=== PATIENT | male | born 1945 | race Caucasian/White ===

== ENCOUNTER 2018-01-02 21:50 | Inpatient (IN) | payer MEDICARE, BC ==
[~2018-01-02] VITALS: Ht 182.9 cm; Wt 96.4 kg
[~2018-01-02 21:50] MED LIST: ASPI-516 CHEW; ATOR40TA16 PO; FERR325T18 PO; FLOR250C PO; FURO40TA PO; GABA100C4 PO; ISOS30TA3 PO; LANTUS2P SQ; LEVO100T5 PO; METH8TAB3 PO; MULTTAB67 PO; NOVOLOGP2 SQ; SACU1TAB PO; SPIR50TA PO; XARE15TA PO
[2018-01-02 22:20] VITALS: BP 121/82; PULSE 133; RESP 20; TEMP 98; O2SAT 98
[2018-01-02] MEDS ORDERED: NALOXONE HCL 0.4 MG/ML AMP IV PUSH PRN (23:00)
[2018-01-02] MEDS ORDERED: SODIUM CHLORIDE 0.9% FLUSH 10 ML FLUSH IV FLUSH PRN (23:00)
[2018-01-02] MEDS ORDERED: GLUCAGON 1 MG/ML VIAL OTHER PRN (23:15)
[2018-01-02] MEDS ORDERED: DEXTROSE 50% IN WATER 50 ML VIAL(D50) IV PUSH PRN (23:15)
[2018-01-02 23:59] VITALS: PULSE 131
[2018-01-03] VITALS (26 sets, daily range): BP systolic 103–128; BP diastolic 70–80; PULSE 76–116; RESP 16–20; TEMP 97.6–98.8; O2SAT 93–100
[2018-01-03] MEDS: METOPROLOL TARTRATE 5 MG/5 ML VIAL IV PUSH PRN ×2 (00:18→01:37)
[2018-01-03 01:04] LABS: TROPONIN I 1.88 NG/ML (0.02-0.05)
[2018-01-03] MEDS ORDERED: HEPARIN-D5W 25,000 U/250 ML 250 ML IV PRN (01:15)
[2018-01-03] MEDS: FERROUS SULFATE 325 MG (65 MG ELEMENTAL IRON) TAB PO SCH ×3 (01:15→17:35)
--- NOTE | 2018-01-03 01:26 | HHI.HP ---
[facility] Unknown Admission Diagnosis Unstable Angina . Diagnoses: (1) NSTEMI (non-ST elevated myocardial infarction) (2) Unstable angina Chief Complaint: Chest pain with SOB Travel History International Travel<30 Days: No Contact w/Intl Traveler <30 Da: No Traveled to Known Affected Are: No History of Present Illness Mr. Heard is a 72-year-old male with a history of congestive heart failure with EF of 35%, coronary artery disease status post bypass and multiple stent placement, atrial fibrillation on anticoagulation, and chronic cellulitis of bilateral lower extremities who presented to the [place] emergency room complaining of left-sided chest pain accompanied by shortness of breath. The patient has a pacemaker and a LifeVest in place and had been discharged from [facility] [place] 3 [place] prior where he had reportedly been admitted 5 times since late August for multiple issues including exacerbations of congestive heart failure and chest pain. He requested transfer to [facility] in [facility] for a second opinion about his chronic heart conditions with frequent exacerbations. He was also noted to be in A. fib with RVR in [place]. The patient is seen in the [facility]. He reports left-sided chest pain accompanied by shortness of breath and palpitations occurred earlier in the day and intermittently ever since. He denies any associated nausea, vomiting, or diaphoresis. He reports this pain is similar to the other times he has been told he has had myocardial infarction. He denies any recent illness, fevers, upper respiratory symptoms, or chills. He is not a great historian. Review of Systems Except as stated in HPI: all other systems reviewed are Neg Past Family Social History Past Medical History Cardiomyopathy with EF less than 35% Congestive heart failure Coronary artery disease Hyperlipidemia Atrial fibrillation with rapid ventricular response Hypertension COPD Asthma Arthritis Diabetes mellitus . Past Surgical History CABG Pacemaker placement Hernia repair Reported Medications Reported Meds & Active Scripts Active Reported Spironolactone 50 Mg Tab 50 Mg PO DAILY Entresto (Sacubitril-Valsartan) 24-26 Mg Tab 1 Tab PO DAILY Florastor (Saccharomyces Boulardii) 250 Mg Cap 250 Mg PO BID Xarelto (Rivaroxaban) 15 Mg Tab 15 Mg PO DAILY Multiple Vitamin 1 Tab 1 Tab PO DAILY Methylprednisolone 8 Mg Tab 8 Mg PO DAILY Levothyroxine (Levothyroxine Sodium) 100 Mcg Tab 100 Mcg PO DAILY Isosorbide Mononitrate ER (Isosorbide Mononitrate) 30 Mg Yemi 30 Mg PO DAILY Lantus Inj (Insulin Glargine) 1,000 Unit/10 Ml Vial 12 Units SQ HS Novolog Inj (Insulin Aspart) 1,000 Unit/10 Ml Vial 0 SQ DIRECTED Sliding Scale as directed. Gabapentin 100 Mg Cap 200 Mg PO TID Furosemide 40 Mg Tab 40 Mg PO DAILY Ferrous Sulfate 325 Mg (65 Mg Iron) Tablet 325 Mg PO BIDPC Atorvastatin (Atorvastatin Calcium) 40 Mg Tab 40 Mg PO HS Aspirin 81 Mg Chew 81 Mg CHEW DAILY . Allergies: Coded Allergies: codeine (Verified Allergy, Unknown, 01/02/18) hydromorphone (Verified Allergy, Unknown, Hallucinations, 01/02/18) morphine (Verified Allergy, Unknown, Hallucinations, 01/02/18) Family History Mother from [place] at age 75 . Social History Tobacco: Quit smoking in 2001 Alcohol: Quit drinking alcohol in 2001 Illicit Drugs: Denies . Physical Exam Vital Signs Vital Signs Date Time Temp Pulse Resp B/P (MAP) Pulse Ox O2 Delivery O2 Flow Rate FiO2 01/03/18 00:23 98.2 102 20 123/78 (93) 94 01/02/18 22:20 98.0 133 20 121/82 (95) 98 Physical Exam CONSTITUTIONAL: This is a well-nourished, well-developed patient, in no apparent distress. INTEGUMENTARY: Bilateral lower extremities are covered in dressings from just below the knee to the ankle. Skin is cool and dry. Multiple bruises noted in various degrees of healing. HEAD: Atraumatic. Normocephalic. EYES: No injection or drainage. ENT: Nose without bleeding, purulent drainage. NECK: Trachea midline. No JVD. CARDIOVASCULAR:Irregularly irregular without murmurs, gallops, or rubs. PP dopplerable. Trace pitting edema to bilateral feet. RESPIRATORY: Clear to auscultation. Breath sounds equal bilaterally. No wheezes , rales, or rhonchi. GASTROINTESTINAL: Abdomen soft, non-tender, nondistended. No guarding. MUSCULOSKELETAL: Extremities without clubbing, cyanosis. No calf tenderness. NEUROLOGICAL: Awake and alert. Motor and sensory grossly within normal limits. Normal speech. Some memory impairment noted. . Laboratory Laboratory Tests Test 01/03/18 00:08 Imaging Last Impressions Chest X-Ray 01/02/18 1706 Signed Impressions: Service Date/Time: Tuesday, January 02, 2018 17:54 - CONCLUSION: Left basilar atelectasis. Otherwise, no acute cardiopulmonary process. Findings of prior CABG. Abel Drummond MD . Caprini VTE Risk Assessment Caprini VTE Risk Assessment: Mod/High Risk (score >= 2) Caprini Risk Assessment Model Point Value = 1 Point Value = 2 Point Value = 3 Point Value = 5 Age 41-60 Minor surgery BMI > 25 kg/m2 Swollen legs Varicose veins or History of unexplained or recurrent spontaneous Oral contraceptives or hormone replacement Sepsis (< 1 month) Serious lung disease, including pneumonia (< 1 month) Abnormal pulmonary function Acute myocardial infarction Congestive heart failure (< 1 month) History of inflammatory bowel disease Medical patient at bed rest Age 61-74 Arthroscopic surgery Major open surgery (> 45 min) Laparoscopic surgery (> 45 min) Malignancy Confined to bed (> 72 hours) Immobilizing plaster cast Central venous access Age >= 75 History of VTE Family history of VTE Factor V Leiden Prothrombin [id number] Lupus anticoagulant Anticardiolipin antibodies Elevated serum homocysteine Heparin-induced thrombocytopenia Other congenital or acquired thrombophilia Stroke (< 1 month) Elective arthroplasty Hip, pelvis, or leg fracture Acute spinal cord injury (< 1 month) Prophylaxis Regimen Total Risk Factor Score Risk Level Prophylaxis Regimen 0-1 Low Early ambulation 2 Moderate Order ONE of the following: *Sequential Compression Device (SCD) *Heparin 5000 units SQ BID 3-4 Higher Order ONE of the following medications: *Heparin 5000 units SQ TID *Enoxaparin/Lovenox 40 mg SQ daily (WT < 150 kg, CrCl > 30 mL/min) *Enoxaparin/Lovenox 30 mg SQ daily (WT < 150 kg, CrCl > 10-29 mL/min) *Enoxaparin/Lovenox 30 mg SQ BID (WT < 150 kg, CrCl > 30 mL/min) AND/OR *Sequential Compression Device (SCD) 5 or more Highest Order ONE of the following medications: *Heparin 5000 units SQ TID (Preferred with Epidurals) *Enoxaparin/Lovenox 40 mg SQ daily (WT < 150 kg, CrCl > 30 mL/min) *Enoxaparin/Lovenox 30 mg SQ daily (WT < 150 kg, CrCl > 10-29 mL/min) *Enoxaparin/Lovenox 30 mg SQ BID (WT < 150 kg, CrCl > 30 mL/min) AND *Sequential Compression Device (SCD) Assessment and Plan Assessment and Plan Mr. Heard is a 72-year-old male with a history of congestive heart failure with EF of 35%, coronary artery disease status post bypass and multiple stent placement, atrial fibrillation on anticoagulation, and chronic cellulitis of bilateral lower extremities who presented to the [place] emergency room complaining of left-sided chest pain accompanied by shortness of breath. The patient has a pacemaker and a LifeVest in place and had been discharged from [facility] in the [facility] 3 days prior where he had reportedly been admitted 5 times since late August for multiple issues including exacerbations of congestive heart failure and chest pain. He requested transfer to [facility] in [facility] for a second opinion about his chronic heart conditions with frequent exacerbations. He was also noted to be in A. fib with RVR in [place]. Unstable angina NSTEMI -On NTG drip upon transfer from [place] - will continue -BNP 576 -Chest x-ray with left basilar atelectasis, otherwise no acute cardiopulmonary process. -Initial troponin I 0.06, second troponin I 1.88 -continue to trend cardiac enzymes and EKGs personally reviewed - with a fib and nonspecific anterolateral ST depressions noted. -Heparin drip -Obtain medical records from [facility] in [place] -nursing to obtain consent from patient -Continue home entresto, Imdur, Lasix, and Spironolactone - consult Cardiology for second opinion at patient's request -Have asked the nurse to call the patient's to request that she bring in his defibrillator vest Atrial fibrillation with rapid ventricular response -Metoprolol 1.25 mg IV every 5 minutes up to 3 doses for sustained heart rate greater than 120 bpm -Continuous cardiac telemetry to monitor rate and rhythm Type 2 Diabetes Mellitus -Continue home Lantus - Accu-Cheks before meals and at bedtime with low-dose NovoLog sliding scale coverage - PRN Hypoglycemia protocol - Monitor trends and blood glucose readings and adjust treatments as indicated Hypothyroidism -Continue home Synthroid DVT prophylaxis -Heparin drip initiated . Discussed Condition With Dr. Molina, patient, and patient's RN . Physician Certification 2 Midnight Certification Type: Admission for Inpatient Services Order for Inpatient Services The services are ordered in accordance with Medicare regulations or non- Medicare payer requirements, as applicable. In the case of services not specified as inpatient-only, they are appropriately provided as inpatient services in accordance with the 2-midnight benchmark. Estimated LOS (days): 4 days is the estimated time the patient will need to remain in the hospital, assuming treatment plan goals are met and no additional complications. Post-Hospital Plan: Not yet determined Betsey Duran Jan 03, 2018 01:26
[2018-01-03] MEDS ORDERED: NITROGLYCERIN-D5W 50 MG/250 ML 250 ML IV PRN ×2 (01:30→01:45)
[2018-01-03] MEDS ORDERED: MELATONIN 5 MG TAB PO ONE (02:15)
[2018-01-03 02:21] LABS: HEMATOCRIT 24.8 % (39.0-51.0); HEMOGLOBIN 8.1 GM/DL (13.0-17.0); MEAN CELL VOLUME 83.3 FL (80.0-100.0); MEAN CORPUSCULAR HEMOGLOBIN 27.4 PG (27.0-34.0); MEAN CORPUSCULAR HGB CONC 32.9 % (32.0-36.0); MEAN PLATELET VOLUME 8.3 FL (7.0-11.0); PLATELET COUNT 117 TH/MM3 (150-450); RED BLOOD COUNT 2.98 MIL/MM3 (4.50-5.90); RED CELL DISTRIBUTION WIDTH 21.1 % (11.6-17.2); WHITE BLOOD COUNT 7.5 TH/MM3 (4.0-11.0)
[2018-01-03 02:30] LABS: INTERNATIONAL NORMALIZED RATIO 1.4 RATIO; PROTHROMBIN TIME - PATIENT 14.6 SEC (9.8-11.6)
[2018-01-03] MEDS: HEPARIN-D5W 25,000 U/250 ML 250 ML IV PRN ×2 (02:58→12:00)
[2018-01-03] MEDS: oxyCODONE/ACETAMINOPHEN 5 MG/325 MG TAB PO PRN ×2 (03:22→10:09)
[2018-01-03 06:07] LABS: AUTOMATED NEUTROPHIL # 5.5 TH/MM3 (1.8-7.7); BASOPHIL % 0.5 % (0.0-2.0); EOSINOPHIL # 0.2 TH/MM3 (0-0.4); EOSINOPHIL % 2.6 % (0.0-4.0); HEMOGLOBIN 7.9 GM/DL (13.0-17.0); LYMPH % 27.7 % (9.0-44.0); LYMPHOCYTE # 2.6 TH/MM3 (1.0-4.8); MEAN CELL VOLUME 82.8 FL (80.0-100.0); MEAN CORPUSCULAR HEMOGLOBIN 27.3 PG (27.0-34.0); MEAN PLATELET VOLUME 8.1 FL (7.0-11.0); MONO % 9.4 % (0.0-8.0); MONOCYTE # 0.9 TH/MM3 (0-0.9); NEUT % 59.8 % (16.0-70.0); PLATELET COUNT 122 TH/MM3 (150-450); RED CELL DISTRIBUTION WIDTH 21.5 % (11.6-17.2); WHITE BLOOD COUNT 9.3 TH/MM3 (4.0-11.0)
[2018-01-03 06:33] LABS: BICARBONATE 29.3 MEQ/L (21.0-32.0); CALCIUM 8.6 MG/DL (8.5-10.1); CREATININE 1.12 MG/DL (0.60-1.30)
[2018-01-03] MEDS: LEVOTHYROXINE SODIUM 100 MCG TAB PO SCH (06:33)
[2018-01-03] MEDS ORDERED: ISOSORBIDE MONONITRATE 30 MG CR TAB (IMDUR) PO SCH (07:00)
[2018-01-03] MEDS ORDERED: HEPARIN SODIUM - IV 10,000 UNITS/10 ML VIAL IV PUSH PRN ×2 (07:15)
[2018-01-03 07:28] LABS: TROPONIN I 3.62 NG/ML (0.02-0.05)
[2018-01-03] MEDS: INSULIN ASPART SUPPLEMENTAL SCALE SQ SCH ×4 (08:00→22:48)
[2018-01-03] MEDS: ASPIRIN 81 MG CHEW TAB CHEW SCH (09:00)
[2018-01-03] MEDS: FUROSEMIDE 40 MG TAB PO SCH (09:00)
[2018-01-03] MEDS: methylPREDNISolone 4 MG TAB PO SCH (09:00)
[2018-01-03] MEDS: GABAPENTIN 100 MG CAP PO SCH ×4 (09:00→16:36)
[2018-01-03] MEDS: SODIUM CHLORIDE 0.9% FLUSH 10 ML FLUSH IV FLUSH SCH ×2 (09:00→22:46)
[2018-01-03] MEDS: SACUBITRIL/VALSARTAN 24 MG-26 MG TAB PO SCH (09:00)
[2018-01-03] MEDS: SPIRONOLACTONE 50 MG TAB PO SCH (09:00)
--- NOTE | 2018-01-03 15:23 | EKG ---
Date Performed: 01/03/2018 Time Performed: 05:06:22 PTAGE: 72 years EKG: Atrial fibrillation Questionable demand pacing Pacemaker rhythm - no further analysis Abnor mal ECG PREVIOUS TRACING : 01/03/2018 01.55 Clinical correlation is recommended DOCTOR: Severo Crenshaw Interpretating Date/Time 01/03/2018 15:18:27
--- NOTE | 2018-01-03 15:23 | EKG ---
Date Performed: 01/03/2018 Time Performed: 01:55:56 PTAGE: 72 years EKG: Atrial fibrillation Questionable Demand pacing Cannot rule out septal infarct - age undeter mined Possible left ventricular hypertrophy Inferior/lateral ST-T changes may be due to hypertrophy a nd/or ischemia Abnormal ECG PREVIOUS TRACING 01/02/17 Clinical correlation is recommended DOCTOR: Severo Crenshaw Interpretating Date/Time 01/03/2018 15:18:11
[2018-01-03] MEDS ORDERED: PILL SPLITTER OTHER PRN (16:30)
--- NOTE | 2018-01-03 16:51 | MB ---
cc: Oliver Acevedo MD DATE: 01/03/2018 REASON FOR CONSULTATION: Chest pain, abnormal cardiac enzymes. HISTORY OF PRESENT ILLNESS: The patient is a 72-year-old white male with a history of numerous medical problems including coronary artery disease, atrial fibrillation, congestive heart failure, ischemic cardiomyopathy, diabetes, COPD, status post several admissions to [facility] in the last 5 months for chest pains and congestive heart failure, who came to the [facility] emergency room last night because of chest pain. The patient developed a "spasm" of his left upper chest associated with shortness of breath. The discomfort was intense for about 15 minutes, but finally gradually resolved. At times, he experiences racing, pounding palpitations. He denies dizziness, syncope, near syncope, paroxysmal nocturnal dyspnea, fevers, and cough. In the last few weeks, he has had considerable improvement in his chronic pedal edema. The patient reports compliance with his medications. For the most part, he is sedentary. PAST MEDICAL HISTORY: 1. Carotid disease, status post right carotid endarterectomy 02/2012. His last carotid ultrasound 08/23/2017 showed 30-49% bilateral internal carotid artery disease. 2. Chronic obstructive pulmonary disease. 3. Coronary artery disease status post bypass surgery in 2001, status post stent of the [place] LAD through the left internal mammary artery 2003. On a heart catheterization 01/06/2015, his vein graft to the posterior descending artery was found to be occluded. His last heart catheterization was 09/14/2017 at [facility] showing 50% mid to distal left main, totally occluded proximal LAD, totally occluded proximal right coronary, totally occluded obtuse marginal, patent left internal mammary artery to the LAD with patent [place] LAD stents, patent vein graft to the obtuse marginal, totally occluded vein graft to the posterior descending artery with good left to right collaterals. 4. Diabetes. 5. Hyperlipidemia. 6. Hypertension. 7. Hypothyroidism. 8. Ischemic cardiomyopathy with recent admissions for congestive heart failure. His ejection fraction was 30% by cardiac catheterization 09/14/2017. 9. History of a pacemaker implant. 10. Paroxysmal atrial fibrillation, dating back to 2010. His atrial fibrillation has been largely chronic since 06/2017. 11. History of peripheral vascular disease, status post angioplasty of the right posterior tibial 12/21/2012 and angioplasty of the left anterior tibial 01/11/2013, status post stent of the right superficial femoral artery 12/21/2012 and stent of the left superficial femoral artery 01/11/2013. CARDIAC MEDICATIONS AT HOME: 1. Spironolactone 50 mg daily, 2. Entresto / one daily. 3. Xarelto 15 mg daily. 4. Imdur 30 mg daily. 5. Furosemide 40 mg daily. 6. Atorvastatin 40 mg at bedtime. 7. Aspirin 81 mg daily. 8. Metoprolol 12.5 mg b.i.d. ALLERGIES: 1. CODEINE. 2. MORPHINE. 3. HYDROMORPHONE. FAMILY HISTORY: Noncontributory. SOCIAL HISTORY: The patient quit smoking in 2001. He denies alcohol abuse. REVIEW OF SYSTEMS: As in history of present illness, otherwise negative or noncontributory. He also denies headache, abdominal pain, melena, dyspepsia, recent flu, bright red blood per rectum. PHYSICAL EXAMINATION: VITAL SIGNS: Blood pressure 110/73 with a pulse of 96, respirations 16. GENERAL: He is a well-developed, well-nourished white male, in no acute distress. NECK: Jugular venous pressure is normal. Carotid pulses are 2+ bilaterally without definite bruit. CHEST: Reveals diminished breath sounds diffusely. CARDIAC: He has an irregularly irregular rhythm with a grade II/ systolic ejection murmur heard at the base. The S2 heart sound is normal. No gallop is audible. ABDOMEN: He has a soft, nontender abdomen. Bowel sounds are present. There is no definite hepatosplenomegaly. EXTREMITIES: Examination reveals no clubbing or cyanosis. There is trace pretibial edema bilaterally. DIAGNOSTIC STUDIES: EKG from 01/03/2018 at 1:55 a.m. shows atrial fibrillation, poor R-wave progression, inferior and lateral T-wave inversion, consider ischemia, occasional ventricular demand pacing. Laboratory data includes WBC 9.3, hemoglobin 7.9, platelets 122. Troponin 3.62. Potassium 3.9, BUN 27, creatinine 1.12. Chest x-ray from 01/02/2018 shows no acute disease. IMPRESSION: Abnormal troponin levels, atypical chest pain in this 72-year-old white male with a history of multiple medical problems including atrial fibrillation, peripheral vascular disease, chronic obstructive pulmonary disease, coronary artery disease, diabetes, ischemic cardiomyopathy, pacemaker implant. His symptoms last night were overall atypical for myocardial ischemia. CK levels are normal (49). The elevation in troponin may have been due to tachycardia with his atrial fibrillation. Overall, there is no definite evidence for acute congestive heart failure. Of note, he has had 2 cardiac catheterizations in the last 11 months showing basically no change in the coronary/graft anatomy compared to 2015, except for increasing left to right collaterals as well as reduction ejection fraction (30% 4 months ago). RECOMMENDATIONS: 1. Recommend beta hermila therapy and continuing Entresto. 2. Check a 2-D echo to reassess his left ventricular function; if his ejection fraction is still less than 35%, consider AICD implantation. 3. We will consult Dr. Crystal for possible ablation procedure of his atrial fibrillation. 4. Continue Xarelto. MD BRITTA Branch/NANCY , 03:55 PM , 04:49 PM KATJA
[2018-01-03] MEDS ORDERED: ZOLPIDEM TARTRATE 5 MG TAB PO PRN (17:15)
[2018-01-03] MEDS: NITROGLYCERIN/DEXTROSE 5% 250 ML for chest pain IV PRN (18:45)
--- NOTE | 2018-01-03 19:00 | MB ---
cc: Rose Crystal MD, Hanscy MD Miller,Jose Espinoza DO DATE: 01/03/2018 REASON FOR CONSULTATION: Atrial fibrillation with biventricular response. HISTORY OF PRESENT ILLNESS: Mr. Heard is a 72-year-old gentleman with ischemic cardiomyopathy, congestive heart failure, had previous hospitalization at [facility] in the last 6 months who came to the emergency room due to chest pain. during hospitalization, he was found in atrial fibrillation with fast ventricular response. Heart rate was very difficult to control. He possibly has tachycardia mediated cardiomyopathy. I was consulted for evaluation and management. The chart was reviewed. The patient was evaluated. ALLERGIES: CODEINE. MORPHINE, HYDROMORPHONE . SOCIAL HISTORY: The patient referred negative for smoking and drinking. FAMILY HISTORY: Noncontributory to his current medical condition. MEDICATIONS: Metoprolol, atorvastatin, Lasix, Imdur. Xarelto that was discontinued, Entresto and Aldactone. REVIEW OF SYSTEMS: Currently referred chest pain on minimal activities and shortness of breath and palpitation, but no fever. PHYSICAL EXAMINATION: GENERAL: Alert, fully oriented. VITAL SIGNS: His blood pressure 118/70, pulse around 104, irregular, respiratory rate 20. LUNGS: Ventilated. CARDIOVASCULAR: S1, S2, irregular, tachycardic. ABDOMEN: Obese. No mass. EXTREMITIES: No edema. CARDIOLOGY STUDIES: Electrocardiogram on hospitalization showed atrial fibrillation with biventricular response and V pacing episode. LABORATORY DATA: Hemoglobin is 7.9, white blood cell 9.3. Potassium 3.9, creatinine 1.12. Troponin 3.62. INR 1.4. ASSESSMENT AND RECOMMENDATION: Mr. Heard has unstable angina. He is having chest pain on and off. He has a history of previous percutaneous transluminal coronary angioplasty plus stent and previous left heart catheterization. He has previous coronary artery bypass grafting also. The last heart catheterization was on 09/14 at [facility]. He has multiple risk factors. Also he has diabetes mellitus. The ejection fraction on last hospitalization was 30%. He has also normal renal function, creatinine 1.12. The gentleman most likely is experiencing an ischemic episode. He is going to need to have a left heart catheterization. His troponin is 2.62 and is already on nitro. . Also, his hemoglobin is 7.9. That may worsen his. angina. he is on Xarelto. That was held yesterday. The gentleman will need a left heart catheterization. After the catheterization and possible revascularization, if the patient's heart rate continues to be very difficult to control then I will consider ablation. The case was extensively discussed with he and his . I will monitor him during hospitalization. I advised the nurse to call the front end developer javascript html css for further evaluation and management at this point. His condition is of care. Rose Crystal MD HS/SA , 06:28 PM , 06:58 PM
[2018-01-03] MEDS ORDERED: METOPROLOL TARTRATE 5 MG/5 ML VIAL IV PUSH ONE (19:30)
[2018-01-03] MEDS ORDERED: MEPERIDINE HCL 25 MG/ML VIAL IV ONE (19:30)
--- NOTE | 2018-01-03 21:20 | HHI.PR ---
Subjective Remarks Patient is glad to be seeing Dr. Acevedo again, he did not have a great experience after moving to [place]. He has had no episodes of chest pain this morning. Objective Vitals Vital Signs Date Time Temp Pulse Resp B/P (MAP) Pulse Ox O2 Delivery O2 Flow Rate FiO2 01/03/18 20:42 97 01/03/18 18:45 99 130/93 01/03/18 18:00 104 01/03/18 17:00 92 01/03/18 16:00 96 01/03/18 15:16 97.6 99 16 118/70 (86) 99 01/03/18 15:00 92 01/03/18 14:00 76 01/03/18 13:00 92 01/03/18 12:00 90 01/03/18 11:00 95 01/03/18 11:00 98.8 96 16 110/73 (85) 98 01/03/18 10:00 82 01/03/18 09:19 100 21 01/03/18 09:00 92 01/03/18 08:00 76 01/03/18 07:50 97.6 94 18 114/72 (86) 97 01/03/18 07:00 95 01/03/18 04:22 18 01/03/18 04:10 116 01/03/18 04:00 98.0 104 20 103/80 (88) 96 01/03/18 00:23 98.2 102 20 123/78 (93) 94 01/02/18 23:59 131 01/02/18 22:20 98.0 133 20 121/82 (95) 98 I/O 01/02/18 01/02/18 01/02/18 01/03/18 01/03/18 01/03/18 06:59 14:59 22:59 06:59 14:59 22:59 Intake Total 240 ml Output Total 1100 ml 800 ml Balance -1100 ml -560 ml Intake Oral 240 ml Output Urine Total 1100 ml 800 ml Result Diagram: 01/03/18 0545 01/03/18 0545 Objective Remarks GENERAL: Well-nourished, obese patient. SKIN: Warm and dry. HEAD: Normocephalic. EYES: No scleral icterus. No injection or drainage. NECK: Supple, trachea midline. No JVD or lymphadenopathy. CARDIOVASCULAR: Regular rate and rhythm 1/6 OLI, gallops, or rubs. RESPIRATORY: Breath sounds equal bilaterally. No accessory muscle use. GASTROINTESTINAL: Abdomen soft, non-tender, nondistended. EXTREMITIES: No cyanosis, or edema. NEUROLOGICAL: Awake, alert, and oriented x 3. Non-focal. A/P Problem List: (1) NSTEMI (non-ST elevated myocardial infarction) ICD Code: I21.4 - Non-ST elevation (NSTEMI) myocardial infarction (2) Unstable angina ICD Code: I20.0 - Unstable angina Assessment and Plan Atrial fibrillation with rapid ventricular response Continue Metoprolol IV for rate control Last ECHO in [place] showed EF = 30% blood bank laboratory technician requested prior to ablation Follow on telemetry, continue Xarelto Appreciate Cardiology and Electocardiology Consults Unstable angina Elevation of Troponin to 1.88, EKG positive, BNP 576 Continue Nitrogen drip Continue home entresto, Imdur, Lasix, and Spironolactone Patient presented with his external defibrillator Type 2 Diabetes Mellitus Continue home Lantus Accuchecks with sliding scale coverage Diabetic diet Insomnia Ambien PRN Hypothyroidism Continue home Synthroid DVT prophylaxis Xarelto . Garrett Fry MD Jan 03, 2018 21:20
[2018-01-03] MEDS: ATORVASTATIN 40 MG TAB PO SCH (22:47)
[2018-01-03] MEDS: METOPROLOL TARTRATE 25 MG TAB PO SCH (22:47)
[2018-01-03] MEDS: INSULIN DETEMIR 100 UNITS/ML VIAL SQ SCH (22:48)
[2018-01-04] VITALS (34 sets, daily range): BP systolic 100–123; BP diastolic 57–74; PULSE 86–133; RESP 18–20; TEMP 97.6–98.3; O2SAT 94–100
[2018-01-04] MEDS: NITROGLYCERIN/DEXTROSE 5% 250 ML for chest pain IV PRN ×3 (00:01→21:37)
[2018-01-04] MEDS: ACETAMINOPHEN 325 MG TAB PO PRN (05:13)
[2018-01-04] MEDS: METOPROLOL TARTRATE 5 MG/5 ML VIAL IV PUSH PRN ×2 (05:17→15:45)
[2018-01-04] MEDS: LEVOTHYROXINE SODIUM 100 MCG TAB PO SCH (06:32)
[2018-01-04] MEDS: ISOSORBIDE MONONITRATE 60 MG CR TAB (IMDUR) PO SCH (06:32)
[2018-01-04] MEDS: INSULIN ASPART SUPPLEMENTAL SCALE SQ SCH ×4 (08:00→21:32)
--- NOTE | 2018-01-04 08:34 | PD.CARD.PN ---
Subjective Subjective Remarks Mildly dyspneic at rest. No CP today. Slept very poorly. Mildly lightheaded. No palpitations, syncope. Objective Medications Item Value Date Time Rivaroxaban 15 mg 01/04/18 0900 (Xarelto) DAILY/PO Isosorbide 60 mg 01/04/18 0700 Mononitrate DAILY@0700/PO 01/04/18 0632 (Imdur) Atorvastatin 40 mg 01/03/18 2100 Calcium HS/PO 01/03/182246 (Lipitor) Metoprolol 12.5 mg 01/03/18 2100 Tartrate Q12HR/PO 01/03/182246 (Lopressor) Aspirin 81 mg 01/03/18899 (Aspirin Chew) DAILY/CHEW Furosemide 40 mg 01/03/18 0900 (Lasix) DAILY/PO Sacubitril/ 1 tab 01/03/18 09 Valsartan DAILY/PO (Entresto 24-26 Mg) Spironolactone 50 mg 01/03/18 0900 (Aldactone) DAILY/PO Current Medications Medications (Trade) Dose Ordered Sig/Edna Route Start Time Stop Time Status Last Admin (NS Flush) 2 ml UNSCH PRN IV FLUSH 01/02/18 23:00 (NS Flush) 2 ml BID IV FLUSH 01/03/18 09:00 (Tylenol) 650 mg Q4H PRN PO 01/02/18 23:00 01/04/18 05:13 (Narcan Inj) 0.4 mg UNSCH PRN IV PUSH 01/02/18 23:00 (Lopressor Inj) 1.25 mg Q5M PRN IV PUSH 01/02/18 23:00 01/04/18 05:17 (Percocet 5-325 Mg) 1 tab Q4H PRN PO 01/02/18 23:00 01/03/18 10:09 (D50w (Vial) Inj) 50 ml UNSCH PRN IV PUSH 01/02/18 23:15 (Glucagon Inj) 1 mg UNSCH PRN OTHER 01/02/18 23:15 (NovoLOG SUPPLEMENTAL SCALE) 1 ACHS SLIDING SCALE SQ 01/03/18 08:00 01/03/18 22:48 (Aspirin Chew) 81 mg DAILY CHEW 01/03/18 09:00 (Lipitor) 40 mg HS PO 01/03/18 21:00 01/03/18 22:47 (Ferrous Sulfate) 325 mg BIDPC PO 01/03/18 01:15 01/03/18 17:35 (Lasix) 40 mg DAILY PO 01/03/18 09:00 (Neurontin) 200 mg TID PO 01/03/18 09:00 01/03/18 16:36 (Levemir Inj) 12 units HS SQ 01/03/18 21:00 01/03/18 22:48 (Synthroid) 100 mcg DAILY@0700 PO 01/03/18 07:00 01/04/18 06:32 (Entresto 24-26 Mg) 1 tab DAILY PO 01/03/18 09:00 (Aldactone) 50 mg DAILY PO 01/03/18 09:00 (Medrol) 8 mg DAILY PO 01/03/18 09:00 (Imdur) 60 mg DAILY@0700 PO 01/04/18 07:00 01/04/18 06:32 (Lopressor) 12.5 mg Q12HR PO 01/03/18 21:00 01/03/18 22:47 (Xarelto) 15 mg DAILY PO 01/04/18 09:00 (Pill Splitter) 1 ea UNSCH PRN OTHER 01/03/18 16:30 (Ambien) 5 mg HS PRN PO 01/03/18 17:15 01/03/18 22:52 Nitroglycerin/ Dextrose 250 ml @ 21 mls/hr TITRATE PRN IV 01/03/18 20:15 01/04/18 00:01 Vital Signs / I&O Vital Signs Date Time Temp Pulse Resp B/P (MAP) Pulse Ox O2 Delivery O2 Flow Rate FiO2 01/04/18 06:45 95 01/04/18 06:33 19 01/04/18 05:19 98 01/04/18 05:15 133 01/04/18 03:02 97.6 98 20 108/71 (83) 97 01/04/18 03:00 98 01/04/18 02:00 96 01/04/18 01:00 94 01/04/18 00:27 18 01/04/18 00:01 94 128/75 01/04/18 00:00 86 01/03/18 23:00 96 01/03/18 23:00 97.8 108 18 128/75 (92) 100 01/03/18 22:00 104 18 21:30 97.8 107 19 125/75 (92) 98 01/03/18 21:00 84 18 20:42 97 18 20:00 90 01/03/18 19:00 86 18 18:45 99 130/93 01/03/18 18:00 104 01/03/18 17:00 92 01/03/18 16:00 96 01/03/18 15:16 97.6 99 16 118/70 (86) 99 01/03/18 15:00 92 01/03/18 14:00 76 01/03/18 13:00 92 01/03/18 12:00 90 01/03/18 11:00 95 01/03/18 11:00 98.8 96 16 110/73 (85) 98 01/03/18 10:00 82 01/03/18 09:19 100 21 01/03/18 09:00 92 I/O 01/03/1818 18 18 01/04/18 01/04/18 07:00 15:00 23:00 07:00 15:00 23:00 Intake Total 240 ml 360 ml Output Total 1100 ml 800 ml 300 ml Balance -1100 ml -560 ml 60 ml Intake Oral 240 ml 360 ml Output Urine Total 1100 ml 800 ml 300 ml # Voids 2 Physical Exam GENERAL: Well developed, well nourished. No acute distress. HEENT: Jugular venous pressure is normal. CHEST: Diminished breath sounds diffusely. CARDIAC: Irregular rate and rhythm without S3 or murmur. ABDOMEN: Soft, nontender, no hepatosplenomegaly. Bowel sounds present. EXTREMITIES: No clubbing, cyanosis. Trace left > right pretibial edema. Laboratory Laboratory Tests Test 01/03/18 08:50 01/03/18 22:39 Activated Partial Thromboplast Time 31.3 SEC 35.1 SEC Assessment and Plan Problem List: (1) CAD (coronary artery disease) ICD Codes: I25.10 - Atherosclerotic heart disease of [place] coronary artery without angina pectoris Status: Chronic Plan: Stable overnight. Brief atypical CP yesterday afternoon, none since. Patient with 2 caths in past 11 months showing no change in coronary/graft anatomy, last cath 4 months ago. Known totally occluded RCA with occluded graft with patent grafts to OM and LAD. REC medical therapy of his CAD (2) Chronic atrial fibrillation ICD Codes: I48.2 - Chronic atrial fibrillation Status: Chronic Plan: Remains in atrial fib. HR's mostly controlled. In light of his repeat CHF episodes, history of LV dysfunction, considering ablation. Dr. Crystal to manage. (3) Ischemic cardiomyopathy ICD Codes: I25.5 - Ischemic cardiomyopathy Status: Chronic Plan: Stable. Compensated. No acute CHF. Continue beta hermila, Entresto. Await echo this morning. Consider ICD implant if EF still < 35%. (4) Hypertension ICD Codes: I10 - Essential (primary) hypertension Status: Chronic Plan: Stable. Normotensive. Code Status full code Discussed Condition With patient Problem Qualifiers (1) CAD (coronary artery disease): Qualified Codes: I25.10 - Atherosclerotic heart disease of [place] coronary artery without angina pectoris (2) Hypertension: Qualified Codes: I10 - Essential (primary) hypertension Oliver Acevedo MD Jan 04, 2018 08:34
[2018-01-04] MEDS ORDERED: RIVAROXABAN 15 MG TAB PO SCH (09:00)
[2018-01-04] MEDS: ASPIRIN 81 MG CHEW TAB CHEW SCH (09:35)
[2018-01-04] MEDS: FERROUS SULFATE 325 MG (65 MG ELEMENTAL IRON) TAB PO SCH ×2 (09:35→17:19)
[2018-01-04] MEDS: SACUBITRIL/VALSARTAN 24 MG-26 MG TAB PO SCH (09:35)
[2018-01-04] MEDS: SPIRONOLACTONE 50 MG TAB PO SCH (09:35)
[2018-01-04] MEDS: GABAPENTIN 100 MG CAP PO SCH ×3 (09:35→17:19)
[2018-01-04] MEDS: methylPREDNISolone 4 MG TAB PO SCH (09:35)
[2018-01-04] MEDS: FUROSEMIDE 40 MG TAB PO SCH (09:36)
[2018-01-04] MEDS: SODIUM CHLORIDE 0.9% FLUSH 10 ML FLUSH IV FLUSH SCH ×2 (09:36→21:32)
[2018-01-04] MEDS: METOPROLOL TARTRATE 25 MG TAB PO SCH ×2 (09:38→21:31)
--- NOTE | 2018-01-04 11:03 | PD.WCN.NOT ---
Wound Consult Description: Consult placed for Wound Management of bilateral lower extremities with chronic wounds per ANA PAULA Duran Communicated with: Patient Patient family at bedside LC Hou Recommendation: Leave steri strip in place over skin tear to left du. Remove optilock dressings on left leg every other day and PRN for saturation or dislodgement. Cleanse medial left lower extremity with NS and pat dry. Apply optilock and secure with rolled gauze and tape. Do not place tape on skin. Right great toe: Cleanse wound every other day with NS and gauze. Apply single layer Xeroform over wound bed and secure with bandaid. Additional Information: *Late entry* Patient seen earlier this morning from [id number] on [facility] with Saiv PLATT, [facility], and the [employer], for evaluation of bilateral lower extremities. Left anterior unroofed bulla was cleansed with flap placed over open wound to close. Steri strip placed. Optilock placed over weeping skin tear due to surrounding pitting edema. Patient has hx of CHF. Optilock was secured with rolled gauze and tape. Left medial open wound measuring ~1cm x 0.5cm x 0.1cm was minimally actively draining clear fluid. Wound was cleansed with NS and gauze. Optilock was placed over wound and secured with rolled gauze and tape. Right great toe is noted with a dry wound measuring ~0.5cm x 1cm x dried yellow exudate with surrounding erythema. Wound was aggressively cleansed with NS and gauze. Dried exudate was not friable. Single layer xeroform was placed over dry wound bed and secured with gauze and tape. With next dressing change, a bandaid may be used. Felicity Valentine [facility] Jan 04, 2018 11:03
[2018-01-04] MEDS: oxyCODONE/ACETAMINOPHEN 5 MG/325 MG TAB PO PRN (16:41)
--- NOTE | 2018-01-04 18:06 | HHI.PR ---
Subjective Remarks Patient is feeling a bit confused today. Onset of symptoms began when he took Ambien at bedtime. This was a new medication for him. Objective Vitals Vital Signs Date Time Temp Pulse Resp B/P (MAP) Pulse Ox O2 Delivery O2 Flow Rate FiO2 01/04/18 17:51 18 01/04/18 16:00 94 01/04/18 15:49 107 117/68 (84) 01/04/18 15:46 133 121/68 (85) 01/04/18 15:16 132 01/04/18 15:00 116 01/04/18 14:02 95 01/04/18 13:00 88 01/04/18 12:00 94 01/04/18 11:44 97.7 118 18 100/60 (73) 94 01/04/18 11:00 96 01/04/18 10:15 98 Nasal Cannula 2.00 01/04/18 10:00 106 01/04/18 09:00 116 01/04/18 08:21 98.2 118 20 104/74 (84) 97 01/04/18 08:00 96 01/04/18 07:00 125 01/04/18 06:45 95 01/04/18 06:33 19 01/04/18 05:19 98 01/04/18 05:15 133 01/04/18 03:02 97.6 98 20 108/71 (83) 97 01/04/18 03:00 98 01/04/18 02:00 96 01/04/18 01:00 94 01/04/18 00:27 18 01/04/18 00:01 94 128/75 01/04/18 00:00 86 01/03/18 23:00 96 01/03/18 23:00 97.8 108 18 128/75 (92) 100 01/03/18 22:00 104 01/03/18 21:30 97.8 107 19 125/75 (92) 98 01/03/18 21:00 84 01/03/18 20:42 97 01/03/18 20:00 90 01/03/18 19:00 86 01/03/18 18:45 99 130/93 I/O 4/17/18 4/17/18 4/17/18 4/18/18 4/18/18 4/18/18 07:00 15:00 23:00 07:00 15:00 23:00 Intake Total 240 ml 360 ml Output Total 1100 ml 800 ml 300 ml Balance -1100 ml -560 ml 60 ml Intake Oral 240 ml 360 ml Output Urine Total 1100 ml 800 ml 300 ml # Voids 2 Result Diagram: 01/03/18 0545 01/03/18 0545 Objective Remarks GENERAL: Well-nourished, obese patient. Mildly confused affect SKIN: Warm and dry. HEAD: Normocephalic. EYES: No scleral icterus. No injection or drainage. NECK: Supple, trachea midline. No JVD or lymphadenopathy. CARDIOVASCULAR: Regular rate and rhythm 1/6 OLI, gallops, or rubs. RESPIRATORY: Breath sounds equal bilaterally. No accessory muscle use. GASTROINTESTINAL: Abdomen soft, non-tender, nondistended. EXTREMITIES: No cyanosis, or edema. NEUROLOGICAL: Awake, alert, and oriented x 3. Non-focal. A/P Problem List: (1) NSTEMI (non-ST elevated myocardial infarction) ICD Code: I21.4 - Non-ST elevation (NSTEMI) myocardial infarction (2) Unstable angina ICD Code: I20.0 - Unstable angina Assessment and Plan Atrial fibrillation with rapid ventricular response Continue Metoprolol IV for rate control Last ECHO in [place] showed EF = 30% Follow on telemetry, continue Xarelto Appreciate Cardiology and Electocardiology Consults Unstable angina Elevation of Troponin to 1.88, EKG positive, BNP 576 Patient has known RCA occlusion, 2 previous heart cath in the near past Continue home entresto, Imdur, Lasix, and Spironolactone Patient presented with his external defibrillator Medical management recommended at this time Appreciate cardiology consult Ambien reaction Patient became confused after taking Ambien. It did not help with his sleep. Ambien stopped. Type 2 Diabetes Mellitus Continue home Lantus Accuchecks with sliding scale coverage Diabetic diet Insomnia Ambien PRN Hypothyroidism Continue home Synthroid DVT prophylaxis Xarelto . Garrett Fry MD Jan 04, 2018 18:06
--- NOTE | 2018-01-04 18:25 | ECHRPT ---
Indication: CARDIOMYOPATHY CONCLUSIONS Normal left ventricular size. Wall thickness is normal. The left ventricular systolic function is severely reduced with an estimated ejection fraction of 20 %. Mitral annular calcification is present. Mild mitral valve regurgitation. Aortic valve sclerosis is present. There is mild tricuspid valve regurgitation. The estimated pulmonary arterial pressure is 53 mmHg. BP: / HR: Rhythm: MEASUREMENTS (Male / Female) Normal Values Technical Quality: 2D ECHO LV Diastolic Diameter PLAX 4.8 cm 4.2 - 5.9 / 3.9 - 5.3 cm LV Systolic Diameter PLAX 4.6 cm IVS Diastolic Thickness 1.2 cm 0.6 - 1.0 / 0.6 - 0.9 cm LVPW Diastolic Thickness 0.9 cm 0.6 - 1.0 / 0.6 - 0.9 cm LV Relative Wall Thickness 0.4 M-MODE AV Cusp Separation MM 2.0 cm DOPPLER Mitral E Point Velocity 133.0 cm/s TR Peak Velocity 347.0 cm/s TR Peak Gradient 48.2 mmHg Right Atrial Pressure 5.0 mmHg Pulmonary Artery Systolic Pressu 53.2 mmHg Right Ventricular Systolic Press 53.2 mmHg FINDINGS LEFT VENTRICLE Normal left ventricular size. Wall thickness is normal. The left ventricular systolic function is severely reduced with an estimated ejection fraction of 20 %. RIGHT VENTRICLE Normal right ventricular size and systolic function. LEFT ATRIUM The left atrial size is normal. RIGHT ATRIUM The right atrial size is normal. ATRIAL SEPTUM Normal atrial septal thickness without atrial level shunting by limited color doppler interrogation. AORTA The aortic root and proximal ascending aorta are normal in size on limited imaging. MITRAL VALVE Mitral annular calcification is present. Mild mitral valve regurgitation. AORTIC VALVE Aortic valve sclerosis is present. TRICUSPID VALVE There is mild tricuspid valve regurgitation. The estimated pulmonary arterial pressure is 53 mmHg. PULMONARY VALVE Trivial pulmonary valve regurgitation. VESSELS The inferior vena cava is normal in size. PERICARDIUM A small left sided pleural effusion is noted. Briana Marti MD, FACC (Electronically Signed) Final Date:04 January 2018 18:24
[2018-01-04] MEDS ORDERED: RESP: ALBUTEROL 2.5 MG/IPRATROPIUM 0.5 MG NEB (PRN) NEB (21:00)
[2018-01-04] MEDS: ATORVASTATIN 40 MG TAB PO SCH (21:30)
[2018-01-04] MEDS: INSULIN DETEMIR 100 UNITS/ML VIAL SQ SCH (21:31)
--- NOTE | 2018-01-04 22:46 | EKG ---
Date Performed: 01/03/2018 Time Performed: 18:40:38 PTAGE: 72 years EKG: Atrial flutter with rapid ventricular response with 2:1 A-V block. Left ventricular hypertr ophy Extensive ST-T changes are probably due to ventricular hypertrophy Abnormal ECG Compared to PREVIOUS TRACING , rate faster DOCTOR: Briana Marti Interpretating Date/Time 01/04/2018 22:45:58
[2018-01-05] VITALS (31 sets, daily range): BP systolic 105–116; BP diastolic 62–79; PULSE 80–106; RESP 18–20; TEMP 97.8–98.1; O2SAT 95–100
[2018-01-05] MEDS: ISOSORBIDE MONONITRATE 60 MG CR TAB (IMDUR) PO SCH (06:31)
[2018-01-05] MEDS: LEVOTHYROXINE SODIUM 100 MCG TAB PO SCH (06:31)
[2018-01-05] MEDS ORDERED: POVIDONE IODINE 5% (ANTISEPSIS KIT) 4 APPLICATIONS TOPICAL SCH (08:00)
[2018-01-05] MEDS: INSULIN ASPART SUPPLEMENTAL SCALE SQ SCH ×4 (08:00→21:18)
[2018-01-05] MEDS ORDERED: CHLORHEXIDINE GLUCONATE 2 % 1 PACK (2 CLOTHS) TOPICAL SCH (08:00)
[2018-01-05] MEDS ORDERED: MUPIROCIN 2% OINT 1 APPLIC/GM SYR EACH NARE SCH (08:00)
--- NOTE | 2018-01-05 08:00 | PD.CARD.PN ---
Subjective Subjective Remarks No chest pain, dyspnea, PND, dizziness, palpitations, syncope. Objective Medications Item Value Date Time Isosorbide 60 mg 01/04/18 0700 Mononitrate DAILY@0700/PO 01/05/18 0631 (Imdur) Atorvastatin 40 mg 01/03/18 2100 Calcium HS/PO 01/04/182129 (Lipitor) Metoprolol 12.5 mg 01/03/18 2100 Tartrate Q12HR/PO 01/04/182130 (Lopressor) Aspirin 81 mg 01/03/18 0900 (Aspirin Chew) DAILY/CHEW 01/04/18934 Furosemide 40 mg 01/03/1800 (Lasix) DAILY/PO 01/04/18 0936 Sacubitril/ 1 tab 01/03/18899 Valsartan DAILY/PO 01/04/18934 (Entresto 24-26 Mg) Spironolactone 50 mg 01/03/18 0900 (Aldactone) DAILY/PO 01/04/18 09 Current Medications Medications (Trade) Dose Ordered Sig/Edna Route Start Time Stop Time Status Last Admin (NS Flush) 2 ml UNSCH PRN IV FLUSH 01/02/18 23:00 (NS Flush) 2 ml BID IV FLUSH 01/03/18 09:00 01/04/18 21:32 (Tylenol) 650 mg Q4H PRN PO 01/02/18 23:00 01/04/18 05:13 (Narcan Inj) 0.4 mg UNSCH PRN IV PUSH 01/02/18 23:00 (Lopressor Inj) 1.25 mg Q5M PRN IV PUSH 01/02/18 23:00 01/04/18 15:45 (Percocet 5-325 Mg) 1 tab Q4H PRN PO 01/02/18 23:00 01/04/18 16:41 (D50w (Vial) Inj) 50 ml UNSCH PRN IV PUSH 01/02/18 23:15 (Glucagon Inj) 1 mg UNSCH PRN OTHER 01/02/18 23:15 (NovoLOG SUPPLEMENTAL SCALE) 1 ACHS SLIDING SCALE SQ 01/03/18 08:00 01/04/18 21:32 (Aspirin Chew) 81 mg DAILY CHEW 01/03/18 09:00 01/04/18 09:35 (Lipitor) 40 mg HS PO 01/03/18 21:00 01/04/18 21:30 (Ferrous Sulfate) 325 mg BIDPC PO 01/03/18 01:15 01/04/18 17:19 (Lasix) 40 mg DAILY PO 01/03/18 09:00 01/04/18 09:36 (Neurontin) 200 mg TID PO 01/03/18 09:00 01/04/18 17:19 (Levemir Inj) 12 units HS SQ 01/03/18 21:00 01/04/18 21:31 (Synthroid) 100 mcg DAILY@0700 PO 01/03/18 07:00 01/05/18 06:31 (Entresto 24-26 Mg) 1 tab DAILY PO 01/03/18 09:00 01/04/18 09:35 (Aldactone) 50 mg DAILY PO 01/03/18 09:00 01/04/18 09:35 (Medrol) 8 mg DAILY PO 01/03/18 09:00 01/04/18 09:35 (Imdur) 60 mg DAILY@0700 PO 01/04/18 07:00 01/05/18 06:31 (Lopressor) 12.5 mg Q12HR PO 01/03/18 21:00 01/04/18 21:31 (Xarelto) 15 mg DAILY PO 01/04/18 09:00 Future Hold 01/04/18 09:38 (Pill Splitter) 1 ea UNSCH PRN OTHER 01/03/18 16:30 Nitroglycerin/ Dextrose 250 ml @ 21 mls/hr TITRATE PRN IV 01/03/18 20:15 01/04/18 21:37 (Duoneb Neb) 1 ampule Q4HR NEB PRN NEB 01/04/18 21:00 Vital Signs / I&O Vital Signs Date Time Temp Pulse Resp B/P (MAP) Pulse Ox O2 Delivery O2 Flow Rate FiO2 01/05/18 06:33 89 125/75 01/05/18 06:07 95 01/05/18 05:17 87 123/63 01/05/18 05:13 87 01/05/18 04:23 87 01/05/18 04:05 89 118/55 01/05/18 03:12 98.1 88 20 115/62 (79) 99 4/19/18 03:09 88 115/62 419/18 03:00 87 4/19/18 02:28 88 419/18 01:00 89 419/18 00:13 86 4/18/18 23:28 94 113/68 4/18/18 23:24 98.0 89 20 123/72 (89) 100 418/18 23:15 89 123/72 418/18 23:00 87 418/18 22:11 18 4/18/18 22:00 86 418/18 21:37 95 114/69 4/18/18 21:35 95 114/69 4/18/18 21:00 86 4/18/18 20:00 94 418/18 19:47 97 Nasal Cannula 2.00 18/18 19:38 100 121/67 4/18/18 19:27 98.3 99 19 104/57 (73) 97 18/18 19:20 98 104/57 18/18 19:00 90 18/18 18:52 96 18/18 18:16 104 18/18 17:51 18 18/18 17:00 102 18/18 16:00 94 18/18 15:49 107 117/68 (84) 18/18 15:46 133 121/68 (85) 18/18 15:16 132 4/18/18 15:00 116 18/18 14:02 95 18/18 13:00 88 18/18 12:00 94 18/18 11:44 97.7 118 18 100/60 (73) 94 18/18 11:00 96 18/18 10:30 113 100/60 418/18 10:15 98 Nasal Cannula 2.00 418/18 10:00 106 418/18 09:00 116 418/18 08:21 98.2 118 20 104/74 (84) 97 18/18 08:00 96 I/O 4/18/18 4/18/18 4/18/18 4/19/18 4/19/18 4/19/18 07:00 15:00 23:00 07:00 15:00 23:00 Intake Total 360 ml 1210 ml 240 ml Output Total 300 ml 450 ml Balance 60 ml 1210 ml -210 ml Intake Oral 360 ml 960 ml 240 ml IV Total 250 ml Output Urine Total 300 ml 450 ml # Voids 2 3 1 # Bowel Movements 1 Physical Exam GENERAL: Well developed, well nourished. No acute distress. HEENT: Jugular venous pressure is normal. CHEST: Diminished breath sounds diffusely. CARDIAC: Irregular rate and rhythm without S3 or murmur. ABDOMEN: Soft, nontender, no hepatosplenomegaly. Bowel sounds present. EXTREMITIES: No clubbing, cyanosis. Trace pretibial edema. Assessment and Plan Problem List: (1) Ischemic cardiomyopathy ICD Codes: I25.5 - Ischemic cardiomyopathy Status: Chronic Plan: Stable. Compensated. No acute CHF. EF now lower compared to 4 months ago, now 20% Continue beta hermila, Entresto. Discussed ICD implant, nature of procedure, risks/benefits. He agrees to proceed. REC ICD implant tomorrow 729 (2) CAD (coronary artery disease) ICD Codes: I25.10 - Atherosclerotic heart disease of [place] coronary artery without angina pectoris Status: Chronic Plan: Stable overnight. No further atypical CP. Patient with 2 caths in past 11 months showing no change in coronary/graft anatomy, last cath 4 months ago. Known totally occluded RCA with occluded graft with patent grafts to OM and LAD. REC medical therapy of his CAD; continue beta hermila, oral nitrate, aspirin (3) Chronic atrial fibrillation ICD Codes: I48.2 - Chronic atrial fibrillation Status: Chronic Plan: Appears to be in more of an atrial flutter. HR's mostly controlled. In light of his repeat CHF episodes, history of LV dysfunction, considering ablation. Dr. Crystal to manage. (4) Hypertension ICD Codes: I10 - Essential (primary) hypertension Status: Chronic Plan: Stable. Normotensive. Code Status full code Discussed Condition With patient and Problem Qualifiers (1) CAD (coronary artery disease): Qualified Codes: I25.10 - Atherosclerotic heart disease of [place] coronary artery without angina pectoris (2) Hypertension: Qualified Codes: I10 - Essential (primary) hypertension Oliver Acevedo MD Jan 05, 2018 08:00
[2018-01-05] MEDS: methylPREDNISolone 4 MG TAB PO SCH (10:00)
[2018-01-05] MEDS: ASPIRIN 81 MG CHEW TAB CHEW SCH (10:00)
[2018-01-05] MEDS: SPIRONOLACTONE 50 MG TAB PO SCH (10:01)
[2018-01-05] MEDS: ACETAMINOPHEN 325 MG TAB PO PRN (10:02)
[2018-01-05] MEDS: FUROSEMIDE 40 MG TAB PO SCH (10:02)
[2018-01-05] MEDS: FERROUS SULFATE 325 MG (65 MG ELEMENTAL IRON) TAB PO SCH ×2 (10:03→17:04)
[2018-01-05] MEDS: SACUBITRIL/VALSARTAN 24 MG-26 MG TAB PO SCH (10:03)
[2018-01-05] MEDS: GABAPENTIN 100 MG CAP PO SCH ×3 (10:03→17:04)
[2018-01-05] MEDS: METOPROLOL TARTRATE 25 MG TAB PO SCH ×2 (10:04→21:15)
[2018-01-05] MEDS: SODIUM CHLORIDE 0.9% FLUSH 10 ML FLUSH IV FLUSH SCH ×2 (10:05→21:00)
--- NOTE | 2018-01-05 18:35 | HHI.PR ---
Subjective Remarks Patient is no longer confused from effects of Ambien. He understands he will be receiving an ICD placement tomorrow. Objective Vitals Vital Signs Date Time Temp Pulse Resp B/P (MAP) Pulse Ox O2 Delivery O2 Flow Rate FiO2 01/05/18 15:30 97.8 92 20 114/79 (91) 96 01/05/18 11:50 98.0 88 19 113/65 (81) 100 01/05/18 11:35 18 01/05/18 10:12 96 21 01/05/18 08:10 98.1 106 20 105/68 (80) 100 01/05/18 06:33 89 125/75 01/05/18 06:07 95 01/05/18 05:17 87 123/63 01/05/18 05:13 87 01/05/18 04:23 87 01/05/18 04:05 89 118/55 01/05/18 03:12 98.1 88 20 115/62 (79) 99 01/05/18 03:09 88 115/62 01/05/18 03:00 87 01/05/18 02:28 88 01/05/18 01:00 89 01/05/18 00:13 86 01/04/18 23:28 94 113/68 01/04/18 23:24 98.0 89 20 123/72 (89) 100 01/04/18 23:15 89 123/72 01/04/18 23:00 87 01/04/18 22:11 18 01/04/18 22:00 86 01/04/18 21:37 95 114/69 01/04/18 21:35 95 114/69 01/04/18 21:00 86 01/04/18 20:00 94 01/04/18 19:47 97 Nasal Cannula 2.00 01/04/18 19:38 100 121/67 01/04/18 19:27 98.3 99 19 104/57 (73) 97 01/04/18 19:20 98 104/57 01/04/18 19:00 90 01/04/18 18:52 96 I/O 01/04/18 01/04/18 01/04/18 01/05/18 01/05/18 01/05/18 06:59 14:59 22:59 06:59 14:59 22:59 Intake Total 360 ml 1210 ml 240 ml 700 ml Output Total 300 ml 450 ml 675 ml Balance 60 ml 1210 ml -210 ml 25 ml Intake Oral 360 ml 960 ml 240 ml 700 ml IV Total 250 ml Output Urine Total 300 ml 450 ml 675 ml # Voids 2 3 1 # Bowel Movements 1 Result Diagram: 01/03/18 0545 01/03/18 0545 Objective Remarks GENERAL: Well-nourished, obese patient. SKIN: Warm and dry. HEAD: Normocephalic. EYES: No scleral icterus. No injection or drainage. NECK: Supple, trachea midline. No JVD or lymphadenopathy. CARDIOVASCULAR: Irregular rhythm, rate controlled, 1/6 OLI, gallops, or rubs. RESPIRATORY: Breath sounds equal bilaterally. No accessory muscle use. GASTROINTESTINAL: Abdomen soft, non-tender, nondistended. EXTREMITIES: No cyanosis, or edema. NEUROLOGICAL: Awake, alert, and oriented x 3. Non-focal. A/P Problem List: (1) NSTEMI (non-ST elevated myocardial infarction) ICD Code: I21.4 - Non-ST elevation (NSTEMI) myocardial infarction (2) Unstable angina ICD Code: I20.0 - Unstable angina Assessment and Plan Atrial fibrillation with rapid ventricular response Continue Metoprolol IV for rate control Last ECHO in [place] showed EF = 30% Follow on telemetry, continue Xarelto ICD placement tomorrow with Dr. Ceron's Appreciate Cardiology and Electocardiology Consults Unstable angina Elevation of Troponin to 1.88, EKG positive, BNP 576 Patient has known RCA occlusion, 2 previous heart cath in the near past Continue home entresto, Imdur, Lasix, and Spironolactone Continue medical management Ambien reaction Resolved following cessation of Ambien Type 2 Diabetes Mellitus Continue home Lantus Accuchecks with sliding scale coverage Diabetic diet Hypothyroidism Continue home Synthroid DVT prophylaxis Xarelto . Garrett Fry MD Jan 05, 2018 18:35
[2018-01-05] MEDS: INSULIN DETEMIR 100 UNITS/ML VIAL SQ SCH (21:00)
[2018-01-05] MEDS: ATORVASTATIN 40 MG TAB PO SCH (21:15)
[2018-01-06] VITALS (28 sets, daily range): BP systolic 91–128; BP diastolic 54–87; PULSE 58–135; RESP 16–22; TEMP 97.6–97.9; O2SAT 94–100
[2018-01-06] MEDS: SODIUM CHLOR 0.9% 1000 ML INJ 1,000 ML IV SCH (01:50)
[2018-01-06] MEDS: ACETAMINOPHEN 325 MG TAB PO PRN (01:51)
[2018-01-06 06:27] LABS: HEMATOCRIT 23.6 % (39.0-51.0); HEMOGLOBIN 7.7 GM/DL (13.0-17.0); MEAN CELL VOLUME 83.1 FL (80.0-100.0); MEAN CORPUSCULAR HEMOGLOBIN 27.3 PG (27.0-34.0); MEAN CORPUSCULAR HGB CONC 32.8 % (32.0-36.0); MEAN PLATELET VOLUME 8.8 FL (7.0-11.0); PLATELET COUNT 153 TH/MM3 (150-450); RED BLOOD COUNT 2.84 MIL/MM3 (4.50-5.90); RED CELL DISTRIBUTION WIDTH 20.9 % (11.6-17.2); WHITE BLOOD COUNT 6.7 TH/MM3 (4.0-11.0)
[2018-01-06] MEDS ORDERED: VANCOMYCIN INJ 1,000 MG in SODIUM CHLOR 0.9% 250 ML INJ 250 ML IV SCH ×2 (06:30→21:30)
[2018-01-06] MEDS ORDERED: ceFAZolin INJ 1,000 MG in SODIUM CHLORIDE 0.9% INJ 250 ML IV SCH (06:30)
[2018-01-06] MEDS: LEVOTHYROXINE SODIUM 100 MCG TAB PO SCH (06:50)
[2018-01-06] MEDS: ISOSORBIDE MONONITRATE 60 MG CR TAB (IMDUR) PO SCH (06:51)
[2018-01-06] MEDS ORDERED: VANCOMYCIN HCL 1000 MG VIAL ONE (07:44)
[2018-01-06] MEDS ORDERED: ceFAZolin INJ 1,000 MG VIAL ONE (07:44)
[2018-01-06] MEDS ORDERED: LIDOCAINE HCL 1% PF 30 ML VIAL ONE (07:48)
[2018-01-06] MEDS ORDERED: LIDOCAINE HCL 2% 50 ML VIAL ONE (07:50)
[2018-01-06] MEDS ORDERED: KETAMINE HCL 500 MG/10 ML VIAL ONE (07:52)
--- NOTE | 2018-01-06 07:53 | PD.CARD.PN ---
Subjective Subjective Remarks No chest pain, dyspnea, PND, dizziness, palpitations, syncope. Objective Medications Item Value Date Time Isosorbide 60 mg 01/04/18 0700 Mononitrate DAILY@0700/PO 01/06/18 0651 (Imdur) Atorvastatin 40 mg 01/03/18 2100 Calcium HS/PO 01/05/182114 (Lipitor) Metoprolol 12.5 mg 01/03/18 2100 Tartrate Q12HR/PO 01/05/182114 (Lopressor) Aspirin 81 mg 01/03/18 0900 (Aspirin Chew) DAILY/CHEW 01/05/18 1000 Furosemide 40 mg 01/03/18 0900 (Lasix) DAILY/PO 01/05/18 1002 Sacubitril/ 1 tab 01/03/18 0900 Valsartan DAILY/PO 01/05/18 1003 (Entresto 24-26 Mg) Spironolactone 50 mg 01/03/18 0900 (Aldactone) DAILY/PO 01/05/18 1001 Current Medications Medications (Trade) Dose Ordered Sig/Edna Route Start Time Stop Time Status Last Admin (NS Flush) 2 ml UNSCH PRN IV FLUSH 01/02/18 23:00 01/06/18 01:50 (NS Flush) 2 ml BID IV FLUSH 01/03/18 09:00 01/05/18 21:00 (Tylenol) 650 mg Q4H PRN PO 01/02/18 23:00 01/06/18 01:51 (Narcan Inj) 0.4 mg UNSCH PRN IV PUSH 01/02/18 23:00 (Lopressor Inj) 1.25 mg Q5M PRN IV PUSH 01/02/18 23:00 01/04/18 15:45 (Percocet 5-325 Mg) 1 tab Q4H PRN PO 01/02/18 23:00 01/04/18 16:41 (D50w (Vial) Inj) 50 ml UNSCH PRN IV PUSH 01/02/18 23:15 (Glucagon Inj) 1 mg UNSCH PRN OTHER 01/02/18 23:15 (NovoLOG SUPPLEMENTAL SCALE) 1 ACHS SLIDING SCALE SQ 01/03/18 08:00 01/05/18 21:18 (Aspirin Chew) 81 mg DAILY CHEW 01/03/18 09:00 01/05/18 10:00 (Lipitor) 40 mg HS PO 01/03/18 21:00 01/05/18 21:15 (Ferrous Sulfate) 325 mg BIDPC PO 01/03/18 01:15 01/05/18 17:04 (Lasix) 40 mg DAILY PO 01/03/18 09:00 01/05/18 10:02 (Neurontin) 200 mg TID PO 01/03/18 09:00 01/05/18 17:04 (Levemir Inj) 12 units HS SQ 01/03/18 21:00 01/04/18 21:31 (Synthroid) 100 mcg DAILY@0700 PO 01/03/18 07:00 01/06/18 06:50 (Entresto 24-26 Mg) 1 tab DAILY PO 01/03/18 09:00 01/05/18 10:03 (Aldactone) 50 mg DAILY PO 01/03/18 09:00 01/05/18 10:01 (Medrol) 8 mg DAILY PO 01/03/18 09:00 01/05/18 10:00 (Imdur) 60 mg DAILY@0700 PO 01/04/18 07:00 01/06/18 06:51 (Lopressor) 12.5 mg Q12HR PO 01/03/18 21:00 01/05/18 21:15 (Xarelto) 15 mg DAILY PO 01/04/18 09:00 Future Hold 01/04/18 09:38 (Pill Splitter) 1 ea UNSCH PRN OTHER 01/03/18 16:30 (Duoneb Neb) 1 ampule Q4HR NEB PRN NEB 01/04/18 21:00 Sodium Chloride 1,000 ml @ 75 mls/hr [id number] IV 01/06/18 02:00 01/06/18 01:50 Vancomycin HCl 1000 mg/Sodium Chloride 250 ml @ 0 mls/hr ROOF PANEL HANGER IV 01/06/18 06:30 (Betadine 5% Antisepsis Kit) 1 applic ROOF PANEL HANGER TOPICAL 01/05/18 08:00 01/06/18 07:59 (Bactroban Nasal 2% Oint) 1 applic ROOF PANEL HANGER EACH NARE 01/05/18 08:00 01/06/18 07:59 (Chlorhexidine 2% Cloth) 1 pack ROOF PANEL HANGER TOPICAL 01/05/18 08:00 01/06/18 07:59 Vital Signs / I&O Vital Signs Date Time Temp Pulse Resp B/P (MAP) Pulse Ox O2 Delivery O2 Flow Rate FiO2 01/06/18 05:13 89 01/06/18 04:00 86 01/06/18 03:05 97.9 87 18 113/70 (84) 98 01/06/18 03:04 18 01/06/18 03:00 87 01/06/18 02:00 86 01/06/18 01:00 86 01/06/18 00:00 86 01/05/18 23:48 97.9 87 18 106/71 (83) 100 01/05/18 23:00 96 01/05/18 22:00 92 01/05/18 21:06 97.8 89 20 116/75 (89) 95 01/05/18 21:00 92 01/05/18 20:00 96 21 01/05/18 20:00 102 01/05/18 19:00 95 01/05/18 18:00 90 01/05/18 17:00 92 01/05/18 16:00 88 01/05/18 15:30 97.8 92 20 114/79 (91) 96 01/05/18 15:00 94 01/05/18 14:00 88 01/05/18 13:00 86 01/05/18 12:00 86 01/05/18 11:50 98.0 88 19 113/65 (81) 100 01/05/18 11:00 80 01/05/18 10:12 96 21 01/05/18 10:00 98 01/05/18 09:00 96 01/05/18 08:10 98.1 106 20 105/68 (80) 100 01/05/18 08:00 88 I/O 01/05/18 01/05/18 01/05/18 01/06/18 01/06/18 01/06/18 07:00 15:00 23:00 07:00 15:00 23:00 Intake Total 240 ml 20 ml 700 ml 240 ml Output Total 450 ml 675 ml 500 ml Balance -210 ml 20 ml 25 ml -260 ml Intake Oral 240 ml 700 ml 240 ml IV Total 20 ml Output Urine Total 450 ml 675 ml 500 ml # Voids 1 2 # Bowel Movements 1 1 Physical Exam GENERAL: Well developed, well nourished. No acute distress. HEENT: Jugular venous pressure is normal. CHEST: Clear lungs vasquez anteriorly. CARDIAC: Irregular rate and rhythm without S3 or murmur. ABDOMEN: Soft, nontender, no hepatosplenomegaly. Bowel sounds present. EXTREMITIES: No clubbing, cyanosis. Trace pretibial edema. Laboratory Laboratory Tests Test 01/06/18 05:20 White Blood Count 6.7 TH/MM3 Red Blood Count 2.84 MIL/MM3 Hemoglobin 7.7 GM/DL Hematocrit 23.6 % Mean Corpuscular Volume 83.1 FL Mean Corpuscular Hemoglobin 27.3 PG Mean Corpuscular Hemoglobin Concent 32.8 % Red Cell Distribution Width 20.9 % Platelet Count 153 TH/MM3 Mean Platelet Volume 8.8 FL Assessment and Plan Problem List: (1) Ischemic cardiomyopathy ICD Codes: I25.5 - Ischemic cardiomyopathy Status: Chronic Plan: Stable. Compensated. No acute CHF. EF now lower compared to 4 months ago, now 20% Continue beta hermila, Entresto. REC single chamber ICD implant this morning OK to discharge home tomorrow if remains stable, same home medications except increased isosorbide dosing (2) CAD (coronary artery disease) ICD Codes: I25.10 - Atherosclerotic heart disease of circle coronary artery without angina pectoris Status: Chronic Plan: Stable overnight. No further atypical CP. Patient with 2 caths in past 11 months showing no change in coronary/graft anatomy, last cath 4 months ago. Known totally occluded RCA with occluded graft with patent grafts to OM and LAD. REC medical therapy of his CAD; continue beta hermila, oral nitrate, aspirin (3) Chronic atrial fibrillation ICD Codes: I48.2 - Chronic atrial fibrillation Status: Chronic Plan: Appears to be in more of an atrial flutter. HR's mostly controlled. In light of his repeat CHF episodes, history of LV dysfunction, considering ablation. Dr. Crystal to manage as outpatient. Resume Xarelto 15 mg qd tomorrow night. (4) Hypertension ICD Codes: I10 - Essential (primary) hypertension Status: Chronic Plan: Stable. Normotensive. Code Status full code Discussed Condition With patient's Problem Qualifiers (1) CAD (coronary artery disease): Qualified Codes: I25.10 - Atherosclerotic heart disease of circle coronary artery without angina pectoris (2) Hypertension: Qualified Codes: I10 - Essential (primary) hypertension Oliver Acevedo MD Jan 06, 2018 07:53
[2018-01-06] MEDS: METOPROLOL TARTRATE 25 MG TAB PO SCH ×2 (09:00→22:11)
[2018-01-06] MEDS: FERROUS SULFATE 325 MG (65 MG ELEMENTAL IRON) TAB PO SCH ×2 (09:00→17:35)
[2018-01-06] MEDS: SODIUM CHLORIDE 0.9% FLUSH 10 ML FLUSH IV FLUSH SCH ×2 (09:00→22:02)
[2018-01-06] MEDS: GABAPENTIN 100 MG CAP PO SCH ×3 (09:00→18:03)
--- NOTE | 2018-01-06 09:28 | CATHPROC ---
Patient Name: STERLING YAN Study #: [id number] Initial MD: Oliver Acevedo Date of : 1945 Study Date: 01/06/2018 Cardiac Catheterization Report 01/06/2018 9:27:28 AM Financial #: [id number] 1 of 8 Patient Name: STERLING YAN Study #: [id number] Initial MD: Oliver Acevedo Date of : 1945 Study Date: 01/06/2018 Entire Case Report Patient Information Patient Name STERLING YAN Date of 1945 Age 72 years Financial # [id number] Gender M AlternateID Lab Number 2 Room Number 256 Height (in) 72.0 Height (cm) 182.8 BSA 2.19 Weight (lbs) 212.1 Weight (kg) 96.4 Patient Address/Phone Number Home Address [facility] Home Phone Number [facility] [phone] Study Information Study Number Admission Scheduled Start Study Start [id number] Jan 02 2018 10:00PM 01/06/2018 Jan 06 2018 7:07AM Reading Service Cardiac Pacer/ICD Admit Source Facility Department Other [facility] - Director Social Service Physician and Clinical Staff Initial Oliver Kirkland Gas Engine Operator Megan Olivera RN Other Anesthesia, PROFESSOR OF SPECIAL EDUCATION Recorder Nicole Perera RN Scrub Shama Al,KEITH Procedures Performed Procedure Location (Site) Vessel Name Lead Insertion Venogram Antecubital (left) Antecubital Vein 01/06/2018 9:27:28 AM Financial #: [id number] 2 of 8 Patient Name: STERLING YAN Study #: [id number] Initial MD: Oliver Acevedo Date of : 1945 Study Date: 01/06/2018 Equipment Time Operations Consultant Description Size Mfg Part Number Used/Scraped DEFIBRILLATOR, INTICA 7 VR-T 08:42 BIOTRONIK VVE-VDDR [id number] Used DX 08:35 BIOTRONIK LEAD, PLEXA PRO-MRI DF 65/15 [id number] Used [id number] 09:01 DAVOL INC SABI, HEMOSTAT 1 GRAM Used *[id number] TP-1103 07:41 MEDLINE INDUSTRIES SUTURE, STRIP PLUS 1/2" * Used *[id number] 07:41 MEDLINE PACER ADHESIVE, MASTISOL 2/3CC 2/3CC 0523-48 Used 07:41 MEDLINE PACER MINA, LIMB * 2530 *[id number] Used [id number] 07:41 MEDLINE PACER PACK, PACER CUSTOM * Used *[id number] 07:41 MEDLINE PACER PEN, SKIN DUAL W/ RULER * Used *[id number] 08:18 20lines PACER SAFE SHEATH, FR8, 13CM FR 8 [id number] Used 08:02 Needle Sponge Count 1 1 Used 08:03 Needle Sponge Count 2 22 Used 08:18 Needle Sponge Count 2 2 Used 08:03 Needle Sponge Count 30 1 Used 09:05 NYCOMED OMNIPAQUE, 350 MG, 50ML 50ML [id number] Used [id number] *[id number] SUTURE, 3-0 VICRYL [SH] ([id number]) SUTURE, 3-0 VICRYL [SH] ([id number]) SUTURE, 4-0 MONOCRYL [PS2] (Y496G) [id number] 07:41 [place] [facility],WARM AIR CCL * Used *[id number] [facility] PAD, ELECTROSURGICAL 07:41 * [id number] *[id number] Used SURGICAL GROUNDING ORANGE [id number] 08:25 VITATRON MEDTRONIC PLASMABLADE, PEAD 3.0S * Used *[id number] 8412-2303 07:41 [employer]. / * Used *54983 Equipment Model, Serial, Lot Number and Expiration Data Description Model Number Serial Number Lot Number Expiration Date SABI, HEMOSTAT 1 GRAM [id number] 05-16-2022 DEFIBRILLATOR, INTICA 7 VR-T DX [id number] 08-18-2018 LEAD, PLEXA PRO-MRI DF 65/15 [id number] 10-20-2019 01/06/2018 9:27:28 AM Financial #: [id number] 3 of 8 Patient Name: STERLING YAN Study #: [id number] Initial MD: Oliver Acevedo Date of : 1945 Study Date: 01/06/2018 Insurance Information Insurance Payor Medicare Third Alliance Party Third Alliance Party Number MEDICARE A B MCRAB History: Allergies Allergy Reaction morphine Hallucinations codeine hydromorphone Hallucinations History: Risk Factors Hypertension Dyslipidemia Yes Yes Prior PCI Prior CABG Yes Yes Chronic Lung Diabetes Disease Yes Yes Labs Hgb (g/dl) Hct (%) RBC (MIL/MM3) WBC (l/cumm) Platelets (thousands) 11.60-17.00 35.00-51.00 4.00-5.90 4.00-11.00 150.00-450.00 7.7 23.6 2.8 6.7 153 Glucose (mg/dl) BUN (mg/dl) Creatinine (mg/dl) BUN:Creatinine (1:x) 74.00-106.00 7.00-18.00 0.50-1.30 10.00-20.00 166 27 1.1 24.5 Na (meq/l) K (meq/l) 136.00-145.00 3.50-5.10 142 3.9 INR (PTT:PT) 0.90-1.10 1.4 Troponin I (ng/ml) Troponin T (ng/ml) 0.02-0.05 0.40-2.10 1.8 3.6 Medication 01/06/2018 9:27:28 AM Financial #: [id number] 4 of 8 Patient Name: STERLING YAN Study #: [id number] Initial MD: Oliver Acevedo Date of : 1945 Study Date: 01/06/2018 Medication Total Dose (Bolus/Oral) Medication Total Dosage/Unit 2% XYLOCAINE 50 mL Medications (Bolus/Oral) Medication Time Given Dosage/Unit Administered By Reason 2% XYLOCAINE 01/06/2018 8:16:16 AM 50 mL Oliver Acevedo 50 mL 2% XYLOCAINE given in lab by Oliver Acevedo in Left shoulder via Subcutaneous. Ordered by Oliver Acevedo. Medication (Drip) Medication Time Given Dosage/Unit Concentration/Unit Diluent (ml) Solution ANCEF 01/06/2018 8:00:00 AM 2 g 2 g ANCEF given in lab by Anesthesia, PROFESSOR OF SPECIAL EDUCATION via Peripheral IV. Ordered by Oliver Acevedo. Reason: As per physicians verbal order. VANCOMYCIN DRIP 01/06/2018 8:05:00 AM 1 g 1 g VANCOMYCIN DRIP given in lab by Anesthesia, PROFESSOR OF SPECIAL EDUCATION via Peripheral IV. Ordered by Oliver Acevedo. Reas on: As per physicians verbal order. Initial Case Assessment Cardiovascular HR NIBP Chest Pain 87 133/77 0 Edema Present Skin color Skin None Pale Warm Dry Circulatory - Right Pulses Dorsalis Pedis 1 Scale (0,1,2,3,4,d) Circulatory - Left Pulses Dorsalis Pedis 1 Scale (0,1,2,3,4,d) Circulatory - Lower Extremities Color Lower Right Color Lower Left Normal Normal Neurological State Oriented to time-place- Alert Moves all extremities person Respiration - General Respiration Rate SpO2 (%) (B/min) 18 98 01/06/2018 9:27:28 AM Financial #: [id number] 5 of 8 Patient Name: STERLING YAN Study #: [id number] Initial MD: Oliver Acevedo Date of : 1945 Study Date: 01/06/2018 Chronological Log Time Study Chronological Log 7:24:30 Patient arrived via Bed. 7:24:31 Patient Name, D.O.B, / Armband Verified By R.N. 7:24:32 Consent signed by the physician and the patient and verified by the Director Social Service staff. 7:24:33 Pre-op and post- op instructions given; patient acknowledges understanding of instructions. 7:24:34 Verbal Stimulation=2 Physical Stimulation=2 Airway=2 Respiration=2 TOTAL=8. (0=absent, 1=li mited, 2=present) 7:24:35 2% CHLORHEXIDINE GLUCONATE WASH AND NASAL SWIPE DONE PRIOR TO PROCEDURE. 7:24:36 History and physical on the chart. 7:25:00 Anesthesia at bedside. Assumes care of patient. 7:25:08 Patient has been NPO for Less than 6Hrs. Skin Breakdown- dressed leg wound LLE calf and rt great toe for cellulitis per pt. 4mm skin tea r mid sternum towards 7:26:30 the right present. 7:27:39 Mabel Prominences Protected 7:27:40 Disposable Defibrillator Pads Placed On Patient. 7:27:43 Bovie ground pad applied to: right thigh 7:29:11 A # 20 IV was noted in the Antecubital (left). Grade = 0 0.9%NaCl @ KVO 7:29:16 A # 20 IV was noted in the Forearm (right). Grade = 0 0.9% NaCl @ KVO Assessment: Initial Case, HR=87 BPM, SJOY=084/77 mmhg, Chest Pain=0, Edema=None, Color=Pale, Sk in = Warm, Dry Right Pulses: Hugo Ped=1 Left Pulses: Hugo Ped=1 7:30:21 Lower Right Extremities: Color=Normal Lower Left Extremities: Color=Normal Neurological: State=Alert, Ox3, LANDA Respiration: Resp=18 B/min, SpO2=98 % 7:32:52 Patient Warmer Placed on the Table. 7:34:06 Table restraints applied according to hospital policy 7:36:10 Chest and neck clipped for procedure bilateral upper area. 7:45:28 MD arrived. First Sponge And Instrument Count Done by Shama Al RCIS. 7:49:23 Hypo's: 2, Sponges: 30, Bovie/scratch: 2 Sutures: 7, Blades: 2, Instruments: 26, Syveck Patches: ~SYVECK PATCH~ Verified by BL 7:51:00 Airway secured by anesthesia utilizing LMA device 7:57:00 Bilateral Upper Chest Prepped Times Two. 2 g ANCEF given in lab by Anesthesia, PROFESSOR OF SPECIAL EDUCATION via Peripheral IV. Ordered by Oliver Acevedo. Reason: As per physicians 8:00:00 verbal order. 1 g VANCOMYCIN DRIP given in lab by Anesthesia, PROFESSOR OF SPECIAL EDUCATION via Peripheral IV. Ordered by Oliver Acevedo . Reason: As per 8:05:00 physicians verbal order. 8:08:16 A sterile drape was applied following a 3 minute drying time 01/06/2018 9:27:28 AM Financial #: [id number] 6 of 8 Patient Name: STERLING YAN Study #: [id number] Initial MD: Oliver Acevedo Date of : 1945 Study Date: 01/06/2018 Time Out. Correct patient, procedure, procedure equipment, site and side verified with physicia n present. Time 8:10:00 concurred by MD, individual staff and PROFESSOR OF SPECIAL EDUCATION. Time Out #2 - Consents verified, patient in correct position, all results are labled and displa yed, safety precautions 8:11:00 taken, antibiotics administered. Time out concurred by MD, individual staff and PROFESSOR OF SPECIAL EDUCATION in procedu re 8:11:31 Case Start 8:16:16 50 mL 2% XYLOCAINE given in lab by Oliver Acevedo in Left shoulder via Subcutaneous. Ordered by Oliver Acevedo. 8:20:17 Surgical Incision Made. 8:27:08 A device was explanted. 8:28:02 A pocket was created at the L Upper Chest. 8:29:11 The Antecubital (left) was manually injected with 20 cc's of contrast. OMNIPAQUE, 350 MG, 5 0ML 50ML used. 8:31:43 Vascular access was obtained in the Subclav. Vein (Lft. 8:31:46 A SAFE SHEATH, FR8, 13CM FR 8 was advanced into the L Upper Chest using the Modified Se blackmaninger technique. 8:35:10 A LEAD, PLEXA PRO-MRI DF 65/15 was inserted and positioned in the RV. 8:36:51 Lead placement verified under fluoroscopy 8:37:58 The RV lead impedance and threshold being tested. 8:38:32 The RV lead was sutured to the fascia. 8:44:05 The previous device RV lead was capped. 8:44:24 The previous device RA lead was capped. 8:45:57 A DEFIBRILLATOR, INTICA 7 VR-T DX VVE-VDDR was connected and placed in the pocket. 8:49:18 The pocket is being closed. 8:49:54 PACU called. Spoke to Tracy 8:49:55 Bedside Report will be given. Second Sponge And Instrument Count Done by Shama Al RCIS. 8:50:32 Hypo's: 2, Sponges: 30, Bovie/scratch: 2 Sutures: 7, Blades: 2, Instruments: 26, Syveck Patches: ~SYVECK PATCH~ Verified by BL 8:54:27 Implantable Device card and booklet placed in patient's chart. 9:01:14 Sabi powder placed in surgical wound bed for hemostasis. 9:05:15 Implant Procedure was performed. 9:05:27 A ICD Implant . (Single) PPM removal Final Sponge And Instrument Count Done by Camueiras, Shama, MUSIC MANAGER. 9:13:11 Hypo's: 2, Sponges: 30, Bovie/scratch: 2 Sutures: 7, Blades: 2, Instruments: 26, Syveck Patches: ~SYVECK PATCH~ Verified by BL 9:23:40 Steri-strips and a sterile dressing applied to site. 9:23:41 Case End 9:24:03 LMA out and pt placed to supplemental oxygen by NC per anesthesia. 9:25:02 No case complications noted. 9:25:05 Cine recording checked. 9:25:09 Holding Area notified of successful intervention. 9:32:00 Patient moved to stretcher Defibrillator and ground pads removed. Skin intact. Pt transported to PACU in stable condition with tech and PROFESSOR OF SPECIAL EDUCATION 9:32:19 accompanying pt. 01/06/2018 9:27:28 AM Financial #: [id number] Patient Name: STERLING YAN Study #: [id number] Initial MD: Oliver Acevedo Date of : 1945 Study Date: 01/06/2018 End Study - Contrast Media Used In Study Contrast Total Opened (mL) Total Used (mL) Total Wasted (mL) Omnipaque 50 20 30 End Study - Maximum Contrast Load Max Contrast Load (mL) 438.2 End Study - Radiation Exposure Fluoro Time (minutes) 3.4 End Study - Patient Disposition Complications Transferred To Interventional Outcome No Telemetry Bed successful 01/06/2018 9:27:28 AM Financial #: [id number] 8
[2018-01-06] MEDS ORDERED: traMADol HCL 50 MG TAB PO PRN (09:30)
--- NOTE | 2018-01-06 09:32 | MP ---
cc: Oliver Acevedo MD DATE OF OPERATION: 01/06/2018 DATE OF : 1945 PROCEDURE PERFORMED: Single chamber AICD implantation via the left subclavian vein, pocket revision, explantation of preexisting pacemaker generator. INDICATIONS: Severe ischemic cardiomyopathy, primary prevention of sudden cardiac . OPERATIVE NOTE: The patient was brought to the operating suite in a fasting state after having signed informed consent. The left upper chest was prepped and draped as per policy and anesthetized with 1% lidocaine. A transverse incision was made inferior to the left clavicle and using blunt dissection, the preexisting pacemaker generator was freed from the subcutaneous pocket. Additional dissection was done to mobilize the pacemaker leads. After administration of contrast through a left arm peripheral IV, central venous access was obtained via the left subclavian vein using modified Seldinger technique. An 8-Citizen [place] sheath was placed and through this sheath, a ventricular active fixation AICD lead was introduced and its tip positioned in the right ventricular apex where good current of injury, stimulation threshold (0.4 volts) and sensitivity (15.7 millivolts) were demonstrated. This lead was secured into place using 2-0 silk ties down to the pectoralis fascia. The lead was then connected to the AICD generator which is a Biotronik Intica device. The lead and the generator were placed back into the subcutaneous pocket after the pacemaker leads were disconnected and capped. The pocket was closed using 3-0 Vicryl interrupted stitches in 2 layers to close the subcutaneous tissue, which was quite friable. The subcuticular tissue was closed using 4-0 Monocryl running stitch. Overlapping Steri-Strips and a dressing were applied. There were no apparent, immediate complications. A portable chest x-ray is pending at the time of this dictation. CONCLUSIONS: 1. Status post explantation of a preexisting pacemaker generator and capping of atrial and ventricular pacemaker leads. 2. Status post placement of a single-chamber (with atrial sensing capability) AICD via the left subclavian vein using a Biotronik Intica AICD generator. MD DAMON BranchR/SB , 09:15 AM , 09:31 AM KATJA
[2018-01-06] MEDS ORDERED: DO NOT ADM ANY ANTICOAGULANT DRUGS PRN (10:00)
[2018-01-06] MEDS ORDERED: IOHEXOL 350 MG/ML 50 ML BTL (for EPS) OTHER ONE (10:35)
--- NOTE | 2018-01-06 10:37 | RADRPT ---
EXAM DATE/TIME: 01/06/2018 10:09 [facility] COMPARISON: CHEST SINGLE AP, January 02, 2018, 17:54. INDICATIONS : Pneumothorax, pacemaker MEDICAL HISTORY : Cardiovascular disease. Congestive heart failure. diabetes SURGICAL HISTORY : CABG. Coronary artery stent. ENCOUNTER: Initial ACUITY: 1 day PAIN SCORE: Non-responsive. LOCATION: Bilateral chest FINDINGS: Pacemaker device is noted with control pack over the left chest. There is hazy pleural-parenchymal op acity on the right which is likely mostly layering effusion. Mild consolidative change in the left remberto ng base. Cardiac contours are grossly stable. Sternotomy wires are present. CONCLUSION: No evidence of pneumothorax following pacer revision. Moderate bilateral pleural-parenchymal opacities, right worse than left Curly Francis MD on January 06, 2018 at 10:34 Board Certified Radiologist. This report was verified electronically.
[2018-01-06] MEDS: INSULIN ASPART SUPPLEMENTAL SCALE SQ SCH ×4 (10:45→22:13)
[2018-01-06] MEDS ORDERED: PHENYLEPH/NS 1000 MCG/10 ML SYR IV ONE (12:00)
[2018-01-06] MEDS ORDERED: ONDANSETRON HCL 4 MG/2 ML VIAL IV ONE (12:00)
[2018-01-06] MEDS ORDERED: DEXAMETHASONE SOD PHOS 4 MG/ML VIAL IV ONE (12:00)
[2018-01-06] MEDS ORDERED: SODIUM CHLOR 0.9% 250 ML INJ 250 ML IV ONE (12:00)
[2018-01-06] MEDS ORDERED: PROPOFOL 200 MG/20 ML AMP IV ONE (12:00)
[2018-01-06] MEDS ORDERED: LIDOCAINE HCL 1% PF 5 ML SYRINGE OTHER ONE (12:00)
[2018-01-06] MEDS ORDERED: NALOXONE HCL 0.4 MG/ML AMP IV PUSH ONE (12:15)
[2018-01-06] MEDS ORDERED: DIGOXIN 0.5 MG/2 ML VIAL IV PUSH ONE (12:15)
[2018-01-06] MEDS ORDERED: LIDOCAINE HCL 2% 100 MG/5 ML SYRINGE ONE (13:32)
[2018-01-06] MEDS ORDERED: EPINEPHrine HCL (1:10,000) 1 MG/10 ML SYRINGE ONE (13:32)
[2018-01-06] MEDS ORDERED: ATROPINE SULFATE 1 MG/10 ML SYRINGE ONE (13:32)
--- NOTE | 2018-01-06 14:19 | RADRPT ---
EXAM DATE/TIME: 01/06/2018 13:47 [facility] COMPARISON: No previous studies available for comparison. INDICATIONS : Altered mental status. Post pacer removal, ICD insertion. RADIATION DOSE: 39.64 CTDIvol (mGy) MEDICAL HISTORY : Cardiovascular disease. Congestive heart failure. Hypertension.Cardiomyopathy, AFIB, diabetes SURGICAL HISTORY : CABG Pacemaker.Hernia repair. ENCOUNTER: Initial ACUITY: 1 day PAIN SCALE: 0/10 LOCATION: cranial TECHNIQUE: Multiple contiguous axial images were obtained of the head. Using automated exposure control and adj ustment of the mA and/or kV according to patient size, radiation dose was kept as low as reasonably a chievable to obtain optimal diagnostic quality images. DICOM format image data is available electro nically for review and comparison. FINDINGS: CEREBRUM: The ventricles are normal for age. No evidence of midline shift, mass lesion, hemorrhage or acute in farction. No extra-axial fluid collections are seen. POSTERIOR FOSSA: The cerebellum and brainstem are intact. The 4th ventricle is midline. The cerebellopontine angle i s unremarkable. EXTRACRANIAL: The visualized portion of the orbits is intact. SKULL: The calvaria is intact. No evidence of skull fracture. CONCLUSION: Moderate motion artifact otherwise negative. Xander Madden MD FACR on January 06, 2018 at 14:15 Board Certified Radiologist. This report was verified electronically.
[2018-01-06 14:43] LABS: HEMATOCRIT 24.7 % (39.0-51.0); MEAN CELL VOLUME 84.1 FL (80.0-100.0); MEAN CORPUSCULAR HEMOGLOBIN 27.1 PG (27.0-34.0); MEAN CORPUSCULAR HGB CONC 32.2 % (32.0-36.0); MEAN PLATELET VOLUME 8.5 FL (7.0-11.0); PLATELET COUNT 204 TH/MM3 (150-450); RED BLOOD COUNT 2.93 MIL/MM3 (4.50-5.90); RED CELL DISTRIBUTION WIDTH 21.3 % (11.6-17.2); WHITE BLOOD COUNT 11.4 TH/MM3 (4.0-11.0)
[2018-01-06] MEDS ORDERED: METOPROLOL TARTRATE 5 MG/5 ML VIAL IV PUSH ONE (15:00)
[2018-01-06] MEDS ORDERED: oxyCODONE/ACETAMINOPHEN 10 MG/325 MG TAB PO ONE (15:00)
[2018-01-06] MEDS ORDERED: KETOROLAC TROMETHAMINE 30 MG/ML (IVP) VIAL IV PUSH ONE (15:00)
[2018-01-06 15:16] LABS: BICARBONATE 21.1 MEQ/L (21.0-32.0); CALCIUM 8.4 MG/DL (8.5-10.1); CREATININE 1.18 MG/DL (0.60-1.30)
[2018-01-06 15:20] LABS: TROPONIN I 0.44 NG/ML (0.02-0.05)
[2018-01-06] MEDS ORDERED: AMIODARONE INJ 150 MG in DEXTROSE 5% IN WATER 100ML INJ 100 ML IV ONE ×2 (15:26)
[2018-01-06] MEDS: AMIODARONE INJ 450 MG in SODIUM CHLOR 0.9% (EXCEL) INJ 241 ML IV PRN (17:44)
[2018-01-06] MEDS: DILTIAZEM HCL 60 MG TAB PO SCH ×2 (18:00→18:02)
[2018-01-06] MEDS: FUROSEMIDE 40 MG/4 ML VIAL IV PUSH SCH (18:02)
--- NOTE | 2018-01-06 19:27 | HHI.PR ---
Subjective Remarks Patient underwent ICD placement today, upon return he presented with altered mental status, confused affect. Stroke alert was called, but patient was combative and refused blood work at that time and was deemed unable to undergo CAT scan. His informed us that he has an allergy to fentanyl, this was not on his list, but he was given fentanyl during the procedure. He also presented at that time with atrial flutter and RVR, with some evidence of strain on follow-up EKG. We were unable to give blood pressure medicines due to risk of stroke. He finally calmed down and was able to undergo a CT scan of the brain which showed no evidence of stroke. He was given a single dose of digoxin which did not help his rate, he was then given a dose of Lopressor which also did not help his rate. Cardiology wrote for an amiodarone drip and p.o. Cardizem. His affect resolved and he became more mentally clear later in the evening. Objective Vitals Vital Signs Date Time Temp Pulse Resp B/P (MAP) Pulse Ox O2 Delivery O2 Flow Rate FiO2 01/06/18 17:44 125 105/72 01/06/18 17:34 120 105/72 01/06/18 12:03 100 Nasal Cannula 3.00 01/06/18 12:02 100 3.00 01/06/18 10:35 120 18 100 Nasal Cannula 2 01/06/18 10:30 98.0 120 18 128/74 (92) 100 01/06/18 10:15 117 15 122/72 (89) 100 01/06/18 10:00 115 14 115/84 (94) 100 01/06/18 09:45 117 16 109/74 (86) 100 01/06/18 09:40 97.5 104 16 121/69 (86) 100 Nasal Cannula 2 01/06/18 05:13 89 01/06/18 04:00 86 01/06/18 03:05 97.9 87 18 113/70 (84) 98 01/06/18 03:04 18 01/06/18 03:00 87 01/06/18 02:00 86 01/06/18 01:00 86 01/06/18 00:00 86 01/05/18 23:48 97.9 87 18 106/71 (83) 100 01/05/18 23:00 96 01/05/18 22:00 92 01/05/18 21:06 97.8 89 20 116/75 (89) 95 01/05/18 21:00 92 01/05/18 20:00 96 21 01/05/18 20:00 102 I/O 01/05/18 01/05/18 01/05/18 01/06/18 01/06/18 01/06/18 07:00 15:00 23:00 07:00 15:00 23:00 Intake Total 240 ml 20 ml 700 ml 240 ml 90 ml Output Total 450 ml 675 ml 500 ml Balance -210 ml 20 ml 25 ml -260 ml 90 ml Intake Oral 240 ml 700 ml 240 ml IV Total 20 ml 90 ml Output Urine Total 450 ml 675 ml 500 ml # Voids 1 2 # Bowel Movements 1 1 Result Diagram: 01/06/18 1428 01/06/18 1428 Objective Remarks GENERAL: Well-nourished, obese patient. Confused and combative following fentanyl dose during procedure SKIN: ICD under surgical bandage HEAD: Normocephalic. EYES: No scleral icterus. No injection or drainage. NECK: Supple, trachea midline. No JVD or lymphadenopathy. CARDIOVASCULAR: Irregular rhythm, tachycardia, 1/6 OLI, gallops, or rubs. RESPIRATORY: Breath sounds equal bilaterally. No accessory muscle use. GASTROINTESTINAL: Abdomen soft, non-tender, nondistended. EXTREMITIES: No cyanosis, or edema. NEUROLOGICAL: Awake, alert, and oriented x 3. Non-focal. A/P Problem List: (1) NSTEMI (non-ST elevated myocardial infarction) ICD Code: I21.4 - Non-ST elevation (NSTEMI) myocardial infarction (2) Unstable angina ICD Code: I20.0 - Unstable angina Assessment and Plan Atrial fibrillation with rapid ventricular response Recurrence following ICD placement Last ECHO in [place] showed EF = 30% Follow on telemetry, continue Xarelto Failure to respond to Lopressor or digoxin Currently with amiodarone drip and p.o. Cardizem per cardiology, patient is asymptomatic Appreciate Cardiology and Electocardiology Consults Reaction to fentanyl This was not listed on his allergies and he received fentanyl during ICD placement Symptoms of confusion and altered mental status cleared for the most part after [address] brain ruled out stroke, lab work is pending Fentanyl will be added to his allergy list Unstable angina Elevation of Troponin to 1.88, EKG positive, BNP 576 Patient has known RCA occlusion, 2 previous heart cath in the near past Continue home entresto, Imdur, Lasix, and Spironolactone Strain pattern on most recent EKG Goal is to control heart rate currently Ambien reaction Resolved following cessation of Ambien Ambien will be added to allergy list Type 2 Diabetes Mellitus Continue home Lantus Accuchecks with sliding scale coverage Diabetic diet Hypothyroidism Continue home Synthroid DVT prophylaxis Xarelto A total of 90 minutes was spent in direct patient care today . Garrett Fry MD Jan 06, 2018 19:27
[2018-01-06] MEDS: ATORVASTATIN 40 MG TAB PO SCH (22:12)
[2018-01-06] MEDS: INSULIN DETEMIR 100 UNITS/ML VIAL SQ SCH (22:13)
[2018-01-06] MEDS: oxyCODONE/ACETAMINOPHEN 5 MG/325 MG TAB PO PRN (22:49)
[2018-01-07] VITALS (19 sets, daily range): BP systolic 60–106; BP diastolic 54–60; PULSE 58–62; RESP 18; TEMP 98–98.4; O2SAT 97–99
[2018-01-07] MEDS: SODIUM CHLOR 0.9% 1000 ML INJ 1,000 ML IV SCH (00:53)
[2018-01-07] MEDS: AMIODARONE INJ 450 MG in SODIUM CHLOR 0.9% (EXCEL) INJ 241 ML IV PRN (02:31)
[2018-01-07 04:18] LABS: HEMATOCRIT 27.4 % (39.0-51.0); HEMOGLOBIN 8.8 GM/DL (13.0-17.0); MEAN CELL VOLUME 85.2 FL (80.0-100.0); MEAN CORPUSCULAR HEMOGLOBIN 27.5 PG (27.0-34.0); MEAN CORPUSCULAR HGB CONC 32.3 % (32.0-36.0); MEAN PLATELET VOLUME 8.8 FL (7.0-11.0); PLATELET COUNT 227 TH/MM3 (150-450); RED BLOOD COUNT 3.21 MIL/MM3 (4.50-5.90); RED CELL DISTRIBUTION WIDTH 21.6 % (11.6-17.2); WHITE BLOOD COUNT 12.3 TH/MM3 (4.0-11.0)
[2018-01-07 04:38] LABS: BICARBONATE 21.2 MEQ/L (21.0-32.0); CALCIUM 8.1 MG/DL (8.5-10.1); CREATININE 1.67 MG/DL (0.60-1.30)
[2018-01-07 04:48] LABS: TROPONIN I 4.04 NG/ML (0.02-0.05)
[2018-01-07] MEDS: ISOSORBIDE MONONITRATE 60 MG CR TAB (IMDUR) PO SCH (06:38)
[2018-01-07] MEDS: DILTIAZEM HCL 60 MG TAB PO SCH ×3 (06:38→14:08)
[2018-01-07] MEDS: LEVOTHYROXINE SODIUM 100 MCG TAB PO SCH (06:38)
--- NOTE | 2018-01-07 08:55 | EKG ---
Date Performed: 01/06/2018 Time Performed: 11:27:56 PTAGE: 72 years EKG: ATRIAL FLUTTER/TACHYCARDIA WITH RAPID VENTRICULAR RESPONSE MODERATE INTRAVENTRICULAR CONDUC TION DELAY ST DEVIATION AND MODERATE T-WAVE ABNORMALITY, CONSIDER LATERAL ISCHEMIA ST DEVIATION AND M ODERATE T-WAVE ABNORMALITY, CONSIDER INFERIOR ISCHEMIA ABNORMAL ECG INTERPRETATION BASED ON A DEFAULT AGE OF 39 YEARS NO PREVIOUS TRACING DOCTOR: Rose Crystal Interpretating Date/Time 01/07/2018 08:53:53
[2018-01-07] MEDS: FERROUS SULFATE 325 MG (65 MG ELEMENTAL IRON) TAB PO SCH (09:15)
[2018-01-07] MEDS: FUROSEMIDE 40 MG/4 ML VIAL IV PUSH SCH (09:15)
[2018-01-07] MEDS: METOPROLOL TARTRATE 25 MG TAB PO SCH (09:15)
[2018-01-07] MEDS: GABAPENTIN 100 MG CAP PO SCH ×2 (09:15→14:08)
[2018-01-07] MEDS: SODIUM CHLORIDE 0.9% FLUSH 10 ML FLUSH IV FLUSH SCH (09:16)
[2018-01-07] MEDS: INSULIN ASPART SUPPLEMENTAL SCALE SQ SCH ×2 (09:16→14:08)
[2018-01-07] MEDS: oxyCODONE/ACETAMINOPHEN 5 MG/325 MG TAB PO PRN (09:16)
[2018-01-07] MEDS: SACUBITRIL/VALSARTAN 24 MG-26 MG TAB PO SCH (09:17)
[2018-01-07] MEDS: FUROSEMIDE 40 MG TAB PO SCH (09:17)
[2018-01-07] MEDS: methylPREDNISolone 4 MG TAB PO SCH (09:17)
[2018-01-07] MEDS: ASPIRIN 81 MG CHEW TAB CHEW SCH (09:17)
[2018-01-07] MEDS: SPIRONOLACTONE 50 MG TAB PO SCH (09:17)
[2018-01-07] MEDS ORDERED: OXYC15TA PO (11:22)
[2018-01-07] MEDS ORDERED: ZINC OXIDE 40% OINT 60 GM TUBE TOPICAL SCH (12:00)
[2018-01-07] MEDS ORDERED: SIMETHICONE 125 MG CHEWABLE TAB PO SCH (14:00)
--- NOTE | 2018-01-07 14:44 | HHI.PR ---
Subjective Remarks feeling better today Objective Vital Signs Date Time Temp Pulse Resp B/P (MAP) Pulse Ox O2 Delivery O2 Flow Rate FiO2 01/07/18 14:15 58 01/07/18 13:00 58 01/07/18 12:03 58 01/07/18 11:38 98.0 58 18 97/59 (72) 97 01/07/18 11:38 58 01/07/18 10:25 58 01/07/18 10:14 97 21 01/07/18 10:08 18 01/07/18 09:00 62 01/07/18 08:45 98.2 61 18 100/58 (72) 97 01/07/18 08:45 60 01/07/18 06:31 62 18 105/54 (71) 01/07/18 06:00 58 01/07/18 05:00 58 01/07/18 04:00 58 01/07/18 03:55 58 18 60/ 99 01/07/18 03:00 59 01/07/18 02:31 58 01/07/18 02:00 58 01/07/18 01:00 58 01/07/18 00:00 58 01/06/18 23:00 63 01/06/18 23:00 58 20 91/75 (80) 98 01/06/18 22:56 100 Nasal Cannula 3.00 01/06/18 22:00 60 01/06/18 21:00 60 01/06/18 20:50 97.6 68 16 96/54 (68) 94 01/06/18 20:00 62 01/06/18 19:00 88 01/06/18 18:00 93 01/06/18 17:44 125 105/72 01/06/18 17:34 120 105/72 01/06/18 17:30 125 20 105/72 (83) 100 01/06/18 17:00 135 01/06/18 16:00 126 01/06/18 15:20 124 16 120/73 (89) 100 01/06/18 15:00 124 I/O 01/06/18 01/06/18 01/06/18 01/07/18 01/07/18 01/07/18 07:00 15:00 23:00 07:00 15:00 23:00 Intake Total 240 ml 460 ml 1250 ml 375 ml Output Total 500 ml 0 ml 400 ml Balance -260 ml 460 ml 850 ml 375 ml Intake Oral 240 ml 120 ml IV Total 340 ml 1250 ml 375 ml Output Urine Total 500 ml 0 ml 400 ml # Voids 2 # Bowel Movements 1 2 Result Diagram: 01/07/186 01/07/18315 Imaging Alert, fully oriented Lungs: ventilated Heart: S1, S2 regular, bradycardia, no gallop Abdomen: obese, no mass Ext: no edema Left infraclavicular area with a clean surgical wound Last Impressions Head CT 01/06/18 1233 Signed Impressions: Service Date/Time: Saturday, January 06, 2018 13:47 - CONCLUSION: Moderate motion artifact otherwise negative. Xander Madden MD FACR Chest X-Ray 01/06/18918 Signed Impressions: Service Date/Time: Saturday, January 06, 2018 10:09 - CONCLUSION: No evidence of pneumothorax following pacer revision. Moderate bilateral pleural-parenchymal opacities, right worse than left Curly Francis MD Current Medications Medications (Trade) Dose Ordered Sig/Edna Route Start Time Stop Time Status Last Admin (NS Flush) 2 ml UNSCH PRN IV FLUSH 01/02/18 23:00 01/06/18 01:50 (NS Flush) 2 ml BID IV FLUSH 01/03/18 09:00 01/07/18 09:16 (Tylenol) 650 mg Q4H PRN PO 01/02/18 23:00 01/06/18 01:51 (Lopressor Inj) 1.25 mg Q5M PRN IV PUSH 01/02/18 23:00 01/04/18 15:45 (D50w (Vial) Inj) 50 ml UNSCH PRN IV PUSH 01/02/18 23:15 (Glucagon Inj) 1 mg UNSCH PRN OTHER 01/02/18 23:15 (NovoLOG SUPPLEMENTAL SCALE) 1 ACHS SLIDING SCALE SQ 01/03/18 08:00 01/07/18 14:08 (Aspirin Chew) 81 mg DAILY CHEW 01/03/18 09:00 Future Hold 01/05/18 10:00 (Lipitor) 40 mg HS PO 01/03/18 21:00 01/06/18 22:12 (Lasix) 40 mg DAILY PO 01/03/18 09:00 Future Hold 01/05/18 10:02 (Neurontin) 200 mg TID PO 01/03/18 09:00 01/07/18 14:08 (Levemir Inj) 12 units HS SQ 01/03/18 21:00 01/06/18 22:13 (Synthroid) 100 mcg DAILY@0700 PO 01/03/18 07:00 01/07/18 06:38 (Entresto 24-26 Mg) 1 tab DAILY PO 01/03/18 09:00 Future Hold 01/05/18 10:03 (Aldactone) 50 mg DAILY PO 01/03/18 09:00 Future Hold 01/05/18 10:01 (Medrol) 8 mg DAILY PO 01/03/18 09:00 Future Hold 01/05/18 10:00 (Imdur) 60 mg DAILY@0700 PO 01/04/18 07:00 01/07/18 06:38 (Lopressor) 12.5 mg Q12HR PO 01/03/18 21:00 01/07/18 09:15 (Xarelto) 15 mg DAILY PO 01/04/18 09:00 Future Hold 01/04/18 09:38 (Pill Splitter) 1 ea UNSCH PRN OTHER 01/03/18 16:30 (Duoneb Neb) 1 ampule Q4HR NEB PRN NEB 01/04/18 21:00 Vancomycin HCl 1000 mg/Sodium Chloride 250 ml @ 0 mls/hr ADVERTISING J[employer] TITLES IV 01/06/18 06:30 Amiodarone HCl 450 mg/Sodium Chloride 250 ml @ 33.33 mls/ hr Q7H31M PRN IV 01/06/18 15:36 01/07/18 02:31 (Lasix Inj) 40 mg BID@18 IV PUSH 01/06/18 18:00 01/07/18 09:15 (Cardizem) 60 mg Q6HR PO 01/06/18 16:20 01/07/18 14:08 (Desitin 40% Oint) 1 applic BID TOPICAL 01/07/18 12:00 01/07/18 12:00 (Roxicodone) 15 mg Q8H PRN PO 01/07/18 12:45 (Phazyme Chew) 125 mg Q8HR PO 01/07/18 14:00 01/07/18 14:10 Assessment and Plan Problem List: (1) Chronic atrial fibrillation ICD Codes: I48.2 - Chronic atrial fibrillation Status: Chronic Plan: In sinus rhythm IV amio DC Amio PO added Follow up Dr Acevedo (2) Ischemic cardiomyopathy ICD Codes: I25.5 - Ischemic cardiomyopathy Status: Chronic Plan: On optimal medical management (3) Congestive heart failure ICD Codes: I50.9 - Heart failure, unspecified Status: Acute Plan: Doing better less SOB On optimal medical management Rose Crystal MD Jan 07, 2018 14:44
--- NOTE | 2018-01-07 15:30 | HHI.FF ---
Face to Face Verification Diagnosis: (1) Ischemic cardiomyopathy (2) CAD (coronary artery disease) (3) Chronic atrial fibrillation (4) Congestive heart failure Physical Therapy Order: Evaluate and Treat Home Health Nursing Order: Medical education Signs/symptoms of disease process CHF education Wound care and dressing changes Nursing assessment with vital signs I have seen patient Ra Heard on 01/07/18. My clinical findings support the need for the requested home health care services because: Ltd mobility - disease progression Deconditioned w/ increased weakness Med compliance is questionable I certify that my clinical findings support that this patient is homebound because: Post-op weakness Unsteady gait/balance Unsafe to leave home unassisted Unable to use public transportation Garrett Fry MD Jan 07, 2018 15:30
[2018-01-07] MEDS ORDERED: DILT240C44 PO (15:52)
[2018-01-07] MEDS ORDERED: AMIO200T PO (15:52)
--- NOTE | 2018-01-07 16:24 | HHI.DS ---
Discharge Summary Admission Date Jan 02, 2018 at 22:00 Discharge Date: Jan 07, 2018 Admitting Diagnosis Unstable Angina . (1) NSTEMI (non-ST elevated myocardial infarction) ICD Code: I21.4 - Non-ST elevation (NSTEMI) myocardial infarction (2) Unstable angina ICD Code: I20.0 - Unstable angina Procedures ICD Placement, 01/06/18 Brief History - From Admission Mr. Heard is a 72-year-old male with a history of congestive heart failure with EF of 35%, coronary artery disease status post bypass and multiple stent placement, atrial fibrillation on anticoagulation, and chronic cellulitis of bilateral lower extremities who presented to the [place] emergency room complaining of left-sided chest pain accompanied by shortness of breath. The patient has a pacemaker and a LifeVest in place and had been discharged from [facility] [place] in the [facility] 3 days prior where he had reportedly been admitted 5 times since late August for multiple issues including exacerbations of congestive heart failure and chest pain. He requested transfer to [facility] in [facility] for a second opinion about his chronic heart conditions with frequent exacerbations. He was also noted to be in A. fib with RVR in [place]. The patient is seen in the [facility]. He reports left-sided chest pain accompanied by shortness of breath and palpitations occurred earlier in the day and intermittently ever since. He denies any associated nausea, vomiting, or diaphoresis. He reports this pain is similar to the other times he has been told he has had myocardial infarction. He denies any recent illness, fevers, upper respiratory symptoms, or chills. He is not a great historian. CBC/BMP: 01/07/18 0316 01/07/18 0316 Significant Findings Laboratory Tests Test 01/06/18 05:20 01/06/18 14:28 01/07/18 03:16 Red Blood Count 2.84 MIL/MM3 (4.50-5.90) 2.93 MIL/MM3 (4.50-5.90) 3.21 MIL/MM3 (4.50-5.90) Hemoglobin 7.7 GM/DL (13.0-17.0) 8.0 GM/DL (13.0-17.0) 8.8 GM/DL (13.0-17.0) Hematocrit 23.6 % (39.0-51.0) 24.7 % (39.0-51.0) 27.4 % (39.0-51.0) Red Cell Distribution Width 20.9 % (11.6-17.2) 21.3 % (11.6-17.2) 21.6 % (11.6-17.2) White Blood Count 11.4 TH/MM3 (4.0-11.0) 12.3 TH/MM3 (4.0-11.0) Blood Urea Nitrogen 22 MG/DL (7-18) 30 MG/DL (7-18) Random Glucose 224 MG/DL (74-106) 155 MG/DL (74-106) Calcium Level 8.4 MG/DL (8.5-10.1) 8.1 MG/DL (8.5-10.1) Estimat Glomerular Filtration Rate 61 ML/MIN (>89) 41 ML/MIN (>89) Total Creatine Kinase 26 U/L (39-308) Troponin I 0.44 NG/ML (0.02-0.05) 4.04 NG/ML (0.02-0.05) Creatinine 1.67 MG/DL (0.60-1.30) PE at Discharge GENERAL: Well-nourished, obese patient. Confused and combative following fentanyl dose during procedure SKIN: ICD under surgical bandage HEAD: Normocephalic. EYES: No scleral icterus. No injection or drainage. NECK: Supple, trachea midline. No JVD or lymphadenopathy. CARDIOVASCULAR: Irregular rhythm, tachycardia, 1/6 OLI, gallops, or rubs. RESPIRATORY: Breath sounds equal bilaterally. No accessory muscle use. GASTROINTESTINAL: Abdomen soft, non-tender, nondistended. EXTREMITIES: No cyanosis, or edema. NEUROLOGICAL: Awake, alert, and oriented x 3. Non-focal. Hospital Course 72-year-old male with history of CHF, atrial fibrillation and multiple stent placement presented to the ER with atrial fibrillation with RVR and an STEMI. Having had 2 heart catheterizations in the last year he was recommended for evaluation by Electrocardiologist. He presented to the ER with an external defibrillator that had not been fired. Electrocardiologist recommended ICD placement. Patient underwent ICD placement yesterday and had an episode of recurrent atrial fibrillation with RVR following that procedure. That particular episode was likely triggered by an allergy to fentanyl, he became confused and stroke-like. Patient was worked up for stroke with normal brain scan found. He required an amiodarone drip to control his rapid heart rate, he was placed on Cardizem p.o. and has been able to maintain a regular rhythm since yesterday. Today he has been cleared by cardiology and is eager to go home. Home health care was arranged and will be visiting him tomorrow. He passed an oxygen walk test. Pt Condition on Discharge: Good Discharge Disposition: Disch w/ Home Health Serv Discharge Time: <= 30 minutes Discharge Instructions DIET: Follow Instructions for: Heart Healthy Diet, Diabetic Diet Activities you can perform: See Additionl Instruction Other Activity Instructions: No driving till cleared by cardiology, no lifting with left arm. Garrett Fry MD Jan 07, 2018 16:24
--- NOTE | 2018-01-07 18:08 | EKG ---
Date Performed: 01/06/2018 Time Performed: 11:51:50 PTAGE: 72 years EKG: ATRIAL TACHYCARDIA/FLUTTER WITH 2:1 CONDUCTION Left ventricular hypertrophy with repolariza tion changes Nonspecific intraventricular conduction delay Possible ischemia Since the previous kortney ng, no significant change noted Abnormal ECG PREVIOUS TRACING : 01/06/18 @ 1127 DOCTOR: Earl Sheriff Interpretating Date/Time 01/07/2018 18:08:23
[2018-01-07] MEDS ORDERED: DILTIAZEM-CD 240 MG CAP ER PO SCH (20:00)
[2018-01-08] MEDS ORDERED: DILTIAZEM-CD 240 MG CAP ER PO SCH (09:00)
[2018-01-08] MEDS ORDERED: AMIODARONE 200 MG TAB PO SCH (09:00)
== END 2018-01-07 16:45 | disposition home health service (06) | DRG 226 ==
LOC: NEDDLT 21:50 → HCIS 22:00
PROVIDERS: ADMIT Family Medicine; ATTEND Family Medicine
PROC: 02HK3KZ Insertion of Defibrillator Lead into Right Ventricle, Percutaneous Approach (ICD-10-PCS; 2018-01-06)
PROC: 0JPT0PZ Removal of Cardiac Rhythm Related Device from Trunk Subcutaneous Tissue and Fascia, Open Approach (ICD-10-PCS; 2018-01-06)
PROC: 0JH608Z Insertion of Defibrillator Generator into Chest Subcutaneous Tissue and Fascia, Open Approach (ICD-10-PCS; principal; 2018-01-06 07:30)
DX: I25.5 Ischemic cardiomyopathy (principal); I21.4 Non-ST elevation (NSTEMI) myocardial infarction; E11.51 Type 2 diabetes mellitus with diabetic peripheral angiopathy without gangrene; I48.92 Unspecified atrial flutter; J98.11 Atelectasis; L03.116 Cellulitis of left lower limb; I11.0 Hypertensive heart disease with heart failure; I50.9 Heart failure, unspecified; I25.110 Atherosclerotic heart disease of native coronary artery with unstable angina pectoris; E03.9 Hypothyroidism, unspecified; E78.5 Hyperlipidemia, unspecified; G47.00 Insomnia, unspecified; M19.90 Unspecified osteoarthritis, unspecified site; R00.0 Tachycardia, unspecified; I48.2 Chronic atrial fibrillation; L03.031 Cellulitis of right toe; J44.9 Chronic obstructive pulmonary disease, unspecified; I25.2 Old myocardial infarction; Z95.0 Presence of cardiac pacemaker; Z95.1 Presence of aortocoronary bypass graft; Z95.5 Presence of coronary angioplasty implant and graft; Z87.891 Personal history of nicotine dependence; Z79.01 Long term (current) use of anticoagulants; Z79.82 Long term (current) use of aspirin; Z79.4 Long term (current) use of insulin; Z95.820 Peripheral vascular angioplasty status with implants and grafts
CPT/HCPCS: 33216; 33249; 70450; 71045; 80048; 80053; 82550; 82948; 83735; 83880; 84484; 85025; 85027; 85610; 85730; 93005; 93306; 94618; 96365; 96375; 96376; C1722; C1777; J0171; J0282; J0461; J0690; J1100; J1160; J1644; J1815; J1885; J1940; J2310; J2370; J2405; J3010; J3370; J7030; J7050; J7509; Q9967

== ENCOUNTER 2018-01-18 19:10 | Inpatient (IN) | payer MEDICARE, BC ==
[~2018-01-18] VITALS: Ht 180.3 cm; Wt 93.4 kg
[~2018-01-18 19:10] MED LIST changes: +AMIO200T PO; +DILT240C44 PO; -FERR325T18 PO; -METH8TAB3 PO; +OXYC15TA PO; -SACU1TAB PO
[2018-01-18 19:20] VITALS: BP 108/53; PULSE 66; RESP 18; TEMP 98; O2SAT 99
[2018-01-18] MEDS ORDERED: cefTRIAXone 250 MG VIAL IM ONE (19:45)
[2018-01-18] MEDS ORDERED: LIDOCAINE HCL 1% 50 ML VIAL IM ONE (19:45)
[2018-01-18] MEDS ORDERED: AZITHROMYCIN PWD FOR SUSP 1 GM PACKET PO ONE (19:45)
--- NOTE | 2018-01-18 19:53 | PD ---
HPI Chief Complaint: Edema Time Seen by Provider: 19:46 Travel History International Travel<30 days: No Contact w/Intl Traveler<30days: No Traveled to known affect area: No History of Present Illness HPI Patient presents to the emergency department complaining of retaining 9 pounds of water or so over 3-4 days. New onset, family states he was recently diagnosed with heart failure. He denies chest pain but reports dyspnea when lying flat, and he has to sleep in a recliner. He denies fever, chills, nausea , vomiting, abdominal pain. He reports only urinating 2-3 times a day, but when he does urinate he states that the volume is increased. Reports compliance with medication and diet (both low sodium and fluid restricted). Patient also advises that his blood pressure has been running low. PFSH Past Medical History Arthritis: Yes Asthma: Yes (rheumatoid arthritis) Atrial Fibrillation: Yes Cardiomyopathy: Yes Cardiovascular Problems: Yes (EF less than 35%) High Cholesterol: Yes Chest Pain: Yes Congestive Heart Failure: Yes COPD: Yes Coronary Artery Disease: Yes Diabetes: Yes Patient Takes Glucophage: No Diminished Hearing: No Genitourinary: No Hypertension: Yes Neurologic: No Immunizations Current: Yes Past Surgical History Abdominal Surgery: Yes (HERNIA REPAIRED) Cardiac Surgery: Yes (PACEMAKER DEFIB) Coronary Artery Bypass Graft: Yes Coronary Stent: Yes Pacemaker: Yes Thoracic Surgery: No Social History Alcohol Use: No Tobacco Use: No Substance Use: No Allergies-Medications (Allergen,Severity, Reaction): Coded Allergies: codeine (Verified Allergy, Unknown, 01/18/18) hydromorphone (Verified Allergy, Unknown, Hallucinations, 01/18/18) morphine (Verified Allergy, Unknown, Hallucinations, 01/18/18) fentanyl (Verified Adverse Reaction, Intermediate, Confusion, combative, hallucination, 01/18/18) zolpidem (Verified Adverse Reaction, Intermediate, Confusion lasting 24 hours, 01/18/18) Reported Meds & Prescriptions Reported Meds & Active Scripts Active Diltiazem CD 24 HR 240 Mg Caper 240 Mg PO DAILY 30 Days Amiodarone (Amiodarone HCl) 200 Mg Tab 200 Mg PO DAILY 30 Days Reported Oxycodone (Oxycodone HCl) 15 Mg Tab 15 Mg PO Q8H PRN Spironolactone 50 Mg Tab 50 Mg PO DAILY Florastor (Saccharomyces Boulardii) 250 Mg Cap 250 Mg PO BID Xarelto (Rivaroxaban) 15 Mg Tab 15 Mg PO DAILY Multiple Vitamin 1 Tab 1 Tab PO DAILY Levothyroxine (Levothyroxine Sodium) 100 Mcg Tab 100 Mcg PO DAILY Isosorbide Mononitrate ER (Isosorbide Mononitrate) 30 Mg Yemi 30 Mg PO DAILY Lantus Inj (Insulin Glargine) 1,000 Unit/10 Ml Vial 12 Units SQ HS Novolog Inj (Insulin Aspart) 1,000 Unit/10 Ml Vial 0 SQ DIRECTED Sliding Scale as directed. Gabapentin 100 Mg Cap 200 Mg PO TID Furosemide 40 Mg Tab 40 Mg PO DAILY Atorvastatin (Atorvastatin Calcium) 40 Mg Tab 40 Mg PO HS Aspirin 81 Mg Chew 81 Mg CHEW DAILY Review of Systems Except as stated in HPI: all other systems reviewed are Neg Physical Exam Narrative GENERAL: No acute distress. SKIN: Focused skin assessment warm/dry. HEAD: Atraumatic. Normocephalic. EYES: Pupils equal and round. No injection or drainage. Extraocular muscles intact. ENT: No nasal bleeding or discharge. NECK: Trachea midline. No JVD. CARDIOVASCULAR: Regular rate and rhythm. + systolic murmur appreciated. RESPIRATORY: No accessory muscle use. Clear to auscultation. Breath sounds- crackles at the bases bilaterally GASTROINTESTINAL: Abdomen soft, non-tender, obese. MUSCULOSKELETAL: No cyanosis. Bilateral lower extremity edema with seeping fluid. NEUROLOGICAL: Awake and alert. Normal speech. PSYCHIATRIC: Appropriate mood and affect; insight and judgment normal. Data Data Last Documented VS Vital Signs Date Time Temp Pulse Resp B/P (MAP) Pulse Ox O2 Delivery O2 Flow Rate FiO2 01/18/18 19:20 98.0 66 18 108/53 (71) 99 Orders Orders Electrocardiogram (01/18/18 19:46) Complete Blood Count With Diff (01/18/18 19:46) Comprehensive Metabolic Panel (01/18/18 19:46) Creatine Kinase (Cpk) (01/18/18 19:46) Ckmb (Isoenzyme) Profile (01/18/18 19:46) Troponin I (01/18/18 19:46) B-Type Natriuretic Peptide (01/18/18 19:46) Urinalysis - C+S If Indicated (01/18/18 19:46) Magnesium (Mg) (01/18/18 19:46) Chest, Single Ap (01/18/18 19:46) Ckmb (Isoenzyme) Profile (01/18/18 20:59) Prothrombin Time / Inr (Pt) (01/18/18 21:08) Act Partial Throm Time (Ptt) (01/18/18 21:08) Furosemide Inj (Lasix Inj) (01/18/18 22:00) Admit Order (Ed Use Only) (01/18/18 21:53) Labs Laboratory Tests Test 01/18/18 20:08 01/18/18 21:00 White Blood Count 5.0 TH/MM3 Red Blood Count 2.69 MIL/MM3 Hemoglobin 7.7 GM/DL Hematocrit 23.3 % Mean Corpuscular Volume 86.7 FL Mean Corpuscular Hemoglobin 28.7 PG Mean Corpuscular Hemoglobin Concent 33.1 % Red Cell Distribution Width 25.0 % Platelet Count 163 TH/MM3 Mean Platelet Volume 8.5 FL Neutrophils (%) (Auto) 57.9 % Lymphocytes (%) (Auto) 25.6 % Monocytes (%) (Auto) 12.2 % Eosinophils (%) (Auto) 3.4 % Basophils (%) (Auto) 0.9 % Neutrophils # (Auto) 2.9 TH/MM3 Lymphocytes # (Auto) 1.3 TH/MM3 Monocytes # (Auto) 0.6 TH/MM3 Eosinophils # (Auto) 0.2 TH/MM3 Basophils # (Auto) 0.0 TH/MM3 CBC Comment AUTO DIFF Differential Comment AUTO DIFF CONFIRMED Platelet Estimate NORMAL Platelet Morphology Comment NORMAL Ovalocytes 1+ Blood Urea Nitrogen 36 MG/DL Creatinine 2.15 MG/DL Random Glucose 191 MG/DL Total Protein 6.4 GM/DL Albumin 3.0 GM/DL Calcium Level 8.1 MG/DL Magnesium Level 2.3 MG/DL Alkaline Phosphatase 127 U/L Aspartate Amino Transf (AST/SGOT) 29 U/L Alanine Aminotransferase (ALT/SGPT) 92 U/L Total Bilirubin 0.6 MG/DL Sodium Level 133 MEQ/L Potassium Level 5.3 MEQ/L Chloride Level 100 MEQ/L Carbon Dioxide Level 24.9 MEQ/L Anion Gap 8 MEQ/L Estimat Glomerular Filtration Rate 30 ML/MIN Total Creatine Kinase 27 U/L Troponin I 0.03 NG/ML B-Type Natriuretic Peptide 683 PG/ML Prothrombin Time 16.4 SEC Prothromb Time International Ratio 1.6 RATIO Activated Partial Thromboplast Time 32.4 SEC MDM Medical Decision Making Medical Screen Exam Complete: Yes Emergency Medical Condition: Yes Interpretation(s) EKG: Rate 71, atrial fib, left axis deviation, T-wave inversion in leads II, III , aVF, V5, and V6. These T-wave inversions are present on prior EKG dated January 03, 2018. BNP, potassium, creatinine, ALT, alk phos, BUN elevated. Decreased hgb/hct (at baseline). Last Impressions Chest X-Ray 01/18/181945 Signed Impressions: Service Date/Time: Thursday, January 18, 2018 19:53 - CONCLUSION: Cardiomegaly with right basilar density slightly improved. Likely small pleural effusion and right basilar atelectasis. Klaus Puente MD Differential Diagnosis Pulmonary edema, ACS, CHF exacerbation, hepatorenal syndrome, renal failure Narrative Course Patient presents to the emergency department complaining of edema. He is afebrile, hypotensive with remaining vital signs within normal limits. Will check chest x-ray, EKG, and labs. Patient has been admitted to hospitalist for CHF exacerbation. Discussed renal failure, hyperkalemia, borderline blood pressure, and edema issues with admit MD. Advised to give 40 mg IV Lasix and hold hyperkalmeia treatment as no ecg changes are present. Will repeat. He has not urinated in the ER. Diagnosis Primary Impression: CHF exacerbation Qualified Codes: I50.9 - Heart failure, unspecified Additional Impressions: Acute kidney failure Qualified Codes: N17.9 - Acute kidney failure, unspecified Hyperkalemia Admitting Information Admitting Physician Requests: Observation Condition: Stable Piedad Weems MD January 18, 2018 19:53
--- NOTE | 2018-01-18 20:12 | RADRPT ---
EXAM DATE/TIME: 01/18/2018 19:53 [place] COMPARISON: CHEST SINGLE AP, January 06, 2018, 10:09. INDICATIONS : Short of breath. MEDICAL HISTORY : Cardiovascular disease. Congestive heart failure. diabetes. SURGICAL HISTORY : CABG. Coronary artery stent. ENCOUNTER: Initial ACUITY: 1 day PAIN SCORE: 0/10 LOCATION: Bilateral chest FINDINGS: A single view of the chest demonstrates cardiomegaly with previous CABG. Bibasilar density. Left-side d pacemaker. Osseous structures are intact. CONCLUSION: Cardiomegaly with right basilar density slightly improved. Likely small pleural effusion and right ba silar atelectasis. Klaus Puente MD on January 18, 2018 at 20:09 Board Certified Radiologist. This report was verified electronically.
[2018-01-18 20:33] LABS: AUTOMATED NEUTROPHIL # 2.9 TH/MM3 (1.8-7.7); BASOPHIL % 0.9 % (0.0-2.0); EOSINOPHIL # 0.2 TH/MM3 (0-0.4); EOSINOPHIL % 3.4 % (0.0-4.0); HEMATOCRIT 23.3 % (39.0-51.0); HEMOGLOBIN 7.7 GM/DL (13.0-17.0); LYMPH % 25.6 % (9.0-44.0); LYMPHOCYTE # 1.3 TH/MM3 (1.0-4.8); MEAN CELL VOLUME 86.7 FL (80.0-100.0); MEAN CORPUSCULAR HEMOGLOBIN 28.7 PG (27.0-34.0); MEAN CORPUSCULAR HGB CONC 33.1 % (32.0-36.0); MEAN PLATELET VOLUME 8.5 FL (7.0-11.0); MONO % 12.2 % (0.0-8.0); MONOCYTE # 0.6 TH/MM3 (0-0.9); NEUT % 57.9 % (16.0-70.0); PLATELET COUNT 163 TH/MM3 (150-450); RED BLOOD COUNT 2.69 MIL/MM3 (4.50-5.90)
[2018-01-18 20:48] LABS: AST (GOT) 29 U/L (15-37); BICARBONATE 24.9 MEQ/L (21.0-32.0); BLOOD UREA NITROGEN 36 MG/DL (7-18); CALCIUM 8.1 MG/DL (8.5-10.1); CHLORIDE 100 MEQ/L (98-107); CREATININE 2.15 MG/DL (0.60-1.30); GLOMERULAR FILTRATION RATE 30 ML/MIN (>89); GLUCOSE,RANDOM 191 MG/DL (74-106); MAGNESIUM 2.3 MG/DL (1.5-2.5); SODIUM (NA) 133 MEQ/L (136-145)
[2018-01-18 20:54] LABS: ALKALINE PHOSPHATASE 127 U/L (45-117); ALT (GPT) 92 U/L (12-78); TOTAL BILIRUBIN ADULT 0.6 MG/DL (0.2-1.0); TOTAL PROTEIN 6.4 GM/DL (6.4-8.2); TROPONIN I 0.03 NG/ML (0.02-0.05)
[2018-01-18 21:18] LABS: OVALOCYTES 1+ (NORMAL)
[2018-01-18 21:52] LABS: INTERNATIONAL NORMALIZED RATIO 1.6 RATIO; PROTHROMBIN TIME - PATIENT 16.4 SEC (9.8-11.6)
[2018-01-18] MEDS ORDERED: FUROSEMIDE 40 MG/4 ML VIAL IV PUSH ONE (22:00)
[2018-01-18 22:09] VITALS: BP 117/54; PULSE 71; RESP 18; O2SAT 96
[2018-01-18] MEDS ORDERED: GLUCAGON 1 MG/ML VIAL OTHER PRN (23:30)
[2018-01-18] MEDS ORDERED: HEPARIN SODIUM - SQ 10,000 UNITS/ML VIAL SQ SCH (23:30)
[2018-01-18] MEDS ORDERED: SODIUM CHLORIDE 0.9% FLUSH 10 ML FLUSH IV FLUSH PRN (23:30)
[2018-01-18] MEDS ORDERED: DEXTROSE 50% IN WATER 50 ML VIAL(D50) IV PUSH PRN (23:30)
[2018-01-18 23:36] LABS: BACTERIA, URINE RARE /hpf; BILIRUBIN, URINE NEG (NEG); BLOOD, URINE NEG (NEG); GLUCOSE,URINE NEG (NEG); HYALINE CAST, URINE 6 /lpf (RARE); KETONE, URINE NEG (NEG); MUCUS URINE FEW /lpf (OCC); NITRITE,URINE NEG (NEG); SQUAMOUS EPITHELIAL CELL URINE <1 /hpf (0-5); URINE COLOR YELLOW (YELLW/STRAW); URINE LEUKOCYTE ESTERASE NEG (NEG)
--- NOTE | 2018-01-18 23:38 | HHI.HP ---
HPI Service [facility] Primary Care Physician Oliver Acevedo MD Admission Diagnosis CHF exacerbation, renal failure, hyperkalemia Diagnoses: Travel History International Travel<30 Days: No Contact w/Intl Traveler <30 Da: No Traveled to Known Affected Are: No History of Present Illness 72-year-old male with a past medical history significant for A. fib anticoagulated on Xarelto, CHF with an EF of 20% on 01/04/18, coronary artery disease, diabetes mellitus, hypertension, hyperlipidemia and chronic back pain presents to the emergency department for the evaluation of swelling. The patient has a home nurse who reported he was 9 pounds over his dry weight today. He endorses bilateral lower extremity edema that extends to his lower back. He had an AICD/pacemaker placed on 01/[address] Acevedo. The patient denies any shortness of breath. No chest pain. No nausea/vomiting/diarrhea/ abdominal pain. No weakness. Positive PND. Patient reports he has been sleeping upright in a recliner. No lateralizing signs/symptoms. Review of Systems Except as stated in HPI: all other systems reviewed are Neg Past Family Social History Past Medical History Congestive heart failure with EF of 20% Diabetes mellitus Coronary artery disease Hypertension Hyperlipidemia A. fib anticoagulated on Xarelto Chronic back pain Past Surgical History AICD/pacemaker placement on 01/05 CABG 3 Reported Medications Reported Meds & Active Scripts Active Diltiazem CD 24 HR 240 Mg Caper 240 Mg PO DAILY 30 Days Amiodarone (Amiodarone HCl) 200 Mg Tab 200 Mg PO DAILY 30 Days Reported Oxycodone (Oxycodone HCl) 15 Mg Tab 15 Mg PO Q8H PRN Spironolactone 50 Mg Tab 50 Mg PO DAILY Florastor (Saccharomyces Boulardii) 250 Mg Cap 250 Mg PO BID Xarelto (Rivaroxaban) 15 Mg Tab 15 Mg PO DAILY Multiple Vitamin 1 Tab 1 Tab PO DAILY Levothyroxine (Levothyroxine Sodium) 100 Mcg Tab 100 Mcg PO DAILY Isosorbide Mononitrate ER (Isosorbide Mononitrate) 30 Mg Yemi 30 Mg PO DAILY Lantus Inj (Insulin Glargine) 1,000 Unit/10 Ml Vial 12 Units SQ HS Novolog Inj (Insulin Aspart) 1,000 Unit/10 Ml Vial 0 SQ DIRECTED Sliding Scale as directed. Gabapentin 100 Mg Cap 200 Mg PO TID Furosemide 40 Mg Tab 40 Mg PO DAILY Atorvastatin (Atorvastatin Calcium) 40 Mg Tab 40 Mg PO HS Aspirin 81 Mg Chew 81 Mg CHEW DAILY Allergies: Coded Allergies: codeine (Verified Allergy, Unknown, 01/18/18) hydromorphone (Verified Allergy, Unknown, Hallucinations, 01/18/18) morphine (Verified Allergy, Unknown, Hallucinations, 01/18/18) fentanyl (Verified Adverse Reaction, Intermediate, Confusion, combative, hallucination, 01/18/18) zolpidem (Verified Adverse Reaction, Intermediate, Confusion lasting 24 hours, 01/18/18) Family History Mother with CAD Social History Negative for alcohol, tobacco and illicit drugs. Physical Exam Vital Signs Vital Signs Date Time Temp Pulse Resp B/P (MAP) Pulse Ox O2 Delivery O2 Flow Rate FiO2 01/18/18 22:09 71 18 117/54 (75) 96 Room Air 01/18/18 19:20 98.0 66 18 108/53 (71) 99 Physical Exam GENERAL: male sitting up in bed SKIN: No rashes, ecchymoses or lesions. Cool and dry. HEAD: Atraumatic. Normocephalic. No temporal or scalp tenderness. EYES: Pupils equal round and reactive. Extraocular motions intact. No scleral icterus. No injection or drainage. ENT: Nose without bleeding, purulent drainage or septal hematoma. Throat without erythema, tonsillar hypertrophy or exudate. Uvula midline. Airway patent. NECK: Trachea midline. No JVD or lymphadenopathy. Supple, nontender, no meningeal signs. CARDIOVASCULAR: Regular rate and rhythm without murmurs, gallops, or rubs. RESPIRATORY: Clear to auscultation. Breath sounds equal bilaterally. No wheezes , rales, or rhonchi. GASTROINTESTINAL: Abdomen soft, non-tender, nondistended. No hepato-splenomegaly , or palpable masses. No guarding. MUSCULOSKELETAL: 2+ pitting edema to the thighs with anasarca NEUROLOGICAL: Awake and alert. Cranial nerves II through XII intact. Motor and sensory grossly within normal limits. Normal speech. Laboratory Laboratory Tests Test 01/18/18 20:08 01/18/18 21:00 01/18/18 23:20 White Blood Count 5.0 Red Blood Count 2.69 Hemoglobin 7.7 Hematocrit 23.3 Mean Corpuscular Volume 86.7 Mean Corpuscular Hemoglobin 28.7 Mean Corpuscular Hemoglobin Concent 33.1 Red Cell Distribution Width 25.0 Platelet Count 163 Mean Platelet Volume 8.5 Neutrophils (%) (Auto) 57.9 Lymphocytes (%) (Auto) 25.6 Monocytes (%) (Auto) 12.2 Eosinophils (%) (Auto) 3.4 Basophils (%) (Auto) 0.9 Neutrophils # (Auto) 2.9 Lymphocytes # (Auto) 1.3 Monocytes # (Auto) 0.6 Eosinophils # (Auto) 0.2 Basophils # (Auto) 0.0 CBC Comment AUTO DIFF Differential Comment AUTO DIFF CONFIRMED Platelet Estimate NORMAL Platelet Morphology Comment NORMAL Ovalocytes 1+ Blood Urea Nitrogen 36 Creatinine 2.15 Random Glucose 191 Total Protein 6.4 Albumin 3.0 Calcium Level 8.1 Magnesium Level 2.3 Alkaline Phosphatase 127 Aspartate Amino Transf (AST/SGOT) 29 Alanine Aminotransferase (ALT/SGPT) 92 Total Bilirubin 0.6 Sodium Level 133 Potassium Level 5.3 Chloride Level 100 Carbon Dioxide Level 24.9 Anion Gap 8 Estimat Glomerular Filtration Rate 30 Total Creatine Kinase 27 Troponin I 0.03 B-Type Natriuretic Peptide 683 Prothrombin Time 16.4 Prothromb Time International Ratio 1.6 Activated Partial Thromboplast Time 32.4 Result Diagram: 01/18/18200701/18/182007 Caprini VTE Risk Assessment Caprini VTE Risk Assessment: Mod/High Risk (score >= 2) Caprini Risk Assessment Model Point Value = 1 Point Value = 2 Point Value = 3 Point Value = 5 Age 41-60 Minor surgery BMI > 25 kg/m2 Swollen legs Varicose veins or History of unexplained or recurrent spontaneous Oral contraceptives or hormone replacement Sepsis (< 1 month) Serious lung disease, including pneumonia (< 1 month) Abnormal pulmonary function Acute myocardial infarction Congestive heart failure (< 1 month) History of inflammatory bowel disease Medical patient at bed rest Age 61-74 Arthroscopic surgery Major open surgery (> 45 min) Laparoscopic surgery (> 45 min) Malignancy Confined to bed (> 72 hours) Immobilizing plaster cast Central venous access Age >= 75 History of VTE Family history of VTE Factor V Leiden Prothrombin [id number] Lupus anticoagulant Anticardiolipin antibodies Elevated serum homocysteine Heparin-induced thrombocytopenia Other congenital or acquired thrombophilia Stroke (< 1 month) Elective arthroplasty Hip, pelvis, or leg fracture Acute spinal cord injury (< 1 month) Prophylaxis Regimen Total Risk Factor Score Risk Level Prophylaxis Regimen 0-1 Low Early ambulation 2 Moderate Order ONE of the following: *Sequential Compression Device (SCD) *Heparin 5000 units SQ BID 3-4 Higher Order ONE of the following medications: *Heparin 5000 units SQ TID *Enoxaparin/Lovenox 40 mg SQ daily (WT < 150 kg, CrCl > 30 mL/min) *Enoxaparin/Lovenox 30 mg SQ daily (WT < 150 kg, CrCl > 10-29 mL/min) *Enoxaparin/Lovenox 30 mg SQ BID (WT < 150 kg, CrCl > 30 mL/min) AND/OR *Sequential Compression Device (SCD) 5 or more Highest Order ONE of the following medications: *Heparin 5000 units SQ TID (Preferred with Epidurals) *Enoxaparin/Lovenox 40 mg SQ daily (WT < 150 kg, CrCl > 30 mL/min) *Enoxaparin/Lovenox 30 mg SQ daily (WT < 150 kg, CrCl > 10-29 mL/min) *Enoxaparin/Lovenox 30 mg SQ BID (WT < 150 kg, CrCl > 30 mL/min) AND *Sequential Compression Device (SCD) Assessment and Plan Assessment and Plan Assessment/plan: 1. CHF exacerbation BNP elevated at 683 Significant edema/anasarca IV Lasix Cardiology consulted, appreciate assistance 2. Hyperkalemia Patient's potassium 5.3 without EKG changes Lasix as above Holding spironolactone Follow BMP 3. AK I Creatinine 2.15, baseline 1 Nephrology consulted as patient with a KI in the setting of diuresis 4. Diabetes mellitus Continue home Lantus Sliding-scale insulin blood glucose 5. Atrial fibrillation Continue anticoagulation with Xarelto Continue home medications 6. Hypertension/hyperlipidemia/chronic back pain Continue home medications FEN Heart healthy diabetic diet Electrolytes: As above Pinky Long MD January 18, 2018 23:38
[2018-01-19] VITALS (8 sets, daily range): BP systolic 100–140; BP diastolic 53–96; PULSE 55–121; RESP 17–22; TEMP 97.7–98.2; O2SAT 10–100
[2018-01-19] MEDS: LEVOTHYROXINE SODIUM 100 MCG TAB PO SCH (05:39)
[2018-01-19 07:11] LABS: AUTOMATED NEUTROPHIL # 3.3 TH/MM3 (1.8-7.7); BASOPHIL % 0.7 % (0.0-2.0); EOSINOPHIL # 0.2 TH/MM3 (0-0.4); EOSINOPHIL % 3.3 % (0.0-4.0); HEMATOCRIT 23.2 % (39.0-51.0); HEMOGLOBIN 7.7 GM/DL (13.0-17.0); LYMPH % 21.7 % (9.0-44.0); LYMPHOCYTE # 1.1 TH/MM3 (1.0-4.8); MEAN CORPUSCULAR HEMOGLOBIN 28.9 PG (27.0-34.0); MEAN CORPUSCULAR HGB CONC 33.2 % (32.0-36.0); MEAN PLATELET VOLUME 8.3 FL (7.0-11.0); MONO % 10.9 % (0.0-8.0); MONOCYTE # 0.6 TH/MM3 (0-0.9); NEUT % 63.4 % (16.0-70.0); PLATELET COUNT 153 TH/MM3 (150-450); RED BLOOD COUNT 2.67 MIL/MM3 (4.50-5.90); RED CELL DISTRIBUTION WIDTH 25.2 % (11.6-17.2); WHITE BLOOD COUNT 5.3 TH/MM3 (4.0-11.0)
[2018-01-19 07:43] LABS: BICARBONATE 27.5 MEQ/L (21.0-32.0); CALCIUM 8.6 MG/DL (8.5-10.1); CREATININE 2.06 MG/DL (0.60-1.30)
--- NOTE | 2018-01-19 08:22 | MB ---
cc: Oliver Acevedo MD DATE: 01/19/2018 REASON FOR CONSULTATION: Congestive heart failure. HISTORY OF PRESENT ILLNESS: The patient is a 72-year-old white male with a history of multiple medical problems including coronary artery disease, atrial fibrillation, congestive heart failure, severe ischemic cardiomyopathy, diabetes, COPD, status post numerous admissions to the hospital with congestive heart failure and chest pains in the last few months, who presented to the emergency room with continued dyspnea, pedal edema, and increased abdominal girth refractory to outpatient diuretic therapy. Since coming into the hospital, he states his dyspnea has improved. He was able to sleep quite well last night in a flat position. At home, he was sleeping in a recliner and spending most of the day in this recliner. He has had problems with pedal edema for several weeks. He reports compliance with his medications. He denies chest pain, dizziness, syncope, near syncope, palpitations, fevers, or cough. PAST MEDICAL HISTORY: See extensively outlined past medical history on my cardiology consult note dated 01/03/2018. Since that time, he has undergone placement of a single chamber Biotronik AICD as his ejection fraction was found to be 20% by echo 01/04/2018. CARDIAC MEDICATIONS AT HOME: 1. Diltiazem 240 mg daily (it was supposed to be changed to carvedilol 12.5 mg bid recently). 2. Amiodarone 200 mg daily. 3. Spironolactone 50 mg daily. 4. Xarelto 15 mg daily. 5. Isosorbide mononitrate 30 mg daily. 6. Furosemide 40 mg daily. 7. Atorvastatin 40 mg at bedtime. 8. Aspirin 81 mg daily. 9. Metolazone 5 mg daily. ALLERGIES: 1. CODEINE. 2. FENTANYL. 3. HYDROMORPHONE. 4. AMBIEN. FAMILY HISTORY: Noncontributory. SOCIAL HISTORY: The patient is a former smoker. There is no history of alcohol abuse. REVIEW OF SYSTEMS: As in the history of present illness, otherwise negative or noncontributory. He also currently denies headache, abdominal pain, melena, dyspepsia, and bright red blood per rectum. PHYSICAL EXAMINATION: VITAL SIGNS: Blood pressure 100/54 with a pulse of 56, respirations 18. GENERAL: He is a well-developed, well-nourished white male, in no acute distress. NECK: Jugular venous pressure is normal. Carotid pulses are 2+ bilaterally and without bruits. CHEST: Reveals diminished breath sounds diffusely. HEART: He has an irregular rhythm and rate without S3, S4 or murmur. ABDOMEN: He has a soft, obese, nontender abdomen. Bowel sounds are present. There is no definite hepatosplenomegaly. EXTREMITIES: Reveals no clubbing or cyanosis. There is 2+ pretibial edema bilaterally. There is also pitting edema in his thighs and sacrum. LABORATORY DATA: Includes WBC 5.3, hemoglobin 7.7, platelets 153. Potassium 4.9, BUN 35, creatinine 2.06. Brain natriuretic peptide level 683, troponin 0.03, CK 27. DIAGNOSTIC STUDIES: Chest x-ray shows a slight improvement in right basilar density, possible small right pleural effusion. EKG shows atrial fibrillation, borderline poor R-wave progression, inferior and lateral T-wave abnormality, consider ischemia. IMPRESSION Anasarca, congestive heart failure, refractory to outpatient medical management in a 72-year-old white male with a history of multiple medical problems including coronary artery disease, diabetes, chronic obstructive pulmonary disease, atrial fibrillation which has been largely chronic since 06/2017, severe ischemic cardiomyopathy with ejection fraction of 20%, status post recent automated implantable cardioverter-defibrillator implant. With his renal insufficiency and his severely reduced ejection fraction, it has been difficult to manage the patient with outpatient diuretic therapy. By chest x-ray, he appears to have minimal pulmonary edema. Most of the edema is in his lower extremities. As I recall, his right ventricular function on recent echo was normal. There is no evidence for acute coronary syndrome. His rhythm continues to be atrial fibrillation with currently controlled heart rates. RECOMMENDATIONS: 1. As I recommended in the office, given his severely reduced ejection fraction, recommend changing Cardizem to Carvedilol 12.5 mg b.i.d. 2. Diuresis with intravenous furosemide and metolazone. 3. Will stop amiodarone. 4. Increase his isosorbide mononitrate to 60 mg a day as it was done last admission. 5. Continue Xarelto at reduced dosing, 15 mg a day. 6. No CANDY inhibitor or Entresto given his renal insufficiency and relatively low blood pressures. MD BRITTA Branch/NANCY , 07:53 AM , 08:21 AM [id number]
[2018-01-19] MEDS: RIVAROXABAN 15 MG TAB PO SCH (08:31)
[2018-01-19] MEDS: GABAPENTIN 100 MG CAP PO SCH ×2 (08:31→20:42)
[2018-01-19] MEDS: FUROSEMIDE 40 MG/4 ML VIAL IVP SCH ×2 (08:32→18:10)
[2018-01-19] MEDS: ASPIRIN 81 MG CHEW TAB CHEW SCH (08:32)
[2018-01-19] MEDS: SODIUM CHLORIDE 0.9% FLUSH 10 ML FLUSH IV FLUSH SCH ×2 (08:32→21:00)
[2018-01-19] MEDS: INSULIN ASPART SUPPLEMENTAL SCALE SQ SCH ×3 (08:33→20:40)
[2018-01-19] MEDS: CARVEDILOL 12.5 MG TAB PO SCH ×2 (08:35→20:41)
[2018-01-19] MEDS ORDERED: AMIODARONE 200 MG TAB PO SCH (09:00)
[2018-01-19] MEDS ORDERED: DILTIAZEM-CD 240 MG CAP ER PO SCH (09:00)
[2018-01-19] MEDS ORDERED: ISOSORBIDE MONONITRATE 30 MG CR TAB (IMDUR) PO SCH (09:00)
[2018-01-19] MEDS ORDERED: METOLAZONE 5 MG TAB PO SCH (09:00)
--- NOTE | 2018-01-19 09:03 | HHI.PR ---
Subjective Remarks Follow-up for ischemic cardiomyopathy, acute exacerbation of CHF, acute kidney injury. Patient is currently sitting in his chair. On room air. Denies any chest pain, shortness of breath, fever or chills. He feels somewhat better. Objective Vitals Vital Signs Date Time Temp Pulse Resp B/P (MAP) Pulse Ox O2 Delivery O2 Flow Rate FiO2 01/19/18 07:48 58 01/19/18 07:38 97.7 56 18 100/54 (69) 99 01/19/18 04:03 98.2 60 18 129/58 (81) 10 01/19/18 04:00 55 01/19/18 01:00 97.8 78 17 118/53 (74) 95 01/19/18 00:00 01/18/18 22:09 71 18 117/54 (75) 96 Room Air 01/18/18 19:20 98.0 66 18 108/53 (71) 99 I/O 01/18/18 01/18/18 01/18/18 01/19/18 01/19/18 01/19/18 07:00 15:00 23:00 07:00 15:00 23:00 Output Total 475 ml Balance -475 ml Output Urine Total 475 ml # Voids 1 Result Diagram: 01/19/18 0556 01/19/18 0556 Imaging Last Impressions Chest X-Ray 01/18/181945 Signed Impressions: Service Date/Time: Thursday, January 18, 2018 19:53 - CONCLUSION: Cardiomegaly with right basilar density slightly improved. Likely small pleural effusion and right basilar atelectasis. Klaus Puente MD Objective Remarks GENERAL: Alert, NAD. SKIN: Warm and dry. HEAD: Normocephalic. EYES: No scleral icterus. No injection or drainage. NECK: Supple, trachea midline. No JVD or lymphadenopathy. CARDIOVASCULAR: Regular rate and rhythm without murmurs, gallops, or rubs. RESPIRATORY: Breath sounds equal bilaterally. No accessory muscle use. GASTROINTESTINAL: Abdomen soft, non-tender, nondistended. MUSCULOSKELETAL: No cyanosis. Chronic venous stasis, 2+ lower extremity edema. BACK: Nontender without obvious deformity. No CVA tenderness. Procedures None A/P Problem List: (1) CHF exacerbation ICD Code: I50.9 - Heart failure, unspecified Status: Acute (2) Ischemic cardiomyopathy ICD Code: I25.5 - Ischemic cardiomyopathy Status: Chronic (3) Chronic atrial fibrillation ICD Code: I48.2 - Chronic atrial fibrillation Status: Chronic (4) Acute kidney failure ICD Code: N17.9 - Acute kidney failure, unspecified Status: Acute (5) Hyperkalemia ICD Code: E87.5 - Hyperkalemia Status: Acute Assessment and Plan On 01/18/2018, Mr. Heard, a 72-year-old male with a past medical history significant for A. fib anticoagulated on Xarelto, CHF with an EF of 20% on , coronary artery disease, diabetes mellitus, hypertension, hyperlipidemia and chronic back pain presents to the emergency department for the evaluation of swelling. He reports significant fluid weight gain in the last few days. Acute CHF exacerbation Coronary artery disease Ischemic cardiomyopathy -Continue aspirin, atorvastatin 40 mg nightly, carvedilol 12.5 mg every 12 hours -Continue Lasix 40 mg IV twice daily. Also continue metolazone 5 mg daily. -We will consider torsemide 20 mg twice daily upon discharge. -Holding spironolactone due to hyperkalemia. Patient is status post AICD placement. -Could consider Entresto in near future. Acute kidney injury - Creatinine increased from baseline around 1 to 2.15. -Could be cardiorenal syndrome -Nephrology following. Atrial fibrillation - continue beta hermila and Xarelto. Diabetes mellitus - continue Levemir. Will increase dose from 12 units to 15 units QHS. And sliding scale insulin. Hypothyroidism -continue levothyroxine 100 mcg daily. Full code. Xarelto. Problem Qualifiers (1) CHF exacerbation: Qualified Codes: I50.9 - Heart failure, unspecified (2) Acute kidney failure: Qualified Codes: N17.9 - Acute kidney failure, unspecified Chau Vazquez DO January 19, 2018 9:03 am
[2018-01-19 09:19] LABS: OVALOCYTES 1+ (NORMAL)
--- NOTE | 2018-01-19 12:17 | PD.CONS ---
HPI Service Nephrology Consult Requested By Reason for Consult Acute on chronic kidney disease. Primary Care Physician Oliver Acevedo MD History of Present Illness This is a patient with CHF, EF of 20 %, s/p pacemaker admitted with lower extremity edema, shortness of breath. Seen by cardiology. His renal function has worsened. May have near normal renal function as baseline. He has been placed on IV diuretics. He has several areas of skin erosions, oozing blood. Review of Systems Constitutional: COMPLAINS OF: Fatigue Respiratory: COMPLAINS OF: Shortness of breath Cardiovascular: COMPLAINS OF: Dyspnea on Exertion, Lower Extremity Edema Past Family Social History Allergies: Coded Allergies: codeine (Verified Allergy, Unknown, 01/18/18) hydromorphone (Verified Allergy, Unknown, Hallucinations, 01/18/18) morphine (Verified Allergy, Unknown, Hallucinations, 01/18/18) fentanyl (Verified Adverse Reaction, Intermediate, Confusion, combative, hallucination, 01/18/18) zolpidem (Verified Adverse Reaction, Intermediate, Confusion lasting 24 hours, 01/18/18) Past Medical History Congestive heart failure with EF of 20% Diabetes mellitus Coronary artery disease Hypertension Hyperlipidemia A. fib anticoagulated on Xarelto Chronic back pain Past Surgical History AICD/pacemaker placement on 01/05 CABG 3 Reported Medications Current Medications Medications (Trade) Dose Ordered Sig/Edna Route Start Time Stop Time Status Last Admin (NS Flush) 2 ml UNSCH PRN IV FLUSH 01/18/18 23:30 (NS Flush) 2 ml BID IV FLUSH 01/19/18 09:00 01/19/18 08:32 (Lasix Inj) 40 mg BID@ IVP 01/19/18 09:00 01/19/18 08:32 (Aspirin Chew) 81 mg DAILY CHEW 01/19/18 09:00 01/19/18 08:32 (Lipitor) 40 mg HS PO 01/19/18 21:00 (Neurontin) 200 mg Q12HR PO 01/19/18 09:00 01/19/18 08:31 (Levemir Inj) 12 units HS SQ 01/19/18 21:00 (Imdur) 30 mg DAILY PO 01/19/18 09:00 01/19/18 08:31 (Synthroid) 100 mcg DAILY@0600 PO 01/19/18 06:00 01/19/18 05:39 (Xarelto) 15 mg DAILY PO 01/19/18 09:00 01/19/18 08:31 (Roxicodone) 15 mg Q8H PRN PO 01/18/18 23:45 01/19/18 02:14 (D50w (Vial) Inj) 50 ml UNSCH PRN IV PUSH 01/18/18 23:30 (Glucagon Inj) 1 mg UNSCH PRN OTHER 01/18/18 23:30 (NovoLOG SUPPLEMENTAL SCALE) 1 ACHS SLIDING SCALE SQ 01/19/18 08:00 (Zaroxolyn) 5 mg DAILY PO 01/19/18 09:00 01/19/18 08:57 (Coreg) 12.5 mg Q12HR PO 01/19/18 09:00 01/19/18 08:35 Active Ordered Medications Current Medications Medications (Trade) Dose Ordered Sig/Edna Route Start Time Stop Time Status Last Admin (NS Flush) 2 ml UNSCH PRN IV FLUSH 01/18/18 23:30 (NS Flush) 2 ml BID IV FLUSH 01/19/18 09:00 01/19/18 08:32 (Lasix Inj) 40 mg BID@,18 IVP 01/19/18 09:00 01/19/18 08:32 (Aspirin Chew) 81 mg DAILY CHEW 01/19/18 09:00 01/19/18 08:32 (Lipitor) 40 mg HS PO 01/19/18 21:00 (Neurontin) 200 mg Q12HR PO 01/19/18 09:00 01/19/18 08:31 (Levemir Inj) 12 units HS SQ 01/19/18 21:00 (Imdur) 30 mg DAILY PO 01/19/18 09:00 01/19/18 08:31 (Synthroid) 100 mcg DAILY@0600 PO 01/19/18 06:00 01/19/18 05:39 (Xarelto) 15 mg DAILY PO 01/19/18 09:00 01/19/18 08:31 (Roxicodone) 15 mg Q8H PRN PO 01/18/18 23:45 01/19/18 02:14 (D50w (Vial) Inj) 50 ml UNSCH PRN IV PUSH 01/18/18 23:30 (Glucagon Inj) 1 mg UNSCH PRN OTHER 01/18/18 23:30 (NovoLOG SUPPLEMENTAL SCALE) 1 ACHS SLIDING SCALE SQ 01/19/18 08:00 (Zaroxolyn) 5 mg DAILY PO 01/19/18 09:00 01/19/18 08:57 (Coreg) 12.5 mg Q12HR PO 01/19/18 09:00 01/19/18 08:35 Family History reviewed, non contributory Social History no active tobacco or ETOH. Physical Exam Vital Signs Vital Signs Date Time Temp Pulse Resp B/P (MAP) Pulse Ox O2 Delivery O2 Flow Rate FiO2 01/19/18 07:48 58 01/19/18 07:38 97.7 56 18 100/54 (69) 99 01/19/18 04:03 98.2 60 18 129/58 (81) 10 01/19/18 04:00 55 01/19/18 01:00 97.8 78 17 118/53 (74) 95 01/19/18 00:00 01/18/18 22:09 71 18 117/54 (75) 96 Room Air 01/18/18 19:20 98.0 66 18 108/53 (71) 99 Physical Exam GENERAL: patient is ill appearing, lethargic. SKIN: Warm and dry. HEAD: Normocephalic. EYES: No scleral icterus. No injection or drainage. NECK: Supple, trachea midline. No JVD or lymphadenopathy. CARDIOVASCULAR: irregular. RESPIRATORY: Breath sounds equal bilaterally. No accessory muscle use. GASTROINTESTINAL: Abdomen soft, non-tender, nondistended. MUSCULOSKELETAL: 3+ edema. Skin: multiple areas of skin breakdown, they are oozing. Laboratory Laboratory Tests Test 01/18/18 20:08 01/18/18 21:00 01/18/18 23:20 01/19/18 05:56 White Blood Count 5.0 5.3 Red Blood Count 2.69 2.67 Hemoglobin 7.7 7.7 Hematocrit 23.3 23.2 Mean Corpuscular Volume 86.7 87.0 Mean Corpuscular Hemoglobin 28.7 28.9 Mean Corpuscular Hemoglobin Concent 33.1 33.2 Red Cell Distribution Width 25.0 25.2 Platelet Count 163 153 Mean Platelet Volume 8.5 8.3 Neutrophils (%) (Auto) 57.9 63.4 Lymphocytes (%) (Auto) 25.6 21.7 Monocytes (%) (Auto) 12.2 10.9 Eosinophils (%) (Auto) 3.4 3.3 Basophils (%) (Auto) 0.9 0.7 Neutrophils # (Auto) 2.9 3.3 Lymphocytes # (Auto) 1.3 1.1 Monocytes # (Auto) 0.6 0.6 Eosinophils # (Auto) 0.2 0.2 Basophils # (Auto) 0.0 0.0 CBC Comment AUTO DIFF AUTO DIFF Differential Comment AUTO DIFF CONFIRMED AUTO DIFF CONFIRMED Platelet Estimate NORMAL Platelet Morphology Comment NORMAL Ovalocytes 1+ 1+ Blood Urea Nitrogen 36 35 Creatinine 2.15 2.06 Random Glucose 191 159 Total Protein 6.4 Albumin 3.0 Calcium Level 8.1 8.6 Magnesium Level 2.3 Alkaline Phosphatase 127 Aspartate Amino Transf (AST/SGOT) 29 Alanine Aminotransferase (ALT/SGPT) 92 Total Bilirubin 0.6 Sodium Level 133 136 Potassium Level 5.3 4.9 Chloride Level 100 101 Carbon Dioxide Level 24.9 27.5 Anion Gap 8 8 Estimat Glomerular Filtration Rate 30 32 Total Creatine Kinase 27 Troponin I 0.03 B-Type Natriuretic Peptide 683 Prothrombin Time 16.4 Prothromb Time International Ratio 1.6 Activated Partial Thromboplast Time 32.4 Urine Color YELLOW Urine Turbidity CLEAR Urine pH 6.0 Urine Specific Tiff 1.007 Urine Protein NEG Urine Glucose (UA) NEG Urine Ketones NEG Urine Occult Blood NEG Urine Nitrite NEG Urine Bilirubin NEG Urine Urobilinogen LESS THAN 2.0 Urine Leukocyte Esterase NEG Urine RBC 3 Urine WBC 1 Urine Squamous Epithelial Cells <1 Urine Bacteria RARE Urine Hyaline Casts 6 Urine Mucus FEW Microscopic Urinalysis Comment CULT NOT INDICATED Result Diagram: 01/19/18 0556 01/19/18 0556 Assessment and Plan Problem List: (1) Acute kidney failure ICD Codes: N17.9 - Acute kidney failure, unspecified Status: Acute Plan: could be secondary to decompensated heart failure and increased renal vein pressure. Continue diuresis. Avoid nephrotoxic agents. Currently on Lasix 40 mg IV Q 12 hours and Metolazone. UA is unremarkable. Obtain renal US. Prognosis is poor. (2) Ischemic cardiomyopathy ICD Codes: I25.5 - Ischemic cardiomyopathy Status: Chronic Plan: patient presenting with acute decompensation of chronic systolic heart failure Continue Lasix and Metolazone. Cardiology on the case. (3) Hyperkalemia ICD Codes: E87.5 - Hyperkalemia Status: Acute Plan: Improved. Spironolactone held. Assessment and Plan Thanks for the consult. I will follow. Problem Qualifiers (1) Acute kidney failure: Qualified Codes: N17.9 - Acute kidney failure, unspecified Bony Valdivia MD January 19, 2018 12:17
[2018-01-19] MEDS: ACETAMINOPHEN 325 MG TAB PO PRN (14:55)
--- NOTE | 2018-01-19 15:03 | EKG ---
Date Performed: 01/18/2018 Time Performed: 19:54:56 PTAGE: 72 years EKG: ATRIAL FIBRILLATION ST DEVIATION AND MODERATE T-WAVE ABNORMALITY, CONSIDER INFERIOR ISCHEMI A ABNORMAL ECG PREVIOUS TRACING : 01/06/2018 11.51 Since the prior tracing, the supraventricular tachycardia h as resolved. With a controlled heart rate, the inferolateral ST segment changes have improved but the y do persist, and clinical correlation remains important. DOCTOR: Suyapa Guo Interpretating Date/Time 01/19/2018 15:03:35
[2018-01-19] MEDS: INSULIN DETEMIR 100 UNITS/ML VIAL SQ SCH (20:41)
[2018-01-19] MEDS: ATORVASTATIN 40 MG TAB PO SCH (20:41)
[2018-01-19] MEDS ORDERED: INSULIN DETEMIR 100 UNITS/ML VIAL SQ SCH (21:00)
--- NOTE | 2018-01-19 21:14 | RADRPT ---
EXAM DATE/TIME: 01/19/2018 20:06 [place] COMPARISON: No previous studies available for comparison. INDICATIONS : Increased BUN/Creatinine. MEDICAL HISTORY : Myocardial infarction. Congestive heart failure. Hypercholesterolemia. Cardiomyopathy. Coronary jennie ry disease. Atrial fibrillation. Hypertension. Chronic obstructive pulmonary disease. Diabetes. Skin cancer. SURGICAL HISTORY : Pacemaker. Defibrillator. CABG. Hernia repair. Coronary artery stent. ENCOUNTER: Initial ACUITY: 1 day PAIN SCORE: 0/10 LOCATION: Bilateral flank MEASUREMENTS: RIGHT KIDNEY: 11.9 x 5.3 x 5.3 cm LEFT KIDNEY: 11.1 x 4.6 x 6.2 cm FINDINGS: RIGHT KIDNEY: Renal cortex is normal in thickness and echotexture. No hydronephrosis, stone, or mass. LEFT KIDNEY: Renal cortex is normal in thickness and echotexture. No hydronephrosis, stone, or mass. BLADDER: Within normal limits given the degree of distension. CONCLUSION: 1. Unremarkable renal ultrasound. Right pleural effusion. Minimal ascites. Gonzalez Fierro MD on January 19, 2018 at 21:11 Board Certified Radiologist. This report was verified electronically.
[2018-01-20] VITALS (8 sets, daily range): BP systolic 96–127; BP diastolic 50–60; PULSE 60–83; RESP 19–22; TEMP 97.6–98.1; O2SAT 94–100
[2018-01-20] MEDS: LEVOTHYROXINE SODIUM 100 MCG TAB PO SCH (05:12)
[2018-01-20 07:09] LABS: CALCIUM 8.6 MG/DL (8.5-10.1); CREATININE 1.81 MG/DL (0.60-1.30)
[2018-01-20] MEDS: INSULIN ASPART SUPPLEMENTAL SCALE SQ SCH ×4 (08:00→22:17)
--- NOTE | 2018-01-20 08:12 | PD.CARD.PN ---
Subjective Subjective Remarks No dyspnea, CP, dizziness, palpitations. Slept very little. Objective Medications Item Value Date Time Atorvastatin 40 mg 01/19/182099 Calcium HS/PO 01/19/182040 (Lipitor) Furosemide 40 mg 01/19/1800 (Lasix Inj) BID@/IVP 01/19/18 181 Aspirin 81 mg 01/19/18 0900 (Aspirin Chew) DAILY/CHEW 01/19/18 0832 Isosorbide 30 mg 01/19/18 0900 Mononitrate DAILY/PO 01/19/18 0831 (Imdur) Rivaroxaban 15 mg 01/19/18 0900 (Xarelto) DAILY/PO 01/19/18 0831 Carvedilol 12.5 mg 01/19/18899 (Coreg) Q12HR/PO 01/19/182040 Metolazone 5 mg 01/19/18899 (Zaroxolyn) DAILY/PO 01/19/18 0857 Current Medications Medications (Trade) Dose Ordered Sig/Edna Route Start Time Stop Time Status Last Admin (NS Flush) 2 ml UNSCH PRN IV FLUSH 01/18/18 23:30 (NS Flush) 2 ml BID IV FLUSH 01/19/18 09:00 01/19/18 21:00 (Lasix Inj) 40 mg BID@ IVP 01/19/18 09:00 01/19/18 18:10 (Aspirin Chew) 81 mg DAILY CHEW 01/19/18 09:00 01/19/18 08:32 (Lipitor) 40 mg HS PO 01/19/18 21:00 01/19/18 20:41 (Neurontin) 200 mg Q12HR PO 01/19/18 09:00 01/19/18 20:42 (Imdur) 30 mg DAILY PO 01/19/18 09:00 01/19/18 08:31 (Synthroid) 100 mcg DAILY@0600 PO 01/19/18 06:00 01/20/18 05:12 (Xarelto) 15 mg DAILY PO 01/19/18 09:00 01/19/18 08:31 (Roxicodone) 15 mg Q8H PRN PO 01/18/18 23:45 01/20/18 01:47 (D50w (Vial) Inj) 50 ml UNSCH PRN IV PUSH 01/18/18 23:30 (Glucagon Inj) 1 mg UNSCH PRN OTHER 01/18/18 23:30 (NovoLOG SUPPLEMENTAL SCALE) 1 ACHS SLIDING SCALE SQ 01/19/18 08:00 01/19/18 20:40 (Zaroxolyn) 5 mg DAILY PO 01/19/18 09:00 01/19/18 08:57 (Coreg) 12.5 mg Q12HR PO 01/19/18 09:00 01/19/18 20:41 (Levemir Inj) 15 units HS SQ 01/19/18 21:00 01/19/18 20:41 (Tylenol) 650 mg Q6H PRN PO 01/19/18 14:30 01/19/18 14:55 Vital Signs / I&O Vital Signs Date Time Temp Pulse Resp B/P (MAP) Pulse Ox O2 Delivery O2 Flow Rate FiO2 01/20/18 07:41 97.9 60 19 96/58 (71) 94 01/20/18 04:00 97.9 78 22 127/59 (81) 99 01/20/18 00:00 97.6 73 20 101/55 (70) 94 01/20/18 00:00 69 01/19/18 20:00 68 01/19/18 20:00 97.7 80 22 119/66 (83) 99 01/19/18 15:48 98.1 121 20 140/96 (111) 97 01/19/18 14:11 98.1 66 20 105/55 (72) 100 I/O 01/19/18 01/19/18 01/19/18 01/20/18 01/20/18 01/20/18 07:00 15:00 23:00 07:00 15:00 23:00 Intake Total 480 ml Output Total 475 ml 350 ml Balance -475 ml 130 ml Intake Oral 480 ml Output Urine Total 475 ml 350 ml # Voids 1 # Bowel Movements 0 Physical Exam GENERAL: Well developed, well nourished. No acute distress. HEENT: Jugular venous pressure is normal. CHEST: Diminished breath sounds diffusely. CARDIAC: Irregular rate and rhythm without S3, S4, or murmur. ABDOMEN: Soft, nontender, no hepatosplenomegaly. Bowel sounds present. EXTREMITIES: No clubbing, cyanosis. 2-3 + pretibial edema. Pitting sacral edema. Laboratory Laboratory Tests Test 01/20/18 06:01 Blood Urea Nitrogen 37 MG/DL Creatinine 1.81 MG/DL Random Glucose 114 MG/DL Calcium Level 8.6 MG/DL Sodium Level 138 MEQ/L Potassium Level 4.6 MEQ/L Chloride Level 100 MEQ/L Carbon Dioxide Level 28.0 MEQ/L Anion Gap 10 MEQ/L Estimat Glomerular Filtration Rate 37 ML/MIN Assessment and Plan Problem List: (1) Ischemic cardiomyopathy ICD Codes: I25.5 - Ischemic cardiomyopathy Status: Chronic Plan: EF 20%. CHF exacerbation, seemingly predominantly right-sided. Stable overnight. Minimal diuresis achieved. Renal indices improved this morning. REC continue IV furosemide, oral metolazone; consider Bumex drip, dobutamine, renal dose dopamine continue beta hermila; no CANDY-I with CRI (2) Chronic atrial fibrillation ICD Codes: I48.2 - Chronic atrial fibrillation Status: Chronic Plan: Stable. Mostly in atrial fib/flutter. No HR control issues. Continue Xarelto, beta hermila (3) CAD (coronary artery disease) ICD Codes: I25.10 - Atherosclerotic heart disease of [place] coronary artery without angina pectoris Status: Chronic Plan: CAD status stable. No definite recent angina. Continue conservative medical therapy. (4) History of implantable cardioverter-defibrillator (ICD) placement ICD Codes: Z95.810 - Presence of automatic (implantable) cardiac defibrillator Status: Chronic Code Status full code Discussed Condition With patient Problem Qualifiers (1) CAD (coronary artery disease): Qualified Codes: I25.10 - Atherosclerotic heart disease of [place] coronary artery without angina pectoris Oliver Acevedo MD January 20, 2018 08:12
[2018-01-20] MEDS: SODIUM CHLORIDE 0.9% FLUSH 10 ML FLUSH IV FLUSH SCH ×2 (09:00→22:14)
[2018-01-20] MEDS: METOLAZONE 5 MG TAB PO SCH (09:00)
[2018-01-20] MEDS: ISOSORBIDE MONONITRATE 60 MG CR TAB (IMDUR) PO SCH (09:00)
[2018-01-20] MEDS: RIVAROXABAN 15 MG TAB PO SCH (09:00)
[2018-01-20] MEDS: GABAPENTIN 100 MG CAP PO SCH ×2 (09:20→22:16)
[2018-01-20] MEDS: ASPIRIN 81 MG CHEW TAB CHEW SCH (09:21)
[2018-01-20] MEDS: CARVEDILOL 12.5 MG TAB PO SCH ×2 (09:21→22:16)
[2018-01-20] MEDS: FUROSEMIDE 40 MG/4 ML VIAL IVP SCH (09:22)
--- NOTE | 2018-01-20 13:09 | HHI.NPPN ---
Subjective Renal Failure: Acute Interval History Sitting up eating lunch. Family at bedside. Edema better, legs continue to weep. (Kiki Aguilar) Review of Systems Cardiovascular Cardiac: Edema (Kiki Aguilar) Skin Skin: Skin Rash, Lesions, Ulcers Skin Remarks lower ext (Kiki Aguilar) Objective Data Data Vital Signs Date Time Temp Pulse Resp B/P (MAP) Pulse Ox O2 Delivery O2 Flow Rate FiO2 01/20/18 12:00 97.8 73 19 119/60 (79) 97 01/20/18 07:41 97.9 60 19 96/58 (71) 94 01/20/18 04:00 97.9 78 22 127/59 (81) 99 01/20/18 00:00 97.6 73 20 101/55 (70) 94 01/20/18 00:00 69 01/19/18 20:00 68 01/19/18 20:00 97.7 80 22 119/66 (83) 99 01/19/18 15:48 98.1 121 20 140/96 (111) 97 01/19/18 14:11 98.1 66 20 105/55 (72) 100 (Kiki Aguilar) -: 01/19/18 0556 01/20/18 0601 Imaging Last 72 hours Impressions Renal Ultrasound 01/19/18 0000 Signed Impressions: Service Date/Time: January 20:06 - CONCLUSION: 1. Unremarkable renal ultrasound. Right pleural effusion. Minimal ascites. Gonzalez Fierro MD Chest X-Ray 01/18/18 194 Signed Impressions: Service Date/Time: Thursday, January 18, 2018 19:53 - CONCLUSION: Cardiomegaly with right basilar density slightly improved. Likely small pleural effusion and right basilar atelectasis. Klaus Puente MD (Kiki Aguilar) Physical Exam General Appearance: Well Developed, No Acute Distress, Comfortable (Kiki Aguilar) Eyes Eye Exam: Pupils Equal (Kiki Aguilar) Throat Throat Exam: Oral Mucosa [place] & Moist (Kiki Aguilar) Pulmonary Resp Exam: Clear Bilaterally, Breath Sounds Equal (Kiki Aguilar) Cardiology CV Exam: Good Perfusion, Irregular (Kiki Aguilar) Gastrointestinal/Abdomen GI Exam: Soft, Non-Tender, Bowel Sounds Present (Kiki Aguilar) Musculoskeletal MS Exam: Joints Intact, Normal Tone (Kiki Aguilar) Integumentary Skin Exam: Warm, Dry Skin Remarks scaly lesions on lower legs, erythema knees down, weeping. non pitting (Kiki Aguilar) Extremeties Extremities Exam: No Edema, Pedal Pulses Palpable (Kiki Aguilar) Neurologic Neuro Exam: Alert, Awake, Oriented, Speech Clear, Moving All Extremities (Kiki Aguilar) Psychiatric Psych Exam: Appropriate Responses (Kiki Aguilar) Assessment/Plan Discussed Condition With: Patient, Relative Assessment Summary: DAVID/Acute Renal Failure, Fluid/Volume Overload, CHF Problem List: (1) Acute kidney failure ICD Codes: N17.9 - Acute kidney failure, unspecified Status: Acute Plan: Baseline creatinine 1.1 DAVID secondary to decompensated heart failure and increased renal vein pressure. Renal US is normal, UA unremarkable (no infection, blood, protein). Renal function is better Continue diuresis, change Lasix to PO. Also on metolazone. Avoid nephrotoxic agents. Prognosis is poor given chronic heart failure. . (2) Ischemic cardiomyopathy ICD Codes: I25.5 - Ischemic cardiomyopathy Status: Chronic Plan: acute decompensation of chronic systolic heart failure Continue Lasix and Metolazone. Cardiology following EF is 20% Low Na diet discussed. (3) Hyperkalemia ICD Codes: E87.5 - Hyperkalemia Status: Acute Plan: Improved. Spironolactone is still held. (Kiki Aguilar) Plan Patient was seen and examined. Agree with above assessment and plan. (Bony Valdivia MD) Problem Qualifiers (1) Acute kidney failure: Qualified Codes: N17.9 - Acute kidney failure, unspecified Kiki Aguilar January 20, 2018 13:09 Bony Valdivia MD January 20, 2018 16:18
[2018-01-20] MEDS ORDERED: BISACODYL EC 5 MG TABEC PO ONE (16:30)
[2018-01-20] MEDS: POLYETHYLENE GLYCOL 17 GM PKG PO SCH (16:39)
[2018-01-20] MEDS: FUROSEMIDE 40 MG/4 ML VIAL IV PUSH SCH (17:42)
[2018-01-20] MEDS ORDERED: FUROSEMIDE 40 MG TAB PO SCH (18:00)
[2018-01-20] MEDS: ATORVASTATIN 40 MG TAB PO SCH (22:15)
[2018-01-20] MEDS: INSULIN DETEMIR 100 UNITS/ML VIAL SQ SCH (22:17)
--- NOTE | 2018-01-20 23:26 | HHI.PR ---
Subjective Remarks Follow-up for ischemic cardiomyopathy, acute exacerbation of CHF, acute kidney injury. Patient says he is feeling better. Denies any chest pain or shortness of breath. Denies any nausea or vomiting. Bilateral legs still weeping. Objective Vital Signs Date Time Temp Pulse Resp B/P (MAP) Pulse Ox O2 Delivery O2 Flow Rate FiO2 01/20/18 20:10 97.8 76 20 120/59 (79) 98 01/20/18 17:00 66 01/20/18 16:00 98.1 76 20 109/50 (69) 100 01/20/18 13:30 97.9 83 20 107/50 (69) 100 01/20/18 12:00 97.8 73 19 119/60 (79) 97 01/20/18 07:41 97.9 60 19 96/58 (71) 94 01/20/18 04:00 97.9 78 22 127/59 (81) 99 01/20/18 00:00 97.6 73 20 101/55 (70) 94 01/20/18 00:00 69 I/O 01/20/18 01/20/18 01/20/18 01/21/18 01/21/18 01/21/18 07:00 15:00 23:00 07:00 15:00 23:00 Intake Total 480 ml 240 ml Output Total 350 ml Balance 130 ml 240 ml Intake Oral 480 ml 240 ml Output Urine Total 350 ml # Voids 3 # Bowel Movements 0 Result Diagram: 01/19/18 0556 01/20/18 0601 Objective Remarks GENERAL: patient sitting up in chair at bedside. Appears comfortable. SKIN: Warm and dry. HEAD: Normocephalic. EYES: No scleral icterus. No injection or drainage. NECK: Supple, trachea midline. No JVD. CARDIOVASCULAR: Regular rate and rhythm without murmurs, gallops, or rubs. RESPIRATORY: Breath sounds equal bilaterally. No accessory muscle use. GASTROINTESTINAL: Abdomen soft, non-tender, nondistended. MUSCULOSKELETAL: No cyanosis. 3+ bilateral lower extremity edema with serous drainage. No sign of infection. BACK: Nontender without obvious deformity. No CVA tenderness. A/P Assessment and Plan On 01/18/2018, Mr. Heard, a 72-year-old male with a past medical history significant for A. fib anticoagulated on Xarelto, CHF with an EF of 20% on , coronary artery disease, diabetes mellitus, hypertension, hyperlipidemia and chronic back pain presents to the emergency department for the evaluation of swelling. He reports significant fluid weight gain in the last few days. //Acute CHF exacerbation //Coronary artery disease //Ischemic cardiomyopathy -Continue aspirin, atorvastatin 40 mg nightly, carvedilol 12.5 mg every 12 hours -Continue Lasix 40 mg IV twice daily. Also continue metolazone 5 mg daily. -We will consider torsemide 20 mg twice daily upon discharge. -Holding spironolactone due to hyperkalemia. Patient is status post AICD placement. -Could consider Entresto in near future. = Improving. Continue diuresis. Appreciate cardiology assistance. Acute kidney injury - Creatinine increased from baseline around 1 to 2.15. -Could be cardiorenal syndrome -Nephrology following. = Improving. Creatinine 1.8 from 2.0 yesterday. Appreciate nephrology assistance. Atrial fibrillation - continue beta hermila and Xarelto. Diabetes mellitus - continue Levemir. 15 units QHS. And sliding scale insulin. = Sugars acceptable. Continue to monitor. Hypothyroidism -continue levothyroxine 100 mcg daily. Full code. Xarelto. Discharge Planning pending cardiology clearance. Taz Sky MD January 20, 2018 23:26
[2018-01-21] VITALS (10 sets, daily range): BP systolic 97–124; BP diastolic 47–59; PULSE 57–84; RESP 18–24; TEMP 97.6–98.7; O2SAT 95–100
[2018-01-21] MEDS: LEVOTHYROXINE SODIUM 100 MCG TAB PO SCH (06:48)
[2018-01-21] MEDS: INSULIN ASPART SUPPLEMENTAL SCALE SQ SCH ×4 (08:00→21:00)
[2018-01-21] MEDS: FUROSEMIDE 40 MG/4 ML VIAL IV PUSH SCH ×2 (09:43→18:00)
[2018-01-21] MEDS: RIVAROXABAN 15 MG TAB PO SCH (09:43)
[2018-01-21] MEDS: POLYETHYLENE GLYCOL 17 GM PKG PO SCH (09:44)
[2018-01-21] MEDS: METOLAZONE 5 MG TAB PO SCH (09:44)
[2018-01-21] MEDS: BISACODYL EC 5 MG TABEC PO SCH (09:44)
[2018-01-21] MEDS: ISOSORBIDE MONONITRATE 60 MG CR TAB (IMDUR) PO SCH (09:44)
[2018-01-21] MEDS: GABAPENTIN 100 MG CAP PO SCH ×2 (09:44→21:49)
[2018-01-21] MEDS: CARVEDILOL 12.5 MG TAB PO SCH ×2 (09:44→21:49)
[2018-01-21] MEDS: ASPIRIN 81 MG CHEW TAB CHEW SCH (09:45)
[2018-01-21] MEDS: SODIUM CHLORIDE 0.9% FLUSH 10 ML FLUSH IV FLUSH SCH ×2 (09:45→21:00)
--- NOTE | 2018-01-21 10:57 | PD.CARD.PN ---
Subjective Subjective Remarks No dyspnea, CP, dizziness, palpitations. Slept much better. Objective Medications Item Value Date Time Furosemide 40 mg 01/20/18 1800 (Lasix Inj) BID@/IV PUSH 01/21/18 0943 Isosorbide 60 mg 01/20/18 0900 Mononitrate DAILY/PO 01/21/18 0944 (Imdur) Metolazone 10 mg 01/20/18 0900 (Zaroxolyn) DAILY/PO 01/21/18 0944 Atorvastatin 40 mg 01/19/18 2100 Calcium HS/PO 01/20/18 2215 (Lipitor) Aspirin 81 mg 01/19/18 09 (Aspirin Chew) DAILY/CHEW 01/21/18 0945 Rivaroxaban 15 mg 01/19/18899 (Xarelto) DAILY/PO 01/21/18 0943 Carvedilol 12.5 mg 01/19/18 0900 (Coreg) Q12HR/PO 01/21/18 09 Current Medications Medications (Trade) Dose Ordered Sig/Edna Route Start Time Stop Time Status Last Admin (NS Flush) 2 ml UNSCH PRN IV FLUSH 01/18/18 23:30 (NS Flush) 2 ml BID IV FLUSH 01/19/18 09:00 01/21/18 09:45 (Aspirin Chew) 81 mg DAILY CHEW 01/19/18 09:00 01/21/18 09:45 (Lipitor) 40 mg HS PO 01/19/18 21:00 01/20/18 22:15 (Neurontin) 200 mg Q12HR PO 01/19/18 09:00 01/21/18 09:44 (Synthroid) 100 mcg DAILY@0600 PO 01/19/18 06:00 01/21/18 06:48 (Xarelto) 15 mg DAILY PO 01/19/18 09:00 01/21/18 09:43 (Roxicodone) 15 mg Q8H PRN PO 01/18/18 23:45 01/21/18 04:50 (D50w (Vial) Inj) 50 ml UNSCH PRN IV PUSH 01/18/18 23:30 (Glucagon Inj) 1 mg UNSCH PRN OTHER 01/18/18 23:30 (NovoLOG SUPPLEMENTAL SCALE) 1 ACHS SLIDING SCALE SQ 01/19/18 08:00 01/20/18 22:17 (Coreg) 12.5 mg Q12HR PO 01/19/18 09:00 01/21/18 09:44 (Levemir Inj) 15 units HS SQ 01/19/18 21:00 01/20/18 22:17 (Tylenol) 650 mg Q6H PRN PO 01/19/18 14:30 01/19/18 14:55 (Imdur) 60 mg DAILY PO 01/20/18 09:00 01/21/18 09:44 (Zaroxolyn) 10 mg DAILY PO 01/20/18 09:00 01/21/18 09:44 (Miralax) 17 gm DAILY PO 01/20/18 16:30 01/21/18 09:44 (Dulcolax Ec) 5 mg DAILY PO 01/21/18 09:00 01/21/18 09:44 (Lasix Inj) 40 mg BID@18 IV PUSH 01/20/18 18:00 01/21/18 09:43 Vital Signs / I&O Vital Signs Date Time Temp Pulse Resp B/P (MAP) Pulse Ox O2 Delivery O2 Flow Rate FiO2 01/21/18 09:00 76 100/52 (68) 01/21/18 08:00 97.6 57 20 99/52 (68) 97 01/21/18 04:04 97.8 57 24 106/54 (71) 100 01/21/18 00:04 98.0 78 20 124/58 (80) 97 01/20/18 20:10 97.8 76 20 120/59 (79) 98 01/20/18 17:00 66 01/20/18 16:00 98.1 76 20 109/50 (69) 100 01/20/18 13:30 97.9 83 20 107/50 (69) 100 01/20/18 12:00 97.8 73 19 119/60 (79) 97 I/O 01/20/18 01/20/18 01/20/18 01/21/18 01/21/18 01/21/18 07:00 15:00 23:00 07:00 15:00 23:00 Intake Total 480 ml 240 ml 80 ml Output Total 350 ml Balance 130 ml 240 ml 80 ml Intake Oral 480 ml 240 ml 80 ml Output Urine Total 350 ml # Voids 3 2 # Bowel Movements 0 Physical Exam GENERAL: Well developed, well nourished. No acute distress. HEENT: Jugular venous pressure is normal. CHEST: Diminished breath sounds bases. Minimal bibasilar crackles. CARDIAC: Irregular rate and rhythm without S3, S4, or murmur. ABDOMEN: Soft, nontender, no hepatosplenomegaly. Bowel sounds present. EXTREMITIES: No clubbing, cyanosis. 2 + pretibial edema. Assessment and Plan Problem List: (1) Ischemic cardiomyopathy ICD Codes: I25.5 - Ischemic cardiomyopathy Status: Chronic Plan: EF 20%. CHF exacerbation, seemingly predominantly right-sided. Doing much better. Weight down about 18 lbs since admission. Anasarca improved. REC no new recommendations at this time, will f/u PRN tomorrow when patient discharged will give his home health nurse a PRN order to place IV for IV diuretics at home when patient begins to retain fluid (2) Chronic atrial fibrillation ICD Codes: I48.2 - Chronic atrial fibrillation Status: Chronic Plan: Stable. Mostly in atrial fib/flutter. No HR control issues. Continue Xarelto, beta hermila (3) CAD (coronary artery disease) ICD Codes: I25.10 - Atherosclerotic heart disease of [place] coronary artery without angina pectoris Status: Chronic Plan: CAD status stable. No definite recent angina. Continue conservative medical therapy. (4) History of implantable cardioverter-defibrillator (ICD) placement ICD Codes: Z95.810 - Presence of automatic (implantable) cardiac defibrillator Status: Chronic Code Status full code Discussed Condition With patient and Problem Qualifiers (1) CAD (coronary artery disease): Qualified Codes: I25.10 - Atherosclerotic heart disease of [place] coronary artery without angina pectoris Oliver Acevedo MD January 21, 2018 10:57
[2018-01-21 12:48] LABS: BICARBONATE 29.3 MEQ/L (21.0-32.0); CALCIUM 9.2 MG/DL (8.5-10.1); CREATININE 1.53 MG/DL (0.60-1.30)
--- NOTE | 2018-01-21 17:17 | HHI.NPPN ---
Subjective Renal Failure: Acute Review of Systems Cardiovascular Cardiac: Edema Skin Skin: Skin Rash, Lesions, Ulcers Skin Remarks lower ext Objective Data Data Vital Signs Date Time Temp Pulse Resp B/P (MAP) Pulse Ox O2 Delivery O2 Flow Rate FiO2 01/21/18 12:00 97.8 79 20 101/59 (73) 95 01/21/18 09:30 84 01/21/18 09:00 76 100/52 (68) 01/21/18 08:00 97.6 57 20 99/52 (68) 97 01/21/18 04:04 97.8 57 24 106/54 (71) 100 01/21/18 00:04 98.0 78 20 124/58 (80) 97 01/20/18 20:10 97.8 76 20 120/59 (79) 98 -: 01/19/18 0556 01/21/18 1111 Physical Exam General Appearance: Well Developed, No Acute Distress, Comfortable Eyes Eye Exam: Pupils Equal Throat Throat Exam: Oral Mucosa [place] & Moist Pulmonary Resp Exam: Clear Bilaterally, Breath Sounds Equal Cardiology CV Exam: Good Perfusion, Irregular Gastrointestinal/Abdomen GI Exam: Soft, Non-Tender, Bowel Sounds Present Musculoskeletal MS Exam: Joints Intact, Normal Tone Integumentary Skin Exam: Warm, Dry Extremeties Extremities Exam: No Edema, Pedal Pulses Palpable Neurologic Neuro Exam: Alert, Awake, Oriented, Speech Clear, Moving All Extremities Psychiatric Psych Exam: Appropriate Responses Assessment/Plan Discussed Condition With: Patient, Relative Assessment Summary: DAVID/Acute Renal Failure, Fluid/Volume Overload, CHF Problem List: (1) Acute kidney failure ICD Codes: N17.9 - Acute kidney failure, unspecified Status: Acute Plan: Baseline creatinine 1.1 DAVID secondary to decompensated heart failure and increased renal vein pressure. Renal US is normal, UA unremarkable (no infection, blood, protein). Renal function is better Continue diuresis, Lasix . Also on metolazone. Diuresing well creatinine declined to 1.5 Avoid nephrotoxic agents. Prognosis is poor given chronic heart failure. . (2) Ischemic cardiomyopathy ICD Codes: I25.5 - Ischemic cardiomyopathy Status: Chronic Plan: acute decompensation of chronic systolic heart failure Continue Lasix and Metolazone. Cardiology following EF is 20% Low Na diet discussed. (3) Hyperkalemia ICD Codes: E87.5 - Hyperkalemia Status: Acute Plan: Improved. Spironolactone is still held. Problem Qualifiers (1) Acute kidney failure: Qualified Codes: N17.9 - Acute kidney failure, unspecified Monisha Mckeon MD January 21, 2018 17:17
[2018-01-21 20:14] LABS: HEMATOCRIT 19.4 % (39.0-51.0); HEMOGLOBIN 6.2 GM/DL (13.0-17.0)
[2018-01-21] MEDS ORDERED: ACETAMINOPHEN 325 MG TAB PO PRN (20:15)
[2018-01-21] MEDS ORDERED: FUROSEMIDE 20 MG/2 ML VIAL IV PUSH ONE (20:15)
[2018-01-21] MEDS ORDERED: SODIUM CHLOR 0.9% 250 ML INJ 250 ML IV ONE (20:15)
--- NOTE | 2018-01-21 20:24 | HHI.PR ---
Subjective Remarks Patient denied chest pain short of breath while he is on oxygen, he has leg edema with venous stasis Objective Vitals Vital Signs Date Time Temp Pulse Resp B/P (MAP) Pulse Ox O2 Delivery O2 Flow Rate FiO2 01/21/18 16:00 98.7 80 20 117/54 (75) 95 01/21/18 12:00 97.8 79 20 101/59 (73) 95 01/21/18 09:30 84 01/21/18 09:00 76 100/52 (68) 01/21/18 08:00 97.6 57 20 99/52 (68) 97 01/21/18 04:04 97.8 57 24 106/54 (71) 100 01/21/18 00:04 98.0 78 20 124/58 (80) 97 I/O 01/20/18 01/20/18 01/20/18 01/21/18 01/21/18 01/21/18 07:00 15:00 23:00 07:00 15:00 23:00 Intake Total 480 ml 240 ml 80 ml 480 ml Output Total 350 ml Balance 130 ml 240 ml 80 ml 480 ml Intake Oral 480 ml 240 ml 80 ml 480 ml Output Urine Total 350 ml # Voids 3 2 2 # Bowel Movements 0 Result Diagram: 01/21/18 1930 01/21/18 1111 Objective Remarks GENERAL: This is a well-nourished, well-developed patient, in no apparent distress. SKIN: No rashes, warm and dry HEAD: Atraumatic. Normocephalic. EYES: Pupils equal round and reactive. Extraocular motions intact. No scleral icterus. ENT: Nose without bleeding, or drainage, Airway patent. NECK: Trachea midline. Supple CARDIOVASCULAR: Regular rate and rhythm without murmurs, gallops, or rubs. RESPIRATORY: Bibasilar crackles GASTROINTESTINAL: Abdomen soft, non-tender, nondistended. Positive bowel sounds MUSCULOSKELETAL: Extremities with status dermatitis, +3 edema NEUROLOGICAL: Awake and alert. Moves all extremity. Normal speech.no focal neurological deficit Procedures None A/P Problem List: (1) CHF exacerbation ICD Code: I50.9 - Heart failure, unspecified Status: Acute (2) Ischemic cardiomyopathy ICD Code: I25.5 - Ischemic cardiomyopathy Status: Chronic (3) Chronic atrial fibrillation ICD Code: I48.2 - Chronic atrial fibrillation Status: Chronic (4) Acute kidney failure ICD Code: N17.9 - Acute kidney failure, unspecified Status: Acute (5) Hyperkalemia ICD Code: E87.5 - Hyperkalemia Status: Acute Assessment and Plan Mr. Heard, a 72-year-old male with a past medical history significant for A. fib anticoagulated on Xarelto, CHF with an EF of 20% on 01/04/18, coronary artery disease, diabetes mellitus, hypertension, hyperlipidemia and chronic back pain presents to the emergency department for the evaluation of swelling. He reports significant fluid weight gain in the last few days. 01/21: Continue current care with IV diuretic, rate control, follow nephrology, monitor BMP, BNP, electrolytes, vitals //Acute CHF exacerbation //Coronary artery disease //Ischemic cardiomyopathy -Continue aspirin, atorvastatin 40 mg nightly, carvedilol 12.5 mg every 12 hours -Continue Lasix 40 mg IV twice daily. Also continue metolazone 5 mg daily. -We will consider torsemide 20 mg twice daily upon discharge. -Holding spironolactone due to hyperkalemia. Patient is status post AICD placement. -Could consider Entresto in near future. = Improving. Continue diuresis. Appreciate cardiology assistance. Acute kidney injury - Creatinine increased from baseline around 1 to 2.15. -Could be cardiorenal syndrome -Nephrology following. = Improving. Creatinine 1.8 from 2.0 yesterday. Appreciate nephrology assistance. Atrial fibrillation - continue beta hermila and Xarelto. Diabetes mellitus - continue Levemir. 15 units QHS. And sliding scale insulin. = Sugars acceptable. Continue to monitor. Hypothyroidism -continue levothyroxine 100 mcg daily. Full code. Xarelto. Problem Qualifiers (1) CHF exacerbation: Qualified Codes: I50.9 - Heart failure, unspecified (2) Acute kidney failure: Qualified Codes: N17.9 - Acute kidney failure, unspecified Keerthi Lopez MD January 21, 2018 20:24
[2018-01-21] MEDS: INSULIN DETEMIR 100 UNITS/ML VIAL SQ SCH (21:00)
[2018-01-21] MEDS: ATORVASTATIN 40 MG TAB PO SCH (21:49)
[2018-01-22] VITALS (10 sets, daily range): BP systolic 105–112; BP diastolic 53–56; PULSE 59–82; RESP 16–20; TEMP 97.7–98.6; O2SAT 95–99
[2018-01-22] MEDS: LEVOTHYROXINE SODIUM 100 MCG TAB PO SCH (06:12)
[2018-01-22] MEDS: ISOSORBIDE MONONITRATE 60 MG CR TAB (IMDUR) PO SCH (08:51)
[2018-01-22] MEDS: BISACODYL EC 5 MG TABEC PO SCH (08:51)
[2018-01-22] MEDS: POLYETHYLENE GLYCOL 17 GM PKG PO SCH (08:51)
[2018-01-22] MEDS: CARVEDILOL 12.5 MG TAB PO SCH ×2 (08:51→21:02)
[2018-01-22] MEDS: METOLAZONE 5 MG TAB PO SCH (08:52)
[2018-01-22] MEDS: FUROSEMIDE 40 MG/4 ML VIAL IV PUSH SCH ×2 (08:52→17:05)
[2018-01-22] MEDS: GABAPENTIN 100 MG CAP PO SCH ×2 (08:52→21:02)
[2018-01-22] MEDS: ASPIRIN 81 MG CHEW TAB CHEW SCH (08:52)
[2018-01-22] MEDS: RIVAROXABAN 15 MG TAB PO SCH (08:52)
[2018-01-22] MEDS: SODIUM CHLORIDE 0.9% FLUSH 10 ML FLUSH IV FLUSH SCH ×2 (08:53→21:03)
[2018-01-22] MEDS: INSULIN ASPART SUPPLEMENTAL SCALE SQ SCH ×4 (08:58→21:04)
[2018-01-22 11:33] LABS: HEMATOCRIT 27.5 % (39.0-51.0); HEMOGLOBIN 9.2 GM/DL (13.0-17.0)
[2018-01-22 14:49] LABS: BICARBONATE 30.3 MEQ/L (21.0-32.0); CALCIUM 8.7 MG/DL (8.5-10.1); CREATININE 1.68 MG/DL (0.60-1.30)
--- NOTE | 2018-01-22 15:05 | MB ---
cc: Santiago Miner MD DATE: 01/22/2018 CHIEF COMPLAINT: Nosebleed. HISTORY OF PRESENT ILLNESS: The patient is a pleasant 72-year-old male with heart failure, kidney failure with recent anasarca, was noted to have nosebleeds starting yesterday while on his Xarelto blood thinner. I was called to evaluate. The patient notes that it was a slow trickle from the left side of his nose. He has only had minimal spotting from the left side of his nose today. PHYSICAL EXAMINATION: On examination the patient is a pleasant adult. Nasal pharyngoscopy scope shows right side is clear and left side has mild septal erythema with irritation. Oral cavity exam shows scant amount of dried blood, the posterior oropharynx. LABORATORY DATA: The patient, of note, has labs from yesterday showed an H and H of 6.2 and 19.4. ASSESSMENT: Epistaxis minimal with underlying anemia. PLAN: I recommend the patient have mupirocin antibiotic ointment placed gently in his left nasal cavity with a Q-tip 3 times a day for 2 weeks, then twice a day for 2 weeks after that. This will help to reduce inflammation in his left nasal cavity and minimize risk of infection as well. This will help to minimize any nosebleeds in the future. The patient understands the above. I discussed with the patient that if he has any future nosebleeds to gently apply pressure to bilateral nasal septum below the area of the nasal bones of the dorsum. I explained this to the patient and his . I also discussed considering gentle gargling in his mouth to constrict vessels in the roof of the mouth, supplying blood supply to the nose if needed as well. The patient expressed understanding of all the above. Thank you for this consultation. Santiago Miner MD PCC/TL , 02:29 PM , 03:04 PM
--- NOTE | 2018-01-22 17:07 | HHI.NPPN ---
Subjective Renal Failure: Acute Review of Systems Cardiovascular Cardiac: Edema Skin Skin: Skin Rash, Lesions, Ulcers Skin Remarks lower ext Objective Data Data 01/22/18 01/23/18 19:00 07:00 Intake Total 400 ml Balance 400 ml Packed Cells 400 ml Vital Signs Date Time Temp Pulse Resp B/P (MAP) Pulse Ox O2 Delivery O2 Flow Rate FiO2 01/22/18 12:00 97.7 59 18 106/53 (70) 99 01/22/18 11:56 18 01/22/18 08:00 97.8 59 18 109/55 (73) 99 01/22/18 04:30 98.6 63 20 109/53 95 01/22/18 04:26 66 01/22/18 04:13 97.7 61 18 107/56 98 01/22/18 03:38 97.8 59 20 105/54 99 01/22/18 00:00 76 01/21/18 23:47 98.3 74 20 97/47 99 01/21/18 23:28 98.2 78 18 101/56 99 01/21/18 20:00 98.3 79 20 121/57 (78) 100 01/21/18 20:00 75 -: 01/22/18 1030 01/22/18 1329 Microbiology 01/22/18 Stool Occult Blood (SHIV) - Final, Complete HEMOCCULT NEGATIVE Physical Exam General Appearance: Well Developed, No Acute Distress, Comfortable Eyes Eye Exam: Pupils Equal Throat Throat Exam: Oral Mucosa [place] & Moist Pulmonary Resp Exam: Clear Bilaterally, Breath Sounds Equal Cardiology CV Exam: Good Perfusion, Irregular Gastrointestinal/Abdomen GI Exam: Soft, Non-Tender, Bowel Sounds Present Musculoskeletal MS Exam: Joints Intact, Normal Tone Integumentary Skin Exam: Warm, Dry Extremeties Extremities Exam: No Edema, Pedal Pulses Palpable Neurologic Neuro Exam: Alert, Awake, Oriented, Speech Clear, Moving All Extremities Psychiatric Psych Exam: Appropriate Responses Assessment/Plan Discussed Condition With: Patient, Relative Assessment Summary: DAVID/Acute Renal Failure, Fluid/Volume Overload, CHF Problem List: (1) Acute kidney failure ICD Codes: N17.9 - Acute kidney failure, unspecified Status: Acute Plan: Baseline creatinine 1.1 DAVID secondary to decompensated heart failure and increased renal vein pressure. Renal US is normal, UA unremarkable (no infection, blood, protein). Renal function is better Continue diuresis, Lasix . Also on metolazone. Diuresing well creatinine declined to 1.5 Avoid nephrotoxic agents. At nosebleed hemoglobin was low 2 unit packed red blood cell given Received blood transfusion hemoglobin 9.[address] Valdivia to follow Prognosis is poor given chronic heart failure. . (2) Ischemic cardiomyopathy ICD Codes: I25.5 - Ischemic cardiomyopathy Status: Chronic Plan: acute decompensation of chronic systolic heart failure Continue Lasix and Metolazone. Cardiology following EF is 20% Low Na diet discussed. (3) Hyperkalemia ICD Codes: E87.5 - Hyperkalemia Status: Acute Plan: Improved. Spironolactone is still held. Problem Qualifiers (1) Acute kidney failure: Qualified Codes: N17.9 - Acute kidney failure, unspecified Monisha Mckeon MD January 22, 2018 17:07
[2018-01-22] MEDS: ACETAMINOPHEN 325 MG TAB PO PRN (17:42)
--- NOTE | 2018-01-22 18:09 | HHI.PR ---
Subjective Remarks "I do not know why I am bleeding " Patient having epistaxis today hemoglobin is 6.7 started on PRBC transfusion He is awake alert no chest pain or short of breath He told me he had workup for anemia before by and without any Objective Vitals Vital Signs Date Time Temp Pulse Resp B/P (MAP) Pulse Ox O2 Delivery O2 Flow Rate FiO2 01/22/18 12:00 97.7 59 18 106/53 (70) 99 01/22/18 11:56 18 01/22/18 08:00 97.8 59 18 109/55 (73) 99 01/22/18 04:30 98.6 63 20 109/53 95 01/22/18 04:26 66 01/22/18 04:13 97.7 61 18 107/56 98 01/22/18 03:38 97.8 59 20 105/54 99 01/22/18 00:00 76 01/21/18 23:47 98.3 74 20 97/47 99 01/21/18 23:28 98.2 78 18 101/56 99 01/21/18 20:00 98.3 79 20 121/57 (78) 100 01/21/18 20:00 75 I/O 01/21/18 01/21/18 01/21/18 01/22/18 01/22/18 01/22/18 07:00 15:00 23:00 07:00 15:00 23:00 Intake Total 80 ml 480 ml 675 ml 400 ml Balance 80 ml 480 ml 675 ml 400 ml Intake Oral 80 ml 480 ml 240 ml Packed Cells 400 ml 400 ml Blood Product IV Normal Saline Flush 35 ml # Voids 2 2 2 Result Diagram: 01/22/18 1030 01/22/18 1329 Objective Remarks GENERAL: This is a well-nourished, well-developed patient, in no apparent distress. SKIN: No rashes, warm and dry HEAD: Atraumatic. Normocephalic. EYES: Pupils equal round and reactive. Extraocular motions intact. No scleral icterus. ENT: Nose without bleeding, or drainage, Airway patent. NECK: Trachea midline. Supple CARDIOVASCULAR: Regular rate and rhythm without murmurs, gallops, or rubs. RESPIRATORY: Bibasilar crackles GASTROINTESTINAL: Abdomen soft, non-tender, nondistended. Positive bowel sounds MUSCULOSKELETAL: Extremities with status dermatitis, +3 edema NEUROLOGICAL: Awake and alert. Moves all extremity. Normal speech.no focal neurological deficit Procedures None A/P Problem List: (1) CHF exacerbation ICD Code: I50.9 - Heart failure, unspecified Status: Acute (2) Ischemic cardiomyopathy ICD Code: I25.5 - Ischemic cardiomyopathy Status: Chronic (3) Chronic atrial fibrillation ICD Code: I48.2 - Chronic atrial fibrillation Status: Chronic (4) Acute kidney failure ICD Code: N17.9 - Acute kidney failure, unspecified Status: Acute (5) Hyperkalemia ICD Code: E87.5 - Hyperkalemia Status: Acute Assessment and Plan Mr. Heard, a 72-year-old male with a past medical history significant for A. fib anticoagulated on Xarelto, CHF with an EF of 20% on 01/04/18, coronary artery disease, diabetes mellitus, hypertension, hyperlipidemia and chronic back pain presents to the emergency department for the evaluation of swelling. He reports significant fluid weight gain in the last few days. 01/21: Continue current care with IV diuretic, rate control, follow nephrology, monitor BMP, BNP, electrolytes, vitals 01/22: Acute epistaxis, applied nasal packing, patient is on Xarelto and aspirin, he has heart stenting, consult ENT, monitor H&H, PRBC transfusion, check FOBT, anemia workup A/P: //Acute CHF exacerbation //Coronary artery disease //Ischemic cardiomyopathy -Continue aspirin, atorvastatin 40 mg nightly, carvedilol 12.5 mg every 12 hours -Continue Lasix 40 mg IV twice daily. Also continue metolazone 5 mg daily. -We will consider torsemide 20 mg twice daily upon discharge. -Holding spironolactone due to hyperkalemia. Patient is status post AICD placement. -Could consider Entresto in near future. = Improving. Continue diuresis. Appreciate cardiology assistance. Acute kidney injury - Creatinine increased from baseline around 1 to 2.15. -Could be cardiorenal syndrome -Nephrology following. = Improving. Creatinine 1.8 from 2.0 yesterday. Appreciate nephrology assistance. Atrial fibrillation - continue beta hermila and Xarelto. Diabetes mellitus - continue Levemir. 15 units QHS. And sliding scale insulin. = Sugars acceptable. Continue to monitor. Hypothyroidism -continue levothyroxine 100 mcg daily. Full code. Xarelto. Problem Qualifiers (1) CHF exacerbation: Qualified Codes: I50.9 - Heart failure, unspecified (2) Acute kidney failure: Qualified Codes: N17.9 - Acute kidney failure, unspecified Keerthi Lopez MD January 22, 2018 18:09
[2018-01-22] MEDS: ATORVASTATIN 40 MG TAB PO SCH (21:02)
[2018-01-22] MEDS: INSULIN DETEMIR 100 UNITS/ML VIAL SQ SCH (21:03)
[2018-01-23] VITALS (9 sets, daily range): BP systolic 107–128; BP diastolic 52–69; PULSE 55–117; RESP 17–20; TEMP 97.9–98.2; O2SAT 94–100
[2018-01-23] MEDS: LEVOTHYROXINE SODIUM 100 MCG TAB PO SCH (05:18)
[2018-01-23] MEDS: GABAPENTIN 100 MG CAP PO SCH ×2 (08:23→21:21)
[2018-01-23] MEDS: ISOSORBIDE MONONITRATE 60 MG CR TAB (IMDUR) PO SCH (08:23)
[2018-01-23] MEDS: POLYETHYLENE GLYCOL 17 GM PKG PO SCH (08:23)
--- NOTE | 2018-01-23 08:23 | PD.CARD.PN ---
Subjective Subjective Remarks No dyspnea, CP, dizziness, palpitations. Slept well. Ambulating halls with mild dyspnea. Objective Medications Item Value Date Time Gabapentin 200 mg 01/19/18 0900 (Neurontin) Q12HR/PO 01/21/18 0944 Furosemide 40 mg 01/20/18 1800 (Lasix Inj) BID@/IV PUSH 01/22/18 1705 Isosorbide 60 mg 01/20/18 0900 Mononitrate DAILY/PO 01/22/18 0851 (Imdur) Metolazone 10 mg 01/20/18 0900 (Zaroxolyn) DAILY/PO 01/22/18 0852 Atorvastatin 40 mg 01/19/18 2100 Calcium HS/PO 01/22/182101 (Lipitor) Aspirin 81 mg 01/19/18 0900 (Aspirin Chew) DAILY/CHEW 01/22/18 0852 Rivaroxaban 15 mg 01/19/1800 (Xarelto) DAILY/PO 01/22/18 0852 Carvedilol 12.5 mg 01/19/18 0900 (Coreg) Q12HR/PO 01/22/182101 Current Medications Medications (Trade) Dose Ordered Sig/Edna Route Start Time Stop Time Status Last Admin (NS Flush) 2 ml UNSCH PRN IV FLUSH 01/18/18 23:30 (NS Flush) 2 ml BID IV FLUSH 01/19/18 09:00 01/22/18 21:03 (Aspirin Chew) 81 mg DAILY CHEW 01/19/18 09:00 01/22/18 08:52 (Lipitor) 40 mg HS PO 01/19/18 21:00 01/22/18 21:02 (Neurontin) 200 mg Q12HR PO 01/19/18 09:00 01/22/18 21:02 (Synthroid) 100 mcg DAILY@0600 PO 01/19/18 06:00 01/23/18 05:18 (Xarelto) 15 mg DAILY PO 01/19/18 09:00 01/22/18 08:52 (Roxicodone) 15 mg Q8H PRN PO 01/18/18 23:45 01/23/18 06:32 (D50w (Vial) Inj) 50 ml UNSCH PRN IV PUSH 01/18/18 23:30 (Glucagon Inj) 1 mg UNSCH PRN OTHER 01/18/18 23:30 (NovoLOG SUPPLEMENTAL SCALE) 1 ACHS SLIDING SCALE SQ 01/19/18 08:00 01/22/18 21:04 (Coreg) 12.5 mg Q12HR PO 01/19/18 09:00 01/22/18 21:02 (Levemir Inj) 15 units HS SQ 01/19/18 21:00 01/22/18 21:03 (Tylenol) 650 mg Q6H PRN PO 01/19/18 14:30 01/22/18 17:42 (Imdur) 60 mg DAILY PO 01/20/18 09:00 01/22/18 08:51 (Zaroxolyn) 10 mg DAILY PO 01/20/18 09:00 01/22/18 08:52 (Miralax) 17 gm DAILY PO 01/20/18 16:30 01/22/18 08:51 (Dulcolax Ec) 5 mg DAILY PO 01/21/18 09:00 01/22/18 08:51 (Lasix Inj) 40 mg BID@18 IV PUSH 01/20/18 18:00 01/22/18 17:05 (Tylenol) 650 mg Q4H PRN PO 01/21/18 20:15 Vital Signs / I&O Vital Signs Date Time Temp Pulse Resp B/P (MAP) Pulse Ox O2 Delivery O2 Flow Rate FiO2 01/23/18 04:00 98.1 81 17 125/69 (87) 100 01/23/18 00:29 58 01/23/18 00:00 98.1 55 17 107/52 (70) 98 01/22/18 20:15 76 01/22/18 20:00 98.2 78 16 112/54 (73) 98 01/22/18 18:42 18 01/22/18 16:00 98.1 82 18 109/56 (73) 95 01/22/18 12:00 97.7 59 18 106/53 (70) 99 01/22/18 11:56 18 I/O 01/22/18 01/22/18 01/22/18 01/23/18 01/23/18 01/23/18 07:00 15:00 23:00 07:00 15:00 23:00 Intake Total 675 ml 400 ml 560 ml 240 ml Balance 675 ml 400 ml 560 ml 240 ml Intake Oral 240 ml 560 ml 240 ml Packed Cells 400 ml 400 ml Blood Product IV Normal Saline Flush 35 ml # Voids 2 2 2 # Bowel Movements 2 Physical Exam GENERAL: Well developed, well nourished. No acute distress. HEENT: Jugular venous pressure is normal. CHEST: Diminished breath sounds bases. Minimal bibasilar crackles. CARDIAC: Irregular rate and rhythm without S3, S4, or murmur. ABDOMEN: Soft, nontender, no hepatosplenomegaly. Bowel sounds present. EXTREMITIES: Bilateral LE's in wraps. Laboratory Laboratory Tests Test 01/22/18 10:30 01/22/18 13:29 Hemoglobin 9.2 GM/DL Hematocrit 27.5 % Blood Urea Nitrogen 38 MG/DL Creatinine 1.68 MG/DL Random Glucose 117 MG/DL Calcium Level 8.7 MG/DL Sodium Level 136 MEQ/L Potassium Level 3.6 MEQ/L Chloride Level 95 MEQ/L Carbon Dioxide Level 30.3 MEQ/L Anion Gap 11 MEQ/L Estimat Glomerular Filtration Rate 40 ML/MIN Assessment and Plan Problem List: (1) Ischemic cardiomyopathy ICD Codes: I25.5 - Ischemic cardiomyopathy Status: Chronic Plan: EF 20%. CHF exacerbation, seemingly predominantly right-sided. Continues to improve with diuresis. Weight down about 20 lbs since admission. Anasarca improved. REC one more day of IV furosemide/metolazone diuresis when patient discharged will give his home health nurse a PRN order to place IV for IV diuretics at home when patient begins to retain fluid continue carvedilol, no CANDY-I, ARB or Entresto with his renal insufficiency (2) Chronic atrial fibrillation ICD Codes: I48.2 - Chronic atrial fibrillation Status: Chronic Plan: Stable. Mostly in atrial fib/flutter. No HR control issues. Continue Xarelto, beta hermila (3) CAD (coronary artery disease) ICD Codes: I25.10 - Atherosclerotic heart disease of [place] coronary artery without angina pectoris Status: Chronic Plan: CAD status stable. No definite recent angina. Continue conservative medical therapy. (4) History of implantable cardioverter-defibrillator (ICD) placement ICD Codes: Z95.810 - Presence of automatic (implantable) cardiac defibrillator Status: Chronic Problem Qualifiers (1) CAD (coronary artery disease): Qualified Codes: I25.10 - Atherosclerotic heart disease of [place] coronary artery without angina pectoris Oliver Acevedo MD January 23, 2018 08:23
[2018-01-23] MEDS: BISACODYL EC 5 MG TABEC PO SCH (08:24)
[2018-01-23] MEDS: RIVAROXABAN 15 MG TAB PO SCH (08:24)
[2018-01-23] MEDS: CARVEDILOL 12.5 MG TAB PO SCH ×2 (08:24→21:21)
[2018-01-23] MEDS: METOLAZONE 5 MG TAB PO SCH (08:24)
[2018-01-23] MEDS: ASPIRIN 81 MG CHEW TAB CHEW SCH (08:24)
[2018-01-23] MEDS: SODIUM CHLORIDE 0.9% FLUSH 10 ML FLUSH IV FLUSH SCH ×2 (08:25→21:21)
[2018-01-23] MEDS: FUROSEMIDE 40 MG/4 ML VIAL IV PUSH SCH ×2 (08:25→18:00)
[2018-01-23] MEDS: INSULIN ASPART SUPPLEMENTAL SCALE SQ SCH ×4 (09:05→21:22)
--- NOTE | 2018-01-23 11:12 | HHI.FF ---
Face to Face Verification Diagnosis: (1) Chronic atrial fibrillation (2) Ischemic cardiomyopathy (3) CHF exacerbation Home Health Nursing Order: Medical education CHF education Nursing assessment with vital signs IV medication administration I have seen patient Ra Heard on 01/23/18. My clinical findings support the need for the requested home health care services because: Med compliance is questionable I certify that my clinical findings support that this patient is homebound because: Poor cardiac reserve Keerthi Lopez MD January 23, 2018 11:12
--- NOTE | 2018-01-23 11:53 | HHI.NPPN ---
Subjective Renal Failure: Acute Interval History patient was seen and examined. Renal function is stable overall. Remains on diuretics. His weight has improved with diuresis. Lower extremity edema also has improved. Review of Systems Cardiovascular Cardiac: Edema Skin Skin: Skin Rash, Lesions, Ulcers Skin Remarks lower ext Objective Data Data Vital Signs Date Time Temp Pulse Resp B/P (MAP) Pulse Ox O2 Delivery O2 Flow Rate FiO2 01/23/18 08:00 98.2 81 20 122/62 (82) 96 01/23/18 04:00 98.1 81 17 125/69 (87) 100 01/23/18 00:29 58 01/23/18 00:00 98.1 55 17 107/52 (70) 98 01/22/18 20:15 76 01/22/18 20:00 98.2 78 16 112/54 (73) 98 01/22/18 18:42 18 01/22/18 16:00 98.1 82 18 109/56 (73) 95 01/22/18 12:00 97.7 59 18 106/53 (70) 99 01/22/18 11:56 18 -: 01/22/18 1030 01/22/18 1329 Microbiology 01/22/18 Stool Occult Blood (SHIV) - Final, Complete HEMOCCULT NEGATIVE Physical Exam General Appearance: Well Developed, No Acute Distress, Comfortable Eyes Eye Exam: Pupils Equal Throat Throat Exam: Oral Mucosa [place] & Moist Pulmonary Resp Exam: Clear Bilaterally, Breath Sounds Equal Cardiology CV Exam: Good Perfusion, Irregular Gastrointestinal/Abdomen GI Exam: Soft, Non-Tender, Bowel Sounds Present Musculoskeletal MS Exam: Joints Intact, Normal Tone Integumentary Skin Exam: Warm, Dry Extremeties Extremities Exam: No Edema, Pedal Pulses Palpable Neurologic Neuro Exam: Alert, Awake, Oriented, Speech Clear, Moving All Extremities Psychiatric Psych Exam: Appropriate Responses Assessment/Plan Discussed Condition With: Patient, Relative Assessment Summary: DAVID/Acute Renal Failure, Fluid/Volume Overload, CHF Problem List: (1) Acute kidney failure ICD Codes: N17.9 - Acute kidney failure, unspecified Status: Acute Plan: Baseline creatinine 1.1 DAVID secondary to decompensated heart failure and increased renal vein pressure. Renal US is normal, UA unremarkable (no infection, blood, protein). Renal function is better Continue diuresis, Lasix . Also on metolazone. Diuresing well creatinine declined to 1.5 Avoid nephrotoxic agents. At nosebleed hemoglobin was low 2 unit packed red blood cell given Received blood transfusion hemoglobin 9.2 (2) Ischemic cardiomyopathy ICD Codes: I25.5 - Ischemic cardiomyopathy Status: Chronic Plan: acute decompensation of chronic systolic heart failure Continue Lasix and Metolazone. Cardiology following EF is 20% Low Na diet discussed. (3) Hyperkalemia ICD Codes: E87.5 - Hyperkalemia Status: Acute Plan: Improved. Spironolactone is still held. Problem Qualifiers (1) Acute kidney failure: Qualified Codes: N17.9 - Acute kidney failure, unspecified Bony Valdivia MD January 23, 2018 11:53
[2018-01-23 13:49] LABS: IRON (FE) 36 MCG/DL (65-175)
[2018-01-23 14:15] LABS: FERRITIN 124 NG/ML (26-388)
--- NOTE | 2018-01-23 14:24 | HHI.PR ---
Subjective Remarks Patient eating lunch well no problem no cough no nasal bleed the nasal pack is out, he was seen by consumer loan manager recommended 1 more day of IV diuretic, hemoglobin today is better at 9 negative FOBT he will need to follow-up for anemia with PCP as an outpatient Objective Vitals Vital Signs Date Time Temp Pulse Resp B/P (MAP) Pulse Ox O2 Delivery O2 Flow Rate FiO2 01/23/18 12:00 97.9 83 20 117/56 (76) 96 01/23/18 08:00 98.2 81 20 122/62 (82) 96 01/23/18 04:00 98.1 81 17 125/69 (87) 100 01/23/18 00:29 58 01/23/18 00:00 98.1 55 17 107/52 (70) 98 01/22/18 20:15 76 01/22/18 20:00 98.2 78 16 112/54 (73) 98 01/22/18 18:42 18 01/22/18 16:00 98.1 82 18 109/56 (73) 95 I/O 01/22/18 01/22/18 01/22/18 01/23/18 01/23/18 01/23/18 07:00 15:00 23:00 07:00 15:00 23:00 Intake Total 675 ml 400 ml 560 ml 240 ml 360 ml Balance 675 ml 400 ml 560 ml 240 ml 360 ml Intake Oral 240 ml 560 ml 240 ml 360 ml Packed Cells 400 ml 400 ml Blood Product IV Normal Saline Flush 35 ml # Voids 2 2 2 6 # Bowel Movements 2 Result Diagram: 01/22/18 1030 01/22/18 1329 Objective Remarks GENERAL: This is a well-nourished, well-developed patient, in no apparent distress. SKIN: No rashes, warm and dry HEAD: Atraumatic. Normocephalic. EYES: Pupils equal round and reactive. Extraocular motions intact. No scleral icterus. ENT: Nose without bleeding, or drainage, Airway patent. NECK: Trachea midline. Supple CARDIOVASCULAR: Regular rate and rhythm without murmurs, gallops, or rubs. RESPIRATORY: Bibasilar crackles GASTROINTESTINAL: Abdomen soft, non-tender, nondistended. Positive bowel sounds MUSCULOSKELETAL: Extremities with status dermatitis, +3 edema NEUROLOGICAL: Awake and alert. Moves all extremity. Normal speech.no focal neurological deficit Procedures None A/P Problem List: (1) CHF exacerbation ICD Code: I50.9 - Heart failure, unspecified Status: Acute (2) Ischemic cardiomyopathy ICD Code: I25.5 - Ischemic cardiomyopathy Status: Chronic (3) Chronic atrial fibrillation ICD Code: I48.2 - Chronic atrial fibrillation Status: Chronic (4) Acute kidney failure ICD Code: N17.9 - Acute kidney failure, unspecified Status: Acute (5) Hyperkalemia ICD Code: E87.5 - Hyperkalemia Status: Acute Assessment and Plan Mr. Heard, a 72-year-old male with a past medical history significant for A. fib anticoagulated on Xarelto, CHF with an EF of 20% on 01/04/18, coronary artery disease, diabetes mellitus, hypertension, hyperlipidemia and chronic back pain presents to the emergency department for the evaluation of swelling. He reports significant fluid weight gain in the last few days. 01/21: Continue current care with IV diuretic, rate control, follow nephrology, monitor BMP, BNP, electrolytes, vitals 12/23: Acute epistaxis, applied nasal packing, patient is on Xarelto and aspirin, he has heart stenting, consult ENT, monitor H&H, PRBC transfusion, check FOBT, anemia workup 01/23:Patient eating lunch well no problem no cough no nasal bleed the nasal pack is out, he was seen by consumer loan manager recommended 1 more day of IV diuretic, hemoglobin today is better at 9 negative FOBT he will need to follow-up for anemia with PCP as an outpatient A/P: //Acute CHF exacerbation //Coronary artery disease //Ischemic cardiomyopathy -Continue aspirin, atorvastatin 40 mg nightly, carvedilol 12.5 mg every 12 hours -Continue Lasix 40 mg IV twice daily. Also continue metolazone 5 mg daily. -We will consider torsemide 20 mg twice daily upon discharge. -Holding spironolactone due to hyperkalemia. Patient is status post AICD placement. -Could consider Entresto in near future. = Improving. Continue diuresis. Appreciate cardiology assistance. Acute kidney injury - Creatinine increased from baseline around 1 to 2.15. -Could be cardiorenal syndrome -Nephrology following. = Improving. Creatinine 1.8 from 2.0 yesterday. Appreciate nephrology assistance. Atrial fibrillation - continue beta hermila and Xarelto. Diabetes mellitus - continue Levemir. 15 units QHS. And sliding scale insulin. = Sugars acceptable. Continue to monitor. Hypothyroidism -continue levothyroxine 100 mcg daily. Full code. Xarelto. Problem Qualifiers (1) CHF exacerbation: Qualified Codes: I50.9 - Heart failure, unspecified (2) Acute kidney failure: Qualified Codes: N17.9 - Acute kidney failure, unspecified Keerthi Lopez MD January 23, 2018 14:24
[2018-01-23 14:27] LABS: FOLATE GREATER THAN 20.0 NG/ML (3.1-17.5)
[2018-01-23] MEDS: ATORVASTATIN 40 MG TAB PO SCH (21:21)
[2018-01-23] MEDS: INSULIN DETEMIR 100 UNITS/ML VIAL SQ SCH (21:22)
[2018-01-24] VITALS: BP 116/56; PULSE 58; RESP 17; TEMP 98.5; O2SAT 98
[2018-01-24 00:19] VITALS: PULSE 58
[2018-01-24 04:00] VITALS: BP 117/63; PULSE 57; PULSE 58; RESP 17; TEMP 97.7; O2SAT 97
[2018-01-24] MEDS: LEVOTHYROXINE SODIUM 100 MCG TAB PO SCH (04:33)
[2018-01-24] MEDS: ACETAMINOPHEN 325 MG TAB PO PRN (04:34)
[2018-01-24 06:36] LABS: ALBUMIN 3.1 GM/DL (3.4-5.0); BICARBONATE 29.3 MEQ/L (21.0-32.0); CALCIUM 8.5 MG/DL (8.5-10.1); CREATININE 1.63 MG/DL (0.60-1.30)
[2018-01-24] MEDS: INSULIN ASPART SUPPLEMENTAL SCALE SQ SCH ×2 (07:50→13:36)
[2018-01-24 08:00] VITALS: BP 112/56; PULSE 58; RESP 20; TEMP 97.6; O2SAT 99
[2018-01-24] MEDS: ISOSORBIDE MONONITRATE 60 MG CR TAB (IMDUR) PO SCH (09:00)
[2018-01-24] MEDS: FUROSEMIDE 40 MG/4 ML VIAL IV PUSH SCH (09:00)
[2018-01-24] MEDS: CARVEDILOL 12.5 MG TAB PO SCH (09:00)
[2018-01-24] MEDS: SODIUM CHLORIDE 0.9% FLUSH 10 ML FLUSH IV FLUSH SCH (09:00)
[2018-01-24] MEDS: GABAPENTIN 100 MG CAP PO SCH (09:01)
[2018-01-24] MEDS: BISACODYL EC 5 MG TABEC PO SCH (09:01)
[2018-01-24] MEDS: METOLAZONE 5 MG TAB PO SCH (09:01)
[2018-01-24] MEDS: RIVAROXABAN 15 MG TAB PO SCH (09:01)
[2018-01-24] MEDS: ASPIRIN 81 MG CHEW TAB CHEW SCH (09:01)
[2018-01-24] MEDS: POLYETHYLENE GLYCOL 17 GM PKG PO SCH (09:01)
[2018-01-24] MEDS ORDERED: FURO1TAB60 PO (10:49)
[2018-01-24] MEDS ORDERED: METO5TAB3 PO (10:49)
[2018-01-24] MEDS ORDERED: CARV12.5 PO (10:49)
--- NOTE | 2018-01-24 10:55 | HHI.NPPN ---
Subjective Renal Failure: Acute Interval History at bedside. Renal function is better. Legs are weeping. (Kiki Aguilar) Review of Systems Cardiovascular Cardiac: Edema (Kiki Aguilar) Skin Skin: Skin Rash, Lesions, Ulcers Skin Remarks lower ext (Kiki Aguilar) Objective Data Data 01/24/18 01/25/18 19:00 07:00 # Voids 0 # Bowel Movements 1 Vital Signs Date Time Temp Pulse Resp B/P (MAP) Pulse Ox O2 Delivery O2 Flow Rate FiO2 01/24/18 08:00 97.6 58 20 112/56 (74) 99 01/24/18 04:00 57 01/24/18 04:00 97.7 58 17 117/63 (81) 97 01/24/18 00:19 58 01/24/18 00:19 58 01/24/18 00:00 98.5 58 17 116/56 (76) 98 01/23/18 20:00 71 01/23/18 20:00 98.1 79 19 120/61 (80) 94 01/23/18 16:00 98.1 117 20 128/60 (82) 97 01/23/18 15:00 79 01/23/18 12:00 97.9 83 20 117/56 (76) 96 01/23/18 12:00 76 (Kiki Aguilar) -: 01/22/18 1030 01/24/18 0440 Physical Exam General Appearance: Well Developed, No Acute Distress, Comfortable (Kiki Aguilar) Eyes Eye Exam: Pupils Equal (Kiki Aguilar) Throat Throat Exam: Oral Mucosa [place] & Moist (Kiki Aguilar) Pulmonary Resp Exam: Clear Bilaterally, Breath Sounds Equal (Kiki Aguilar) Cardiology CV Exam: Good Perfusion, Irregular (Kiki Aguilar) Gastrointestinal/Abdomen GI Exam: Soft, Non-Tender, Bowel Sounds Present (Kiki Aguilar) Musculoskeletal MS Exam: Joints Intact, Normal Tone (Kiki Aguilar) Integumentary Skin Exam: Warm, Dry Skin Remarks scaly lesions on lower legs, erythema knees down, weeping. non pitting (Kiki Aguilar) Extremeties Extremities Exam: No Edema, Pedal Pulses Palpable (Kiki Aguilar) Neurologic Neuro Exam: Alert, Awake, Oriented, Speech Clear, Moving All Extremities (Kiki Aguilar) Psychiatric Psych Exam: Appropriate Responses (Kiki Aguilar) Assessment/Plan Discussed Condition With: Patient, Spouse Assessment Summary: DAVID/Acute Renal Failure, Fluid/Volume Overload, CHF Problem List: (1) Acute kidney failure ICD Codes: N17.9 - Acute kidney failure, unspecified Status: Acute Plan: Baseline creatinine 1.1 DAVID secondary to decompensated heart failure and increased renal vein pressure. Renal function improved Continue diuresis on Lasix BID. Convert to PO per cardiology. Also on metolazone. Avoid nephrotoxic agents. They have a road repairer to follow up with in [place] after discharge. (2) Ischemic cardiomyopathy ICD Codes: I25.5 - Ischemic cardiomyopathy Status: Chronic Plan: acute decompensation of chronic systolic heart failure Continue Lasix and Metolazone. Cardiology following EF is 20% Low Na diet discussed. (3) Hyperkalemia ICD Codes: E87.5 - Hyperkalemia Status: Acute Plan: Improved. Spironolactone is still held. Plan We will sign off at this time. (Kiki Aguilar) Problem List: (1) Acute kidney failure ICD Codes: N17.9 - Acute kidney failure, unspecified Status: Acute Plan: Baseline creatinine 1.1 DAVID secondary to decompensated heart failure and increased renal vein pressure. Renal function improved Continue diuresis on Lasix BID. Convert to PO per cardiology. Also on metolazone. Avoid nephrotoxic agents. They have a road repairer to follow up with in [place] after discharge. (2) Ischemic cardiomyopathy ICD Codes: I25.5 - Ischemic cardiomyopathy Status: Chronic Plan: acute decompensation of chronic systolic heart failure Continue Lasix and Metolazone. Cardiology following EF is 20% Low Na diet discussed. (3) Hyperkalemia ICD Codes: E87.5 - Hyperkalemia Status: Acute Plan: Improved. Spironolactone is still held. Plan patient was seen and examined. Agree with above assessment and plan. (Bony Valdivia MD) Problem Qualifiers (1) Acute kidney failure: Qualified Codes: N17.9 - Acute kidney failure, unspecified Kiki Aguilar January 24, 2018 10:55 Bony Valdivia MD January 24, 2018 21:27
[2018-01-24 12:00] VITALS: BP 113/55; PULSE 74; RESP 20; TEMP 97.8; O2SAT 96
--- NOTE | 2018-01-24 15:46 | PD.WCN.NOT ---
Wound Consult Description: Consult placed per Protocol for BLE LYMPHEDEMA per DARY/Dr Lopez Communicated with: Waleska RN Recommendation: Follow up in Lymphedema Clinic as outpatient. Additional Information: Patient not seen for BLE LYMPHEDEMA. Protocol consult is inappropriate and should be put in by Physician if needed. 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 Per RN there are no open wounds on bilateral lower extremities. Felicity Valentine [facility] January 24, 2018 15:46
--- NOTE | 2018-01-24 15:56 | HHI.DS ---
Discharge Summary Admission Date January 19, 2018 at 14:22 Discharge Date: January 24, 2018 Admitting Diagnosis CHF exacerbation, renal failure, hyperkalemia (1) CHF exacerbation ICD Code: I50.9 - Heart failure, unspecified Status: Acute (2) Ischemic cardiomyopathy ICD Code: I25.5 - Ischemic cardiomyopathy Status: Chronic (3) Chronic atrial fibrillation ICD Code: I48.2 - Chronic atrial fibrillation Status: Chronic (4) Acute kidney failure ICD Code: N17.9 - Acute kidney failure, unspecified Status: Acute (5) Hyperkalemia ICD Code: E87.5 - Hyperkalemia Status: Acute Procedures None Brief History - From Admission 72-year-old male with a past medical history significant for A. fib anticoagulated on Xarelto, CHF with an EF of 20% on 01/04/18, coronary artery disease, diabetes mellitus, hypertension, hyperlipidemia and chronic back pain presents to the emergency department for the evaluation of swelling. The patient has a home nurse who reported he was 9 pounds over his dry weight today. He endorses bilateral lower extremity edema that extends to his lower back. He had an AICD/pacemaker placed on 01/[address] Acevedo. The patient denies any shortness of breath. No chest pain. No nausea/vomiting/diarrhea/ abdominal pain. No weakness. Positive PND. Patient reports he has been sleeping upright in a recliner. No lateralizing signs/symptoms. CBC/BMP: 01/22/18 1030 01/24/18 0440 Significant Findings Laboratory Tests Test 01/21/18 19:30 01/22/18 10:30 01/22/18 13:29 01/23/18 12:44 Hemoglobin 6.2 GM/DL (13.0-17.0) 9.2 GM/DL (13.0-17.0) Hematocrit 19.4 % (39.0-51.0) 27.5 % (39.0-51.0) Blood Urea Nitrogen 38 MG/DL (7-18) Creatinine 1.68 MG/DL (0.60-1.30) Random Glucose 117 MG/DL (74-106) Chloride Level 95 MEQ/L (98-107) Estimat Glomerular Filtration Rate 40 ML/MIN (>89) Iron Level 36 MCG/DL (65-175) Folate GREATER THAN 20.0 NG/ML Test 01/24/18 04:40 Blood Urea Nitrogen 45 MG/DL (7-18) Creatinine 1.63 MG/DL (0.60-1.30) Random Glucose 128 MG/DL (74-106) Albumin 3.1 GM/DL (3.4-5.0) Sodium Level 134 MEQ/L (136-145) Chloride Level 94 MEQ/L (98-107) Estimat Glomerular Filtration Rate 42 ML/MIN (>89) PE at Discharge GENERAL: This is a well-nourished, well-developed patient, in no apparent distress. SKIN: No rashes, warm and dry HEAD: Atraumatic. Normocephalic. EYES: Pupils equal round and reactive. Extraocular motions intact. No scleral icterus. ENT: Nose without bleeding, or drainage, Airway patent. NECK: Trachea midline. Supple CARDIOVASCULAR: Regular rate and rhythm without murmurs, gallops, or rubs. RESPIRATORY: Bibasilar crackles GASTROINTESTINAL: Abdomen soft, non-tender, nondistended. Positive bowel sounds MUSCULOSKELETAL: Extremities with status dermatitis, +3 edema NEUROLOGICAL: Awake and alert. Moves all extremity. Normal speech.no focal neurological deficit Hospital Course 72 years old male admitted with acute CHF with advanced stage patient had an ICD history of atrial fibrillation his on Xarelto and beta-hermila started on IV diuresing with Lasix, added metolazone and nephrology consult obtained. As well as cardiology consultation,. Patient presented also with DAVID improved after diuresing, diabetic management has been done, during hospitalization patient developed epistaxis, his blood hemoglobin level went down to 6 patient had PRBC transfusion, ENT consultation obtained he had nasal packing. Eventually patient stabilized hemoglobin become 9, PT OT assessed. Cardiology recommended home health care for IV Lasix administration as needed to avoid further hospitalization, discussed with case specialist [id number] place [id number] encounter performed with the patient on discharge day, as well as physical exam, summary of hospitalization course and postdischarge plan has been D/W the patient. D/W nurse D/W case specialist. Discharge medications reviewed and printed and signed, post discharge follow up visit with PCP and other specialist as well as Brief hospital course and discharge summary has been placed. Pt Condition on Discharge: Fair Discharge Disposition: Disch w/ Home Health Serv Discharge Time: > 30 minutes Discharge Instructions DIET: Follow Instructions for: Heart Healthy Diet, Diabetic Diet Activities you can perform: Weight Bearing as Davis Follow up Referrals: Cardiology - 1 Week with Oliver Acevedo MD SNF/TE[facility]/HH [facility] New Medications: Furosemide (Lasix) 40 Mg Tab 40 MG PO BID for BID, #60 TAB 0 Refills Carvedilol (Coreg) 12.5 Mg Tab 12.5 MG PO Q12HR for VARD, #60 TAB Metolazone (Metolazone) 5 Mg Tab 10 MG PO DAILY for CHF, #30 TAB Continued Medications: Aspirin (Aspirin) 81 Mg Chew 81 MG CHEW DAILY, TAB 0 Refills Atorvastatin (Atorvastatin) 40 Mg Tab 40 MG PO HS for Cholesterol Management, #30 TAB 0 Refills Gabapentin (Gabapentin) 100 Mg Cap 200 MG PO TID, #90 CAP 0 Refills Insulin Aspart Inj (Novolog Inj) 1,000 Unit/10 Ml Vial 0 SQ DIRECTED for Blood Sugar Management, #10 ML 0 Refills Sliding Scale as directed. Insulin Glargine Inj (Lantus Inj) 1,000 Unit/10 Ml Vial 12 UNITS SQ HS for Blood Sugar Management, VIAL 0 Refills Isosorbide Mononitrate ER (Isosorbide Mononitrate ER) 30 Mg Yemi 30 MG PO DAILY for Prevent Chest Pain, #30 TAB 0 Refills Levothyroxine (Levothyroxine) 100 Mcg Tab 100 MCG PO DAILY for Thyroid, #30 TAB 0 Refills Multiple Vitamin (Multiple Vitamin) 1 Tab 1 TAB PO DAILY for Nutritional Supplement, TAB 0 Refills Oxycodone (Oxycodone) 15 Mg Tab 15 MG PO Q8H PRN for PAIN, TAB 0 Refills Rivaroxaban (Xarelto) 15 Mg Tab 15 MG PO DAILY for Blood Clot Prevention, TAB 0 Refills Keerthi Lopez MD January 24, 2018 15:56
== END 2018-01-24 15:50 | disposition home health service (06) | DRG 291 ==
LOC: NEPC 19:10 → NEDA 21:55 → NEPFCDU 01-19 00:01 → OBSVTOIN 01-19 14:22 → N06A 01-19 16:05 → N04A 01-20 13:30
PROVIDERS: ADMIT Hospitalist; ATTEND Hospitalist
PROC: 30233N1 Transfusion of Nonautologous Red Blood Cells into Peripheral Vein, Percutaneous Approach (ICD-10-PCS; principal; 2018-01-21)
PROC: 0CJY8ZZ Inspection of Mouth and Throat, Via Natural or Artificial Opening Endoscopic (ICD-10-PCS; 2018-01-22)
DX: I13.0 Hypertensive heart and chronic kidney disease with heart failure and stage 1 through stage 4 chronic kidney disease, or unspecified chronic kidney disease (principal); I50.23 Acute on chronic systolic (congestive) heart failure; N17.9 Acute kidney failure, unspecified; I48.92 Unspecified atrial flutter; E11.22 Type 2 diabetes mellitus with diabetic chronic kidney disease; E87.5 Hyperkalemia; J44.9 Chronic obstructive pulmonary disease, unspecified; I48.2 Chronic atrial fibrillation; N18.9 Chronic kidney disease, unspecified; I25.10 Atherosclerotic heart disease of native coronary artery without angina pectoris; G89.29 Other chronic pain; E78.5 Hyperlipidemia, unspecified; M54.9 Dorsalgia, unspecified; I25.5 Ischemic cardiomyopathy; R04.0 Epistaxis; E03.9 Hypothyroidism, unspecified; M06.9 Rheumatoid arthritis, unspecified; M19.90 Unspecified osteoarthritis, unspecified site; Z79.01 Long term (current) use of anticoagulants; Z95.1 Presence of aortocoronary bypass graft; Z79.82 Long term (current) use of aspirin; Z79.4 Long term (current) use of insulin; Z95.810 Presence of automatic (implantable) cardiac defibrillator; Z87.891 Personal history of nicotine dependence
CPT/HCPCS: 36430; 71045; 76775; 80048; 80053; 80069; 81001; 82272; 82550; 82607; 82728; 82746; 82948; 83010; 83540; 83615; 83735; 83880; 84466; 84484; 85014; 85018; 85025; 85610; 85730; 86850; 86900; 86901; 86920; 93005; 94150; J1815; J1940; J7050; P9016

== ENCOUNTER 2018-07-10 13:53 | Inpatient (IN) ==
[2018-07-10] MEDS ORDERED: Bisacodyl 10 MG Supp RECTAL PRN (17:39)
[2018-07-10] MEDS ORDERED: INSULIN ISOPHANE SQ PRN (17:53)
[2018-07-10] MEDS ORDERED: OXYCODONE 15 MG PO PRN (17:53)
[2018-07-10] MEDS ORDERED: Nitroglycerin SL (Override) 0.4 MG Tab SL PRN (17:53)
[2018-07-10] MEDS ORDERED: [UNRECOGNIZED DRUG - OTHER] SQ PRN (17:53)
[2018-07-10] MEDS ORDERED: Dextrose 50% in Water 50 ML Vial IV.PUSH PRN (17:56)
[2018-07-10] MEDS ORDERED: Vancomycin Consult Pharmacy OTHER PRN (17:57)
--- NOTE | 2018-07-10 18:29 | P.HPCC ---
History of Present Illness Service: Critical care medicine Primary Care Physician: UNKNOWN Chief Complaint: Left leg and foot pain History of Present Illness: This 71-year-old gentleman presents to [facility] with worsening left foot and toe pain. He has been seen Dr. Eddy for management of his fifth toe gangrene and cellulitis. He has received multiple rounds of antibiotics without improvement. 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 He has chronic dependent edema, he has had his abdomen tapped several times for ascites, he clearly has dyspnea at rest. His home medications include Eliquis 2.5 mg twice daily, carvedilol 12.5 mg twice daily, Lasix 40 mg daily, gabapentin 100 mg 3 times daily, levothyroxine 100 mcg daily, oxycodone 15 mg 3 times daily. His insulin regimen was NPH Humulin 10 units subcu twice daily but that has recently changed. Frontal lactone 50 mg p.o. daily. Inpatient Certification: I certify that the inpatient services were ordered in accordance with Medicare regulations governing the order. This includes certification that hospital inpatient services are reasonable and necessary and in the case of services not specified as inpatient-only under 42 CFR 419.22(n), that they are appropriately provided as inpatient services in accordance to with the 2-midnight benchmark under 43 CFR 412.3(e) Estimated Total Length of Stay (Days): 5 Plans for Post Hospital Care: Home Review of Systems Moderate shortness of breath at rest. Painful left leg and foot. Chronic dependent edema involving the lower abdomen and legs. Ascites. [facility] - Medical History Medical History: Medical History (Last Updated 07/06/18 @ 14:46 by Marla Irizarry RN) A-fib CHF (congestive heart failure) Cataract Cellulitis Diabetes Full dentures Gangrene History of recent acute infection Hypertension Hypothyroid Neuropathy - Surgical History Surgical History: Surgical History (Last Updated 07/06/18 @ 14:56 by Marla Irizarry RN) AICD (automatic cardioverter/defibrillator) present H/O heart artery stent Hx of CABG Medications and Allergies Active Medications: Active Medications Acetaminophen (Tylenol) 650 mg PO Q6H PRN PRN Reason: PAIN 1-10 AND/OR FEVER >101F Al Hydroxide/Mg Hydroxide (Milk Of Magnesia Liq) 30 ml PO Q12H PRN PRN Reason: Mild Constipation Albuterol (Duoneb Neb (Prn)) 1 ampul NEB Q6HR NEB [facility]OMA Apixaban (Eliquis) 2.5 mg PO BID [facility] Atorvastatin Calcium (Lipitor) 40 mg PO DAILY [facility] Bisacodyl (Dulcolax Supp) 10 mg RECTAL DAILY PRN PRN Reason: SEVERE CONSITIPATION Carvedilol (Coreg) 12.5 mg PO BID [facility] Chlorhexidine Gluconate (Chlorhexidine 2% Cloth) 3 pack TOPICAL DAILY@0400 [facility] Stop: 07/16/18 03:59 Chlorhexidine Gluconate (Chlorhexidine 2% Cloth) 3 pack TOPICAL DAILY@0400 PRN PRN Reason: Extra cloth needed Stop: 07/16/18 03:59 Dextrose (D50w Vial) 50 ml IV.PUSH UNSCH PRN PRN Reason: PER HYPOGLYCEMIA PROTOCOL Docusate Sodium (Colace) 300 mg PO DAILY [facility]OMA Furosemide (Lasix) 80 mg PO DAILY [facility]OMA Gabapentin (Neurontin) 200 mg PO TID [facility] Glucagon (Glucagon Inj) 1 mg OTHER PRN PRN PRN Reason: for Hypoglycemia Protocol Piperacillin/Tazobactam/Dextrose (Zosyn 3.375 Gm Premix) 50 mls @ 100 mls/hr IV.SIG Q8H [facility] Insulin Aspart (Novolog Insulin Correctional Sugar Inj) 0 unit SQ ACHS [facility]OMA; Protocol Isosorbide Mononitrate (Imdur) 30 mg PO DAILY [facility] Lactulose (Lactulose Liq) 30 ml PO DAILY PRN PRN Reason: SEVERE CONSITIPATION Metolazone (Zaroxolyn) 5 mg PO DAILY [facility] Nitroglycerin (Nitrostat Sl (Override)) 0.4 mg SL Q5-15M PRN PRN Reason: Chest Pain Non-Formulary Medication (Insulin Nph Isoph U-100 Human [Humulin N Nph Insulin Kwikpen]) 50 unit SQ BID PRN PRN Reason: Hyperglycemia Non-Formulary Medication (Levothyroxine [Levothyroxine]) 100 mcg PO DAILY [facility] Non-Formulary Medication (Oxycodone [Oxycodone]) 15 mg PO Q8H PRN PRN Reason: Pain Non-Formulary Medication (Saccharomyces Boulardii [Saccharomyces Boulardii]) 250 mg PO DAILY [facility] Ondansetron HCl (Zofran Inj) 4 mg IV.PUSH Q6H PRN PRN Reason: NAUSEA OR VOMITING Oxycodone HCl (Roxicodone) 15 mg PO Q8H PRN PRN Reason: PAIN 6-10;IF UNABLE TO TAKE PO Pharmacy Profile Note (Vancomycin Consult Pharmacy) 1 each OTHER UNSCH PRN PRN Reason: Pharmacy to dose Senna/Docusate Sodium (Valentine-Colace) 1 tab PO BID [facility] Sennosides (Senokot) 17.2 mg PO Q12H PRN PRN Reason: Moderate Constipation Sodium Chloride (Ns Flush) 2 ml IV.FLUSH BID [facility] Sodium Chloride (Ns Flush) 2 ml IV.FLUSH PRN PRN PRN Reason: FLUSH AFTER USING IV ACCESS Tramadol HCl (Ultram) 50 mg PO Q6H PRN PRN Reason: PAIN 6-10;IF UNABLE TO TAKE PO Allergies Allergy/AdvReac Type Severity Reaction Status Date / Time codeine Allergy Itching Verified 07/06/18 14:40 niacin Allergy Flushing Verified 07/06/18 14:40 fentanyl AdvReac Irritation Verified 07/06/18 14:40 hydromorphone [From Dilaudid] AdvReac Confusion Verified 07/06/18 14:40 morphine AdvReac Confusion Verified 07/06/18 14:40 zolpidem [From Ambien] AdvReac Confusion Verified 07/06/18 14:40 Home Medications Medication Instructions Recorded Confirmed Type Saccharomyces boulardii 250 mg PO DAILY 07/06/18 07/06/18 History apixaban [Eliquis] 2.5 mg PO BID 07/06/18 07/06/18 History atorvastatin 40 mg PO DAILY 07/06/18 07/06/18 History carvedilol 12.5 mg PO BID 07/06/18 07/06/18 History docusate sodium [Dulcolax Stool 300 mg PO DAILY 07/06/18 07/06/18 History Softener (dss)] furosemide [Lasix] 80 mg PO DAILY 07/06/18 07/06/18 History gabapentin 200 mg PO TID 07/06/18 07/06/18 History insulin NPH isoph U-100 human 50 unit SUBCUT BID PRN 07/06/18 07/06/18 History [Humulin N NPH Insulin KwikPen] isosorbide mononitrate 30 mg PO DAILY 07/06/18 07/06/18 History levothyroxine 100 mcg PO DAILY 07/06/18 07/06/18 History metolazone 5 mg PO DAILY 07/06/18 07/06/18 History nitroglycerin 0.4 mg SUBLINGUAL Q5-15M PRN 07/06/18 07/06/18 History oxycodone 15 mg PO Q8H PRN 07/06/18 07/06/18 History spironolactone 50 mg PO DAILY 07/06/18 07/06/18 History Exam Narrative: General: Elderly, chronically ill-appearing man. Head: Normal, atraumatic Neck: Supple airway widely patent no obstructive noises mild transmitted wheezes Lungs: Light wheezes, good bilateral air movement Heart: Regular rhythm, normal rate, no murmur rub, no JVD Abdomen: Large, edematous, no guarding or peritoneal irritation, bowel sounds are present Extremities: Pitting edema involving both lower extremities from the ankles distally. There are chronic changes of dermatitis and brawny induration involving the left lower leg. The skin of the right and left feet is warm to touch and ruborous. The fifth toe on the left foot is clearly gangrenous and nonviable. A clear demarcation exists at the base of the toe. Neuro: Sleepy but oriented x3, speech is clear, moves 4 limbs to command. Septic Shock Reassessment Septic shock perfusion: reassessment completed Caprini VTE Risk Assessment Caprini VTE Risk Assessment: Moderate/High Risk (score >= 2) Caprini Risk Assessment Model: Point Value = 1 Point Value = 2 Point Value = 3 Point Value = 5 Age 41-60 Minor surgery BMI > 25 kg/m2 Swollen legs Varicose veins or History of unexplained or recurrent spontaneous Oral contraceptives or hormone replacement Sepsis (< 1 month) Serious lung disease, including pneumonia (< 1 month) Abnormal pulmonary function Acute myocardial infarction Congestive heart failure (< 1 month) History of inflammatory bowel disease Medical patient at bed rest Age 61-74 Arthroscopic surgery Major open surgery (> 45 min) Laparoscopic surgery (> 45 min) Malignancy Confined to bed (> 72 hours) Immobilizing plaster cast Central venous access Age >= 75 History of VTE Family history of VTE Factor V Leiden Prothrombin [id number] Lupus anticoagulant Anticardiolipin antibodies Elevated serum homocysteine Heparin-induced thrombocytopenia Other congenital or acquired thrombophilia Stroke (< 1 month) Elective arthroplasty Hip, pelvis, or leg fracture Acute spinal cord injury (< 1 month) Prophylaxis Regimen: Total Risk Factor Score Risk Level Prophylaxis Regimen 0-1 Low Early ambulation 2 Moderate Order ONE of the following: *Sequential Compression Device (SCD) *Heparin 5000 units SQ BID 3-4 Higher Order ONE of the following medications: *Heparin 5000 units SQ TID *Enoxaparin/Lovenox 40 mg SQ daily (WT < 150 kg, CrCl > 30 mL/min) *Enoxaparin/Lovenox 30 mg SQ daily (WT < 150 kg, CrCl > 10-29 mL/min) *Enoxaparin/Lovenox 30 mg SQ BID (WT < 150 kg, CrCl > 30 mL/min) AND/OR *Sequential Compression Device (SCD) 5 or more Highest Order ONE of the following medications: *Heparin 5000 units SQ TID (Preferred with Epidurals) *Enoxaparin/Lovenox 40 mg SQ daily (WT < 150 kg, CrCl > 30 mL/min) *Enoxaparin/Lovenox 30 mg SQ daily (WT < 150 kg, CrCl > 10-29 mL/min) *Enoxaparin/Lovenox 30 mg SQ BID (WT < 150 kg, CrCl > 30 mL/min) AND *Sequential Compression Device (SCD) Assessment and Plan - Assessment and Plan Plan: Assessment: 1. Cellulitis left lower extremity 2. Gangrene left fifth toe 3. Severe peripheral arterial occlusive disease 4. Coronary artery disease, status post CABG. 5. Chronic systolic heart failure, ejection fraction 30% 6. Paroxysmal atrial fibrillation 7. Status post AICD insertion 8. Recurrent ascites, likely due to congestive heart failure 9. Diabetes mellitus, type II, insulin-dependent 10. Chronic kidney disease, stage III 11. Sepsis from left leg infection Plan: 1. Discontinue Eliquis, start Lovenox full anticoagulation 2. Sliding scale insulin correction coverage. Long-acting insulin until we better sort out is requirements 3. Lactic acid, BNP, INR, liver function tests, renal function test 4. Vancomycin adjusted per pharmacy and Zosyn 3.375 every 8 hours 5. Protonix p.o. for GI ulcer prophylaxis 6. No SCDs due to lower extremity compromise 7. Scheduled bronchodilators 8. Oxycodone for oral pain relief 9. Vascular surgery consult to Dr. Ventura Mcgovern Overall impression: This is a chronically ill gentleman with multiple premorbid disease processes. His most immediate risk is the infection involving the left foot for him which he appears to be in smoldering sepsis. His cardiac function is marginal and he appears to be in chronic heart failure with market dependent edema. The ascites is likely from heart failure but we need to prove that his liver functions adequately. He is admitted to the ICU in critical condition. Critical care 65 minutes aside from procedures.
[2018-07-10 19:10] LABS: Baso % (Auto) 0.3 % (0.0-2.0); Eos # (Auto) 0.3 th/mm3 (0.0-0.4); Eos % (Auto) 2.5 % (0.0-4.0); Hematocrit 25.5 % (39.0-51.0); Hemoglobin 8.7 gm/dL (13.0-17.0); Lymph # (Auto) 0.6 th/mm3 (1.0-4.8); Lymph % (Auto) 5.9 % (9.0-44.0); Mean Corpuscular Hemoglobin 31.6 pg (27.0-34.0); Mean Corpuscular Volume 92.9 fL (80.0-100.0); Mean Platelet Volume 7.2 fL (7.0-11.0); Mono # (Auto) 0.9 th/mm3 (0.0-0.9); Mono % (Auto) 9.1 % (0.0-8.0); Neut # (Auto) 8.3 th/mm3 (1.8-7.7); Neut % (Auto) 82.2 % (16.0-70.0); Platelet Count 218 th/mm3 (150-450); Red Blood Count 2.74 mil/mm3 (4.50-5.90); White Blood Count 10.1 th/mm3 (4.0-11.0)
[2018-07-10 19:15] LABS: INR 1.4 Ratio; Prothrombin Time 14.2 sec (9.8-11.6)
[2018-07-10 19:27] LABS: Albumin 2.3 g/dL (3.4-5.0)
[2018-07-10 19:27] LABS: Calcium 7.8 mg/dL (8.5-10.1); Carbon Dioxide 22.9 meq/L (21.0-32.0); Potassium 4.9 meq/L (3.5-5.1)
[2018-07-10 19:31] LABS: Total Protein 6.8 g/dL (6.4-8.2)
[2018-07-10] MEDS: Enoxaparin Inj 80 MG/0.8 ML Syringe SQ SCH (21:16)
[2018-07-10] MEDS: Carvedilol 12.5 MG Tablet PO SCH (21:16)
[2018-07-10] MEDS: Acetaminophen 325 MG Tablet PO PRN (21:16)
[2018-07-10] MEDS: Senna/Docusate Sodium 8.6/50 MG Tablet PO SCH (21:16)
[2018-07-10] MEDS: Piperacil/Tazo 3.375 GM Premix 50 ML IV.SIG SCH (21:16)
[2018-07-10] MEDS: Gabapentin 100 MG Capsule PO SCH (21:17)
[2018-07-10] MEDS: Insulin NovoLOG Aspart Correctional Sugar Inj SQ SCH (21:17)
[2018-07-10] MEDS: SODIUM CHLOR 0.9% IV.SIG SCH (21:17)
[2018-07-10] MEDS: VANCOMYCIN IV.SIG SCH (21:17)
[2018-07-10 23:09] LABS: Bilirubin,Urine Negative (Negative); Clarity,Urine Hazy (Clear); Color,Urine Yellow (Yellw/Straw); Glucose,Urine (UA) Negative (Negative); Hyaline Casts,Urine 1 /lpf (0-3); Leukocyte Esterase,Urine Trace (Negative); Mucus,Urine Few /lpf (Occasional); Nitrite,Urine Negative (Negative); Specific Gravity,Urine 1.013 (1.002-1.035)
[2018-07-11] MEDS ORDERED: Chlorhexidine Gluconate 2% 1 Pack (2 Cloths) TOPICAL PRN (04:00)
[2018-07-11] MEDS: Levothyroxine 100 MCG Tablet PO SCH (05:24)
[2018-07-11] MEDS: Piperacil/Tazo 3.375 GM Premix 50 ML IV.SIG SCH ×3 (05:24→19:51)
[2018-07-11] MEDS: Chlorhexidine Gluconate 2% 1 Pack (2 Cloths) TOPICAL SCH (05:24)
--- NOTE | 2018-07-11 06:59 | P.PNCC ---
Subjective Subjective Remarks/Hospital Course: This 71-year-old gentleman presents to [facility] with worsening left foot and toe pain. He has been seen Dr. Muñoz for management of his fifth toe gangrene and cellulitis. He has received multiple rounds of antibiotics without improvement. 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 He has chronic dependent edema, he has had his abdomen tapped several times for ascites, he clearly has dyspnea at rest. His home medications include Eliquis 2.5 mg twice daily, carvedilol 12.5 mg twice daily, Lasix 40 mg daily, gabapentin 100 mg 3 times daily, levothyroxine 100 mcg daily, oxycodone 15 mg 3 times daily. His insulin regimen was NPH Humulin 10 units subcu twice daily but that has recently changed. Spironolactone 50 mg p.o. daily. 07/11: Lower extremities without change. Continued erythema left foot and leg above gangrenous left fifth toe. Chronic systolic heart failure with dependent edema exacerbates the situation. B and P remains highly elevated at 1800, consistent with a retention of fluid observed. Moderate hypotension acceptable and favorable for his heart but undoubtedly detrimental to peripheral circulation. He has been converted to Lovenox therapy from Eliquis. I am reluctant to diuresis him prior to a procedure were intravenous contrast will be necessary. I think this is as good is he gets, realizing he is clearly at increased risk for any procedure. The object here is limb salvage. He will not heal an amputation of the toe without better distal perfusion. Objective Vital Signs / I&O: Vital Signs 07/10/18 20:00 07/10/18 20:40 07/10/18 21:00 Temperature 101.6 F H Pulse Rate 84 84 80 Respiratory Rate 19 16 14 Blood Pressure 132/63 130/60 Pulse Oximetry 95 94 L 07/10/18 22:00 07/11/18 00:00 07/11/18 03:33 Temperature 99.3 F Pulse Rate 84 79 72 Respiratory Rate 16 15 16 Blood Pressure 137/62 113/55 L Pulse Oximetry 95 94 L 07/11/18 04:00 Temperature 98.6 F Pulse Rate 79 Respiratory Rate 14 Blood Pressure 138/63 Pulse Oximetry 97 Intake & Output 07/10/18 07/10/18 07/11/18 06:59 18:59 06:59 Intake Total 616.5 / 616.5 Output Total 600 / 600 Balance 16.5 / 16.5 Weight 107.8 kg Intake: IV 616.5 / 616.5 Zosyn 3.375 GM Premix 50 ML @ 100 / 100 100 mls/hr IV.SIG Q8H [facility] Rx#: [id number] Vancomycin Inj 1,650 MG In NS 516.5 / 516.5 Inj 500 ML @ 250 mls/hr IV.SIG Q18H [facility] Rx#:[id number] Output: Urine Amount (Catheter) 600 / 600 Indwelling Urethral Catheter 600 / 600 Other: Date of Last Bowel Movement 07/09/18 07/09/18 Weight On Admission 108.9 kg Result Diagrams: 07/10/18 18:50 07/10/18 18:50 Objective Remarks: Exam Narrative: General: Elderly, chronically ill-appearing man. Head: Normal, atraumatic Neck: Supple airway widely patent no obstructive noises mild transmitted wheezes Lungs: Light wheezes, good bilateral air movement Heart: Regular rhythm, normal rate, no murmur rub, no JVD Abdomen: Large, edematous, no guarding or peritoneal irritation, bowel sounds are present Extremities: Pitting edema involving both lower extremities from the ankles distally. There are chronic changes of dermatitis and brawny induration involving the left lower leg. The skin of the right and left feet is warm to touch and ruborous. The fifth toe on the left foot is clearly gangrenous and nonviable. A clear demarcation exists at the base of the toe. Neuro: Sleepy but oriented x3, speech is clear, moves 4 limbs to command. Assessment and Plan - Assessment and Plan Plan: Assessment: 1. Cellulitis left lower extremity 2. Gangrene left fifth toe 3. Severe peripheral arterial occlusive disease 4. Coronary artery disease, status post CABG. 5. Chronic systolic heart failure, ejection fraction 30% 6. Paroxysmal atrial fibrillation 7. Status post AICD insertion 8. Recurrent ascites, likely due to congestive heart failure 9. Diabetes mellitus, type II, insulin-dependent 10. Chronic kidney disease, stage III 11. Sepsis from left leg infection Plan: 1. Discontinue Eliquis, start Lovenox full anticoagulation 2. Sliding scale insulin correction coverage. Long-acting insulin until we better sort out is requirements 3. Lactic acid, BNP, INR, liver function tests, renal function test 4. Vancomycin adjusted per pharmacy and Zosyn 3.375 every 8 hours 5. Protonix p.o. for GI ulcer prophylaxis 6. No SCDs due to lower extremity compromise 7. Scheduled bronchodilators 8. Oxycodone for oral pain relief 9. Vascular surgery consult to Dr. Ventura Mcgovern Overall impression: This is a chronically ill gentleman with multiple premorbid disease processes. His most immediate risk is the infection involving the left foot from which he appears to be in smoldering sepsis. His cardiac function is marginal and he appears to be in chronic heart failure with market dependent edema. The ascites is likely from heart failure but we need to prove that his liver functions adequately. He is admitted to the ICU in critical condition. Critical care 45 minutes aside from procedures.
[2018-07-11] MEDS: Furosemide 80 MG Tablet PO SCH (08:25)
[2018-07-11] MEDS: Docusate Sodium 100 MG Capsule PO SCH (08:25)
[2018-07-11] MEDS: Senna/Docusate Sodium 8.6/50 MG Tablet PO SCH ×2 (08:25→20:01)
[2018-07-11] MEDS: Carvedilol 12.5 MG Tablet PO SCH ×2 (08:26→20:01)
[2018-07-11] MEDS: metOLazone 5 MG Tablet PO SCH (08:26)
[2018-07-11] MEDS: Gabapentin 100 MG Capsule PO SCH ×3 (08:26→16:59)
[2018-07-11] MEDS: Isosorbide Mononitrate 30 MG ER 24HR Tablet (Imdur) PO SCH (08:27)
[2018-07-11] MEDS: Insulin NovoLOG Aspart Correctional Sugar Inj SQ SCH ×4 (08:27→21:21)
[2018-07-11] MEDS ORDERED: Spironolactone 50 MG Tablet PO SCH (09:00)
[2018-07-11] MEDS ORDERED: SACCHAROMYCES BOULARDII 250 MG PO SCH (09:00)
[2018-07-11] MEDS: Enoxaparin Inj 80 MG/0.8 ML Syringe SQ SCH ×2 (09:28→20:01)
--- NOTE | 2018-07-11 10:35 | P.CONVS ---
History of Present Illness Service: Cardiovascular Consult date: 07/11/18 Reason for Consult: L PRETZEL TWISTER Disease Primary Care Provider: UNKNOWN Chief Complaint: Left leg and foot pain History of Present Illness: Mr.Boothis santiago pleasant 72 y.o., , malewith history of combined arterial and venous insufficiency, A FIB, CHF, CABG x 4, CKD, Thyroid Disease and DM. Pt presented for an evaluation at [facility] for increased Left lower extremity pain with worsening necrosis and tissue loss (L 5th digit toe). Pt transferred last night to [facility] for surgical revascularization. Left 5th digit (toe) black/dry for a duration of 12M Pt reported limited ability to ambulate due to complaints Pt reported he has a Hx of B LE stents that were placed "years ago". Pt wears compression stocking daily Review of Systems Constitutional: Denies chills, Denies fever(s) Cardiovascular: Reports irregular heart rhythm (Hx of ), Reports leg pain with activity (L LE ), Reports leg swelling (B LE), Denies chest pain PMFSH - History History Provided By: Patient, Family Member - Medical History Medical History: Medical History (Last Reviewed 07/11/18 @ 10:22 by Glenna Corona) A-fib CHF (congestive heart failure) Cataract Cellulitis Diabetes Full dentures Gangrene History of recent acute infection Hypertension Hypothyroid Neuropathy - Surgical History Surgical History: Surgical History (Last Reviewed 07/11/18 @ 10:22 by Glenna Corona) AICD (automatic cardioverter/defibrillator) present H/O heart artery stent Hx of CABG - Social History I have reviewed the patient's Social History: Yes - Tobacco History Second Hand Smoke Exposure: No Tobacco Use In Past 30 Days: No Smoking Status: Former smoker Tobacco Type: Cigarettes - Alcohol History How Often Do You Have a Drink Containing Alcohol: 2 to 4 times a month - Substance Use History Substance History: Past History - Substance Use Type Alcohol Status: Sustained Remission Route Used: By Mouth - Immunization History Tetanus Immunization: Unsure Hx Influenza Vaccine This Season: Yes Medications and Allergies Allergies Allergy/AdvReac Type Severity Reaction Status Date / Time codeine Allergy Itching Verified 07/06/18 14:40 niacin Allergy Flushing Verified 07/06/18 14:40 fentanyl AdvReac Irritation Verified 07/06/18 14:40 hydromorphone [From Dilaudid] AdvReac Confusion Verified 07/06/18 14:40 morphine AdvReac Confusion Verified 07/06/18 14:40 zolpidem [From Ambien] AdvReac Confusion Verified 07/06/18 14:40 Home Medications Medication Instructions Recorded Confirmed Type Saccharomyces boulardii 250 mg PO DAILY 07/06/18 07/06/18 History apixaban [Eliquis] 2.5 mg PO BID 07/06/18 07/06/18 History atorvastatin 40 mg PO DAILY 07/06/18 07/06/18 History carvedilol 12.5 mg PO BID 07/06/18 07/06/18 History docusate sodium [Dulcolax Stool 300 mg PO DAILY 07/06/18 07/06/18 History Softener (dss)] furosemide [Lasix] 80 mg PO DAILY 07/06/18 07/06/18 History gabapentin 200 mg PO TID 07/06/18 07/06/18 History insulin NPH isoph U-100 human 50 unit SUBCUT BID PRN 07/06/18 07/10/18 History [Humulin N NPH Insulin KwikPen] isosorbide mononitrate 30 mg PO DAILY 07/06/18 07/06/18 History levothyroxine 100 mcg PO DAILY 07/06/18 07/06/18 History metolazone 5 mg PO DAILY 07/06/18 07/06/18 History nitroglycerin 0.4 mg SUBLINGUAL Q5-15M PRN 07/06/18 07/06/18 History oxycodone 15 mg PO Q8H PRN 07/06/18 07/06/18 History spironolactone 50 mg PO DAILY 07/06/18 07/06/18 History Active Medications: Active Medications Acetaminophen (Tylenol) 650 mg PO Q6H PRN PRN Reason: PAIN 1-5 AND/OR FEVER >101F Last Admin: 07/10/18 21:16 Dose: 650 mg Al Hydroxide/Mg Hydroxide (Milk Of Magnesia Liq) 30 ml PO Q12H PRN PRN Reason: Mild Constipation Albuterol (Duoneb Neb (Toma)) 1 ampul NEB Q6HR NEB TOMA Last Admin: 07/11/18 08:58 Dose: 1 ampul Atorvastatin Calcium (Lipitor) 40 mg PO DAILY [facility] Last Admin: 07/11/18 08:26 Dose: 40 mg Bisacodyl (Dulcolax Supp) 10 mg RECTAL DAILY PRN PRN Reason: SEVERE CONSITIPATION Carvedilol (Coreg) 12.5 mg PO BID [facility] Last Admin: 07/11/18 08:26 Dose: 12.5 mg Chlorhexidine Gluconate (Chlorhexidine 2% Cloth) 3 pack TOPICAL DAILY@0400 TOMA Stop: 07/16/18 03:59 Last Admin: 07/11/18 05:24 Dose: Not Given Chlorhexidine Gluconate (Chlorhexidine 2% Cloth) 3 pack TOPICAL DAILY@0400 PRN PRN Reason: Extra cloth needed Stop: 07/16/18 03:59 Dextrose (D50w Vial) 50 ml IV.PUSH UNSCH PRN PRN Reason: PER HYPOGLYCEMIA PROTOCOL Docusate Sodium (Colace) 300 mg PO DAILY [facility] Last Admin: 07/11/18 08:25 Dose: 300 mg Enoxaparin Sodium (Lovenox Inj) 80 mg SQ Q12HR [facility] Last Admin: 07/11/18 09:28 Dose: 80 mg Furosemide (Lasix) 80 mg PO DAILY [facility] Last Admin: 07/11/18 08:25 Dose: 80 mg Gabapentin (Neurontin) 200 mg PO TID [facility] Last Admin: 07/11/18 08:26 Dose: 200 mg Glucagon (Glucagon Inj) 1 mg OTHER PRN PRN PRN Reason: for Hypoglycemia Protocol Piperacillin/Tazobactam/Dextrose (Zosyn 3.375 Gm Premix) 50 mls @ 100 mls/hr IV.SIG Q8H [facility] Last Infusion: 07/11/18 06:34 Dose: Infused Vancomycin HCl 1,650 mg/ (Sodium Chloride) 516.5 mls @ 250 mls/hr IV.SIG Q18H [facility] Last Infusion: 07/11/18 00:06 Dose: Infused Insulin Aspart (Novolog Insulin Correctional Sugar Inj) 0 unit SQ [facility]; Protocol Last Admin: 07/11/18 08:27 Dose: Not Given Isosorbide Mononitrate (Imdur) 30 mg PO DAILY [facility] Last Admin: 07/11/18 08:27 Dose: Not Given Lactulose (Lactulose Liq) 30 ml PO DAILY PRN PRN Reason: SEVERE CONSITIPATION Levothyroxine Sodium (Synthroid) 100 mcg PO DAILY@0600 [facility] Last Admin: 07/11/18 05:24 Dose: 100 mcg Metolazone (Zaroxolyn) 5 mg PO DAILY [facility] Last Admin: 07/11/18 08:26 Dose: 5 mg Miscellaneous Information ([facility] Ordered Lab Info) 0 each OTHER ONCE ONE Stop: 07/13/18 02:46 Nitroglycerin (Nitrostat Sl (Override)) 0.4 mg SL Q5M PRN PRN Reason: Chest Pain Ondansetron HCl (Zofran Inj) 4 mg IV.PUSH Q6H PRN PRN Reason: NAUSEA OR VOMITING Last Admin: 07/10/18 21:16 Dose: 4 mg Oxycodone HCl (Roxicodone) 15 mg PO Q8H PRN PRN Reason: PAIN 6-10;IF UNABLE TO TAKE PO Pt:Saccharomyces (Boulardii 250 Mg) 0 each PO DAILY [facility] Pharmacy Profile Note (Vancomycin Consult Pharmacy) 1 each OTHER UNSCH PRN PRN Reason: Pharmacy to dose Senna/Docusate Sodium (Valentine-Colace) 1 tab PO BID [facility] Last Admin: 07/11/18 08:25 Dose: 1 tab Sennosides (Senokot) 17.2 mg PO Q12H PRN PRN Reason: Moderate Constipation Sodium Chloride (Ns Flush) 2 ml IV.FLUSH BID [facility] Last Admin: 07/11/18 08:26 Dose: 2 ml Sodium Chloride (Ns Flush) 2 ml IV.FLUSH PRN PRN PRN Reason: FLUSH AFTER USING IV ACCESS Tramadol HCl (Ultram) 50 mg PO Q6H PRN PRN Reason: PAIN 6-10;IF UNABLE TO TAKE PO Physical Exam Vital Signs / I&O: Vital Signs 07/10/18 20:00 07/10/18 20:40 07/10/18 21:00 Temperature 101.6 F H Pulse Rate 84 84 80 Respiratory Rate 19 16 14 Blood Pressure 132/63 130/60 Pulse Oximetry 95 94 L 07/10/18 22:00 07/11/18 00:00 07/11/18 03:33 Temperature 99.3 F Pulse Rate 84 79 72 Respiratory Rate 16 15 16 Blood Pressure 137/62 113/55 L Pulse Oximetry 95 94 L 07/11/18 04:00 07/11/18 08:59 Temperature 98.6 F Pulse Rate 79 80 Respiratory Rate 14 19 Blood Pressure 138/63 Pulse Oximetry 97 Intake & Output 07/10/18 07/11/18 07/11/18 18:59 06:59 18:59 Intake Total 616.5 / 616.5 Output Total 600 / 600 Balance 16.5 / 16.5 Weight 107.8 kg Intake: IV 616.5 / 616.5 Zosyn 3.375 GM Premix 50 ML @ 100 / 100 100 mls/hr IV.SIG Q8H [facility] Rx#: [id number] Vancomycin Inj 1,650 MG In NS 516.5 / 516.5 Inj 500 ML @ 250 mls/hr IV.SIG Q18H [facility] Rx#:[id number] Output: Urine Amount (Catheter) 600 / 600 Indwelling Urethral Catheter 600 / 600 Other: Date of Last Bowel Movement 07/09/18 07/09/18 Weight On Admission 108.9 kg Neuro: A&Ox3 Speech clear Heart: Irregular, Hx of Lungs: Even and CTA Abdomen: S/NT Vascular: Non palpable L DP/PT Necrotic/dry L 5th digit toe LE warm w/ motor intact Laboratory Results - last 24 hr 07/10/18 07/10/18 07/10/18 18:30 18:50 18:50 WBC 10.1 RBC 2.74 L Hgb 8.7 L Hct 25.5 L MCV 92.9 MCH 31.6 MCHC 34.0 RDW 19.0 H Plt Count 218 D MPV 7.2 Neut % (Auto) 82.2 H Lymph % (Auto) 5.9 L Barnes % (Auto) 9.1 H Eos % (Auto) 2.5 Baso % (Auto) 0.3 Neut # (Auto) 8.3 H Lymph # (Auto) 0.6 L Barnes # (Auto) 0.9 Eos # (Auto) 0.3 Baso # (Auto) 0.0 WBC Differential . Differential Comment Auto diff final PT INR Sodium 134 L Potassium 4.9 Chloride 104 Carbon Dioxide 22.9 Anion Gap 7 BUN 34 H Creatinine 1.34 H Estimated GFR 52 L POC Glucose Random Glucose 163 H Lactic Acid Calcium 7.8 L Total Bilirubin 1.3 H Direct Bilirubin 0.8 H Indirect Bilirubin 0.5 AST 10 L ALT 9 L Alkaline Phosphatase 118 H Total Creatine Kinase 16 L B-Natriuretic Peptide Total Protein 6.8 Albumin 2.3 L Urine Color Urine Clarity Urine pH Ur Specific [place] Urine Protein Urine Glucose (UA) Urine Ketones Urine Occult Blood Urine Nitrate Urine Bilirubin Urine Urobilinogen Ur Leukocyte Esterase Urine RBC Urine WBC Hyaline Casts Urine Mucus Micro UA Comment Ur Microscopic Review Urine Culture Comments Nasal Screen MRSA (PCR) 07/10/18 07/10/18 07/10/18 18:50 18:50 18:50 WBC RBC Hgb Hct MCV MCH MCHC RDW Plt Count MPV Neut % (Auto) Lymph % (Auto) Barnes % (Auto) Eos % (Auto) Baso % (Auto) Neut # (Auto) Lymph # (Auto) Barnes # (Auto) Eos # (Auto) Baso # (Auto) WBC Differential Differential Comment PT 14.2 H INR 1.4 Sodium Potassium Chloride Carbon Dioxide Anion Gap BUN Creatinine Estimated GFR POC Glucose Random Glucose Lactic Acid 1.2 Calcium Total Bilirubin Direct Bilirubin Indirect Bilirubin AST ALT Alkaline Phosphatase Total Creatine Kinase B-Natriuretic Peptide 1894 H Total Protein Albumin Urine Color Urine Clarity Urine pH Ur Specific [place] Urine Protein Urine Glucose (UA) Urine Ketones Urine Occult Blood Urine Nitrate Urine Bilirubin Urine Urobilinogen Ur Leukocyte Esterase Urine RBC Urine WBC Hyaline Casts Urine Mucus Micro UA Comment Ur Microscopic Review Urine Culture Comments Nasal Screen MRSA (PCR) 07/10/18 07/10/18 07/10/18 20:49 21:40 21:40 WBC RBC Hgb Hct MCV MCH MCHC RDW Plt Count MPV Neut % (Auto) Lymph % (Auto) Barnes % (Auto) Eos % (Auto) Baso % (Auto) Neut # (Auto) Lymph # (Auto) Barnes # (Auto) Eos # (Auto) Baso # (Auto) WBC Differential Differential Comment PT INR Sodium Potassium Chloride Carbon Dioxide Anion Gap BUN Creatinine Estimated GFR POC Glucose 180 H Random Glucose Lactic Acid Calcium Total Bilirubin Direct Bilirubin Indirect Bilirubin AST ALT Alkaline Phosphatase Total Creatine Kinase B-Natriuretic Peptide Total Protein Albumin Urine Color Yellow Urine Clarity Hazy H Urine pH 5.0 Ur Specific [place] 1.013 Urine Protein Negative Urine Glucose (UA) Negative Urine Ketones Negative Urine Occult Blood Moderate H Urine Nitrate Negative Urine Bilirubin Negative Urine Urobilinogen 2.0 H Ur Leukocyte Esterase Trace H Urine RBC 6 H Urine WBC 8 H Hyaline Casts 1 Urine Mucus Few H Micro UA Comment Culture not ind Ur Microscopic Review Not Reportable Urine Culture Comments Culture not ind Nasal Screen MRSA (PCR) Not detected 07/11/18 07/11/18 05:50 08:13 WBC RBC Hgb Hct MCV MCH MCHC RDW Plt Count MPV Neut % (Auto) Lymph % (Auto) Barnes % (Auto) Eos % (Auto) Baso % (Auto) Neut # (Auto) Lymph # (Auto) Barnes # (Auto) Eos # (Auto) Baso # (Auto) WBC Differential Differential Comment PT INR Sodium Potassium Chloride Carbon Dioxide Anion Gap BUN Creatinine Estimated GFR POC Glucose 150 H 149 H Random Glucose Lactic Acid Calcium Total Bilirubin Direct Bilirubin Indirect Bilirubin AST ALT Alkaline Phosphatase Total Creatine Kinase B-Natriuretic Peptide Total Protein Albumin Urine Color Urine Clarity Urine pH Ur Specific [place] Urine Protein Urine Glucose (UA) Urine Ketones Urine Occult Blood Urine Nitrate Urine Bilirubin Urine Urobilinogen Ur Leukocyte Esterase Urine RBC Urine WBC Hyaline Casts Urine Mucus Micro UA Comment Ur Microscopic Review Urine Culture Comments Nasal Screen MRSA (PCR) Assessment and Plan - Assessment (1) Peripheral vascular occlusive disease Code(s): I73.9 - Peripheral vascular disease, unspecified Status: Acute - Plan 72/M presented w/ worsening tissue loss and L LE pain for a duration of 3 days Pt s/p B LE angiogram (05/30/03) that showed 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 Mcgovern Continue pain control Consult Podiatry- gangrenous L 5th digit toe Glenna Corona NP [facility] [phone] - Attending Attestation Agree with above. Repeated valdovinos and appropriate portions of H&P. L 5th toe gangrene and severe PAD. Multiple comorbidities Plan for L LE groin reconstruction and angio. Pt/ agree he is high risk. OR .
[2018-07-11] MEDS: SODIUM CHLOR 0.9% IV.SIG SCH (16:06)
[2018-07-11] MEDS: VANCOMYCIN IV.SIG SCH (16:06)
--- NOTE | 2018-07-11 22:31 | P.CON ---
History of Present Illness Service: Foot and Ankle Surgery/Podiatry Consult date: 07/11/18 Reason for Consult: Left fifth digit ischemia Primary Care Provider: UNKNOWN Chief Complaint: Left leg and foot pain History of Present Illness: Podiatry consulted for this 72-year-old male with history of combined arterial and venous insufficiency, A. fib, CHF, CABG x4, CKD, thyroid disease and diabetes for left fifth digit ischemia/necrosis. Patient denies any N,V,F,Ch. He states he is undergoing vascualr intervention with Dr. Mcgovern. [facility] - History History Provided By: Patient, Family Member - Medical History Medical History: Medical History (Last Reviewed 07/11/18 @ 10:22 by Glenna Corona) A-fib CHF (congestive heart failure) Cataract Cellulitis Diabetes Full dentures Gangrene History of recent acute infection Hypertension Hypothyroid Neuropathy - Surgical History Surgical History: Surgical History (Last Reviewed 07/11/18 @ 10:22 by Glenna Corona) AICD (automatic cardioverter/defibrillator) present H/O heart artery stent Hx of CABG - Tobacco History Second Hand Smoke Exposure: No Tobacco Use In Past 30 Days: No Smoking Status: Former smoker Tobacco Type: Cigarettes - Alcohol History How Often Do You Have a Drink Containing Alcohol: 2 to 4 times a month - Substance Use History Substance History: Past History - Substance Use Type Alcohol Status: Sustained Remission Route Used: By Mouth - Immunization History Tetanus Immunization: Unsure Hx Influenza Vaccine This Season: Yes Medications and Allergies Active Medications: Active Medications Acetaminophen (Tylenol) 650 mg PO Q6H PRN PRN Reason: PAIN 1-5 AND/OR FEVER >101F Last Admin: 07/10/18 21:16 Dose: 650 mg Al Hydroxide/Mg Hydroxide (Milk Of Magnlev Liq) 30 ml PO Q12H PRN PRN Reason: Mild Constipation Albuterol (Duoneb Neb (Edna)) 1 ampul NEB Q6HR NEB [facility] Last Admin: 07/11/18 20:09 Dose: 1 ampul Atorvastatin Calcium (Lipitor) 40 mg PO DAILY [facility] Last Admin: 07/11/18 08:26 Dose: 40 mg Bisacodyl (Dulcolax Supp) 10 mg RECTAL DAILY PRN PRN Reason: SEVERE CONSITIPATION Carvedilol (Coreg) 12.5 mg PO BID [facility] Last Admin: 07/11/18 20:01 Dose: 12.5 mg Chlorhexidine Gluconate (Chlorhexidine 2% Cloth) 3 pack TOPICAL DAILY@0400 [facility] Stop: 07/16/18 03:59 Last Admin: 07/11/18 05:24 Dose: Not Given Chlorhexidine Gluconate (Chlorhexidine 2% Cloth) 3 pack TOPICAL DAILY@0400 PRN PRN Reason: Extra cloth needed Stop: 07/16/18 03:59 Dextrose (D50w Vial) 50 ml IV.PUSH UNSCH PRN PRN Reason: PER HYPOGLYCEMIA PROTOCOL Docusate Sodium (Colace) 300 mg PO DAILY [facility] Last Admin: 07/11/18 08:25 Dose: 300 mg Enoxaparin Sodium (Lovenox Inj) 80 mg SQ Q12HR [facility] Last Admin: 07/11/18 20:01 Dose: 80 mg Furosemide (Lasix) 80 mg PO DAILY [facility] Last Admin: 07/11/18 08:25 Dose: 80 mg Gabapentin (Neurontin) 200 mg PO TID [facility] Last Admin: 07/11/18 16:59 Dose: 200 mg Glucagon (Glucagon Inj) 1 mg OTHER PRN PRN PRN Reason: for Hypoglycemia Protocol Piperacillin/Tazobactam/Dextrose (Zosyn 3.375 Gm Premix) 50 mls @ 100 mls/hr IV.SIG Q8H [facility] Last Infusion: 07/11/18 21:24 Dose: Infused Vancomycin HCl 1,650 mg/ (Sodium Chloride) 516.5 mls @ 250 mls/hr IV.SIG Q18H [facility] Last Infusion: 07/11/18 18:35 Dose: Infused Insulin Aspart (Novolog Insulin Correctional Sugar Inj) 0 unit SQ [facility]; Protocol Last Admin: 07/11/18 21:21 Dose: 2 unit Isosorbide Mononitrate (Imdur) 30 mg PO DAILY [facility] Last Admin: 07/11/18 08:27 Dose: Not Given Lactulose (Lactulose Liq) 30 ml PO DAILY PRN PRN Reason: SEVERE CONSITIPATION Levothyroxine Sodium (Synthroid) 100 mcg PO DAILY@0600 [facility] Last Admin: 07/11/18 05:24 Dose: 100 mcg Metolazone (Zaroxolyn) 5 mg PO DAILY [facility] Last Admin: 07/11/18 08:26 Dose: 5 mg Miscellaneous Information ([facility] Ordered Lab Info) 0 each OTHER ONCE ONE Stop: 07/13/18 02:46 Nitroglycerin (Nitrostat Sl (Override)) 0.4 mg SL Q5M PRN PRN Reason: Chest Pain Ondansetron HCl (Zofran Inj) 4 mg IV.PUSH Q6H PRN PRN Reason: NAUSEA OR VOMITING Last Admin: 07/10/18 21:16 Dose: 4 mg Oxycodone HCl (Roxicodone) 15 mg PO Q8H PRN PRN Reason: PAIN 6-10;IF UNABLE TO TAKE PO Last Admin: 07/11/18 16:51 Dose: 15 mg Pt:Saccharomyces (Boulardii 250 Mg) 0 each PO DAILY [facility] Pharmacy Profile Note (Vancomycin Consult Pharmacy) 1 each OTHER UNSCH PRN PRN Reason: Pharmacy to dose Senna/Docusate Sodium (Valentine-Colace) 1 tab PO BID [facility] Last Admin: 07/11/18 20:01 Dose: 1 tab Sennosides (Senokot) 17.2 mg PO Q12H PRN PRN Reason: Moderate Constipation Sodium Chloride (Ns Flush) 2 ml IV.FLUSH BID [facility] Last Admin: 07/11/18 20:01 Dose: 2 ml Sodium Chloride (Ns Flush) 2 ml IV.FLUSH PRN PRN PRN Reason: FLUSH AFTER USING IV ACCESS Tramadol HCl (Ultram) 50 mg PO Q6H PRN PRN Reason: PAIN 6-10;IF UNABLE TO TAKE PO Allergies Allergy/AdvReac Type Severity Reaction Status Date / Time codeine Allergy Itching Verified 07/06/18 14:40 niacin Allergy Flushing Verified 07/06/18 14:40 fentanyl AdvReac Irritation Verified 07/06/18 14:40 hydromorphone [From Dilaudid] AdvReac Confusion Verified 07/06/18 14:40 morphine AdvReac Confusion Verified 07/06/18 14:40 zolpidem [From Ambien] AdvReac Confusion Verified 07/06/18 14:40 Home Medications Medication Instructions Recorded Confirmed Type Saccharomyces boulardii 250 mg PO DAILY 07/06/18 07/06/18 History apixaban [Eliquis] 2.5 mg PO BID 07/06/18 07/06/18 History atorvastatin 40 mg PO DAILY 07/06/18 07/06/18 History carvedilol 12.5 mg PO BID 07/06/18 07/06/18 History docusate sodium [Dulcolax Stool 300 mg PO DAILY 07/06/18 07/06/18 History Softener (dss)] furosemide [Lasix] 80 mg PO DAILY 07/06/18 07/06/18 History gabapentin 200 mg PO TID 07/06/18 07/06/18 History insulin NPH isoph U-100 human 50 unit SUBCUT BID PRN 07/06/18 07/10/18 History [Humulin N NPH Insulin KwikPen] isosorbide mononitrate 30 mg PO DAILY 07/06/18 07/06/18 History levothyroxine 100 mcg PO DAILY 07/06/18 07/06/18 History metolazone 5 mg PO DAILY 07/06/18 07/06/18 History nitroglycerin 0.4 mg SUBLINGUAL Q5-15M PRN 07/06/18 07/06/18 History oxycodone 15 mg PO Q8H PRN 07/06/18 07/06/18 History spironolactone 50 mg PO DAILY 07/06/18 07/06/18 History Physical Exam Vital signs: Vital Signs 07/11/18 00:00 07/11/18 03:33 07/11/18 04:00 Temperature 99.3 F 98.6 F Pulse Rate 79 72 79 Respiratory Rate 15 16 14 Blood Pressure 113/55 L 138/63 Pulse Oximetry 94 L 97 07/11/18 08:00 07/11/18 08:59 07/11/18 12:02 Temperature 98.5 F 98.8 F Pulse Rate 79 80 86 Respiratory Rate 24 19 28 H Blood Pressure 123/60 121/58 L Pulse Oximetry 99 99 07/11/18 15:58 07/11/18 20:00 07/11/18 20:10 Temperature 98.6 F Pulse Rate 81 71 82 Respiratory Rate 19 23 16 Blood Pressure 129/60 Pulse Oximetry 100 Intake & Output 07/11/18 07/11/18 07/12/18 06:59 18:59 06:59 Intake Total 616.5 / 616.5 566.5 / 566.5 50 / 50 Output Total 600 / 600 1200 / 1200 Balance 16.5 / 16.5 -633.5 / -633.5 50 / 50 Weight 107.8 kg Intake: IV 616.5 / 616.5 566.5 / 566.5 50 / 50 Zosyn 3.375 GM Premix 50 ML @ 100 / 100 50 / 50 50 / 50 100 mls/hr IV.SIG Q8H [facility] Rx#: [id number] Vancomycin Inj 1,650 MG In NS 516.5 / 516.5 516.5 / 516.5 Inj 500 ML @ 250 mls/hr IV.SIG Q18H [facility] Rx#:[id number] Output: Urine Amount (Catheter) 600 / 600 1200 / 1200 Indwelling Urethral Catheter 600 / 600 1200 / 1200 Other: Date of Last Bowel Movement 07/09/18 07/09/18 07/09/18 Weight On Admission 108.9 kg Narrative: GENERAL: In no apparent distress. SKIN: Ischemic 5th digit left foot HEAD: Atraumatic. EYES: Pupils equal round and reactive. ENT: Airway patent. NECK: Trachea midline. RESPIRATORY: Nonlabored breathing. MUSCULOSKELETAL:. Negative Homans sign bilaterally. NEUROLOGICAL: Awake and alert. Normal speech. Lower extremity physical exam: Vascular: Dorsalis pedis non palpable, posterior tibial nonpalpable. Capillary refill time within normal limits to digits x4 left foot. Edema present to bilateral lower extremity. Neuro: Gross sensation intact to bilateral lower extremity. Pinpoint sensation decreased. No hyperalgesia noted to bilateral lower extremity Dermatology: Ischemia noted to left fifth digit with necrosis to lateral aspect of fourth digit. Necrosis to fifth digit of left foot extending to the MPJ. Musculoskeletal: Tender to palpation to left fifth digit. - Urinary Catheter Management Indwelling Urethral Catheter Cath placed during this visit: no Assessment and Plan - Plan 72 year old male with left fifth digit ischemia/necrosis Plan for fifth digit amputation once cleared from vascular standpoint Will signout care to oncoming backend python developer physician Will re evaluate post revasc
[2018-07-12] MEDS: Chlorhexidine Gluconate 2% 1 Pack (2 Cloths) TOPICAL SCH (05:14)
[2018-07-12] MEDS: Piperacil/Tazo 3.375 GM Premix 50 ML IV.SIG SCH ×3 (05:23→19:59)
[2018-07-12] MEDS: Levothyroxine 100 MCG Tablet PO SCH (05:24)
[2018-07-12 06:56] LABS: Baso % (Auto) 0.5 % (0.0-2.0); Eos # (Auto) 0.3 th/mm3 (0.0-0.4); Eos % (Auto) 3.6 % (0.0-4.0); Hematocrit 24.9 % (39.0-51.0); Hemoglobin 8.2 gm/dL (13.0-17.0); Lymph # (Auto) 0.9 th/mm3 (1.0-4.8); Lymph % (Auto) 12.2 % (9.0-44.0); Mean Corpuscular Hemoglobin 31.1 pg (27.0-34.0); Mean Corpuscular Volume 94.5 fL (80.0-100.0); Mean Platelet Volume 7.6 fL (7.0-11.0); Mono # (Auto) 0.8 th/mm3 (0.0-0.9); Mono % (Auto) 10.3 % (0.0-8.0); Neut # (Auto) 5.4 th/mm3 (1.8-7.7); Neut % (Auto) 73.4 % (16.0-70.0); Platelet Count 175 th/mm3 (150-450); Red Blood Count 2.63 mil/mm3 (4.50-5.90); Red Cell Distribution Width 18.9 % (11.6-17.2); White Blood Count 7.3 th/mm3 (4.0-11.0)
[2018-07-12 07:03] LABS: INR 1.4 Ratio; Prothrombin Time 13.7 sec (9.8-11.6)
--- NOTE | 2018-07-12 08:07 | P.PNCC ---
Subjective Subjective Remarks/Hospital Course: This 71-year-old gentleman presents to [facility] with worsening left foot and toe pain. He has been seen Dr. Muñoz for management of his fifth toe gangrene and cellulitis. He has received multiple rounds of antibiotics without improvement. 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 He has chronic dependent edema, he has had his abdomen tapped several times for ascites, he clearly has dyspnea at rest. His home medications include Eliquis 2.5 mg twice daily, carvedilol 12.5 mg twice daily, Lasix 40 mg daily, gabapentin 100 mg 3 times daily, levothyroxine 100 mcg daily, oxycodone 15 mg 3 times daily. His insulin regimen was NPH Humulin 10 units subcu twice daily but that has recently changed. Spironolactone 50 mg p.o. daily. 07/11: Lower extremities without change. Continued erythema left foot and leg above gangrenous left fifth toe. Chronic systolic heart failure with dependent edema exacerbates the situation. B and P remains highly elevated at 1800, consistent with a retention of fluid observed. Moderate hypotension acceptable and favorable for his heart but undoubtedly detrimental to peripheral circulation. He has been converted to Lovenox therapy from Eliquis. I am reluctant to diuresis him prior to a procedure were intravenous contrast will be necessary. I think this is as good is he gets, realizing he is clearly at increased risk for any procedure. The object here is limb salvage. He will not heal an amputation of the toe without better distal perfusion. 07/12: Patient continues to have acceptable urine output. Urine clean on arrival. BNP was elevated on arrival but this is his baseline. He is breathing comfortably today. Will repeat BNP, electrolytes, and CBC today prior to surgery tomorrow. Left leg remains inflamed, originating from a gangrenous left fifth toe. Objective Vital Signs / I&O: Vital Signs 07/11/18 08:59 07/11/18 12:02 07/11/18 15:58 Temperature 98.8 F Pulse Rate 80 86 81 Respiratory Rate 19 28 H 19 Blood Pressure 121/58 L Pulse Oximetry 99 07/11/18 20:00 07/11/18 20:10 07/12/18 00:00 Temperature 98.6 F 98.4 F Pulse Rate 71 82 73 Respiratory Rate 23 16 19 Blood Pressure 129/60 127/60 Pulse Oximetry 100 96 07/12/18 04:00 07/12/18 05:14 Temperature 98.6 F Pulse Rate 64 Respiratory Rate 2 L 16 Blood Pressure 118/57 L Pulse Oximetry 95 Intake & Output 07/11/18 07/12/18 07/12/18 18:59 06:59 18:59 Intake Total 566.5 / 566.5 290 / 290 50 / 50 Output Total 1200 / 1200 550 / 550 Balance -633.5 / -633.5 -260 / -260 50 / 50 Weight 107.1 kg Intake: IV 566.5 / 566.5 50 / 50 50 / 50 Zosyn 3.375 GM Premix 50 ML @ 50 / 50 50 / 50 50 / 50 100 mls/hr IV.SIG Q8H [facility] Rx#: [id number] Vancomycin Inj 1,650 MG In NS 516.5 / 516.5 Inj 500 ML @ 250 mls/hr IV.SIG Q18H [facility] Rx#:[id number] Oral 240 / 240 Output: Urine Amount (Catheter) 1200 / 1200 550 / 550 Indwelling Urethral Catheter 1200 / 1200 550 / 550 Other: Date of Last Bowel Movement 07/09/18 07/09/18 Result Diagrams: 07/12/18 06:15 07/10/18 18:50 Objective Remarks: Exam Narrative: General: Elderly, chronically ill-appearing man. Head: Normal, atraumatic Neck: Supple airway widely patent no obstructive noises mild transmitted wheezes Lungs: Light wheezes, good bilateral air movement Heart: Regular rhythm, normal rate, no murmur rub, no JVD Abdomen: Large, edematous, no guarding or peritoneal irritation, bowel sounds are present Extremities: Pitting edema involving both lower extremities from the ankles distally. There are chronic changes of dermatitis and brawny induration involving the left lower leg. The skin of the right and left feet is warm to touch and ruborous. The fifth toe on the left foot is clearly gangrenous and nonviable. A clear demarcation exists at the base of the toe. Neuro: Sleepy but oriented x3, speech is clear, moves 4 limbs to command. Assessment and Plan - Assessment and Plan Plan: Assessment: 1. Cellulitis left lower extremity 2. Gangrene left fifth toe 3. Severe peripheral arterial occlusive disease 4. Coronary artery disease, status post CABG. 5. Chronic systolic heart failure, ejection fraction 30% 6. Paroxysmal atrial fibrillation 7. Status post AICD insertion 8. Recurrent ascites, likely due to congestive heart failure 9. Diabetes mellitus, type II, insulin-dependent 10. Chronic kidney disease, stage III 11. Sepsis from left leg infection Plan: 1. Discontinue Eliquis, start Lovenox full anticoagulation 2. Sliding scale insulin correction coverage. Long-acting insulin until we better sort out is requirements 3. Lactic acid, BNP, INR, liver function tests, renal function test 4. Vancomycin adjusted per pharmacy and Zosyn 3.375 every 8 hours 5. Protonix p.o. for GI ulcer prophylaxis 6. No SCDs due to lower extremity compromise 7. Scheduled bronchodilators 8. Oxycodone for oral pain relief 9. Vascular surgery consult to Dr. Ventura Mcgovern -reviewed 10. Discontinue Lovenox after her last dose today. 11. The plan is for left groin arterial reconstruction, augmented with endovascular therapy to outflow vessels. Overall impression: This is a chronically ill gentleman with multiple premorbid disease processes. His most immediate risk is the infection involving the left foot from which he appears to be in smoldering sepsis. His cardiac function is marginal and he appears to be in chronic heart failure with market dependent edema. The ascites is likely from heart failure but we need to prove that his liver functions adequately. He is admitted to the ICU in critical condition. His respiratory and hemodynamic status is acceptable for surgery albeit with increased risk due to his diminished left ventricular ejection fraction of 30% and comorbidities of diabetes.
[2018-07-12] MEDS: Gabapentin 100 MG Capsule PO SCH ×3 (08:16→18:04)
[2018-07-12] MEDS: Docusate Sodium 100 MG Capsule PO SCH (08:17)
[2018-07-12] MEDS: Carvedilol 12.5 MG Tablet PO SCH ×2 (08:17→20:00)
[2018-07-12] MEDS: Enoxaparin Inj 80 MG/0.8 ML Syringe SQ SCH (08:18)
[2018-07-12] MEDS: Isosorbide Mononitrate 30 MG ER 24HR Tablet (Imdur) PO SCH (08:18)
[2018-07-12] MEDS: Senna/Docusate Sodium 8.6/50 MG Tablet PO SCH ×2 (08:19→20:00)
[2018-07-12] MEDS: VANCOMYCIN IV.SIG SCH (10:18)
[2018-07-12] MEDS: Furosemide 80 MG Tablet PO SCH (10:18)
[2018-07-12] MEDS: Insulin NovoLOG Aspart Correctional Sugar Inj SQ SCH ×4 (10:18→20:30)
[2018-07-12] MEDS: SODIUM CHLOR 0.9% IV.SIG SCH (10:18)
[2018-07-12] MEDS: metOLazone 5 MG Tablet PO SCH (10:18)
[2018-07-12 12:57] LABS: Baso % (Auto) 0.4 % (0.0-2.0); Eos # (Auto) 0.2 th/mm3 (0.0-0.4); Eos % (Auto) 3.3 % (0.0-4.0); Lymph # (Auto) 0.6 th/mm3 (1.0-4.8); Lymph % (Auto) 10.5 % (9.0-44.0); Mean Corpuscular HGB Conc 32.3 % (32.0-36.0); Mean Corpuscular Hemoglobin 31.7 pg (27.0-34.0); Mean Corpuscular Volume 98.3 fL (80.0-100.0); Mean Platelet Volume 7.6 fL (7.0-11.0); Mono # (Auto) 0.6 th/mm3 (0.0-0.9); Mono % (Auto) 10.3 % (0.0-8.0); Neut # (Auto) 4.1 th/mm3 (1.8-7.7); Neut % (Auto) 75.5 % (16.0-70.0); Platelet Count 127 th/mm3 (150-450); Red Blood Count 2.13 mil/mm3 (4.50-5.90); Red Cell Distribution Width 19.2 % (11.6-17.2); White Blood Count 5.5 th/mm3 (4.0-11.0)
[2018-07-12 13:00] LABS: Hematocrit 20.9 % (39.0-51.0); Hemoglobin 6.8 gm/dL (13.0-17.0)
[2018-07-12 13:13] LABS: Calcium 6.5 mg/dL (8.5-10.1); Carbon Dioxide 18.3 meq/L (21.0-32.0); Potassium 3.8 meq/L (3.5-5.1)
[2018-07-12 13:29] LABS: Total Protein 5.3 g/dL (6.4-8.2)
--- NOTE | 2018-07-12 16:53 | P.PNVS ---
- Pre-operative Note Planned Procedure: L groin reconstruction, angio/revascularization Interval History: Pt has Hct trending down, asymptomatic breathing improved Labs: WBC 5.5 th/mm3 (4.0-11.0) 07/12/18 11:57 RBC 2.13 mil/mm3 (4.50-5.90) L 07/12/18 11:57 Hgb 6.8 gm/dL (13.0-17.0) L* 07/12/18 11:57 Hct 20.9 % (39.0-51.0) L* 07/12/18 11:57 MCV 98.3 fL (80.0-100.0) D 07/12/18 11:57 MCH 31.7 pg (27.0-34.0) 07/12/18 11:57 MCHC 32.3 % (32.0-36.0) 07/12/18 11:57 RDW 19.2 % (11.6-17.2) H 07/12/18 11:57 Plt Count 127 th/mm3 (150-450) L 07/12/18 11:57 MPV 7.6 fL (7.0-11.0) 07/12/18 11:57 INR 1.4 Ratio 07/12/18 06:15 Sodium 138 meq/L (136-145) 07/12/18 11:57 Potassium 3.8 meq/L (3.5-5.1) D 07/12/18 11:57 Chloride 111 meq/L (98-107) H 07/12/18 11:57 Carbon Dioxide 18.3 meq/L (21.0-32.0) L 07/12/18 11:57 Anion Gap 9 meq/L (5-15) 07/12/18 11:57 BUN 29 mg/dL (7-18) H 07/12/18 11:57 Random Glucose 87 mg/dL (74-106) 07/12/18 11:57 Calcium 6.5 mg/dL (8.5-10.1) L* D 07/12/18 11:57 Blood: T&C 2U (ordered this morning) Orders: NPO Vanc 1g IV OCTOR Post-operative Destination: ICU (same as pre-op) Operative site marked: Yes Consent: Informed consent has been obtained from Ra Heard. I have explained the procedure in detail and discussed the risks, benefits, and potential complications. All questions have been answered.
[2018-07-13] MEDS ORDERED: Pharmacy Ordered Lab Info OTHER ONE (02:45)
[2018-07-13] MEDS: VANCOMYCIN IV.SIG SCH (02:58)
[2018-07-13] MEDS: SODIUM CHLOR 0.9% IV.SIG SCH (02:58)
[2018-07-13 03:14] LABS: Baso % (Auto) 0.5 % (0.0-2.0); Eos # (Auto) 0.3 th/mm3 (0.0-0.4); Eos % (Auto) 4.2 % (0.0-4.0); Hematocrit 24.2 % (39.0-51.0); Lymph # (Auto) 0.7 th/mm3 (1.0-4.8); Lymph % (Auto) 9.4 % (9.0-44.0); Mean Corpuscular Hemoglobin 31.2 pg (27.0-34.0); Mean Corpuscular Volume 94.6 fL (80.0-100.0); Mean Platelet Volume 7.7 fL (7.0-11.0); Mono # (Auto) 0.8 th/mm3 (0.0-0.9); Mono % (Auto) 10.5 % (0.0-8.0); Neut # (Auto) 5.4 th/mm3 (1.8-7.7); Neut % (Auto) 75.4 % (16.0-70.0); Platelet Count 175 th/mm3 (150-450); Red Blood Count 2.56 mil/mm3 (4.50-5.90); Red Cell Distribution Width 18.7 % (11.6-17.2); White Blood Count 7.2 th/mm3 (4.0-11.0)
[2018-07-13 03:59] LABS: Calcium 8.1 mg/dL (8.5-10.1); Carbon Dioxide 28.1 meq/L (21.0-32.0); Potassium 4.7 meq/L (3.5-5.1)
[2018-07-13] MEDS: Chlorhexidine Gluconate 2% 1 Pack (2 Cloths) TOPICAL SCH (04:41)
[2018-07-13] MEDS: Piperacil/Tazo 3.375 GM Premix 50 ML IV.SIG SCH ×3 (04:42→21:59)
[2018-07-13] MEDS: Levothyroxine 100 MCG Tablet PO SCH (05:02)
[2018-07-13] MEDS: Docusate Sodium 100 MG Capsule PO SCH (08:54)
[2018-07-13] MEDS: Gabapentin 100 MG Capsule PO SCH ×3 (08:54→17:29)
[2018-07-13] MEDS: Senna/Docusate Sodium 8.6/50 MG Tablet PO SCH ×2 (08:55→22:01)
[2018-07-13] MEDS: Carvedilol 12.5 MG Tablet PO SCH ×2 (08:55→21:59)
[2018-07-13] MEDS: Isosorbide Mononitrate 30 MG ER 24HR Tablet (Imdur) PO SCH (08:55)
[2018-07-13] MEDS: Insulin NovoLOG Aspart Correctional Sugar Inj SQ SCH ×4 (08:55→22:08)
[2018-07-13] MEDS: Furosemide 80 MG Tablet PO SCH (08:56)
[2018-07-13] MEDS: metOLazone 5 MG Tablet PO SCH (08:57)
[2018-07-13] MEDS ORDERED: Protamine Sulfate Inj 50 MG/5 ML Vial ONE (11:54)
[2018-07-13] MEDS ORDERED: Heparin 10,000 UNITS/10 ML Vial (for IV use) ONE (11:54)
[2018-07-13] MEDS ORDERED: Heparin/NS PF Inj 500 ML ONE ×2 (11:54→14:29)
[2018-07-13] MEDS ORDERED: Thrombin Topical 20,000 UNIT Spray Kit TOPICAL ONE (11:54)
[2018-07-13] MEDS ORDERED: ceFAZolin 2 GM Premix Inj 0 GM/0 ML PIGGYBACK IV.SIG ONE (11:54)
[2018-07-13] MEDS ORDERED: Bupivacaine 0.5% Inj 50 ML MDV Vial ONE (11:54)
[2018-07-13] MEDS ORDERED: Sodium Chlor 0.9% Inj 500 ML IV.CONT ONE (12:45)
[2018-07-13] MEDS ORDERED: Glycopyrrolate Inj 1 MG/5 ML Syringe IV.PUSH ONE (12:45)
[2018-07-13] MEDS ORDERED: Neostigmine Inj 5 MG/5 ML Syringe IV.PUSH ONE (12:45)
[2018-07-13] MEDS ORDERED: Lidocaine PF 1% Inj 5 ML Syringe INFILTRATN ONE (12:45)
[2018-07-13] MEDS ORDERED: Iohexol 300 MG/ML 50 ML Vial (for Rad Diag) IVCONTRAST ONE (14:45)
--- NOTE | 2018-07-13 14:52 | ECG ---
Date Performed: 07/13/2018 Time Performed: 03:44:42 PTAGE: 72 years EKG: Possible atrial flutter Possible anterior infarct - age undetermined Inferior/lateral ST-T changes may be due to myocardial ischemia Abnormal ECG PREVIOUS TRACING : 07/06/2018 11.13 Since the previous tracing, no significant change noted DOCTOR: Ryan Clifford Interpretating Date/Time 07/13/2018 14:51:39
--- NOTE | 2018-07-13 14:57 | P.OP ---
- Preoperative Diagnosis (1) Peripheral vascular occlusive disease - Postoperative Diagnosis (1) Peripheral vascular occlusive disease Date of procedure: 07/13/18 Procedure: 1. L OFFICE TECHNICIAN ORTHOPEDICS NURSE (6mm) 2. L SFA ORTHOPEDICS NURSE/stent (6x80 drug coated stent, 5mm ORTHOPEDICS NURSE) 3. L AT ORTHOPEDICS NURSE (2.5-3.0mm tapered balloon) Implants: 1. Zilver PTX (stent) in L SFA 2. R OFFICE TECHNICIAN Angioseal Surgeon: Ventura Mcgovern MD Estimated blood loss (mL): 5 IV fluids (mL): 500 Urine output (mL): 300 Pathology: none sent Operation and Findings: 1. L OFFICE TECHNICIAN stenosis, successful ORTHOPEDICS NURSE 2. L SFA In-stent stenosis, successful ORTHOPEDICS NURSE 3. Distal SFA [place] disease, ORTHOPEDICS NURSE/stent 4. AT disease, successful stent At end, in-line flow to foot
[2018-07-13] MEDS ORDERED: Dexmedetomidine Inj 200 MCG in Sodium Chlor 0.9% Inj 48 ML IV.CONT PRN (19:07)
--- NOTE | 2018-07-13 21:28 | MP ---
cc: Ventura Mcgovern MD DATE OF OPERATION: 07/13/2018 PREOPERATIVE DIAGNOSIS: Left lower extremity tissue loss, peripheral vascular disease. POSTOPERATIVE DIAGNOSIS: Left lower extremity tissue loss, peripheral vascular disease. PROCEDURE: 1. Aortogram with left lower extremity angiogram. 2. Left common femoral artery angioplasty with a 6 mm balloon. 3. Left superficial femoral artery angioplasty and stent with a 6 x 80 Zilver PTX and 5 mm balloon for the in-stent stenosis. 4. Left anterior tibial artery angioplasty with a tapered 2.5 to 3 mm balloon. 5. Right common femoral artery Angio-Seal. ATTENDING SURGEON: Ventura Mcgovern MD. ANESTHESIA: General. INDICATIONS: Mr. Heard is a 72-year-old gentleman with multiple comorbidities who has left lower extremity tissue loss and nonpalpable pedal pulses. He was taken to the operating room for angiographic evaluation and treatment. DESCRIPTION OF PROCEDURE: Informed consent was obtained. The patient was taken to the operating room and placed supine on the operating table. An appropriate timeout was taken to ensure the patient's identity, operative site and planned procedure. The administration of antibiotics was not necessary as the patient is on systemic and therapeutic antibiotics, and these will be continued postoperatively for ongoing therapy. Everyone in the room agreed with timeout and we proceeded. He was prepped from his nipples to his knees. A 21-gauge micropuncture needle was used to access the right common femoral artery. This was exchanged using Seldinger technique for micropuncture sheath, through which a 0.035 Glidewire was introduced and the micropuncture sheath was exchanged for a 5-Grenadian sheath. A VCF catheter was then withdrawn through the sheath and aortogram and pelvic arteriogram was obtained. The Glidewire and VCF catheter were navigated down to the left common femoral artery and the left lower extremity arteriogram was obtained. The patient was then heparinized with 5000 units of IV heparin and approximately 45 minutes later, 3000 additional units were administered. A 0.035 Glidewire was introduced and passed down to the mid SFA. The VCF catheter was advanced over this and the glide was exchanged for a Roger. With the Roger in the mid SFA, the VCF catheter and 5-Grenadian sheath removed and a 6-Grenadian 55 cm antral sheath was introduced. A 6 x 20 balloon was used to angioplasty the left common femoral artery and the completion angiogram showed excellent result without any recoil extravasation. We then used several wires and catheters to get down to the distal SFA and this was confirmed angiographically with an angiogram through the CXI catheter. A Roger wire was then placed. The CXI catheter was removed and the entire distal SFA beyond the preexisting stents were angioplastied with a 5 mm balloon. The completion angiogram showed a residual stenosis and this was treated with a 6 x 80 Zilver PTX stent. This stent was postdilated 5 mm and additionally the entire SFA in-stent stenosis was angioplastied with 5 mm. The completion angiogram showed excellent result of the common femoral artery SFA without any in-stent restenosis, extravasation or flow-limiting dissections. We then advanced a CXI catheter down over the Roger and the Roger was exchanged for a Glidewire. The CXI was advanced down to the anterior tibial artery and past the genu of the anterior tibial artery. The glide was removed and a 0.014 MOTORCYCLE RIDING INSTRUCTOR wire was then introduced and a 0.018 CXI catheter was placed over the wire and through the other 0.035 CXI catheter. We were able to navigate the MOTORCYCLE RIDING INSTRUCTOR wire down to the distal anterior tibial artery and both catheters were removed. The entire anterior tibial artery was angioplastied with a 2.5 to 3 mm tapered angioplasty balloon. The completion angiogram showed excellent result without any recoil extravasation flow into dissection. There was good perfusion all the way into the arch of the foot. The wire, catheter and sheath were removed and the groin was closed with an Angio-Seal. There were no complications. I was present and scrubbed, and performed the entire procedure. MD LEYDA Phan/sweta , 05:35 PM , 05:44 PM
[2018-07-14] MEDS: Chlorhexidine Gluconate 2% 1 Pack (2 Cloths) TOPICAL SCH (03:40)
[2018-07-14] MEDS: Piperacil/Tazo 3.375 GM Premix 50 ML IV.SIG SCH ×3 (04:30→20:12)
[2018-07-14] MEDS: Levothyroxine 100 MCG Tablet PO SCH (05:41)
--- NOTE | 2018-07-14 06:28 | P.PNCC ---
Subjective Subjective Remarks/Hospital Course: Note for 07/13/18: This 71-year-old gentleman presents to [facility] with worsening left foot and toe pain. He has been seen Dr. Muñoz for management of his fifth toe gangrene and cellulitis. He has received multiple rounds of antibiotics without improvement. 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 He has chronic dependent edema, he has had his abdomen tapped several times for ascites, he clearly has dyspnea at rest. His home medications include Eliquis 2.5 mg twice daily, carvedilol 12.5 mg twice daily, Lasix 40 mg daily, gabapentin 100 mg 3 times daily, levothyroxine 100 mcg daily, oxycodone 15 mg 3 times daily. His insulin regimen was NPH Humulin 10 units subcu twice daily but that has recently changed. Spironolactone 50 mg p.o. daily. 07/11: Lower extremities without change. Continued erythema left foot and leg above gangrenous left fifth toe. Chronic systolic heart failure with dependent edema exacerbates the situation. B and P remains highly elevated at 1800, consistent with a retention of fluid observed. Moderate hypotension acceptable and favorable for his heart but undoubtedly detrimental to peripheral circulation. He has been converted to Lovenox therapy from Eliquis. I am reluctant to diuresis him prior to a procedure were intravenous contrast will be necessary. I think this is as good is he gets, realizing he is clearly at increased risk for any procedure. The object here is limb salvage. He will not heal an amputation of the toe without better distal perfusion. 07/12: Patient continues to have acceptable urine output. Urine clean on arrival. BNP was elevated on arrival but this is his baseline. He is breathing comfortably today. Will repeat BNP, electrolytes, and CBC today prior to surgery tomorrow. Left leg remains inflamed, originating from a gangrenous left fifth toe. 07/13: Limb salvage predicament - to OR today for left leg revascularization. Objective Vital Signs / I&O: Vital Signs 07/13/18 08:00 07/13/18 08:31 07/13/18 10:00 Temperature 98.8 F Pulse Rate 78 66 80 Respiratory Rate 20 17 24 Blood Pressure 144/66 H 142/66 H Pulse Oximetry 96 98 07/13/18 11:00 07/13/18 12:00 07/13/18 16:33 Temperature 98.9 F Pulse Rate 78 78 73 Respiratory Rate 24 19 17 Blood Pressure 156/66 H 131/63 Pulse Oximetry 97 96 07/13/18 16:57 07/13/18 19:00 07/13/18 20:00 Temperature 97.5 F L 97.9 F Pulse Rate 73 80 86 Respiratory Rate 23 18 16 Blood Pressure 141/64 H 126/62 142/74 H Pulse Oximetry 99 92 L 96 07/13/18 20:43 07/13/18 22:42 07/14/18 00:00 Temperature 98.3 F Pulse Rate 86 Respiratory Rate 18 20 19 Blood Pressure 137/74 Pulse Oximetry 96 07/14/18 03:02 07/14/18 03:50 07/14/18 04:00 Temperature 98.8 F Pulse Rate 78 Respiratory Rate 16 17 Blood Pressure 139/70 Pulse Oximetry 95 94 L Intake & Output 07/13/18 07/13/18 07/14/18 06:59 18:59 06:59 Intake Total 290 / 290 900 / 900 100 / 100 Output Total 975 / 975 1160 / 1160 Balance -685 / -685 -260 / -260 100 / 100 Weight 107.7 kg Intake: IV 50 / 50 100 / 100 100 / 100 Heparin/NS PF Inj 500 ML @ 0 0 / 0 mls/hr .ROUTE .[facility] Rx#: [id number] Zosyn 3.375 GM Premix 50 ML @ 50 / 50 100 / 100 100 / 100 100 mls/hr IV.SIG Q8H [facility] Rx#: [id number] Oral 240 / 240 300 / 300 Anesthesia Amount 500 / 500 Output: Urine 975 / 975 350 / 350 Estimated Blood Loss 10 10 Urine Amount (Catheter) 800 / 800 Indwelling Temp Sensing 800 / 800 Catheter Other: Date of Last Bowel Movement 07/09/18 Result Diagrams: 07/13/18 02:50 07/13/18 02:50 Objective Remarks: Exam Narrative: General: Elderly, chronically ill-appearing man. Head: Normal, atraumatic Neck: Supple airway widely patent no obstructive noises mild transmitted wheezes Lungs: Light wheezes, good bilateral air movement Heart: Regular rhythm, normal rate, no murmur rub, no JVD Abdomen: Large, edematous, no guarding or peritoneal irritation, bowel sounds are present Extremities: Pitting edema involving both lower extremities from the ankles distally. There are chronic changes of dermatitis and brawny induration involving the left lower leg. The skin of the right and left feet is warm to touch and ruborous. The fifth toe on the left foot is clearly gangrenous and nonviable. A clear demarcation exists at the base of the toe. Neuro: Sleepy but oriented x3, speech is clear, moves 4 limbs to command. Assessment and Plan - Assessment and Plan Plan: Assessment: 1. Cellulitis left lower extremity 2. Gangrene left fifth toe 3. Severe peripheral arterial occlusive disease 4. Coronary artery disease, status post CABG. 5. Chronic systolic heart failure, ejection fraction 30% 6. Paroxysmal atrial fibrillation 7. Status post AICD insertion 8. Recurrent ascites, likely due to congestive heart failure 9. Diabetes mellitus, type II, insulin-dependent 10. Chronic kidney disease, stage III 11. Sepsis from left leg infection Plan: 1. Discontinue Eliquis, start Lovenox full anticoagulation 2. Sliding scale insulin correction coverage. Long-acting insulin until we better sort out is requirements 3. Lactic acid, BNP, INR, liver function tests, renal function test 4. Vancomycin adjusted per pharmacy and Zosyn 3.375 every 8 hours 5. Protonix p.o. for GI ulcer prophylaxis 6. No SCDs due to lower extremity compromise 7. Scheduled bronchodilators 8. Oxycodone for oral pain relief 9. Vascular surgery consult to Dr. Ventura Mcgovern -reviewed 10. Discontinue Lovenox after last dose today 07/12. 11. The plan is for left groin arterial reconstruction, augmented with endovascular therapy to outflow vessels. Overall impression: This is a chronically ill gentleman with multiple premorbid disease processes. His most immediate risk is the infection involving the left foot from which he appears to be in smoldering sepsis. His cardiac function is marginal and he appears to be in chronic heart failure with market dependent edema. The ascites is likely from heart failure but we need to prove that his liver functions adequately. He is admitted to the ICU in critical condition. His respiratory and hemodynamic status is acceptable for surgery albeit with increased risk due to his diminished left ventricular ejection fraction of 30% and comorbidities of diabetes.
--- NOTE | 2018-07-14 07:11 | P.PNVS ---
Subjective Subjective/Hospital Course: POD#1 s/p L STAVE PLANER TENDER, SFA, AT endovascular revascularization doing well, no R groin (access site) pain L foot ok Objective Vital Signs / I&O: Vital Signs 07/13/18 08:00 07/13/18 08:31 07/13/18 10:00 Temperature 98.8 F Pulse Rate 78 66 80 Respiratory Rate 20 17 24 Blood Pressure 144/66 H 142/66 H Pulse Oximetry 96 98 07/13/18 11:00 07/13/18 12:00 07/13/18 16:33 Temperature 98.9 F Pulse Rate 78 78 73 Respiratory Rate 24 19 17 Blood Pressure 156/66 H 131/63 Pulse Oximetry 97 96 07/13/18 16:57 07/13/18 19:00 07/13/18 20:00 Temperature 97.5 F L 97.9 F Pulse Rate 73 80 86 Respiratory Rate 23 18 16 Blood Pressure 141/64 H 126/62 142/74 H Pulse Oximetry 99 92 L 96 07/13/18 20:43 07/13/18 22:42 07/14/18 00:00 Temperature 98.3 F Pulse Rate 86 Respiratory Rate 18 20 19 Blood Pressure 137/74 Pulse Oximetry 96 07/14/18 03:02 07/14/18 03:50 07/14/18 04:00 Temperature 98.8 F Pulse Rate 78 Respiratory Rate 16 17 Blood Pressure 139/70 Pulse Oximetry 95 94 L Intake & Output 07/13/18 07/14/18 07/14/18 18:59 06:59 18:59 Intake Total 900 / 900 100 / 100 Output Total 1160 / 1160 Balance -260 / -260 100 / 100 Intake: IV 100 / 100 100 / 100 Heparin/NS PF Inj 500 ML @ 0 0 / 0 mls/hr .ROUTE .[facility] Rx#: [id number] Zosyn 3.375 GM Premix 50 ML @ 100 / 100 100 / 100 100 mls/hr IV.SIG Q8H [facility] Rx#: [id number] Oral 300 / 300 Anesthesia Amount 500 / 500 Output: Urine 350 / 350 Estimated Blood Loss 10 10 Urine Amount (Catheter) 800 / 800 Indwelling Temp Sensing 800 / 800 Catheter Physical Exam: L foot warm, strong distal AT Doppler signal stable tissue loss Laboratory Results - last 24 hr 07/12/18 07/13/18 07/13/18 13:25 08:05 11:48 POC Glucose 157 H 152 H Random Vancomycin MTS Gel Crossmatch See Detail 07/13/18 07/13/18 07/14/18 17:21 21:25 06:00 POC Glucose 146 H 210 H Random Vancomycin 28.6 MTS Gel Crossmatch Assessment and Plan - Assessment (1) Peripheral vascular occlusive disease Code(s): I73.9 - Peripheral vascular disease, unspecified Status: Acute - Plan POD#1 s/p L LE endovascular intervention good signal in L foot 1. Needs plavix when ok from podiatry and ICU teams 2. podiatry clear to perform toe amputation now that he has been revascularized 3. pt stable for discharge from a vascular surgery standpoint - will arrange f/u ; obviously has significant other medical issues; will follow while in house Discharge Planning: anytime from a vascular standpoint
[2018-07-14] MEDS: Docusate Sodium 100 MG Capsule PO SCH (08:09)
[2018-07-14] MEDS: Gabapentin 100 MG Capsule PO SCH ×3 (08:09→17:57)
[2018-07-14] MEDS: metOLazone 5 MG Tablet PO SCH (08:09)
[2018-07-14] MEDS: Carvedilol 12.5 MG Tablet PO SCH ×2 (08:09→20:12)
[2018-07-14] MEDS: Furosemide 80 MG Tablet PO SCH (08:10)
[2018-07-14] MEDS: Isosorbide Mononitrate 30 MG ER 24HR Tablet (Imdur) PO SCH (08:10)
[2018-07-14] MEDS: Insulin NovoLOG Aspart Correctional Sugar Inj SQ SCH ×4 (08:30→21:15)
--- NOTE | 2018-07-14 08:33 | P.PNPOD ---
Subjective Interval history: Left foot 5th digit dry gangrene. Status post stenting with on 07/13. Pt denies any pain in the toes. Physical Exam Vital signs: Vital Signs 07/13/18 08:31 07/13/18 10:00 07/13/18 11:00 Temperature Pulse Rate 66 80 78 Respiratory Rate 17 24 24 Blood Pressure 142/66 H 156/66 H Pulse Oximetry 98 97 07/13/18 12:00 07/13/18 16:33 07/13/18 16:57 Temperature 98.9 F 97.5 F L Pulse Rate 78 73 73 Respiratory Rate 19 17 23 Blood Pressure 131/63 141/64 H Pulse Oximetry 96 99 07/13/18 19:00 07/13/18 20:00 07/13/18 20:43 Temperature 97.9 F Pulse Rate 80 86 Respiratory Rate 18 16 18 Blood Pressure 126/62 142/74 H Pulse Oximetry 92 L 96 07/13/18 22:42 07/14/18 00:00 07/14/18 03:02 Temperature 98.3 F Pulse Rate 86 Respiratory Rate 20 19 16 Blood Pressure 137/74 Pulse Oximetry 96 07/14/18 03:50 07/14/18 04:00 07/14/18 08:01 Temperature 98.8 F Pulse Rate 78 Respiratory Rate 17 Blood Pressure 139/70 Pulse Oximetry 95 94 L 96 Intake & Output 07/13/18 07/14/18 07/14/18 18:59 06:59 18:59 Intake Total 900 / 900 340 / 340 Output Total 1160 / 1160 600 / 600 Balance -260 / -260 -260 / -260 Weight 105.1 kg Intake: IV 100 / 100 100 / 100 Heparin/NS PF Inj 500 ML @ 0 0 / 0 mls/hr .ROUTE .STK-MED ONE Rx#: [id number] Zosyn 3.375 GM Premix 50 ML @ 100 / 100 100 / 100 100 mls/hr IV.SIG Q8H [facility] Rx#: [id number] Oral 300 / 300 240 / 240 Anesthesia Amount 500 / 500 Output: Urine 350 / 350 Estimated Blood Loss 10 / 10 Urine Amount (Catheter) 800 / 800 600 / 600 Indwelling Temp Sensing 800 / 800 600 / 600 Catheter Narrative: Left foot dry gangrene to entire fifth toe, no erythema, no exposed bone. Medications and Allergies Active Medications: Active Medications Acetaminophen (Tylenol) 650 mg PO Q6H PRN PRN Reason: PAIN 1-5 AND/OR FEVER >101F Last Admin: 07/10/18 21:16 Dose: 650 mg Al Hydroxide/Mg Hydroxide (Milk Of Magnlev Liq) 30 ml PO Q12H PRN PRN Reason: Mild Constipation Albuterol (Duoneb Neb ([facility])) 1 ampul NEB Q6HR NEB [facility] Last Admin: 07/14/18 08:01 Dose: Not Given Atorvastatin Calcium (Lipitor) 40 mg PO DAILY [facility] Last Admin: 07/14/18 08:16 Dose: 40 mg Bisacodyl (Dulcolax Supp) 10 mg RECTAL DAILY PRN PRN Reason: SEVERE CONSITIPATION Carvedilol (Coreg) 12.5 mg PO BID [facility] Last Admin: 07/14/18 08:09 Dose: 12.5 mg Chlorhexidine Gluconate (Chlorhexidine 2% Cloth) 3 pack TOPICAL DAILY@0400 [facility] Stop: 07/16/18 03:59 Last Admin: 07/14/18 03:40 Dose: 3 pack Chlorhexidine Gluconate (Chlorhexidine 2% Cloth) 3 pack TOPICAL DAILY@0400 PRN PRN Reason: Extra cloth needed Stop: 07/16/18 03:59 Dextrose (D50w Vial) 50 ml IV.PUSH UNSCH PRN PRN Reason: PER HYPOGLYCEMIA PROTOCOL Docusate Sodium (Colace) 300 mg PO DAILY [facility] Last Admin: 07/14/18 08:09 Dose: 300 mg Enoxaparin Sodium (Lovenox Inj) 80 mg SQ Q12HR [facility] Last Admin: 07/12/18 08:18 Dose: Not Given Furosemide (Lasix) 80 mg PO DAILY [facility] Last Admin: 07/14/18 08:10 Dose: 80 mg Gabapentin (Neurontin) 200 mg PO TID [facility] Last Admin: 07/14/18 08:09 Dose: 200 mg Glucagon (Glucagon Inj) 1 mg OTHER PRN PRN PRN Reason: for Hypoglycemia Protocol Piperacillin/Tazobactam/Dextrose (Zosyn 3.375 Gm Premix) 50 mls @ 100 mls/hr IV.SIG Q8H [facility] Last Infusion: 07/14/18 05:00 Dose: Infused Vancomycin HCl 1,650 mg/ (Sodium Chloride) 516.5 mls @ 250 mls/hr IV.SIG Q18H [facility] Last Admin: 07/13/18 02:58 Dose: 250 mls/hr Dexmedetomidine HCl 200 mcg/ (Sodium Chloride) 50 mls @ 5.38 mls/hr IV.CONT TITRATE PRN; Protocol PRN Reason: Per Protocol Insulin Aspart (Novolog Insulin Correctional Sugar Inj) 0 unit SQ ACHS [facility]; Protocol Last Admin: 07/13/18 22:08 Dose: 4 unit Isosorbide Mononitrate (Imdur) 30 mg PO DAILY [facility] Last Admin: 07/14/18 08:10 Dose: 30 mg Lactulose (Lactulose Liq) 30 ml PO DAILY PRN PRN Reason: SEVERE CONSITIPATION Levothyroxine Sodium (Synthroid) 100 mcg PO DAILY@0600 [facility] Last Admin: 07/14/18 05:41 Dose: 100 mcg Metolazone (Zaroxolyn) 5 mg PO DAILY [facility] Last Admin: 07/14/18 08:09 Dose: 5 mg Nitroglycerin (Nitrostat Sl (Override)) 0.4 mg SL Q5M PRN PRN Reason: Chest Pain Ondansetron HCl (Zofran Inj) 4 mg IV.PUSH Q6H PRN PRN Reason: NAUSEA OR VOMITING Last Admin: 07/10/18 21:16 Dose: 4 mg Oxycodone HCl (Roxicodone) 15 mg PO Q8H PRN PRN Reason: PAIN 6-10;IF UNABLE TO TAKE PO Last Admin: 07/13/18 22:11 Dose: 15 mg Pt:Saccharomyces (Boulardii 250 Mg) 0 each PO DAILY [facility] Pharmacy Profile Note (Vancomycin Consult Pharmacy) 1 each OTHER UNSCH PRN PRN Reason: Pharmacy to dose Senna/Docusate Sodium (Valentine-Colace) 1 tab PO BID [facility] Last Admin: 07/13/18 22:01 Dose: 1 tab Sennosides (Senokot) 17.2 mg PO Q12H PRN PRN Reason: Moderate Constipation Sodium Chloride (Ns Flush) 2 ml IV.FLUSH BID [facility] Last Admin: 07/14/18 08:10 Dose: 2 ml Sodium Chloride (Ns Flush) 2 ml IV.FLUSH PRN PRN PRN Reason: FLUSH AFTER USING IV ACCESS Sodium Chloride (Ns Flush) 2 ml IV.FLUSH BID [facility] Last Admin: 07/14/18 08:10 Dose: 2 ml Sodium Chloride (Ns Flush) 2 ml IV.FLUSH PRN PRN PRN Reason: FLUSH AFTER USING IV ACCESS Tramadol HCl (Ultram) 50 mg PO Q6H PRN PRN Reason: PAIN 6-10;IF UNABLE TO TAKE PO Last Admin: 07/14/18 08:09 Dose: 50 mg Allergies Allergy/AdvReac Type Severity Reaction Status Date / Time codeine Allergy Itching Verified 07/06/18 14:40 niacin Allergy Flushing Verified 07/06/18 14:40 fentanyl AdvReac Irritation Verified 07/06/18 14:40 hydromorphone [From Dilaudid] AdvReac Confusion Verified 07/06/18 14:40 morphine AdvReac Confusion Verified 07/06/18 14:40 zolpidem [From Ambien] AdvReac Confusion Verified 07/06/18 14:40 Home Medications Medication Instructions Recorded Confirmed Type Saccharomyces boulardii 250 mg PO DAILY 07/06/18 07/06/18 History apixaban [Eliquis] 2.5 mg PO BID 07/06/18 07/06/18 History atorvastatin 40 mg PO DAILY 07/06/18 07/06/18 History carvedilol 12.5 mg PO BID 07/06/18 07/06/18 History docusate sodium [Dulcolax Stool 300 mg PO DAILY 07/06/18 07/06/18 History Softener (dss)] furosemide [Lasix] 80 mg PO DAILY 07/06/18 07/06/18 History gabapentin 200 mg PO TID 07/06/18 07/06/18 History insulin NPH isoph U-100 human 50 unit SUBCUT BID PRN 07/06/18 07/10/18 History [Humulin N NPH Insulin KwikPen] isosorbide mononitrate 30 mg PO DAILY 07/06/18 07/06/18 History levothyroxine 100 mcg PO DAILY 07/06/18 07/06/18 History metolazone 5 mg PO DAILY 07/06/18 07/06/18 History nitroglycerin 0.4 mg SUBLINGUAL Q5-15M PRN 07/06/18 07/06/18 History oxycodone 15 mg PO Q8H PRN 07/06/18 07/06/18 History spironolactone 50 mg PO DAILY 07/06/18 07/06/18 History Results - Labs CBC & Chem 7: 07/13/18 02:50 07/13/18 02:50 Laboratory Results - last 24 hr 07/12/18 07/13/18 07/13/18 13:25 11:48 17:21 POC Glucose 152 H 146 H Random Vancomycin MTS Gel Crossmatch See Detail 07/13/18 07/14/18 07/14/18 21:25 06:00 08:18 POC Glucose 210 H 153 H Random Vancomycin 28.6 MTS Gel Crossmatch Assessment and Plan - Assessment (1) Gangrene Code(s): I96 - Gangrene, not elsewhere classified Status: Acute (2) Gangrene of toe Code(s): I96 - Gangrene, not elsewhere classified Status: Acute - Plan - vascular intervention appears to have been successful, will plan to move forward with surgical amputation of 5th digit. The patient and his family know there are still potential healing complications associated with the surgery. - NPO after midnight - consent orders placed
--- NOTE | 2018-07-14 13:08 | P.PNCC ---
Subjective Subjective Remarks/Hospital Course: Note for 07/13/18: This 71-year-old gentleman presents to [facility] with worsening left foot and toe pain. He has been seen Dr. Muñoz for management of his fifth toe gangrene and cellulitis. He has received multiple rounds of antibiotics without improvement. 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 He has chronic dependent edema, he has had his abdomen tapped several times for ascites, he clearly has dyspnea at rest. His home medications include Eliquis 2.5 mg twice daily, carvedilol 12.5 mg twice daily, Lasix 40 mg daily, gabapentin 100 mg 3 times daily, levothyroxine 100 mcg daily, oxycodone 15 mg 3 times daily. His insulin regimen was NPH Humulin 10 units subcu twice daily but that has recently changed. Spironolactone 50 mg p.o. daily. 07/11: Lower extremities without change. Continued erythema left foot and leg above gangrenous left fifth toe. Chronic systolic heart failure with dependent edema exacerbates the situation. B and P remains highly elevated at 1800, consistent with a retention of fluid observed. Moderate hypotension acceptable and favorable for his heart but undoubtedly detrimental to peripheral circulation. He has been converted to Lovenox therapy from Eliquis. I am reluctant to diuresis him prior to a procedure were intravenous contrast will be necessary. I think this is as good is he gets, realizing he is clearly at increased risk for any procedure. The object here is limb salvage. He will not heal an amputation of the toe without better distal perfusion. 07/12: Patient continues to have acceptable urine output. Urine clean on arrival. BNP was elevated on arrival but this is his baseline. He is breathing comfortably today. Will repeat BNP, electrolytes, and CBC today prior to surgery tomorrow. Left leg remains inflamed, originating from a gangrenous left fifth toe. 07/13: Limb salvage predicament - to OR today for left leg revascularization. 07/14: Patient tolerated percutaneous revascularization yesterday. Skin overlying the left lower leg and foot is warm. Left fifth toe still gangrenous. Plan is for amputation of the left fifth toe tomorrow and hopefully wound healing will be satisfactory. Following surgery tomorrow the patient will be placed on antiplatelet therapy. Volume status is acceptable with a elevated but reasonable BNP going into tomorrow's procedure. Objective Vital Signs / I&O: Vital Signs 07/13/18 16:33 07/13/18 16:57 07/13/18 19:00 Temperature 97.5 F L Pulse Rate 73 73 80 Respiratory Rate 17 23 18 Blood Pressure 141/64 H 126/62 Pulse Oximetry 99 92 L 07/13/18 20:00 07/13/18 20:43 07/13/18 22:42 Temperature 97.9 F Pulse Rate 86 Respiratory Rate 16 18 20 Blood Pressure 142/74 H Pulse Oximetry 96 07/14/18 00:00 07/14/18 03:02 07/14/18 03:50 Temperature 98.3 F Pulse Rate 86 Respiratory Rate 19 16 Blood Pressure 137/74 Pulse Oximetry 96 95 07/14/18 04:00 07/14/18 08:00 07/14/18 08:01 Temperature 98.8 F 98.7 F Pulse Rate 78 78 Respiratory Rate 17 21 Blood Pressure 139/70 Pulse Oximetry 94 L 96 96 07/14/18 12:00 Temperature 98.4 F Pulse Rate 74 Respiratory Rate 20 Blood Pressure 122/59 L Pulse Oximetry 96 Intake & Output 07/13/18 07/14/18 07/14/18 18:59 06:59 18:59 Intake Total 900 / 900 340 / 340 Output Total 1160 / 1160 600 / 600 Balance -260 / -260 -260 / -260 Weight 105.1 kg Intake: IV 100 / 100 100 / 100 Heparin/NS PF Inj 500 ML @ 0 0 / 0 mls/hr .ROUTE .STK-MED ONE Rx#: [id number] Zosyn 3.375 GM Premix 50 ML @ 100 / 100 100 / 100 100 mls/hr IV.SIG Q8H [facility] Rx#: [id number] Oral 300 / 300 240 / 240 Anesthesia Amount 500 / 500 Output: Urine 350 / 350 Estimated Blood Loss 10 / 10 Urine Amount (Catheter) 800 / 800 600 / 600 Indwelling Temp Sensing 800 / 800 600 / 600 Catheter Result Diagrams: 07/13/18 02:50 07/13/18 02:50 Objective Remarks: Exam Narrative: General: Elderly, chronically ill-appearing man. Head: Normal, atraumatic Neck: Supple airway widely patent no obstructive noises mild transmitted wheezes Lungs: Light wheezes, good bilateral air movement, mildly labored. Heart: Regular rhythm, normal rate, no murmur rub, no JVD Abdomen: Large, edematous, no guarding or peritoneal irritation, bowel sounds are present Extremities: Pitting edema involving both lower extremities from the ankles distally. There are chronic changes of dermatitis and brawny induration involving the left lower leg. The skin of the right and left feet is warm to touch and ruborous. The fifth toe on the left foot is clearly gangrenous and nonviable. A clear demarcation exists at the base of the toe. Dorsum and plantar surfaces are warm. Neuro: Sleepy but oriented x3, speech is clear, moves 4 limbs to command. Assessment and Plan - Assessment and Plan Plan: Assessment: 1. Cellulitis left lower extremity 2. Gangrene left fifth toe 3. Severe peripheral arterial occlusive disease 4. Coronary artery disease, status post CABG. 5. Chronic systolic heart failure, ejection fraction 30% 6. Paroxysmal atrial fibrillation 7. Status post AICD insertion 8. Recurrent ascites, likely due to congestive heart failure 9. Diabetes mellitus, type II, insulin-dependent 10. Chronic kidney disease, stage III 11. Sepsis from left leg infection Plan: 1. Discontinue Eliquis, start Lovenox full anticoagulation 2. Sliding scale insulin correction coverage. Long-acting insulin until we better sort out is requirements 3. Lactic acid, BNP, INR, liver function tests, renal function test 4. Vancomycin adjusted per pharmacy and Zosyn 3.375 every 8 hours 5. Protonix p.o. for GI ulcer prophylaxis 6. No SCDs due to lower extremity compromise 7. Scheduled bronchodilators 8. Oxycodone for oral pain relief 9. Vascular surgery consult to Dr. Ventura Mcgovern -reviewed 10. Discontinue Lovenox after last dose today 07/12. 11. The plan is for left groin arterial reconstruction, augmented with endovascular therapy to outflow vessels. 12. Plan for amputation left fifth toe tomorrow, after procedure appears to have successfully revascularized the lower extremity. Overall impression: This is a chronically ill gentleman with multiple premorbid disease processes. His most immediate risk is the infection involving the left foot from which he appears to be in smoldering sepsis. His cardiac function is marginal and he appears to be in chronic heart failure with market dependent edema. The ascites is likely from heart failure but we need to prove that his liver functions adequately. He is admitted to the ICU in critical condition. His respiratory and hemodynamic status is acceptable for surgery albeit with increased risk due to his diminished left ventricular ejection fraction of 30% and comorbidities of diabetes.
[2018-07-14] MEDS: Senna/Docusate Sodium 8.6/50 MG Tablet PO SCH ×2 (14:47→20:12)
[2018-07-14 15:36] LABS: Potassium 4.7 meq/L (3.5-5.1)
[2018-07-14 23:50] LABS: Hematocrit 24.9 % (39.0-51.0); Hemoglobin 8.3 gm/dL (13.0-17.0); Mean Corpuscular HGB Conc 33.6 % (32.0-36.0); Mean Corpuscular Hemoglobin 31.2 pg (27.0-34.0); Mean Corpuscular Volume 92.9 fL (80.0-100.0); Mean Platelet Volume 7.9 fL (7.0-11.0); Platelet Count 205 th/mm3 (150-450); Red Blood Count 2.68 mil/mm3 (4.50-5.90); Red Cell Distribution Width 18.8 % (11.6-17.2); White Blood Count 8.4 th/mm3 (4.0-11.0)
[2018-07-15 00:08] LABS: Calcium 8.5 mg/dL (8.5-10.1); Carbon Dioxide 24.3 meq/L (21.0-32.0); Potassium 4.7 meq/L (3.5-5.1)
[2018-07-15] MEDS: Piperacil/Tazo 3.375 GM Premix 50 ML IV.SIG SCH ×3 (04:55→21:12)
[2018-07-15] MEDS: Chlorhexidine Gluconate 2% 1 Pack (2 Cloths) TOPICAL SCH (04:56)
[2018-07-15] MEDS: Levothyroxine 100 MCG Tablet PO SCH (06:25)
[2018-07-15] MEDS ORDERED: Bupivacaine PF 0.5% Inj 30 ML Vial ONE (07:38)
[2018-07-15] MEDS ORDERED: Ketamine Inj 50 MG/5 ML Syringe IV.PUSH ONE (07:39)
--- NOTE | 2018-07-15 08:57 | P.PNCC ---
Subjective Subjective Remarks/Hospital Course: Note for 07/13/18: This 71-year-old gentleman presents to [facility] with worsening left foot and toe pain. He has been seen Dr. Muñoz for management of his fifth toe gangrene and cellulitis. He has received multiple rounds of antibiotics without improvement. 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 He has chronic dependent edema, he has had his abdomen tapped several times for ascites, he clearly has dyspnea at rest. His home medications include Eliquis 2.5 mg twice daily, carvedilol 12.5 mg twice daily, Lasix 40 mg daily, gabapentin 100 mg 3 times daily, levothyroxine 100 mcg daily, oxycodone 15 mg 3 times daily. His insulin regimen was NPH Humulin 10 units subcu twice daily but that has recently changed. Spironolactone 50 mg p.o. daily. 07/11: Lower extremities without change. Continued erythema left foot and leg above gangrenous left fifth toe. Chronic systolic heart failure with dependent edema exacerbates the situation. B and P remains highly elevated at 1800, consistent with a retention of fluid observed. Moderate hypotension acceptable and favorable for his heart but undoubtedly detrimental to peripheral circulation. He has been converted to Lovenox therapy from Eliquis. I am reluctant to diuresis him prior to a procedure were intravenous contrast will be necessary. I think this is as good is he gets, realizing he is clearly at increased risk for any procedure. The object here is limb salvage. He will not heal an amputation of the toe without better distal perfusion. 07/12: Patient continues to have acceptable urine output. Urine clean on arrival. BNP was elevated on arrival but this is his baseline. He is breathing comfortably today. Will repeat BNP, electrolytes, and CBC today prior to surgery tomorrow. Left leg remains inflamed, originating from a gangrenous left fifth toe. 07/13: Limb salvage predicament - to OR today for left leg revascularization. 07/14: Patient tolerated percutaneous revascularization yesterday. Skin overlying the left lower leg and foot is warm. Left fifth toe still gangrenous. Plan is for amputation of the left fifth toe tomorrow and hopefully wound healing will be satisfactory. Following surgery tomorrow the patient will be placed on antiplatelet therapy. Volume status is acceptable with a elevated but reasonable BNP going into tomorrow's procedure. 07/15: Ready for amputation left fifth toe today. Patient remains in semi compensated systolic heart failure. Will require long-term anticoagulation and antiplatelet therapy for both his paroxysmal atrial fibrillation and his recently placed left leg stent. Objective Vital Signs / I&O: Vital Signs 07/14/18 12:00 07/14/18 16:00 07/14/18 20:00 Temperature 98.4 F 98.2 F 98.8 F Pulse Rate 74 68 102 H Respiratory Rate 20 25 H 24 Blood Pressure 122/59 L 158/66 H 114/46 L Pulse Oximetry 96 93 L 07/14/18 21:08 07/15/18 00:00 07/15/18 04:00 Temperature 98.3 F 98.7 F Pulse Rate 104 H 74 Respiratory Rate 22 22 Blood Pressure 141/54 H 134/65 Pulse Oximetry 96 100 95 07/15/18 05:05 Temperature Pulse Rate Respiratory Rate Blood Pressure Pulse Oximetry 96 Intake & Output 07/14/18 07/15/18 07/15/18 18:59 06:59 18:59 Intake Total 530 / 530 400 / 400 100 / 100 Output Total 275 / 275 5 / 5 Balance 255 / 255 400 / 400 95 / 95 Intake: IV 50 / 50 100 / 100 Zosyn 3.375 GM Premix 50 ML @ 50 / 50 100 / 100 100 mls/hr IV.SIG Q8H [facility] Rx#: [id number] Oral 480 / 480 300 / 300 Anesthesia Amount 100 / 100 Output: Estimated Blood Loss 5 / 5 Urine Amount (Catheter) 275 / 275 Indwelling Temp Sensing 275 / 275 Catheter Other: # Bowel Movements 0 Result Diagrams: 07/14/18 23:00 07/14/18 23:00 Objective Remarks: Exam Narrative: General: Elderly, chronically ill-appearing man. Head: Normal, atraumatic Neck: Supple, airway widely patent, no obstructive noises, mild transmitted wheezes Lungs: Light wheezes, good bilateral air movement, mildly labored. Heart: Regular rhythm, normal rate, no murmur rub, no JVD Abdomen: Large, edematous, no guarding or peritoneal irritation, bowel sounds are present Extremities: Pitting edema involving both lower extremities from the ankles distally. There are chronic changes of dermatitis and brawny induration involving the left lower leg. The skin of the right and left feet is warm to touch and ruborous. The fifth toe on the left foot is clearly gangrenous and nonviable. A clear demarcation exists at the base of the toe. Dorsum and plantar surfaces are warm. Neuro: Alert and oriented x3, speech is clear, moves 4 limbs to command. Assessment and Plan - Assessment and Plan Plan: Assessment: 1. Cellulitis left lower extremity 2. Gangrene left fifth toe 3. Severe peripheral arterial occlusive disease 4. Coronary artery disease, status post CABG. 5. Chronic systolic heart failure, ejection fraction 30% 6. Paroxysmal atrial fibrillation 7. Status post AICD insertion 8. Recurrent ascites, likely due to congestive heart failure 9. Diabetes mellitus, type II, insulin-dependent 10. Chronic kidney disease, stage III 11. Sepsis from left leg infection Plan: 1. Discontinue Eliquis, start Lovenox full anticoagulation -hold today for surgical procedure. 2. Sliding scale insulin correction coverage. Long-acting insulin until we better sort out is requirements 3. Lactic acid, BNP, INR, liver function tests, renal function test 4. Vancomycin adjusted per pharmacy and Zosyn 3.375 every 8 hours 5. Protonix p.o. for GI ulcer prophylaxis 6. No SCDs due to lower extremity compromise 7. Scheduled bronchodilators 8. Oxycodone for oral pain relief 9. Vascular surgery consult to Dr. Ventura Mcgovern -reviewed 10. Discontinue Lovenox after last dose today 07/12. 11. The plan is for left groin arterial reconstruction, augmented with endovascular therapy to outflow vessels. 12. Plan for amputation left fifth toe tomorrow, after procedure appears to have successfully revascularized the lower extremity. Overall impression: This is a chronically ill gentleman with multiple premorbid disease processes. His most immediate risk is the infection involving the left foot from which he appears to be in smoldering sepsis. His cardiac function is marginal and he appears to be in chronic heart failure with market dependent edema. The ascites is likely from heart failure but we need to prove that his liver functions adequately. He is admitted to the ICU in critical condition. His respiratory and hemodynamic status is acceptable for surgery albeit with increased risk due to his diminished left ventricular ejection fraction of 30% and comorbidities of diabetes. Following amputation we will restart his's oral anticoagulation and initiate antiplatelet therapy for his recently placed left lower leg stent.
[2018-07-15] MEDS: Insulin NovoLOG Aspart Correctional Sugar Inj SQ SCH ×4 (09:42→22:58)
--- NOTE | 2018-07-15 09:50 | MP ---
cc: Omaira Galindo DPM DATE OF OPERATION: 07/15/2018 SURGEON: Omaira Galindo DPM SSIS SSRS DEVELOPER: None. PREOPERATIVE DIAGNOSIS: Left fifth digit dry gangrene. POSTOPERATIVE DIAGNOSIS: Left fifth digit dry gangrene. PROCEDURE PERFORMED: Left fifth digit amputation. PATHOLOGY SENT: Left fifth digit. ANESTHESIA: MAC. INJECTABLES: 10 mL of 0.5% Marcaine plain. IV FLUIDS: 100 mL. MATERIALS USED: 2-0 Prolene. COMPLICATIONS: None. INDICATIONS: Mr. Heard is a 72-year-old male patient who suffers from PAD. He recently had a revascularization to help address the dry gangrene of the left fifth digit. The stenting and angio where deemed a success by the vascular team. A decision was made to take him to the operating room to amputate the necrotic digit. The consent was signed. The procedure was explained. No guarantees were given. DESCRIPTION OF PROCEDURE: Under mild sedation, the patient was brought into the operating room, placed on the operating table in a supine position. Following IV sedation, the foot was scrubbed, prepped and draped in the usual aseptic manner. Attention was directed to the fifth digit, which was fully mummified and necrosed. A medial to lateral oriented double ellipse incision, 1 dorsal and 1 plantar, were created in order to create a circumferential incision around the MPJ. It was deepened through skin and subcutaneous tissue with care being taken to identify and retract any vital neurovascular structures. The toe was disarticulated at the metatarsophalangeal joint and sent to pathology for further evaluation. There was adequate bleeding at the time of the amputation; however, there is also some necrosis to the lateral aspect of the fourth digit. This necrotic area was debrided, but left intact as there was not enough skin to excise it and close it. The area was flushed with copious amounts of sterile saline and closed with 2-0 Prolene under moderate tension on the most medial aspect. The foot was then cleansed with sterile saline again. Toe was sent to Pathology for further evaluation. 10 mL of 0.5% Marcaine plain were injected around the incision site. Sterile dressings of Adaptic, 4 x 4's, cast padding and a very light Shan Bandage were applied. The patient tolerated the procedure and the anesthesia well. He will recover in the PACU for a period of time before being discharged back to his room with written and oral instructions. We will discuss the complications involving the fourth digit with the family at his postoperative evaluation. ALEYDA Greenwood , 08:45 AM , 08:53 AM
--- NOTE | 2018-07-15 09:52 | XR ---
EXAM DATE: 07/15/2018 9:44 AM EDT AGE/SEX: 72 years / Male INDICATIONS: Post op. CLINICAL DATA: This is the patient's subsequent encounter. Patient reports that signs and symptoms h ave been present for 2 days and indicates a pain score of Nonresponsive. MEDICAL/SURGICAL HISTORY: Non-responsive. Non-responsive. COMPARISON: No prior exams available for comparison. FINDINGS: 3 views of the left foot demonstrate no fracture or dislocation. The fifth digit is absent. Lisfranc joint appears intact. There is dorsal foot soft tissue swelling. A small vessel arterial vascular rich cification is present which is typically seen in diabetic patients. No radiopaque foreign body is moose ntified. CONCLUSION: Fifth digit is absent. There is dorsal foot soft tissue swelling. Electronically signed by: Curly Gross MD 07/15/2018 9:51 AM EDT
[2018-07-15] MEDS: Gabapentin 100 MG Capsule PO SCH ×3 (10:01→17:25)
[2018-07-15] MEDS: Senna/Docusate Sodium 8.6/50 MG Tablet PO SCH ×2 (10:01→21:12)
[2018-07-15] MEDS: Isosorbide Mononitrate 30 MG ER 24HR Tablet (Imdur) PO SCH (10:02)
[2018-07-15] MEDS: metOLazone 5 MG Tablet PO SCH (10:02)
[2018-07-15] MEDS: Docusate Sodium 100 MG Capsule PO SCH (10:03)
[2018-07-15] MEDS: Carvedilol 12.5 MG Tablet PO SCH ×2 (10:03→21:12)
[2018-07-15] MEDS: Furosemide 80 MG Tablet PO SCH (10:04)
--- NOTE | 2018-07-15 10:15 | P.PNVS ---
Subjective Subjective/Hospital Course: POD#2 s/p L CRATE LINER, SFA, AT endovascular revascularization Just had L toe amputation this morning feels great feet warm and toes pink Objective Vital Signs / I&O: Vital Signs 07/14/18 12:00 07/14/18 16:00 07/14/18 20:00 Temperature 98.4 F 98.2 F 98.8 F Pulse Rate 74 68 102 H Respiratory Rate 20 25 H 24 Blood Pressure 122/59 L 158/66 H 114/46 L Pulse Oximetry 96 93 L 07/14/18 21:08 07/15/18 00:00 07/15/18 04:00 Temperature 98.3 F 98.7 F Pulse Rate 104 H 74 Respiratory Rate 22 22 Blood Pressure 141/54 H 134/65 Pulse Oximetry 96 100 95 07/15/18 05:05 07/15/18 08:45 07/15/18 09:00 Temperature 97.7 F Pulse Rate 83 70 Respiratory Rate 16 16 Blood Pressure Pulse Oximetry 96 91 L 96 07/15/18 09:15 07/15/18 09:25 Temperature 97.9 F Pulse Rate 87 83 Respiratory Rate 16 16 Blood Pressure Pulse Oximetry 98 100 Intake & Output 07/14/18 07/15/18 07/15/18 18:59 06:59 18:59 Intake Total 530 / 530 400 / 400 100 / 100 Output Total 275 / 275 5 / 5 Balance 255 / 255 400 / 400 95 / 95 Intake: IV 50 / 50 100 / 100 Zosyn 3.375 GM Premix 50 ML @ 50 / 50 100 / 100 100 mls/hr IV.SIG Q[facility]H [facility] Rx#: [id number] Oral 480 / 480 300 / 300 Anesthesia Amount 100 / 100 Output: Estimated Blood Loss 5 / 5 Urine Amount (Catheter) 275 / 275 Indwelling Temp Sensing 275 / 275 Catheter Other: # Bowel Movements 0 Physical Exam: L foot wrapped with podiatry remaining toes pink Laboratory Results - last 24 hr 07/12/18 07/14/18 07/14/18 13:25 11:30 14:42 WBC RBC Hgb Hct MCV MCH MCHC RDW Plt Count MPV Sodium 136 Potassium 4.7 Chloride 102 Carbon Dioxide 25.0 Anion Gap 9 BUN 32 H Creatinine 1.46 H Estimated GFR 47 L POC Glucose 231 H Random Glucose 168 H Calcium 8.0 L B-Natriuretic Peptide Random Vancomycin MTS Gel Crossmatch See Detail 07/14/18 07/14/18 07/14/18 16:35 21:01 23:00 WBC RBC Hgb 8.3 L Hct MCV MCH MCHC RDW Plt Count MPV Sodium Potassium Chloride Carbon Dioxide Anion Gap BUN Creatinine Estimated GFR POC Glucose 209 H 206 H Random Glucose Calcium B-Natriuretic Peptide Random Vancomycin MTS Gel Crossmatch 07/14/18 07/14/18 07/14/18 23:00 23:00 23:00 WBC 8.4 RBC 2.68 L Hgb 8.3 L Hct 24.9 L MCV 92.9 MCH 31.2 MCHC 33.6 RDW 18.8 H Plt Count 205 MPV 7.9 Sodium 136 Potassium 4.7 Chloride 101 Carbon Dioxide 24.3 Anion Gap 11 BUN 33 H Creatinine 1.65 H Estimated GFR 41 L POC Glucose Random Glucose 166 H Calcium 8.5 B-Natriuretic Peptide 1515 H Random Vancomycin MTS Gel Crossmatch 07/15/18 07/15/18 06:25 08:57 WBC RBC Hgb Hct MCV MCH MCHC RDW Plt Count MPV Sodium Potassium Chloride Carbon Dioxide Anion Gap BUN Creatinine Estimated GFR POC Glucose 164 H Random Glucose Calcium B-Natriuretic Peptide Random Vancomycin 23.4 MTS Gel Crossmatch Impressions Foot X-Ray 07/15/18 00:00 CONCLUSION: Fifth digit is absent. There is dorsal foot soft tissue swelling. Assessment and Plan - Assessment (1) Peripheral vascular occlusive disease Code(s): I73.9 - Peripheral vascular disease, unspecified Status: Acute - Plan POD#2 s/p L LE endovascular intervention now s/p toe amputation 1. Needs plavix when ok from podiatry and ICU teams 2. Will arrange f/u in my clinic 3. pt stable for discharge from a vascular surgery standpoint Discharge Planning: anytime from a vascular standpoint
[2018-07-15] MEDS: Heparin Central Flush 100 UNIT/ML 5 ML Vial IV.FLUSH PRN (12:04)
[2018-07-15] MEDS ORDERED: Midazolam Inj 5 MG/ML 1 ML Vial ONE (13:34)
[2018-07-15] MEDS ORDERED: Midazolam Inj 5 MG/ML 1 ML Vial IV.PUSH ONE (15:15)
[2018-07-16] MEDS: Levothyroxine 100 MCG Tablet PO SCH (05:39)
[2018-07-16] MEDS: Piperacil/Tazo 3.375 GM Premix 50 ML IV.SIG SCH ×3 (05:39→20:45)
[2018-07-16 06:12] LABS: Baso # (Auto) 0.1 th/mm3 (0.0-0.2); Baso % (Auto) 1.3 % (0.0-2.0); Eos # (Auto) 0.2 th/mm3 (0.0-0.4); Eos % (Auto) 2.2 % (0.0-4.0); Hematocrit 23.9 % (39.0-51.0); Lymph # (Auto) 0.8 th/mm3 (1.0-4.8); Lymph % (Auto) 9.2 % (9.0-44.0); Mean Corpuscular HGB Conc 33.4 % (32.0-36.0); Mean Corpuscular Hemoglobin 31.7 pg (27.0-34.0); Mean Corpuscular Volume 94.9 fL (80.0-100.0); Mean Platelet Volume 7.8 fL (7.0-11.0); Mono # (Auto) 0.9 th/mm3 (0.0-0.9); Mono % (Auto) 10.4 % (0.0-8.0); Neut # (Auto) 6.8 th/mm3 (1.8-7.7); Neut % (Auto) 76.9 % (16.0-70.0); Platelet Count 188 th/mm3 (150-450); Red Blood Count 2.52 mil/mm3 (4.50-5.90); Red Cell Distribution Width 18.7 % (11.6-17.2); White Blood Count 8.9 th/mm3 (4.0-11.0)
[2018-07-16 06:45] LABS: Alanine Aminotransferase 10 U/L (12-78); Albumin 2.4 g/dL (3.4-5.0); Anion Gap 7 meq/L (5-15); Aspartate Aminotransferase 12 U/L (15-37); Blood Urea Nitrogen 40 mg/dL (7-18); Carbon Dioxide 25.8 meq/L (21.0-32.0); Chloride 101 meq/L (98-107); Glomerular Filtration Rate 28 mL/min (>89); Glucose,Random 137 mg/dL (74-106); Magnesium 2.1 mg/dL (1.5-2.5); Sodium 134 meq/L (136-145)
[2018-07-16 06:54] LABS: Alkaline Phosphatase 90 U/L (45-117); Free T4 (Free Thyroxine) 1.95 ng/dL (0.76-1.46); Phosphorus 4.1 mg/dL (2.5-4.9); Thyroid Stimulating Hormone 0.016 uIU/mL (0.358-3.740); Total Protein 6.9 g/dL (6.4-8.2); Vancomycin,Random 21.8 Comment
[2018-07-16] MEDS: Gabapentin 100 MG Capsule PO SCH ×3 (09:09→17:46)
[2018-07-16] MEDS: Docusate Sodium 100 MG Capsule PO SCH (09:09)
[2018-07-16] MEDS: Furosemide 80 MG Tablet PO SCH (09:10)
[2018-07-16] MEDS: metOLazone 5 MG Tablet PO SCH ×2 (09:10→20:42)
[2018-07-16] MEDS: Carvedilol 12.5 MG Tablet PO SCH ×2 (09:10→20:41)
[2018-07-16] MEDS: Senna/Docusate Sodium 8.6/50 MG Tablet PO SCH ×2 (09:10→20:41)
[2018-07-16] MEDS: Isosorbide Mononitrate 30 MG ER 24HR Tablet (Imdur) PO SCH (09:11)
[2018-07-16] MEDS: Insulin NovoLOG Aspart Correctional Sugar Inj SQ SCH ×4 (09:11→21:25)
--- NOTE | 2018-07-16 11:27 | P.PNIM ---
Subjective Interval history: This 71-year-old gentleman presents to [facility] with worsening left foot and toe pain. He has been seen Dr. Muñoz for management of his fifth toe gangrene and cellulitis. He has received multiple rounds of antibiotics without improvement. 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 He has chronic dependent edema, he has had his abdomen tapped several times for ascites, he clearly has dyspnea at rest. His home medications include Eliquis 2.5 mg twice daily, carvedilol 12.5 mg twice daily, Lasix 40 mg daily, gabapentin 100 mg 3 times daily, levothyroxine 100 mcg daily, oxycodone 15 mg 3 times daily. His insulin regimen was NPH Humulin 10 units subcu twice daily but that has recently changed. Spironolactone 50 mg p.o. daily. 07/11: Lower extremities without change. Continued erythema left foot and leg above gangrenous left fifth toe. Chronic systolic heart failure with dependent edema exacerbates the situation. B and P remains highly elevated at 1800, consistent with a retention of fluid observed. Moderate hypotension acceptable and favorable for his heart but undoubtedly detrimental to peripheral circulation. He has been converted to Lovenox therapy from Eliquis. I am reluctant to diuresis him prior to a procedure were intravenous contrast will be necessary. I think this is as good is he gets, realizing he is clearly at increased risk for any procedure. The object here is limb salvage. He will not heal an amputation of the toe without better distal perfusion. 07/12: Patient continues to have acceptable urine output. Urine clean on arrival. BNP was elevated on arrival but this is his baseline. He is breathing comfortably today. Will repeat BNP, electrolytes, and CBC today prior to surgery tomorrow. Left leg remains inflamed, originating from a gangrenous left fifth toe. 07/13: Limb salvage predicament - to OR today for left leg revascularization. 07/14: Patient tolerated percutaneous revascularization yesterday. Skin overlying the left lower leg and foot is warm. Left fifth toe still gangrenous. Plan is for amputation of the left fifth toe tomorrow and hopefully wound healing will be satisfactory. Following surgery tomorrow the patient will be placed on antiplatelet therapy. Volume status is acceptable with a elevated but reasonable BNP going into tomorrow's procedure. 07/15: Ready for amputation left fifth toe today. Patient remains in semi compensated systolic heart failure. Will require long-term anticoagulation and antiplatelet therapy for both his paroxysmal atrial fibrillation and his recently placed left leg stent. 07-16 TRANSFERRED TO OUR SERVICE TODAY DW RN AND PT COMPLAINS OF SWELLING WATCH RENAL FUNCTION HAD SURGERY ON LEFT FIFTH TOE YESTERDAY 07-15 Physical Exam Vital signs: Vital Signs 07/15/18 12:00 07/15/18 12:19 07/15/18 14:00 Temperature 97.6 F Pulse Rate 78 59 L Respiratory Rate 15 15 Blood Pressure Pulse Oximetry 98 07/15/18 16:00 07/15/18 18:00 07/15/18 20:00 Temperature 96.2 F L 98.7 F Pulse Rate 58 L 59 L 58 L Respiratory Rate 17 18 Blood Pressure 137/65 127/66 Pulse Oximetry 98 96 07/15/18 22:00 07/16/18 00:00 07/16/18 04:00 Temperature 97.7 F 98.8 F Pulse Rate 68 79 78 Respiratory Rate 24 18 Blood Pressure 127/57 L 115/69 Pulse Oximetry 95 95 07/16/18 08:00 07/16/18 08:30 Temperature 98.4 F Pulse Rate 86 Respiratory Rate 18 Blood Pressure 120/68 Pulse Oximetry 93 L 97 Intake & Output 07/15/18 07/16/18 07/16/18 18:59 06:59 18:59 Intake Total 870 / 870 180 / 180 Output Total 430 / 430 175 / 175 Balance 440 / 440 5 / 5 Weight 108.9 kg Intake: IV 50 / 50 100 / 100 Zosyn 3.375 GM Premix 50 ML @ 50 / 50 100 / 100 100 mls/hr IV.SIG Q8H [facility] Rx#: [id number] Oral 720 / 720 80 / 80 Anesthesia Amount 100 / 100 Output: Estimated Blood Loss 5 / 5 Urine Amount (Catheter) 425 / 425 175 / 175 Indwelling Urethral Catheter 425 / 425 175 / 175 Other: # Bowel Movements 0 Narrative: General: Elderly, chronically ill-appearing man. Head: Normal, atraumatic Neck: Supple, airway widely patent, no obstructive noises, mild transmitted wheezes Lungs: COARSE BREATH SOUNDS, good bilateral air movement, mildly labored. Heart: Regular rhythm, normal rate, no murmur rub, no JVD Abdomen: Large, edematous, no guarding or peritoneal irritation, bowel sounds are present Extremities: Pitting edema involving both lower extremities from the ankles distally. There are chronic changes of dermatitis and brawny induration involving the left lower leg. The skin of the right and left feet is warm to touch. The fifth toe on the left foot is clearly gangrenous and nonviable. A clear demarcation exists at the base of the toe. Dorsum and plantar surfaces are warm. Neuro: Alert and oriented x3, speech is clear, moves 4 limbs to command. SCROTAL SWELLING Insight and judgment is good mood and behavior somewhat appropriate - Urinary Catheter Management Indwelling Urethral Catheter Cath placed during this visit: yes Reason for continuing: Acute urinary retention Insertion date: 07/15/18 Insertion time: 13:44 Indwelling Temp Sensing Catheter Cath placed during this visit: yes, but has since been removed by the nurse Reason for continuing: Decision to DC catheter Insertion date: 07/13/18 Insertion time: 13:17 Removal date: 07/14/18 Removal time: 16:00 Results - Labs CBC & Chem 7: 07/16/18 05:54 07/16/18 05:54 Laboratory Results - last 24 hr 07/15/18 07/15/18 07/15/18 12:26 16:49 22:45 WBC RBC Hgb Hct MCV MCH MCHC RDW Plt Count MPV Prelim Diff (Auto) Neut % (Auto) Lymph % (Auto) [place] % (Auto) Eos % (Auto) Baso % (Auto) Neut # (Auto) Lymph # (Auto) [place] # (Auto) Eos # (Auto) Baso # (Auto) WBC Differential Diff Scan Differential Comment Sodium Potassium Chloride Carbon Dioxide Anion Gap BUN Creatinine Estimated GFR POC Glucose 166 H 163 H 191 H Random Glucose Calcium Phosphorus Magnesium Total Bilirubin AST ALT Alkaline Phosphatase Total Protein Albumin TSH Free T4 Random Vancomycin 07/16/18 07/16/18 07/16/18 05:54 05:54 08:56 WBC 8.9 RBC 2.52 L Hgb 8.0 L Hct 23.9 L MCV 94.9 MCH 31.7 MCHC 33.4 RDW 18.7 H Plt Count 188 MPV 7.8 Prelim Diff (Auto) Slide review pending Neut % (Auto) 76.9 H Lymph % (Auto) 9.2 [place] % (Auto) 10.4 H Eos % (Auto) 2.2 Baso % (Auto) 1.3 Neut # (Auto) 6.8 Lymph # (Auto) 0.8 L [place] # (Auto) 0.9 Eos # (Auto) 0.2 Baso # (Auto) 0.1 WBC Differential . Diff Scan Auto diff confirmed Differential Comment . Sodium 134 L Potassium 5.0 Chloride 101 Carbon Dioxide 25.8 Anion Gap 7 BUN 40 H Creatinine 2.27 H Estimated GFR 28 L POC Glucose 167 H Random Glucose 137 H Calcium 8.0 L Phosphorus 4.1 Magnesium 2.1 Total Bilirubin 1.0 AST 12 L ALT 10 L Alkaline Phosphatase 90 Total Protein 6.9 D Albumin 2.4 L TSH 0.016 L Free T4 1.95 H Random Vancomycin 21.8 - Imaging ITS Impressions Foot X-Ray 07/15/18 00:00 CONCLUSION: Fifth digit is absent. There is dorsal foot soft tissue swelling. - Procedures 07/15/2018 SURGEON: Omaira Galindo DPM IMAGING SPECIALIST: None. PREOPERATIVE DIAGNOSIS: Left fifth digit dry gangrene. POSTOPERATIVE DIAGNOSIS: Left fifth digit dry gangrene. PROCEDURE PERFORMED: Left fifth digit amputation. PATHOLOGY SENT: Left fifth digit. ANESTHESIA: MAC. INJECTABLES: 10 mL of 0.5% Marcaine plain. IV FLUIDS: 100 mL. MATERIALS USED: 2-0 Prolene. COMPLICATIONS: None. INDICATIONS: Mr. Heard is a 72-year-old male patient who suffers from PAD. He recently had a revascularization to help address the dry gangrene of the left fifth digit. The stenting and angio where deemed a success by the vascular team. A decision was made to take him to the operating room to amputate the necrotic digit. The consent was signed. The procedure was explained. No guarantees were given. DESCRIPTION OF PROCEDURE: Under mild sedation, the patient was brought into the operating room, placed on the operating table in a supine position. Following IV sedation, the foot was scrubbed, prepped and draped in the usual aseptic manner. Attention was directed to the fifth digit, which was fully mummified and necrosed. A medial to lateral oriented double ellipse incision, 1 dorsal and 1 plantar, were created in order to create a circumferential incision around the MPJ. It was deepened through skin and subcutaneous tissue with care being taken to identify and retract any vital neurovascular structures. The toe was disarticulated at the metatarsophalangeal joint and sent to pathology for further evaluation. There was adequate bleeding at the time of the amputation; however, there is also some necrosis to the lateral aspect of the fourth digit. This necrotic area was debrided, but left intact as there was not enough skin to excise it and close it. The area was flushed with copious amounts of sterile saline and closed with 2-0 Prolene under moderate tension on the most medial aspect. The foot was then cleansed with sterile saline again. Toe was sent to Pathology for further evaluation. 10 mL of 0.5% Marcaine plain were injected around the incision site. Sterile dressings of Adaptic, 4 x 4's, cast padding and a very light Shan Bandage were applied. The patient tolerated the procedure and the anesthesia well. He will recover in the PACU for a period of time before being discharged back to his room with written and oral instructions. We will discuss the complications involving the fourth digit with the family at his postoperative evaluation. Omaira Galindo DPM LMW/ns , 08:45 AM- Preoperative Diagnosis (1) Peripheral vascular occlusive disease - Postoperative Diagnosis (1) Peripheral vascular occlusive disease Date of procedure: 07/13/18 Procedure: 1. L PRIMER PRESS OPERATOR UPHOLSTERER OUTSIDE (6mm) 2. L SFA UPHOLSTERER OUTSIDE/stent (6x80 drug coated stent, 5mm UPHOLSTERER OUTSIDE) 3. L AT UPHOLSTERER OUTSIDE (2.5-3.0mm tapered balloon) Implants: 1. Zilver PTX (stent) in L SFA 2. R PRIMER PRESS OPERATOR Angioseal Surgeon: Ventura Mcgovern MD Estimated blood loss (mL): 5 IV fluids (mL): 500 Urine output (mL): 300 Pathology: none sent Operation and Findings: 1. L PRIMER PRESS OPERATOR stenosis, successful UPHOLSTERER OUTSIDE 2. L SFA In-stent stenosis, successful UPHOLSTERER OUTSIDE 3. Distal SFA habematolel disease, UPHOLSTERER OUTSIDE/stent 4. AT disease, successful stent At end, in-line flow to fo ---- Ventura Mcgovern MD DATE OF OPERATION: 07/13/2018 PREOPERATIVE DIAGNOSIS: Left lower extremity tissue loss, peripheral vascular disease. POSTOPERATIVE DIAGNOSIS: Left lower extremity tissue loss, peripheral vascular disease. PROCEDURE: 1. Aortogram with left lower extremity angiogram. 2. Left common femoral artery angioplasty with a 6 mm balloon. 3. Left superficial femoral artery angioplasty and stent with a 6 x 80 Zilver PTX and 5 mm balloon for the in-stent stenosis. 4. Left anterior tibial artery angioplasty with a tapered 2.5 to 3 mm balloon. 5. Right common femoral artery Angio-Seal. ATTENDING SURGEON: Ventura Mcgovern MD. ANESTHESIA: General. INDICATIONS: Mr. Heard is a 72-year-old gentleman with multiple comorbidities who has left lower extremity tissue loss and nonpalpable pedal pulses. He was taken to the operating room for angiographic evaluation and treatment. DESCRIPTION OF PROCEDURE: Informed consent was obtained. The patient was taken to the operating room and placed supine on the operating table. An appropriate timeout was taken to ensure the patient's identity, operative site and planned procedure. The administration of antibiotics was not necessary as the patient is on systemic and therapeutic antibiotics, and these will be continued postoperatively for ongoing therapy. Everyone in the room agreed with timeout and we proceeded. He was prepped from his nipples to his knees. A 21-gauge micropuncture needle was used to access the right common femoral artery. This was exchanged using Seldinger technique for micropuncture sheath, through which a 0.035 Glidewire was introduced and the micropuncture sheath was exchanged for a 5-Faroese sheath. A VCF catheter was then withdrawn through the sheath and aortogram and pelvic arteriogram was obtained. The Glidewire and VCF catheter were navigated down to the left common femoral artery and the left lower extremity arteriogram was obtained. The patient was then heparinized with 5000 units of IV heparin and approximately 45 minutes later, 3000 additional units were administered. A 0.035 Glidewire was introduced and passed down to the mid SFA. The VCF catheter was advanced over this and the glide was exchanged for a Roger. With the Roger in the mid SFA, the VCF catheter and 5-Faroese sheath removed and a 6-Faroese 55 cm antral sheath was introduced. A 6 x 20 balloon was used to angioplasty the left common femoral artery and the completion angiogram showed excellent result without any recoil extravasation. We then used several wires and catheters to get down to the distal SFA and this was confirmed angiographically with an angiogram through the CXI catheter. A Roger wire was then placed. The CXI catheter was removed and the entire distal SFA beyond the preexisting stents were angioplastied with a 5 mm balloon. The completion angiogram showed a residual stenosis and this was treated with a 6 x 80 Zilver PTX stent. This stent was postdilated 5 mm and additionally the entire SFA in-stent stenosis was angioplastied with 5 mm. The completion angiogram showed excellent result of the common femoral artery SFA without any in-stent restenosis, extravasation or flow-limiting dissections. We then advanced a CXI catheter down over the Roger and the Roger was exchanged for a Glidewire. The CXI was advanced down to the anterior tibial artery and past the genu of the anterior tibial artery. The glide was removed and a 0.014 SEO CONSULTANT wire was then introduced and a 0.018 CXI catheter was placed over the wire and through the other 0.035 CXI catheter. We were able to navigate the [employer] CONSULTANT wire down to the distal anterior tibial artery and both catheters were removed. The entire anterior tibial artery was angioplastied with a 2.5 to 3 mm tapered angioplasty balloon. The completion angiogram showed excellent result without any recoil extravasation flow into dissection. There was good perfusion all the way into the arch of the foot. The wire, catheter and sheath were removed and the groin was closed with an Angio-Seal. There were no complications. I was present and scrubbed, and performed the entire procedure. Ventura Mcgovern MD Assessment and Plan - Plan Assessment: 1. Cellulitis left lower extremity 2. Gangrene left fifth toe SP SURGERY ON 07-15 3. Severe peripheral arterial occlusive disease 4. Coronary artery disease, status post CABG. 5. Chronic systolic heart failure, ejection fraction 30% 6. Paroxysmal atrial fibrillation 7. Status post AICD insertion 8. Recurrent ascites, likely due to congestive heart failure 9. Diabetes mellitus, type II, insulin-dependent 10. Chronic kidney disease, stage III- BORDERLINE STAGE 4 11. Sepsis from left leg infection Plan: 1. Discontinue Eliquis, start Lovenox full anticoagulation -hold today for surgical procedure. 2. Sliding scale insulin correction coverage. Long-acting insulin until we better sort out is requirements 3. Lactic acid, BNP, INR, liver function tests, renal function test 4. Vancomycin adjusted per pharmacy and Zosyn 3.375 every 8 hours 5. Protonix p.o. for GI ulcer prophylaxis 6. No SCDs due to lower extremity compromise 7. Scheduled bronchodilators 8. Oxycodone for oral pain relief 9. Vascular surgery consult to Dr. Ventura Mcgovern -SP PROCEDURE ON 07-13 10. Discontinue Lovenox after last dose today 07/12. 11. The plan is for left groin arterial reconstruction, augmented with endovascular therapy to outflow vessels. 12. amputation left fifth toe 07-15 after procedure appears to have successfully revascularized the lower extremity. AM LABS MOVE OUT OF ICU DW RN AND PT AND Code Status: DNR Discussed Condition With: RN AND PT AND Discharge Planning: WILL NEED SNF PROBABLY AT DC
[2018-07-16 13:29] LABS: Hemoglobin A1c 5.2 % (4.3-6.0)
--- NOTE | 2018-07-16 21:19 | P.PNPOD ---
Subjective Interval history: s/p left 5th toe amputation. Pt denies any pain in the foot, complains only of swelling and weakness through the body. Denies any n/v/f/h/c/sob. Physical Exam Vital signs: Vital Signs 07/15/18 22:00 07/16/18 00:00 07/16/18 04:00 Temperature 97.7 F 98.8 F Pulse Rate 68 79 78 Respiratory Rate 24 18 Blood Pressure 127/57 L 115/69 Pulse Oximetry 95 95 07/16/18 08:00 07/16/18 08:30 07/16/18 12:00 Temperature 98.4 F 97.8 F Pulse Rate 86 70 Respiratory Rate 18 19 Blood Pressure 120/68 120/59 L Pulse Oximetry 93 L 97 97 07/16/18 13:09 07/16/18 16:00 Temperature 98.2 F Pulse Rate 57 L Respiratory Rate 19 14 Blood Pressure 111/53 L Pulse Oximetry 98 Intake & Output 07/16/18 07/16/18 07/17/18 06:59 18:59 06:59 Intake Total 180 / 180 650 / 650 480 / 480 Output Total 175 / 175 100 / 100 Balance 5 / 5 550 / 550 480 / 480 Weight 108.9 kg Intake: IV 100 / 100 50 / 50 Zosyn 3.375 GM Premix 50 ML @ 100 / 100 50 / 50 100 mls/hr IV.SIG Q8H [facility] Rx#: [id number] Oral 80 / 80 600 / 600 480 / 480 Output: Urine Amount (Catheter) 175 / 175 100 / 100 Indwelling Urethral Catheter 175 / 175 100 / 100 Other: # Bowel Movements 0 Narrative: Dressings to left foot clean, dry, and intact. Minimal strikethrough. Visible digit CFT < 3 secs. Calf is supple and non tender to compression. Medications and Allergies Active Medications: Active Medications Acetaminophen (Tylenol) 650 mg PO Q6H PRN PRN Reason: PAIN 1-5 AND/OR FEVER >101F Last Admin: 07/10/18 21:16 Dose: 650 mg Al Hydroxide/Mg Hydroxide (Milk Of Magnesia Liq) 30 ml PO Q12H PRN PRN Reason: Mild Constipation Atorvastatin Calcium (Lipitor) 40 mg PO DAILY [facility] Last Admin: 07/16/18 09:10 Dose: 40 mg Bisacodyl (Dulcolax Supp) 10 mg RECTAL DAILY PRN PRN Reason: SEVERE CONSITIPATION Carvedilol (Coreg) 12.5 mg PO BID [facility] Last Admin: 07/16/18 20:41 Dose: 12.5 mg Dextrose (D50w Vial) 50 ml IV.PUSH UNSCH PRN PRN Reason: PER HYPOGLYCEMIA PROTOCOL Docusate Sodium (Colace) 300 mg PO DAILY [facility] Last Admin: 07/16/18 09:09 Dose: 300 mg Enoxaparin Sodium (Lovenox Inj) 80 mg SQ Q12HR [facility] Last Admin: 07/12/18 08:18 Dose: Not Given Furosemide (Lasix) 80 mg PO DAILY [facility] Last Admin: 07/16/18 09:10 Dose: 80 mg Gabapentin (Neurontin) 200 mg PO TID [facility] Last Admin: 07/16/18 17:46 Dose: 200 mg Glucagon (Glucagon Inj) 1 mg OTHER PRN PRN PRN Reason: for Hypoglycemia Protocol Heparin Sodium (Porcine) (Heparin Central Flush) 200 unit IV.FLUSH PRN PRN PRN Reason: Flush PICC Line Last Admin: 07/15/18 12:04 Dose: 200 unit Piperacillin/Tazobactam/Dextrose (Zosyn 3.375 Gm Premix) 50 mls @ 100 mls/hr IV.SIG Q8H [facility] Last Admin: 07/16/18 20:45 Dose: 100 mls/hr Dexmedetomidine HCl 200 mcg/ (Sodium Chloride) 50 mls @ 5.38 mls/hr IV.CONT TITRATE PRN; Protocol PRN Reason: Per Protocol Insulin Aspart (Novolog Insulin Correctional Sugar Inj) 0 unit SQ ACHS [facility]; Protocol Last Admin: 07/16/18 17:46 Dose: 2 unit Isosorbide Mononitrate (Imdur) 30 mg PO DAILY [facility] Last Admin: 07/16/18 09:11 Dose: 30 mg Lactulose (Lactulose Liq) 30 ml PO DAILY PRN PRN Reason: SEVERE CONSITIPATION Levothyroxine Sodium (Synthroid) 100 mcg PO DAILY@0600 [facility] Last Admin: 07/16/18 05:39 Dose: 100 mcg Metolazone (Zaroxolyn) 5 mg PO BID [facility] Last Admin: 07/16/18 20:42 Dose: 5 mg Nitroglycerin (Nitrostat Sl (Override)) 0.4 mg SL Q5M PRN PRN Reason: Chest Pain Ondansetron HCl (Zofran Inj) 4 mg IV.PUSH Q6H PRN PRN Reason: NAUSEA OR VOMITING Last Admin: 07/10/18 21:16 Dose: 4 mg Oxycodone HCl (Roxicodone) 15 mg PO Q4H PRN PRN Reason: PAIN 6-10;IF UNABLE TO TAKE PO Last Admin: 07/16/18 14:52 Dose: 15 mg Pt:Saccharomyces (Boulardii 250 Mg) 0 each PO DAILY [facility] Pharmacy Profile Note (Vancomycin Consult Pharmacy) 1 each OTHER UNSCH PRN PRN Reason: Pharmacy to dose Senna/Docusate Sodium (Valentine-Colace) 1 tab PO BID [facility] Last Admin: 07/16/18 20:41 Dose: 1 tab Sennosides (Senokot) 17.2 mg PO Q12H PRN PRN Reason: Moderate Constipation Sodium Chloride (Ns Flush) 2 ml IV.FLUSH BID [facility] Last Admin: 07/16/18 20:45 Dose: 2 ml Sodium Chloride (Ns Flush) 2 ml IV.FLUSH PRN PRN PRN Reason: FLUSH AFTER USING IV ACCESS Sodium Chloride (Ns Flush) 5 ml IV.FLUSH DAILY [facility] Last Admin: 07/16/18 11:15 Dose: 5 ml Sodium Chloride (Ns Flush) 0 ml IV.FLUSH PRN PRN PRN Reason: FLUSH AFTER USING IV ACCESS Sodium Chloride (Ns Flush) 10 ml IV.FLUSH PRN PRN PRN Reason: Flush After Blood Draws Tramadol HCl (Ultram) 50 mg PO Q6H PRN PRN Reason: PAIN 6-10;IF UNABLE TO TAKE PO Last Admin: 07/16/18 12:43 Dose: 50 mg Allergies Allergy/AdvReac Type Severity Reaction Status Date / Time codeine Allergy Itching Verified 07/06/18 14:40 niacin Allergy Flushing Verified 07/06/18 14:40 fentanyl AdvReac Irritation Verified 07/06/18 14:40 hydromorphone [From Dilaudid] AdvReac Confusion Verified 07/06/18 14:40 morphine AdvReac Confusion Verified 07/06/18 14:40 zolpidem [From Ambien] AdvReac Confusion Verified 07/06/18 14:40 Home Medications Medication Instructions Recorded Confirmed Type Saccharomyces boulardii 250 mg PO DAILY 07/06/18 07/06/18 History apixaban [Eliquis] 2.5 mg PO BID 07/06/18 07/06/18 History atorvastatin 40 mg PO DAILY 07/06/18 07/06/18 History carvedilol 12.5 mg PO BID 07/06/18 07/06/18 History docusate sodium [Dulcolax Stool 300 mg PO DAILY 07/06/18 07/06/18 History Softener (dss)] furosemide [Lasix] 80 mg PO DAILY 07/06/18 07/06/18 History gabapentin 200 mg PO TID 07/06/18 07/06/18 History insulin NPH isoph U-100 human 50 unit SUBCUT BID PRN 07/06/18 07/10/18 History [Humulin N NPH Insulin KwikPen] isosorbide mononitrate 30 mg PO DAILY 07/06/18 07/06/18 History levothyroxine 100 mcg PO DAILY 07/06/18 07/06/18 History metolazone 5 mg PO DAILY 07/06/18 07/06/18 History nitroglycerin 0.4 mg SUBLINGUAL Q5-15M PRN 07/06/18 07/06/18 History oxycodone 15 mg PO Q8H PRN 07/06/18 07/06/18 History spironolactone 50 mg PO DAILY 07/06/18 07/06/18 History Results - Labs CBC & Chem 7: 07/16/18 05:54 07/16/18 05:54 Laboratory Results - last 24 hr 07/15/18 07/16/18 07/16/18 22:45 05:54 05:54 WBC 8.9 RBC 2.52 L Hgb 8.0 L Hct 23.9 L MCV 94.9 MCH 31.7 MCHC 33.4 RDW 18.7 H Plt Count 188 MPV 7.8 Prelim Diff (Auto) Slide review pending Neut % (Auto) 76.9 H Lymph % (Auto) 9.2 Granite % (Auto) 10.4 H Eos % (Auto) 2.2 Baso % (Auto) 1.3 Neut # (Auto) 6.8 Lymph # (Auto) 0.8 L Granite # (Auto) 0.9 Eos # (Auto) 0.2 Baso # (Auto) 0.1 WBC Differential . Diff Scan Auto diff confirmed Differential Comment . Sodium 134 L Potassium 5.0 Chloride 101 Carbon Dioxide 25.8 Anion Gap 7 BUN 40 H Creatinine 2.27 H Estimated GFR 28 L POC Glucose 191 H Random Glucose 137 H Hemoglobin A1c Calcium 8.0 L Phosphorus 4.1 Magnesium 2.1 Total Bilirubin 1.0 AST 12 L ALT 10 L Alkaline Phosphatase 90 Total Protein 6.9 D Albumin 2.4 L TSH 0.016 L Free T4 1.95 H Random Vancomycin 21.8 07/16/18 07/16/18 07/16/18 05:54 08:56 13:14 WBC RBC Hgb Hct MCV MCH MCHC RDW Plt Count MPV Prelim Diff (Auto) Neut % (Auto) Lymph % (Auto) Granite % (Auto) Eos % (Auto) Baso % (Auto) Neut # (Auto) Lymph # (Auto) Granite # (Auto) Eos # (Auto) Baso # (Auto) WBC Differential Diff Scan Differential Comment Sodium Potassium Chloride Carbon Dioxide Anion Gap BUN Creatinine Estimated GFR POC Glucose 167 H 186 H Random Glucose Hemoglobin A1c 5.2 Calcium Phosphorus Magnesium Total Bilirubin AST ALT Alkaline Phosphatase Total Protein Albumin TSH Free T4 Random Vancomycin 07/16/18 17:39 WBC RBC Hgb Hct MCV MCH MCHC RDW Plt Count MPV Prelim Diff (Auto) Neut % (Auto) Lymph % (Auto) Granite % (Auto) Eos % (Auto) Baso % (Auto) Neut # (Auto) Lymph # (Auto) Granite # (Auto) Eos # (Auto) Baso # (Auto) WBC Differential Diff Scan Differential Comment Sodium Potassium Chloride Carbon Dioxide Anion Gap BUN Creatinine Estimated GFR POC Glucose 186 H Random Glucose Hemoglobin A1c Calcium Phosphorus Magnesium Total Bilirubin AST ALT Alkaline Phosphatase Total Protein Albumin TSH Free T4 Random Vancomycin - Procedures 07/15/2018 SURGEON: Omaira Galindo DPM CUTTER GAS: None. PREOPERATIVE DIAGNOSIS: Left fifth digit dry gangrene. POSTOPERATIVE DIAGNOSIS: Left fifth digit dry gangrene. PROCEDURE PERFORMED: Left fifth digit amputation. PATHOLOGY SENT: Left fifth digit. ANESTHESIA: MAC. INJECTABLES: 10 mL of 0.5% Marcaine plain. IV FLUIDS: 100 mL. MATERIALS USED: 2-0 Prolene. COMPLICATIONS: None. INDICATIONS: Mr. Heard is a 72-year-old male patient who suffers from PAD. He recently had a revascularization to help address the dry gangrene of the left fifth digit. The stenting and angio where deemed a success by the vascular team. A decision was made to take him to the operating room to amputate the necrotic digit. The consent was signed. The procedure was explained. No guarantees were given. DESCRIPTION OF PROCEDURE: Under mild sedation, the patient was brought into the operating room, placed on the operating table in a supine position. Following IV sedation, the foot was scrubbed, prepped and draped in the usual aseptic manner. Attention was directed to the fifth digit, which was fully mummified and necrosed. A medial to lateral oriented double ellipse incision, 1 dorsal and 1 plantar, were created in order to create a circumferential incision around the MPJ. It was deepened through skin and subcutaneous tissue with care being taken to identify and retract any vital neurovascular structures. The toe was disarticulated at the metatarsophalangeal joint and sent to pathology for further evaluation. There was adequate bleeding at the time of the amputation; however, there is also some necrosis to the lateral aspect of the fourth digit. This necrotic area was debrided, but left intact as there was not enough skin to excise it and close it. The area was flushed with copious amounts of sterile saline and closed with 2-0 Prolene under moderate tension on the most medial aspect. The foot was then cleansed with sterile saline again. Toe was sent to Pathology for further evaluation. 10 mL of 0.5% Marcaine plain were injected around the incision site. Sterile dressings of Adaptic, 4 x 4's, cast padding and a very light Shan Bandage were applied. The patient tolerated the procedure and the anesthesia well. He will recover in the PACU for a period of time before being discharged back to his room with written and oral instructions. We will discuss the complications involving the fourth digit with the family at his postoperative evaluation. Omaira Galindo DPM LMW/glenna , 08:45 AM- Preoperative Diagnosis (1) Peripheral vascular occlusive disease - Postoperative Diagnosis (1) Peripheral vascular occlusive disease Date of procedure: 07/13/18 Procedure: 1. L MACHINE TRACER RADIO ANTENNA INSTALLER (6mm) 2. L SFA RADIO ANTENNA INSTALLER/stent (6x80 drug coated stent, 5mm RADIO ANTENNA INSTALLER) 3. L AT RADIO ANTENNA INSTALLER (2.5-3.0mm tapered balloon) Implants: 1. Zilver PTX (stent) in L SFA 2. R MACHINE TRACER Angioseal Surgeon: Ventura Mcgovern MD Estimated blood loss (mL): 5 IV fluids (mL): 500 Urine output (mL): 300 Pathology: none sent Operation and Findings: 1. L MACHINE TRACER stenosis, successful RADIO ANTENNA INSTALLER 2. L SFA In-stent stenosis, successful RADIO ANTENNA INSTALLER 3. Distal SFA osage disease, RADIO ANTENNA INSTALLER/stent 4. AT disease, successful stent At end, in-line flow to fo ---- Ventura Mcgovern MD DATE OF OPERATION: 07/13/2018 PREOPERATIVE DIAGNOSIS: Left lower extremity tissue loss, peripheral vascular disease. POSTOPERATIVE DIAGNOSIS: Left lower extremity tissue loss, peripheral vascular disease. PROCEDURE: 1. Aortogram with left lower extremity angiogram. 2. Left common femoral artery angioplasty with a 6 mm balloon. 3. Left superficial femoral artery angioplasty and stent with a 6 x 80 Zilver PTX and 5 mm balloon for the in-stent stenosis. 4. Left anterior tibial artery angioplasty with a tapered 2.5 to 3 mm balloon. 5. Right common femoral artery Angio-Seal. ATTENDING SURGEON: Ventura Mcgovern MD. ANESTHESIA: General. INDICATIONS: Mr. Heard is a 72-year-old gentleman with multiple comorbidities who has left lower extremity tissue loss and nonpalpable pedal pulses. He was taken to the operating room for angiographic evaluation and treatment. DESCRIPTION OF PROCEDURE: Informed consent was obtained. The patient was taken to the operating room and placed supine on the operating table. An appropriate timeout was taken to ensure the patient's identity, operative site and planned procedure. The administration of antibiotics was not necessary as the patient is on systemic and therapeutic antibiotics, and these will be continued postoperatively for ongoing therapy. Everyone in the room agreed with timeout and we proceeded. He was prepped from his nipples to his knees. A 21-gauge micropuncture needle was used to access the right common femoral artery. This was exchanged using Seldinger technique for micropuncture sheath, through which a 0.035 Glidewire was introduced and the micropuncture sheath was exchanged for a 5-Irish sheath. A VCF catheter was then withdrawn through the sheath and aortogram and pelvic arteriogram was obtained. The Glidewire and VCF catheter were navigated down to the left common femoral artery and the left lower extremity arteriogram was obtained. The patient was then heparinized with 5000 units of IV heparin and approximately 45 minutes later, 3000 additional units were administered. A 0.035 Glidewire was introduced and passed down to the mid SFA. The VCF catheter was advanced over this and the glide was exchanged for a Roger. With the Roger in the mid SFA, the VCF catheter and 5-Irish sheath removed and a 6-Irish 55 cm antral sheath was introduced. A 6 x 20 balloon was used to angioplasty the left common femoral artery and the completion angiogram showed excellent result without any recoil extravasation. We then used several wires and catheters to get down to the distal SFA and this was confirmed angiographically with an angiogram through the CXI catheter. A Roger wire was then placed. The CXI catheter was removed and the entire distal SFA beyond the preexisting stents were angioplastied with a 5 mm balloon. The completion angiogram showed a residual stenosis and this was treated with a 6 x 80 Zilver PTX stent. This stent was postdilated 5 mm and additionally the entire SFA in-stent stenosis was angioplastied with 5 mm. The completion angiogram showed excellent result of the common femoral artery SFA without any in-stent restenosis, extravasation or flow-limiting dissections. We then advanced a CXI catheter down over the Roger and the Roger was exchanged for a Glidewire. The CXI was advanced down to the anterior tibial artery and past the genu of the anterior tibial artery. The glide was removed and a 0.014 HARPOONER wire was then introduced and a 0.018 CXI catheter was placed over the wire and through the other 0.035 CXI catheter. We were able to navigate the HARPOONER wire down to the distal anterior tibial artery and both catheters were removed. The entire anterior tibial artery was angioplastied with a 2.5 to 3 mm tapered angioplasty balloon. The completion angiogram showed excellent result without any recoil extravasation flow into dissection. There was good perfusion all the way into the arch of the foot. The wire, catheter and sheath were removed and the groin was closed with an Angio-Seal. There were no complications. I was present and scrubbed, and performed the entire procedure. Ventura Mcgovern MD Assessment and Plan - Assessment (1) Gangrene Code(s): I96 - Gangrene, not elsewhere classified Status: Acute (2) Gangrene of toe Code(s): I96 - Gangrene, not elsewhere classified Status: Acute - Plan - plan to change dressings tomorrow - known eschar to 4th digit, will monitor outpatient - no HHC needed on d/c - WBAT in surgical shoe
[2018-07-16] MEDS: Heparin Central Flush 100 UNIT/ML 5 ML Vial IV.FLUSH PRN (22:05)
[2018-07-17] MEDS: Piperacil/Tazo 3.375 GM Premix 50 ML IV.SIG SCH ×3 (05:04→22:05)
[2018-07-17] MEDS: Levothyroxine 100 MCG Tablet PO SCH (05:05)
[2018-07-17] MEDS: Isosorbide Mononitrate 30 MG ER 24HR Tablet (Imdur) PO SCH (08:12)
[2018-07-17] MEDS: Carvedilol 12.5 MG Tablet PO SCH ×2 (08:12→22:11)
[2018-07-17] MEDS: Gabapentin 100 MG Capsule PO SCH ×3 (08:12→18:51)
[2018-07-17] MEDS: Senna/Docusate Sodium 8.6/50 MG Tablet PO SCH ×2 (08:12→22:06)
[2018-07-17] MEDS: Docusate Sodium 100 MG Capsule PO SCH (08:12)
[2018-07-17] MEDS: Furosemide 80 MG Tablet PO SCH (08:13)
[2018-07-17] MEDS: Insulin NovoLOG Aspart Correctional Sugar Inj SQ SCH ×4 (08:13→22:12)
[2018-07-17] MEDS: metOLazone 5 MG Tablet PO SCH (08:13)
[2018-07-17 09:41] LABS: Baso # (Auto) 0.1 th/mm3 (0.0-0.2); Baso % (Auto) 0.8 % (0.0-2.0); Eos # (Auto) 0.2 th/mm3 (0.0-0.4); Eos % (Auto) 2.3 % (0.0-4.0); Hematocrit 24.2 % (39.0-51.0); Lymph # (Auto) 0.8 th/mm3 (1.0-4.8); Lymph % (Auto) 9.5 % (9.0-44.0); Mean Corpuscular HGB Conc 33.3 % (32.0-36.0); Mean Corpuscular Hemoglobin 31.5 pg (27.0-34.0); Mean Corpuscular Volume 94.7 fL (80.0-100.0); Mean Platelet Volume 8.1 fL (7.0-11.0); Mono # (Auto) 0.8 th/mm3 (0.0-0.9); Neut # (Auto) 6.5 th/mm3 (1.8-7.7); Neut % (Auto) 77.4 % (16.0-70.0); Platelet Count 193 th/mm3 (150-450); Red Blood Count 2.56 mil/mm3 (4.50-5.90); White Blood Count 8.4 th/mm3 (4.0-11.0)
[2018-07-17 09:47] LABS: INR 1.3 Ratio; Prothrombin Time 13.5 sec (9.8-11.6)
[2018-07-17 10:54] LABS: Alanine Aminotransferase 10 U/L (12-78); Albumin 2.3 g/dL (3.4-5.0); Anion Gap 11 meq/L (5-15); Aspartate Aminotransferase 10 U/L (15-37); Blood Urea Nitrogen 42 mg/dL (7-18); Carbon Dioxide 23.4 meq/L (21.0-32.0); Chloride 96 meq/L (98-107); Glomerular Filtration Rate 21 mL/min (>89); Glucose,Random 180 mg/dL (74-106); Magnesium 2.2 mg/dL (1.5-2.5); Phosphorus 4.5 mg/dL (2.5-4.9); Potassium 5.1 meq/L (3.5-5.1); Sodium 130 meq/L (136-145)
[2018-07-17 10:56] LABS: Alkaline Phosphatase 94 U/L (45-117); Total Protein 6.7 g/dL (6.4-8.2)
--- NOTE | 2018-07-17 15:01 | P.PNIM ---
Subjective Interval history: This 71-year-old gentleman presents to [facility] with worsening left foot and toe pain. He has been seen Dr. Muñoz for management of his fifth toe gangrene and cellulitis. He has received multiple rounds of antibiotics without improvement. 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 He has chronic dependent edema, he has had his abdomen tapped several times for ascites, he clearly has dyspnea at rest. His home medications include Eliquis 2.5 mg twice daily, carvedilol 12.5 mg twice daily, Lasix 40 mg daily, gabapentin 100 mg 3 times daily, levothyroxine 100 mcg daily, oxycodone 15 mg 3 times daily. His insulin regimen was NPH Humulin 10 units subcu twice daily but that has recently changed. Spironolactone 50 mg p.o. daily. 07/11: Lower extremities without change. Continued erythema left foot and leg above gangrenous left fifth toe. Chronic systolic heart failure with dependent edema exacerbates the situation. B and P remains highly elevated at 1800, consistent with a retention of fluid observed. Moderate hypotension acceptable and favorable for his heart but undoubtedly detrimental to peripheral circulation. He has been converted to Lovenox therapy from Eliquis. I am reluctant to diuresis him prior to a procedure were intravenous contrast will be necessary. I think this is as good is he gets, realizing he is clearly at increased risk for any procedure. The object here is limb salvage. He will not heal an amputation of the toe without better distal perfusion. 07/12: Patient continues to have acceptable urine output. Urine clean on arrival. BNP was elevated on arrival but this is his baseline. He is breathing comfortably today. Will repeat BNP, electrolytes, and CBC today prior to surgery tomorrow. Left leg remains inflamed, originating from a gangrenous left fifth toe. 07/13: Limb salvage predicament - to OR today for left leg revascularization. 07/14: Patient tolerated percutaneous revascularization yesterday. Skin overlying the left lower leg and foot is warm. Left fifth toe still gangrenous. Plan is for amputation of the left fifth toe tomorrow and hopefully wound healing will be satisfactory. Following surgery tomorrow the patient will be placed on antiplatelet therapy. Volume status is acceptable with a elevated but reasonable BNP going into tomorrow's procedure. 07/15: Ready for amputation left fifth toe today. Patient remains in semi compensated systolic heart failure. Will require long-term anticoagulation and antiplatelet therapy for both his paroxysmal atrial fibrillation and his recently placed left leg stent. 07-16 TRANSFERRED TO OUR SERVICE TODAY KP RN AND PT COMPLAINS OF SWELLING WATCH RENAL FUNCTION HAD SURGERY ON LEFT FIFTH TOE YESTERDAY 07-15 STILL HAVING SWELLING AND ANASARCA ASK IR TO DO PARACENTESIS CONSULT NEPHROLOGY FOR ANASARCA AND RENAL FAILURE HOLD LASIX AND ZAROXOLYN AM LABS KP RN AND PT AND CM Physical Exam Vital signs: Vital Signs 07/16/18 16:00 07/16/18 19:57 07/16/18 20:00 Temperature 98.2 F 98.8 F Pulse Rate 57 L 56 L Respiratory Rate 14 17 Blood Pressure 111/53 L 116/50 L Pulse Oximetry 98 96 97 07/17/18 00:00 07/17/18 00:05 07/17/18 04:00 Temperature 97.8 F 98.0 F Pulse Rate 58 L 57 L 58 L Respiratory Rate 20 17 Blood Pressure 116/56 L 116/57 L Pulse Oximetry 97 97 07/17/18 08:00 07/17/18 12:00 Temperature 97.8 F 98.0 F Pulse Rate 72 79 Respiratory Rate 18 18 Blood Pressure 94/50 L 123/78 Pulse Oximetry 98 96 Intake & Output 07/16/18 07/17/18 07/17/18 18:59 06:59 18:59 Intake Total 650 / 650 820 / 820 50 / 50 Output Total 100 / 100 100 / 100 Balance 550 / 550 720 / 720 50 / 50 Weight 108 kg Intake: IV 50 / 50 100 / 100 50 / 50 Zosyn 3.375 GM Premix 50 ML @ 50 / 50 100 / 100 50 / 50 100 mls/hr IV.SIG Q8H TOMA Rx#: [id number] Oral 600 / 600 720 / 720 Output: Urine Amount (Catheter) 100 / 100 100 / 100 Indwelling Urethral Catheter 100 / 100 100 / 100 Other: Date of Last Bowel Movement 07/09/18 # Bowel Movements 0 Narrative: General: Elderly, chronically ill-appearing man. Head: Normal, atraumatic Neck: Supple, airway widely patent, no obstructive noises, mild transmitted wheezes Lungs: COARSE BREATH SOUNDS, good bilateral air movement, mildly labored. Heart: Regular rhythm, normal rate, no murmur rub, no JVD Abdomen: Large, edematous, no guarding or peritoneal irritation, bowel sounds are present Extremities: Pitting edema involving both lower extremities from the ankles distally. There are chronic changes of dermatitis and brawny induration involving the left lower leg. The skin of the right and left feet is warm to touch. The fifth toe on the left foot is clearly gangrenous and nonviable. A clear demarcation exists at the base of the toe. Dorsum and plantar surfaces are warm. Neuro: Alert and oriented x3, speech is clear, moves 4 limbs to command. SCROTAL SWELLING Insight and judgment is good mood and behavior somewhat appropriate - Urinary Catheter Management Indwelling Urethral Catheter Cath placed during this visit: yes Reason for continuing: Acute urinary retention Insertion date: 07/15/18 Insertion time: 13:44 Indwelling Temp Sensing Catheter Cath placed during this visit: yes, but has since been removed by the nurse Reason for continuing: Decision to DC catheter Insertion date: 07/13/18 Insertion time: 13:17 Removal date: 07/14/18 Removal time: 16:00 Results - Labs CBC & Chem 7: 07/17/18 08:47 07/17/18 08:47 Laboratory Results - last 24 hr 07/16/18 07/16/18 07/17/18 17:39 21:16 07:29 WBC RBC Hgb Hct MCV MCH MCHC RDW Plt Count MPV Neut % (Auto) Lymph % (Auto) [place] % (Auto) Eos % (Auto) Baso % (Auto) Neut # (Auto) Lymph # (Auto) [place] # (Auto) Eos # (Auto) Baso # (Auto) WBC Differential Differential Comment PT INR Sodium Potassium Chloride Carbon Dioxide Anion Gap BUN Creatinine Estimated GFR POC Glucose 186 H 173 H 193 H Random Glucose Calcium Phosphorus Magnesium Total Bilirubin AST ALT Alkaline Phosphatase B-Natriuretic Peptide Total Protein Albumin 07/17/18 07/17/18 07/17/18 08:47 08:47 08:47 WBC 8.4 RBC 2.56 L Hgb 8.0 L Hct 24.2 L MCV 94.7 MCH 31.5 MCHC 33.3 RDW 19.0 H Plt Count 193 MPV 8.1 Neut % (Auto) 77.4 H Lymph % (Auto) 9.5 [place] % (Auto) 10.0 H Eos % (Auto) 2.3 Baso % (Auto) 0.8 Neut # (Auto) 6.5 Lymph # (Auto) 0.8 L [place] # (Auto) 0.8 Eos # (Auto) 0.2 Baso # (Auto) 0.1 WBC Differential . Differential Comment Auto diff final PT INR Sodium 130 L Potassium 5.1 Chloride 96 L Carbon Dioxide 23.4 Anion Gap 11 BUN 42 H Creatinine 2.99 H Estimated GFR 21 L POC Glucose Random Glucose 180 H Calcium 8.0 L Phosphorus 4.5 Magnesium 2.2 Total Bilirubin 0.9 AST 10 L ALT 10 L Alkaline Phosphatase 94 B-Natriuretic Peptide 934 H Total Protein 6.7 Albumin 2.3 L 07/17/18 07/17/18 08:47 11:29 WBC RBC Hgb Hct MCV MCH MCHC RDW Plt Count MPV Neut % (Auto) Lymph % (Auto) [place] % (Auto) Eos % (Auto) Baso % (Auto) Neut # (Auto) Lymph # (Auto) [place] # (Auto) Eos # (Auto) Baso # (Auto) WBC Differential Differential Comment PT 13.5 H INR 1.3 Sodium Potassium Chloride Carbon Dioxide Anion Gap BUN Creatinine Estimated GFR POC Glucose 213 H Random Glucose Calcium Phosphorus Magnesium Total Bilirubin AST ALT Alkaline Phosphatase B-Natriuretic Peptide Total Protein Albumin - Imaging ITS Impressions Foot X-Ray 07/15/18 00:00 CONCLUSION: Fifth digit is absent. There is dorsal foot soft tissue swelling. - Procedures 07/15/2018 SURGEON: Omaira Galindo DPM STRIKE OPERATIONS OFFICER: None. PREOPERATIVE DIAGNOSIS: Left fifth digit dry gangrene. POSTOPERATIVE DIAGNOSIS: Left fifth digit dry gangrene. PROCEDURE PERFORMED: Left fifth digit amputation. PATHOLOGY SENT: Left fifth digit. ANESTHESIA: MAC. INJECTABLES: 10 mL of 0.5% Marcaine plain. IV FLUIDS: 100 mL. MATERIALS USED: 2-0 Prolene. COMPLICATIONS: None. INDICATIONS: Mr. Heard is a 72-year-old male patient who suffers from PAD. He recently had a revascularization to help address the dry gangrene of the left fifth digit. The stenting and angio where deemed a success by the vascular team. A decision was made to take him to the operating room to amputate the necrotic digit. The consent was signed. The procedure was explained. No guarantees were given. DESCRIPTION OF PROCEDURE: Under mild sedation, the patient was brought into the operating room, placed on the operating table in a supine position. Following IV sedation, the foot was scrubbed, prepped and draped in the usual aseptic manner. Attention was directed to the fifth digit, which was fully mummified and necrosed. A medial to lateral oriented double ellipse incision, 1 dorsal and 1 plantar, were created in order to create a circumferential incision around the MPJ. It was deepened through skin and subcutaneous tissue with care being taken to identify and retract any vital neurovascular structures. The toe was disarticulated at the metatarsophalangeal joint and sent to pathology for further evaluation. There was adequate bleeding at the time of the amputation; however, there is also some necrosis to the lateral aspect of the fourth digit. This necrotic area was debrided, but left intact as there was not enough skin to excise it and close it. The area was flushed with copious amounts of sterile saline and closed with 2-0 Prolene under moderate tension on the most medial aspect. The foot was then cleansed with sterile saline again. Toe was sent to Pathology for further evaluation. 10 mL of 0.5% Marcaine plain were injected around the incision site. Sterile dressings of Adaptic, 4 x 4's, cast padding and a very light Shan Bandage were applied. The patient tolerated the procedure and the anesthesia well. He will recover in the PACU for a period of time before being discharged back to his room with written and oral instructions. We will discuss the complications involving the fourth digit with the family at his postoperative evaluation. Omaira Galindo DPM LMW/ns , 08:45 AM- Preoperative Diagnosis (1) Peripheral vascular occlusive disease - Postoperative Diagnosis (1) Peripheral vascular occlusive disease Date of procedure: 07/13/18 Procedure: 1. L SPORTS PHYSIOLOGIST SHIPPING ASSISTANT (6mm) 2. L SFA SHIPPING ASSISTANT/stent (6x80 drug coated stent, 5mm SHIPPING ASSISTANT) 3. L AT SHIPPING ASSISTANT (2.5-3.0mm tapered balloon) Implants: 1. Zilver PTX (stent) in L SFA 2. R SPORTS PHYSIOLOGIST Angioseal Surgeon: Ventura Mcgovern MD Estimated blood loss (mL): 5 IV fluids (mL): 500 Urine output (mL): 300 Pathology: none sent Operation and Findings: 1. L SPORTS PHYSIOLOGIST stenosis, successful SHIPPING ASSISTANT 2. L SFA In-stent stenosis, successful SHIPPING ASSISTANT 3. Distal SFA [place] disease, SHIPPING ASSISTANT/stent 4. AT disease, successful stent At end, in-line flow to fo ---- Ventura Mcgovern MD DATE OF OPERATION: 07/13/2018 PREOPERATIVE DIAGNOSIS: Left lower extremity tissue loss, peripheral vascular disease. POSTOPERATIVE DIAGNOSIS: Left lower extremity tissue loss, peripheral vascular disease. PROCEDURE: 1. Aortogram with left lower extremity angiogram. 2. Left common femoral artery angioplasty with a 6 mm balloon. 3. Left superficial femoral artery angioplasty and stent with a 6 x 80 Zilver PTX and 5 mm balloon for the in-stent stenosis. 4. Left anterior tibial artery angioplasty with a tapered 2.5 to 3 mm balloon. 5. Right common femoral artery Angio-Seal. ATTENDING SURGEON: Ventura Mcgovern MD. ANESTHESIA: General. INDICATIONS: Mr. Heard is a 72-year-old gentleman with multiple comorbidities who has left lower extremity tissue loss and nonpalpable pedal pulses. He was taken to the operating room for angiographic evaluation and treatment. DESCRIPTION OF PROCEDURE: Informed consent was obtained. The patient was taken to the operating room and placed supine on the operating table. An appropriate timeout was taken to ensure the patient's identity, operative site and planned procedure. The administration of antibiotics was not necessary as the patient is on systemic and therapeutic antibiotics, and these will be continued postoperatively for ongoing therapy. Everyone in the room agreed with timeout and we proceeded. He was prepped from his nipples to his knees. A 21-gauge micropuncture needle was used to access the right common femoral artery. This was exchanged using Seldinger technique for micropuncture sheath, through which a 0.035 Glidewire was introduced and the micropuncture sheath was exchanged for a 5-Niuean sheath. A VCF catheter was then withdrawn through the sheath and aortogram and pelvic arteriogram was obtained. The Glidewire and VCF catheter were navigated down to the left common femoral artery and the left lower extremity arteriogram was obtained. The patient was then heparinized with 5000 units of IV heparin and approximately 45 minutes later, 3000 additional units were administered. A 0.035 Glidewire was introduced and passed down to the mid SFA. The VCF catheter was advanced over this and the glide was exchanged for a Roger. With the Roger in the mid SFA, the VCF catheter and 5-Niuean sheath removed and a 6-Niuean 55 cm antral sheath was introduced. A 6 x 20 balloon was used to angioplasty the left common femoral artery and the completion angiogram showed excellent result without any recoil extravasation. We then used several wires and catheters to get down to the distal SFA and this was confirmed angiographically with an angiogram through the CXI catheter. A Roger wire was then placed. The CXI catheter was removed and the entire distal SFA beyond the preexisting stents were angioplastied with a 5 mm balloon. The completion angiogram showed a residual stenosis and this was treated with a 6 x 80 Zilver PTX stent. This stent was postdilated 5 mm and additionally the entire SFA in-stent stenosis was angioplastied with 5 mm. The completion angiogram showed excellent result of the common femoral artery SFA without any in-stent restenosis, extravasation or flow-limiting dissections. We then advanced a CXI catheter down over the Roger and the Roger was exchanged for a Glidewire. The CXI was advanced down to the anterior tibial artery and past the genu of the anterior tibial artery. The glide was removed and a 0.014 MACHINE TOOL DRESSER wire was then introduced and a 0.018 CXI catheter was placed over the wire and through the other 0.035 CXI catheter. We were able to navigate the MACHINE TOOL DRESSER wire down to the distal anterior tibial artery and both catheters were removed. The entire anterior tibial artery was angioplastied with a 2.5 to 3 mm tapered angioplasty balloon. The completion angiogram showed excellent result without any recoil extravasation flow into dissection. There was good perfusion all the way into the arch of the foot. The wire, catheter and sheath were removed and the groin was closed with an Angio-Seal. There were no complications. I was present and scrubbed, and performed the entire procedure. Ventura Mcgovern MD Assessment and Plan - Plan Assessment: 1. Cellulitis left lower extremity 2. Gangrene left fifth toe SP SURGERY ON 07-15 3. Severe peripheral arterial occlusive disease 4. Coronary artery disease, status post CABG. 5. Chronic systolic heart failure, ejection fraction 30% 6. Paroxysmal atrial fibrillation 7. Status post AICD insertion 8. Recurrent ascites, likely due to congestive heart failure- PARACENTESIS 9. Diabetes mellitus, type II, insulin-dependent 10. Chronic kidney disease, stage III- BORDERLINE STAGE 4-CONSULT NEPHROLOGY AND HOLD LASIX AND ZAROXOLYN 11. Sepsis from left leg infection Plan: 1. Discontinue Eliquis, start Lovenox full anticoagulation -hold today for surgical procedure. 2. Sliding scale insulin correction coverage. Long-acting insulin until we better sort out is requirements 3. Lactic acid, BNP, INR, liver function tests, renal function test 4. Vancomycin adjusted per pharmacy and Zosyn 3.375 every 8 hours 5. Protonix p.o. for GI ulcer prophylaxis 6. No SCDs due to lower extremity compromise 7. Scheduled bronchodilators 8. Oxycodone for oral pain relief 9. Vascular surgery consult to Dr. Ventura Mcgovern -SP PROCEDURE ON 07-13 10. Discontinue Lovenox after last dose today 07/12. 11. The plan is for left groin arterial reconstruction, augmented with endovascular therapy to outflow vessels. 12. amputation left fifth toe 07-15 after procedure appears to have successfully revascularized the lower extremity. IR FOR PARACENTESIS AM LABS AM LABS MOVE OUT OF ICU DW RN AND PT AND Code Status: DNR Discussed Condition With: RN AND PT AND CM Discharge Planning: WILL NEED SNF PROBABLY AT DC
[2018-07-17 16:38] LABS: Hematocrit 24.6 % (39.0-51.0); Hemoglobin 8.1 gm/dL (13.0-17.0); Mean Corpuscular Hemoglobin 31.5 pg (27.0-34.0); Mean Corpuscular Volume 95.5 fL (80.0-100.0); Mean Platelet Volume 8.4 fL (7.0-11.0); Platelet Count 228 th/mm3 (150-450); Red Blood Count 2.58 mil/mm3 (4.50-5.90); Red Cell Distribution Width 19.1 % (11.6-17.2); White Blood Count 9.8 th/mm3 (4.0-11.0)
[2018-07-17 16:48] LABS: Activated Partial Thrombo Time 29.7 sec (24.3-30.1); INR 1.4 Ratio; Prothrombin Time 13.7 sec (9.8-11.6)
[2018-07-17 17:05] LABS: Total Protein 6.7 g/dL (6.4-8.2)
[2018-07-17 17:21] LABS: Total Protein,Peritoneal Fluid 3.5 gm/dL
--- NOTE | 2018-07-17 17:22 | P.CONNP ---
History of Present Illness Service: Nephrology Reason for Consult: DAVID Primary Care Provider: UNKNOWN Chief Complaint: Left leg and foot pain History of Present Illness: This patient was transferred from [place] for management of left 5th toe gangrene. He has multiple medical problems: atrial fibrillation, CHF, severe PAD , s/p CABG. He was admitted on the 10 of July. Creatinine was 1.42. He underwent revascularization procedure on , with placement of multiple stents. On the he underwent ray amputation of the 5 digit on the left foot. His creatinine has progressively worsened, today it is 2.99. Patient was also noted to have severe and tense ascites, and was sent for paracentesis on the . His urine output has dropped. He is on Vancomycin, most recent level as of 07/16/18 was 21.8. He was on diuretics that have been held. Review of Systems Ears, Nose, Mouth, and Throat: Reports poor balance Cardiovascular: Reports shortness of breath, Denies chest pain Respiratory: Reports shortness of breath with activity Comments: abdominal distension Comments: he has Mojica catheter Musculoskeletal: Denies back pain, Denies joint swelling, Denies stiffness PMFSH - History History Provided By: Patient, Family Member - Medical History Medical History: Medical History (Last Reviewed 07/18/18 @ 07:58 by Ralf Arnold) A-fib CHF (congestive heart failure) Cataract Cellulitis Diabetes Full dentures Gangrene History of recent acute infection Hypertension Hypothyroid Neuropathy - Surgical History Surgical History: Surgical History (Last Reviewed 07/18/18 @ 07:58 by Ralf Arnold) AICD (automatic cardioverter/defibrillator) present H/O heart artery stent Hx of CABG - Tobacco History Second Hand Smoke Exposure: No Tobacco Use In Past 30 Days: No Smoking Status: Former smoker Tobacco Type: Cigarettes - Alcohol History How Often Do You Have a Drink Containing Alcohol: 2 to 4 times a month - Substance Use History Substance History: Past History - Substance Use Type Alcohol Status: Sustained Remission Route Used: By Mouth - Immunization History Tetanus Immunization: Unsure Hx Influenza Vaccine This Season: Yes Medications and Allergies Active Medications: Active Medications Acetaminophen (Tylenol) 650 mg PO Q6H PRN PRN Reason: PAIN 1-5 AND/OR FEVER >101F Last Admin: 07/10/18 21:16 Dose: 650 mg Al Hydroxide/Mg Hydroxide (Milk Of Magnesia Liq) 30 ml PO Q12H PRN PRN Reason: Mild Constipation Atorvastatin Calcium (Lipitor) 40 mg PO DAILY [facility] Last Admin: 07/17/18 08:12 Dose: 40 mg Bisacodyl (Dulcolax Supp) 10 mg RECTAL DAILY PRN PRN Reason: SEVERE CONSITIPATION Carvedilol (Coreg) 12.5 mg PO BID [facility] Last Admin: 07/17/18 08:12 Dose: 12.5 mg Dextrose (D50w Vial) 50 ml IV.PUSH UNSCH PRN PRN Reason: PER HYPOGLYCEMIA PROTOCOL Docusate Sodium (Colace) 300 mg PO DAILY [facility] Last Admin: 07/17/18 08:12 Dose: 300 mg Enoxaparin Sodium (Lovenox Inj) 80 mg SQ Q12HR [facility] Last Admin: 07/12/18 08:18 Dose: Not Given Furosemide (Lasix) 80 mg PO DAILY [facility] Last Admin: 07/17/18 08:13 Dose: 80 mg Gabapentin (Neurontin) 200 mg PO TID [facility] Last Admin: 07/17/18 12:02 Dose: 200 mg Glucagon (Glucagon Inj) 1 mg OTHER PRN PRN PRN Reason: for Hypoglycemia Protocol Heparin Sodium (Porcine) (Heparin Central Flush) 200 unit IV.FLUSH PRN PRN PRN Reason: Flush PICC Line Last Admin: 07/16/18 22:05 Dose: 200 unit Piperacillin/Tazobactam/Dextrose (Zosyn 3.375 Gm Premix) 50 mls @ 100 mls/hr IV.SIG Q8H [facility] Last Infusion: 07/17/18 12:50 Dose: Infused Dexmedetomidine HCl 200 mcg/ (Sodium Chloride) 50 mls @ 5.38 mls/hr IV.CONT TITRATE PRN; Protocol PRN Reason: Per Protocol Insulin Aspart (Novolog Insulin Correctional Sugar Inj) 0 unit SQ ACHS [facility]; Protocol Last Admin: 07/17/18 16:47 Dose: Not Given Isosorbide Mononitrate (Imdur) 30 mg PO DAILY [facility] Last Admin: 07/17/18 08:12 Dose: 30 mg Lactulose (Lactulose Liq) 30 ml PO DAILY PRN PRN Reason: SEVERE CONSITIPATION Levothyroxine Sodium (Synthroid) 100 mcg PO DAILY@0600 [facility] Last Admin: 07/17/18 05:05 Dose: 100 mcg Metolazone (Zaroxolyn) 5 mg PO BID [facility] Last Admin: 07/17/18 08:13 Dose: 5 mg Nitroglycerin (Nitrostat Sl (Override)) 0.4 mg SL Q5M PRN PRN Reason: Chest Pain Ondansetron HCl (Zofran Inj) 4 mg IV.PUSH Q6H PRN PRN Reason: NAUSEA OR VOMITING Last Admin: 07/10/18 21:16 Dose: 4 mg Oxycodone HCl (Roxicodone) 15 mg PO Q4H PRN PRN Reason: PAIN 6-10;IF UNABLE TO TAKE PO Last Admin: 07/17/18 14:49 Dose: 15 mg Pt:Saccharomyces (Boulardii 250 Mg) 0 each PO DAILY [facility] Pharmacy Profile Note (Vancomycin Consult Pharmacy) 1 each OTHER UNSCH PRN PRN Reason: Pharmacy to dose Senna/Docusate Sodium (Valentine-Colace) 1 tab PO BID [facility] Last Admin: 07/17/18 08:12 Dose: 1 tab Sennosides (Senokot) 17.2 mg PO Q12H PRN PRN Reason: Moderate Constipation Sodium Chloride (Ns Flush) 2 ml IV.FLUSH BID [facility] Last Admin: 07/17/18 08:13 Dose: Not Given Sodium Chloride (Ns Flush) 2 ml IV.FLUSH PRN PRN PRN Reason: FLUSH AFTER USING IV ACCESS Sodium Chloride (Ns Flush) 5 ml IV.FLUSH DAILY [facility] Last Admin: 07/17/18 08:13 Dose: 5 ml Sodium Chloride (Ns Flush) 0 ml IV.FLUSH PRN PRN PRN Reason: FLUSH AFTER USING IV ACCESS Sodium Chloride (Ns Flush) 10 ml IV.FLUSH PRN PRN PRN Reason: Flush After Blood Draws Tramadol HCl (Ultram) 50 mg PO Q6H PRN PRN Reason: PAIN 6-10;IF UNABLE TO TAKE PO Last Admin: 07/16/18 12:43 Dose: 50 mg Allergies Allergy/AdvReac Type Severity Reaction Status Date / Time codeine Allergy Itching Verified 07/06/18 14:40 niacin Allergy Flushing Verified 07/06/18 14:40 fentanyl AdvReac Irritation Verified 07/06/18 14:40 hydromorphone [From Dilaudid] AdvReac Confusion Verified 07/06/18 14:40 morphine AdvReac Confusion Verified 07/06/18 14:40 zolpidem [From Ambien] AdvReac Confusion Verified 07/06/18 14:40 Home Medications Medication Instructions Recorded Confirmed Type Saccharomyces boulardii 250 mg PO DAILY 07/06/18 07/06/18 History apixaban [Eliquis] 2.5 mg PO BID 07/06/18 07/06/18 History atorvastatin 40 mg PO DAILY 07/06/18 07/06/18 History carvedilol 12.5 mg PO BID 07/06/18 07/06/18 History docusate sodium [Dulcolax Stool 300 mg PO DAILY 07/06/18 07/06/18 History Softener (dss)] furosemide [Lasix] 80 mg PO DAILY 07/06/18 07/06/18 History gabapentin 200 mg PO TID 07/06/18 07/06/18 History insulin NPH isoph U-100 human 50 unit SUBCUT BID PRN 07/06/18 07/10/18 History [Humulin N NPH Insulin KwikPen] isosorbide mononitrate 30 mg PO DAILY 07/06/18 07/06/18 History levothyroxine 100 mcg PO DAILY 07/06/18 07/06/18 History metolazone 5 mg PO DAILY 07/06/18 07/06/18 History nitroglycerin 0.4 mg SUBLINGUAL Q5-15M PRN 07/06/18 07/06/18 History oxycodone 15 mg PO Q8H PRN 07/06/18 07/06/18 History spironolactone 50 mg PO DAILY 07/06/18 07/06/18 History Exam Vital signs: Vital Signs 07/16/18 19:57 07/16/18 20:00 07/17/18 00:00 Temperature 98.8 F 97.8 F Pulse Rate 56 L 58 L Respiratory Rate 17 20 Blood Pressure 116/50 L 116/56 L Pulse Oximetry 96 97 97 07/17/18 00:05 07/17/18 04:00 07/17/18 08:00 Temperature 98.0 F 97.8 F Pulse Rate 57 L 58 L 72 Respiratory Rate 17 18 Blood Pressure 116/57 L 94/50 L Pulse Oximetry 97 98 07/17/18 12:00 07/17/18 15:45 07/17/18 16:03 Temperature 98.0 F 97.4 F L 98.2 F Pulse Rate 79 84 58 L Respiratory Rate 18 16 18 Blood Pressure 123/78 119/60 128/64 Pulse Oximetry 96 96 96 Intake & Output 07/16/18 07/17/18 07/17/18 18:59 06:59 18:59 Intake Total 650 / 650 820 / 820 50 / 50 Output Total 100 / 100 100 / 100 Balance 550 / 550 720 / 720 50 / 50 Weight 108 kg Intake: IV 50 / 50 100 / 100 50 / 50 Zosyn 3.375 GM Premix 50 ML @ 50 / 50 100 / 100 50 / 50 100 mls/hr IV.SIG Q8H [facility] Rx#: [id number] Oral 600 / 600 720 / 720 Output: Urine Amount (Catheter) 100 / 100 100 / 100 Indwelling Urethral Catheter 100 / 100 100 / 100 Other: Date of Last Bowel Movement 07/09/18 # Bowel Movements 0 - Constitutional chronically ill appearing - Routine HEENT Exam Head: Present: normocephalic, atraumatic Eye: Present: EOMI, PERRL ENT: Present: mucous membranes moist - Routine Neck Exam Present: supple. Absent: JVD, lymphadenopathy, thyromegaly - Routine Chest/Breast/Axilla Exam Chest wall: Absent: tenderness - Routine Respiratory Exam Present: CTA bilaterally - Routine Cardiovascular Exam Present: S1, S2 - Routine Abdominal Exam Absent: organomegaly Comments: distended with ascites. - Routine Extremities Exam Present: edema Comments: skin erosions left lower extremity. Has a boot and left ankle is in dressing Results - Lab Results 07/18/18 06:00 07/18/18 06:00 Most recent lab results Calcium 8.0 mg/dL (8.5-10.1) L 07/17/18 08:47 Phosphorus 4.5 mg/dL (2.5-4.9) 07/17/18 08:47 Magnesium 2.2 mg/dL (1.5-2.5) 07/17/18 08:47 Assessment and Plan - Assessment (1) Acute kidney injury Code(s): N17.9 - Acute kidney failure, unspecified Status: Acute Plan: could be due to contrast nephropathy, also will have to consider the possibility of cholesterol embolization. Obtain UA, urine electrolytes. Obtain complement levels. Obtain renal US. Avoid nephrotoxic agents. Prognosis is guarded to poor. (2) Chronic systolic congestive heart failure Code(s): I50.22 - Chronic systolic (congestive) heart failure Status: Acute Plan: Currently diuretics are held. EF apparently about 30%. Monitor fluid and electrolytes. (3) Peripheral vascular occlusive disease Code(s): I73.9 - Peripheral vascular disease, unspecified Status: Acute Plan: s/p revascularization. Vascular surgery following. 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 (5) Ascites Code(s): R18.8 - Other ascites Status: Acute Plan: Due to CHF? Paracentesis on the . - Attending Attestation Thanks for the consult.
[2018-07-17] MEDS ORDERED: Albumin Human 25% Inj 150 ML IV.SIG ONE (17:45)
[2018-07-17 17:48] LABS: Mesothelial,Peritoneal Fluid 1 %; Neutrophils,Peritoneal Fluid 35 %
[2018-07-17 17:49] LABS: RBC,Peritoneal Fluid 1006 /mm3 (0-0)
--- NOTE | 2018-07-17 18:50 | US ---
EXAM DATE: 07/17/2018 6:47 PM EDT AGE/SEX: 72 years / Male INDICATIONS: Increased BUN/creatnine. CLINICAL DATA: This is the patient's initial encounter. Patient reports that signs and symptoms have been present for 1 day and indicates a pain score of 0/10. MEDICAL/SURGICAL HISTORY: Hypertension. Hypothyroidism. Congestive heart failure. Atrial fib rillation. Bilateral cataracts. Cellulitis. Diabetes. Dentures. Gangrene. Neuropathy. CABG. AICD. COMPARISON: [facility] – [place], [place] PARACENTESIS ABD W/IMAGE, 07/17/2018. . MEASUREMENTS: Right Kidney:__12.3 x 5.7 x 5.2 cm Left Kidney:__11.7 x 6.8 x 4.5 cm FINDINGS: Right Kidney: Slightly increased echotexture and cortical thickness. No mass or hydronephrosis. Left Kidney: Slightly increased echotexture and cortical thickness. No mass or hydronephrosis. Bladder: Mojica catheter is present. Bladder decompressed. Other: None. CONCLUSION: 1. Mildly increased renal echotexture characteristic of medical renal disease. No hydronephrosis. Fo selena catheter in bladder. Trace ascites. Electronically signed by: Gonzalez Fierro MD 07/17/2018 6:49 PM EDT
[2018-07-18] MEDS: Acetaminophen 325 MG Tablet PO PRN (05:53)
[2018-07-18] MEDS: Piperacil/Tazo 3.375 GM Premix 50 ML IV.SIG SCH (05:54)
[2018-07-18] MEDS: Levothyroxine 100 MCG Tablet PO SCH (05:55)
[2018-07-18 07:52] LABS: INR 1.3 Ratio; Prothrombin Time 13.5 sec (9.8-11.6)
[2018-07-18 07:54] LABS: Baso # (Auto) 0.1 th/mm3 (0.0-0.2); Baso % (Auto) 0.8 % (0.0-2.0); Eos # (Auto) 0.2 th/mm3 (0.0-0.4); Eos % (Auto) 2.1 % (0.0-4.0); Hematocrit 23.9 % (39.0-51.0); Hemoglobin 8.3 gm/dL (13.0-17.0); Lymph # (Auto) 0.9 th/mm3 (1.0-4.8); Lymph % (Auto) 10.1 % (9.0-44.0); Mean Corpuscular HGB Conc 34.6 % (32.0-36.0); Mean Corpuscular Hemoglobin 32.2 pg (27.0-34.0); Mean Corpuscular Volume 92.9 fL (80.0-100.0); Mean Platelet Volume 8.4 fL (7.0-11.0); Mono # (Auto) 0.9 th/mm3 (0.0-0.9); Mono % (Auto) 9.9 % (0.0-8.0); Neut # (Auto) 6.9 th/mm3 (1.8-7.7); Neut % (Auto) 77.1 % (16.0-70.0); Platelet Count 210 th/mm3 (150-450); Red Blood Count 2.57 mil/mm3 (4.50-5.90); Red Cell Distribution Width 19.1 % (11.6-17.2); White Blood Count 8.9 th/mm3 (4.0-11.0)
[2018-07-18 08:07] LABS: Alanine Aminotransferase 8 U/L (12-78); Albumin 2.1 g/dL (3.4-5.0); Anion Gap 8 meq/L (5-15); Aspartate Aminotransferase 11 U/L (15-37); Blood Urea Nitrogen 45 mg/dL (7-18); Calcium 7.7 mg/dL (8.5-10.1); Carbon Dioxide 26.1 meq/L (21.0-32.0); Chloride 98 meq/L (98-107); Glomerular Filtration Rate 20 mL/min (>89); Glucose,Random 123 mg/dL (74-106); Magnesium 2.1 mg/dL (1.5-2.5); Phosphorus 4.4 mg/dL (2.5-4.9); Potassium 4.7 meq/L (3.5-5.1); Sodium 132 meq/L (136-145)
[2018-07-18 08:10] LABS: Alkaline Phosphatase 86 U/L (45-117); Total Protein 6.3 g/dL (6.4-8.2); Vancomycin,Random 16.6 Comment
[2018-07-18] MEDS: Gabapentin 100 MG Capsule PO SCH ×3 (08:56→17:09)
[2018-07-18] MEDS: Insulin NovoLOG Aspart Correctional Sugar Inj SQ SCH ×4 (08:57→21:18)
[2018-07-18] MEDS: Docusate Sodium 100 MG Capsule PO SCH (08:57)
[2018-07-18] MEDS: Senna/Docusate Sodium 8.6/50 MG Tablet PO SCH ×2 (08:57→21:12)
[2018-07-18] MEDS: Isosorbide Mononitrate 30 MG ER 24HR Tablet (Imdur) PO SCH (08:58)
--- NOTE | 2018-07-18 09:55 | US ---
EXAM DATE: 07/17/2018 5:33 PM EDT AGE/SEX: 72 years / Male INDICATIONS: Ascites. CLINICAL DATA: This is the patient's initial encounter. Patient reports that signs and symptoms have been present for 4 - 6 months and indicates a pain score of 1/10. MEDICAL/SURGICAL HISTORY: Congestive heart failure. Hypertension. Hypothyroidism. Atrial fib rillation. Bilateral cataracts. Cellulitis. Diabetes. Dentures. Gangrene. Neuropathy. CABG. AICD. [place] [facility] [place]19/[place]. . FLUID: Total volume of 6,800 cc of clear, yellow fluid was removed. Fluid was sent to lab for ordered studie s. TECHNIQUE: Ultrasound guidance for abdominal paracentesis. Paracentesis. The risks, benefits, and alternatives to ultrasound guided paracentesis were explained to the patient in detail including the risk of bleeding and infection. Written and verbal informed consent was obt ained. With the patient on the ultrasound table, ultrasound imaging was used to select the most appropriate approach for paracentesis. Overlying skin was prepped and draped in the usual sterile fashion and wi th a local anesthetic, a dermatotomy was made with an 11 blade scalpel. A 6 [place] [id number] ca theter was introduced into the peritoneal cavity and fluid was collected. Post procedure scanning reveals no hematoma or other complication. The patient tolerated the procedu re well and left the ultrasound suite in stable condition. FINDINGS: Adequate fluid for paracentesis. CONCLUSION: 1. Uncomplicated paracentesis. Electronically signed by: Olayinka Madden MD 07/18/2018 9:54 AM EDT
--- NOTE | 2018-07-18 09:59 | P.PNIM ---
Subjective Interval history: Follow-up left 5th toe gangrene s/p amputation, DAVID, atrial fibrillation, CHF, severe PAD, and CAD s/p CABG.. Patient seen and examined laying in bed, seems comfortable denies any pain or shortness of. Patient stated he is feeling better after the paracentesis, discussed Liters, scrotum like the size of a grapefruit. Left foot has no feeling denies any pain or discomfort at this time. Patient denies any chest pain, denies any abdominal pain, nausea, vomiting. Denies any fever or chills. Patient also mentioned was not able to void , so have the chavez catheter in. Physical Exam Vital signs: Vital Signs 07/17/18 12:00 07/17/18 15:45 07/17/18 16:03 Temperature 98.0 F 97.4 F L 98.2 F Pulse Rate 79 84 58 L Respiratory Rate 18 16 18 Blood Pressure 123/78 119/60 128/64 Pulse Oximetry 96 96 96 07/17/18 17:25 07/17/18 17:43 07/17/18 20:00 Temperature 98.7 F 98.5 F 98.0 F Pulse Rate 74 86 67 Respiratory Rate 18 16 17 Blood Pressure 117/65 114/63 110/52 L Pulse Oximetry 99 97 99 07/18/18 00:00 07/18/18 04:00 Temperature 97.9 F 98.1 F Pulse Rate 58 L 58 L Respiratory Rate 17 17 Blood Pressure 112/53 L 116/56 L Pulse Oximetry 98 95 Intake & Output 07/17/18 07/18/18 07/18/18 18:59 06:59 18:59 Intake Total 850 / 850 530 / 530 50 / 50 Output Total 200 / 200 800 / 800 Balance 650 / 650 -270 / -270 50 / 50 Weight 103.8 kg Intake: IV 50 / 50 50 / 50 50 / 50 Zosyn 3.375 GM Premix 50 ML @ 50 / 50 50 / 50 50 / 50 100 mls/hr IV.SIG Q[facility]H [facility] Rx#: [id number] Oral 800 / 800 480 / 480 Output: Urine 800 / 800 Urine Amount (Catheter) 200 / 200 Indwelling Urethral Catheter 200 / 200 Other: Date of Last Bowel Movement 07/09/18 Narrative: GENERAL: Well-developed, elderly in no apparent distress SKIN: Warm and dry. Left lower leg redness and skin peeling HEAD: Atraumatic. Normocephalic. EYES: Pupils equal and round. No scleral icterus. No injection or drainage. ENT: No nasal bleeding or discharge. Mucous membranes pink and moist. NECK: Trachea midline. No JVD. CARDIOVASCULAR: Regular rate and rhythm. RESPIRATORY: No accessory muscle use. Bilateral lower lobes with fine crackles auscultation. Breath sounds equal bilaterally. GASTROINTESTINAL: Abdomen obese soft, non-tender, slight distention. Hepatic and splenic margins not palpable. : Chavez catheter in place, scrotal swelling, and penile swelling MUSCULOSKELETAL: Extremities without clubbing, cyanosis, with generalized edema , pitting edema in lower back down to the thigh and legs. NEUROLOGICAL: Awake and alert and oriented x 3. No obvious cranial nerve deficits. Motor grossly within normal limits. Generalized weakness in all 4 extremities.. Normal speech. PSYCHIATRIC: Appropriate mood and affect; insight and judgment normal. - Urinary Catheter Management Indwelling Urethral Catheter Cath placed during this visit: yes Reason for continuing: Hourly intake/output Insertion date: 07/15/18 Insertion time: 13:44 Indwelling Temp Sensing Catheter Cath placed during this visit: yes, but has since been removed by the nurse Reason for continuing: Decision to DC catheter Insertion date: 07/13/18 Insertion time: 13:17 Removal date: 07/14/18 Removal time: 16:00 Results - Labs CBC & Chem 7: 07/18/18 06:00 07/18/18 06:00 Laboratory Results - last 24 hr 07/17/18 07/17/18 07/17/18 08:47 08:47 08:47 WBC RBC Hgb Hct MCV MCH MCHC RDW Plt Count MPV Neut % (Auto) Lymph % (Auto) Maury % (Auto) Eos % (Auto) Baso % (Auto) Neut # (Auto) Lymph # (Auto) Maury # (Auto) Eos # (Auto) Baso # (Auto) WBC Differential Differential Comment PT 13.5 H INR 1.3 APTT Sodium 130 L Potassium 5.1 Chloride 96 L Carbon Dioxide 23.4 Anion Gap 11 BUN 42 H Creatinine 2.99 H Estimated GFR 21 L POC Glucose Random Glucose 180 H Calcium 8.0 L Phosphorus 4.5 Magnesium 2.2 Total Bilirubin 0.9 AST 10 L ALT 10 L Alkaline Phosphatase 94 Lactate Dehydrogenase B-Natriuretic Peptide 934 H Total Protein 6.7 Albumin 2.3 L Peritoneal RBC Periton Nuc Cells Periton Neutrophils Periton Lymphocytes Peritoneal Monocytes Periton Mesothelial Periton Histiocytes Peritoneal Tot Protein Peritoneal Albumin Peritoneal LDH Peritoneal Glucose Peritoneal Amylase Random Vancomycin 07/17/18 07/17/18 07/17/18 11:29 15:47 15:47 WBC 9.8 RBC 2.58 L Hgb 8.1 L Hct 24.6 L MCV 95.5 MCH 31.5 MCHC 33.0 RDW 19.1 H Plt Count 228 MPV 8.4 Neut % (Auto) Lymph % (Auto) Maury % (Auto) Eos % (Auto) Baso % (Auto) Neut # (Auto) Lymph # (Auto) Maury # (Auto) Eos # (Auto) Baso # (Auto) WBC Differential Differential Comment PT INR APTT Sodium Potassium Chloride Carbon Dioxide Anion Gap BUN Creatinine Estimated GFR POC Glucose 213 H Random Glucose Calcium Phosphorus Magnesium Total Bilirubin AST ALT Alkaline Phosphatase Lactate Dehydrogenase 181 B-Natriuretic Peptide Total Protein 6.7 Albumin Peritoneal RBC Periton Nuc Cells Periton Neutrophils Periton Lymphocytes Peritoneal Monocytes Periton Mesothelial Periton Histiocytes Peritoneal Tot Protein Peritoneal Albumin Peritoneal LDH Peritoneal Glucose Peritoneal Amylase Random Vancomycin 07/17/18 07/17/18 07/17/18 15:47 16:43 16:43 WBC RBC Hgb Hct MCV MCH MCHC RDW Plt Count MPV Neut % (Auto) Lymph % (Auto) Maury % (Auto) Eos % (Auto) Baso % (Auto) Neut # (Auto) Lymph # (Auto) Maury # (Auto) Eos # (Auto) Baso # (Auto) WBC Differential Differential Comment PT 13.7 H INR 1.4 APTT 29.7 Sodium Potassium Chloride Carbon Dioxide Anion Gap BUN Creatinine Estimated GFR POC Glucose Random Glucose Calcium Phosphorus Magnesium Total Bilirubin AST ALT Alkaline Phosphatase Lactate Dehydrogenase B-Natriuretic Peptide Total Protein Albumin Peritoneal RBC 1006 H Periton Nuc Cells 733 H Periton Neutrophils 35 Periton Lymphocytes 49 Peritoneal Monocytes 12 Periton Mesothelial 1 Periton Histiocytes 3 Peritoneal Tot Protein 3.5 Peritoneal Albumin 1.4 Peritoneal LDH 80 Peritoneal Glucose 170 Peritoneal Amylase 7 Random Vancomycin 07/17/18 07/18/18 07/18/18 22:06 06:00 06:00 WBC 8.9 RBC 2.57 L Hgb 8.3 L Hct 23.9 L MCV 92.9 MCH 32.2 MCHC 34.6 RDW 19.1 H Plt Count 210 MPV 8.4 Neut % (Auto) 77.1 H Lymph % (Auto) 10.1 Maury % (Auto) 9.9 H Eos % (Auto) 2.1 Baso % (Auto) 0.8 Neut # (Auto) 6.9 Lymph # (Auto) 0.9 L Maury # (Auto) 0.9 Eos # (Auto) 0.2 Baso # (Auto) 0.1 WBC Differential . Differential Comment Auto diff final PT INR APTT Sodium 132 L Potassium 4.7 Chloride 98 Carbon Dioxide 26.1 Anion Gap 8 BUN 45 H Creatinine 3.04 H Estimated GFR 20 L POC Glucose 219 H Random Glucose 123 H Calcium 7.7 L Phosphorus 4.4 Magnesium 2.1 Total Bilirubin 0.8 AST 11 L ALT 8 L Alkaline Phosphatase 86 Lactate Dehydrogenase B-Natriuretic Peptide Total Protein 6.3 L Albumin 2.1 L Peritoneal RBC Periton Nuc Cells Periton Neutrophils Periton Lymphocytes Peritoneal Monocytes Periton Mesothelial Periton Histiocytes Peritoneal Tot Protein Peritoneal Albumin Peritoneal LDH Peritoneal Glucose Peritoneal Amylase Random Vancomycin 16.6 07/18/18 06:00 WBC RBC Hgb Hct MCV MCH MCHC RDW Plt Count MPV Neut % (Auto) Lymph % (Auto) Maury % (Auto) Eos % (Auto) Baso % (Auto) Neut # (Auto) Lymph # (Auto) Maury # (Auto) Eos # (Auto) Baso # (Auto) WBC Differential Differential Comment PT 13.5 H INR 1.3 APTT Sodium Potassium Chloride Carbon Dioxide Anion Gap BUN Creatinine Estimated GFR POC Glucose Random Glucose Calcium Phosphorus Magnesium Total Bilirubin AST ALT Alkaline Phosphatase Lactate Dehydrogenase B-Natriuretic Peptide Total Protein Albumin Peritoneal RBC Periton Nuc Cells Periton Neutrophils Periton Lymphocytes Peritoneal Monocytes Periton Mesothelial Periton Histiocytes Peritoneal Tot Protein Peritoneal Albumin Peritoneal LDH Peritoneal Glucose Peritoneal Amylase Random Vancomycin - Imaging Impressions Abdomen/Bladder Ultrasound 07/17/18 17:22 CONCLUSION: 1. Mildly increased renal echotexture characteristic of medical renal disease. No hydronephrosis. Chavez catheter in bladder. Trace ascites. - Procedures 07/15/2018 SURGEON: Omaira Galindo DPM NETWORK APPLICATIONS SPECIALIST: None. PREOPERATIVE DIAGNOSIS: Left fifth digit dry gangrene. POSTOPERATIVE DIAGNOSIS: Left fifth digit dry gangrene. PROCEDURE PERFORMED: Left fifth digit amputation. PATHOLOGY SENT: Left fifth digit. ANESTHESIA: MAC. INJECTABLES: 10 mL of 0.5% Marcaine plain. IV FLUIDS: 100 mL. MATERIALS USED: 2-0 Prolene. COMPLICATIONS: None. INDICATIONS: Mr. Heard is a 72-year-old male patient who suffers from PAD. He recently had a revascularization to help address the dry gangrene of the left fifth digit. The stenting and angio where deemed a success by the vascular team. A decision was made to take him to the operating room to amputate the necrotic digit. The consent was signed. The procedure was explained. No guarantees were given. DESCRIPTION OF PROCEDURE: Under mild sedation, the patient was brought into the operating room, placed on the operating table in a supine position. Following IV sedation, the foot was scrubbed, prepped and draped in the usual aseptic manner. Attention was directed to the fifth digit, which was fully mummified and necrosed. A medial to lateral oriented double ellipse incision, 1 dorsal and 1 plantar, were created in order to create a circumferential incision around the MPJ. It was deepened through skin and subcutaneous tissue with care being taken to identify and retract any vital neurovascular structures. The toe was disarticulated at the metatarsophalangeal joint and sent to pathology for further evaluation. There was adequate bleeding at the time of the amputation; however, there is also some necrosis to the lateral aspect of the fourth digit. This necrotic area was debrided, but left intact as there was not enough skin to excise it and close it. The area was flushed with copious amounts of sterile saline and closed with 2-0 Prolene under moderate tension on the most medial aspect. The foot was then cleansed with sterile saline again. Toe was sent to Pathology for further evaluation. 10 mL of 0.5% Marcaine plain were injected around the incision site. Sterile dressings of Adaptic, 4 x 4's, cast padding and a very light Shan Bandage were applied. The patient tolerated the procedure and the anesthesia well. He will recover in the PACU for a period of time before being discharged back to his room with written and oral instructions. We will discuss the complications involving the fourth digit with the family at his postoperative evaluation. Omaira Galindo DPM LMW/ns , 08:45 AM- Preoperative Diagnosis (1) Peripheral vascular occlusive disease - Postoperative Diagnosis (1) Peripheral vascular occlusive disease Date of procedure: 07/13/18 Procedure: 1. L STEAMBOAT PILOT ASSISTANT PROFESSOR OF NURSING (6mm) 2. L SFA ASSISTANT PROFESSOR OF NURSING/stent (6x80 drug coated stent, 5mm ASSISTANT PROFESSOR OF NURSING) 3. L AT ASSISTANT PROFESSOR OF NURSING (2.5-3.0mm tapered balloon) Implants: 1. Zilver PTX (stent) in L SFA 2. R STEAMBOAT PILOT Angioseal Surgeon: Ventura Mcgovern MD Estimated blood loss (mL): 5 IV fluids (mL): 500 Urine output (mL): 300 Pathology: none sent Operation and Findings: 1. L STEAMBOAT PILOT stenosis, successful ASSISTANT PROFESSOR OF NURSING 2. L SFA In-stent stenosis, successful ASSISTANT PROFESSOR OF NURSING 3. Distal SFA [place] disease, ASSISTANT PROFESSOR OF NURSING/stent 4. AT disease, successful stent At end, in-line flow to fo ---- Ventura Mcgovern MD DATE OF OPERATION: 07/13/2018 PREOPERATIVE DIAGNOSIS: Left lower extremity tissue loss, peripheral vascular disease. POSTOPERATIVE DIAGNOSIS: Left lower extremity tissue loss, peripheral vascular disease. PROCEDURE: 1. Aortogram with left lower extremity angiogram. 2. Left common femoral artery angioplasty with a 6 mm balloon. 3. Left superficial femoral artery angioplasty and stent with a 6 x 80 Zilver PTX and 5 mm balloon for the in-stent stenosis. 4. Left anterior tibial artery angioplasty with a tapered 2.5 to 3 mm balloon. 5. Right common femoral artery Angio-Seal. ATTENDING SURGEON: Ventura Mcgovern MD. ANESTHESIA: General. INDICATIONS: Mr. Heard is a 72-year-old gentleman with multiple comorbidities who has left lower extremity tissue loss and nonpalpable pedal pulses. He was taken to the operating room for angiographic evaluation and treatment. DESCRIPTION OF PROCEDURE: Informed consent was obtained. The patient was taken to the operating room and placed supine on the operating table. An appropriate timeout was taken to ensure the patient's identity, operative site and planned procedure. The administration of antibiotics was not necessary as the patient is on systemic and therapeutic antibiotics, and these will be continued postoperatively for ongoing therapy. Everyone in the room agreed with timeout and we proceeded. He was prepped from his nipples to his knees. A 21-gauge micropuncture needle was used to access the right common femoral artery. This was exchanged using Seldinger technique for micropuncture sheath, through which a 0.035 Glidewire was introduced and the micropuncture sheath was exchanged for a 5-Singaporean sheath. A VCF catheter was then withdrawn through the sheath and aortogram and pelvic arteriogram was obtained. The Glidewire and VCF catheter were navigated down to the left common femoral artery and the left lower extremity arteriogram was obtained. The patient was then heparinized with 5000 units of IV heparin and approximately 45 minutes later, 3000 additional units were administered. A 0.035 Glidewire was introduced and passed down to the mid SFA. The VCF catheter was advanced over this and the glide was exchanged for a Roger. With the Roger in the mid SFA, the VCF catheter and 5-[place]an sheath removed and a 6-[place]an 55 cm antral sheath was introduced. A 6 x 20 balloon was used to angioplasty the left common femoral artery and the completion angiogram showed excellent result without any recoil extravasation. We then used several wires and catheters to get down to the distal SFA and this was confirmed angiographically with an angiogram through the CXI catheter. A Roger wire was then placed. The CXI catheter was removed and the entire distal SFA beyond the preexisting stents were angioplastied with a 5 mm balloon. The completion angiogram showed a residual stenosis and this was treated with a 6 x 80 Zilver PTX stent. This stent was postdilated 5 mm and additionally the entire SFA in-stent stenosis was angioplastied with 5 mm. The completion angiogram showed excellent result of the common femoral artery SFA without any in-stent restenosis, extravasation or flow-limiting dissections. We then advanced a CXI catheter down over the Roger and the Roger was exchanged for a Glidewire. The CXI was advanced down to the anterior tibial artery and past the genu of the anterior tibial artery. The glide was removed and a 0.014 BOBBIN STRIPPER wire was then introduced and a 0.018 CXI catheter was placed over the wire and through the other 0.035 CXI catheter. We were able to navigate the BOBBIN STRIPPER wire down to the distal anterior tibial artery and both catheters were removed. The entire anterior tibial artery was angioplastied with a 2.5 to 3 mm tapered angioplasty balloon. The completion angiogram showed excellent result without any recoil extravasation flow into dissection. There was good perfusion all the way into the arch of the foot. The wire, catheter and sheath were removed and the groin was closed with an Angio-Seal. There were no complications. I was present and scrubbed, and performed the entire procedure. Ventura Mcgovern MD Assessment and Plan - Assessment (1) CHF (congestive heart failure) Code(s): I50.9 - Heart failure, unspecified Status: Acute (2) Atrial fibrillation Code(s): I48.91 - Unspecified atrial fibrillation Status: Acute (3) Diabetes mellitus type 2 in obese Code(s): E11.69 - Type 2 diabetes mellitus with other specified complication; E66.9 - Obesity, unspecified Status: Acute (4) Peripheral vascular occlusive disease Code(s): I73.9 - Peripheral vascular disease, unspecified Status: Acute (5) Gangrene of toe Code(s): I96 - Gangrene, not elsewhere classified Status: Acute (6) Acute kidney injury Code(s): N17.9 - Acute kidney failure, unspecified Status: Acute (7) Chronic systolic congestive heart failure Code(s): I50.22 - Chronic systolic (congestive) heart failure Status: Acute (8) Ascites Code(s): R18.8 - Other ascites Status: Acute - Plan This 71-year-old gentleman presents to [facility] with worsening left foot and toe pain. He has been seen Dr. Muñoz for management of his fifth toe gangrene and cellulitis. He has received multiple rounds of antibiotics without improvement. 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 He has chronic dependent edema, he has had his abdomen tapped several times for ascites, he clearly has dyspnea at rest Peripheral vascular occlusive disease,/ Gangrene of toe/left lower extremity cellulitis Peripheral vascular disease, unspecified, Acute s/p left lower extremity aortagram, femoral artery angioplasty and stent, left tibial artery angioplasty (07/13/2018) S/P left fifth toe amputation (07/15/2018) -Podiatry following, Dr Galindo -Vascular surgeon following, Dr. Hunter -prn pain medications -decrease Zosyn to renal dose, Dc vancomycin due to acute kidney injury Acute kidney injury on CKD Acute kidney failure, unspecified, Acute, likely related to contrast nephropathy -Creatinine 3.04, baseline 1.34 on 07/10 -DC vancomycin -Decreasing Zosyn to renal dose -Nephrology following: prognosis is guarded poor, obtain renal US, UA, urine electrolytes -monitor Renal function Ascites, acute likely related to CHF s/p paracentesis -continue Lasix and metolazone -monitor BMP CHF (congestive heart failure)/ Atrial fibrillation/CAD with CABG Heart failure, unspecified, Acute LVEF 30 % on November 2017 Hx s/p AICD Insertion -continue Coreg, statin, Lasix, Metolazone, Imdur and prn Nitro -no Cp, no SOB -monitor CBC, BMP Diabetes mellitus type 2 in obese Type 2 diabetes mellitus with other specified complication;Obesity, unspecified -monitor blood sugar AC and HS with insulin Sliding Scale Hypothyroidism, history of -TSH 0.016, Free T4 1.95 -continue Synthroid -monitor TSH and free T4, recheck in 4 weeks DVT prophylaxis: Lovenox Code Status: DNR Discussed Condition With: Patient, family, and nurse
[2018-07-18] MEDS: Carvedilol 12.5 MG Tablet PO SCH ×2 (10:11→21:12)
--- NOTE | 2018-07-18 12:59 | P.PNNP ---
Subjective Interval history: Had paracentesis yesterday, reports he feels a little better today. He is non oliguric. Physical Exam Vital signs: Vital Signs 07/17/18 15:45 07/17/18 16:03 07/17/18 17:25 Temperature 97.4 F L 98.2 F 98.7 F Pulse Rate 84 58 L 74 Respiratory Rate 16 18 18 Blood Pressure 119/60 128/64 117/65 Pulse Oximetry 96 96 99 07/17/18 17:43 07/17/18 20:00 07/18/18 00:00 Temperature 98.5 F 98.0 F 97.9 F Pulse Rate 86 67 58 L Respiratory Rate 16 17 17 Blood Pressure 114/63 110/52 L 112/53 L Pulse Oximetry 97 99 98 07/18/18 04:00 07/18/18 08:00 Temperature 98.1 F 98.0 F Pulse Rate 58 L 60 Respiratory Rate 17 18 Blood Pressure 116/56 L 113/45 L Pulse Oximetry 95 Intake & Output 07/17/18 07/18/18 07/18/18 18:59 06:59 18:59 Intake Total 850 / 850 530 / 530 50 / 50 Output Total 200 / 200 800 / 800 Balance 650 / 650 -270 / -270 50 / 50 Weight 103.8 kg Intake: IV 50 / 50 50 / 50 50 / 50 Zosyn 3.375 GM Premix 50 ML @ 50 / 50 50 / 50 50 / 50 100 mls/hr IV.SIG Q8H [facility] Rx#: [id number] Oral 800 / 800 480 / 480 Output: Urine 800 / 800 Urine Amount (Catheter) 200 / 200 Indwelling Urethral Catheter 200 / 200 Other: Date of Last Bowel Movement 07/09/18 07/09/18 Narrative: GENERAL: Well-developed, elderly in no apparent distress SKIN: Warm and dry. Left lower leg redness and skin peeling HEAD: Atraumatic. Normocephalic. EYES: Pupils equal and round. No scleral icterus. No injection or drainage. ENT: No nasal bleeding or discharge. Mucous membranes pink and moist. NECK: Trachea midline. No JVD. CARDIOVASCULAR: Regular rate and rhythm. RESPIRATORY: No accessory muscle use. Bilateral lower lobes with fine crackles auscultation. Breath sounds equal bilaterally. GASTROINTESTINAL: Abdomen obese soft, non-tender, slight distention. Hepatic and splenic margins not palpable. : Mojica catheter in place, scrotal swelling, and penile swelling MUSCULOSKELETAL: Extremities without clubbing, cyanosis, with generalized edema , pitting edema in lower back down to the thigh and legs. NEUROLOGICAL: Awake and alert and oriented x 3. No obvious cranial nerve deficits. Motor grossly within normal limits. Generalized weakness in all 4 extremities normal speech. PSYCHIATRIC: Appropriate mood and affect; insight and judgment normal. - Urinary Catheter Management Indwelling Urethral Catheter Cath placed during this visit: yes Reason for continuing: Hourly intake/output Insertion date: 07/15/18 Insertion time: 13:44 Indwelling Temp Sensing Catheter Cath placed during this visit: yes, but has since been removed by the nurse Reason for continuing: Decision to DC catheter Insertion date: 07/13/18 Insertion time: 13:17 Removal date: 07/14/18 Removal time: 16:00 Assessment and Plan - Assessment (1) Acute kidney injury Code(s): N17.9 - Acute kidney failure, unspecified Status: Acute Plan: could be due to contrast nephropathy, also will have to consider the possibility of cholesterol embolization. Renal US negative for hydronephrosis. Urine electrolytes are pending. Restart Lasix. Avoid nephrotoxic agents. Prognosis is guarded to poor. (2) Chronic systolic congestive heart failure Code(s): I50.22 - Chronic systolic (congestive) heart failure Status: Acute Plan: Currently diuretics are held. EF apparently about 30%. Monitor fluid and electrolytes. (3) Peripheral vascular occlusive disease Code(s): I73.9 - Peripheral vascular disease, unspecified Status: Acute Plan: s/p revascularization. Vascular surgery following. 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 (5) Ascites Code(s): R18.8 - Other ascites Status: Acute Plan: Due to CHF? Paracentesis on the .
[2018-07-18] MEDS: Piperacil/Tazo 2.25 GM Premix 50 ML IV.SIG SCH ×2 (13:27→21:13)
[2018-07-19 02:07] LABS: Hematocrit 24.4 % (39.0-51.0); Mean Corpuscular HGB Conc 32.8 % (32.0-36.0); Mean Corpuscular Volume 94.7 fL (80.0-100.0); Mean Platelet Volume 8.3 fL (7.0-11.0); Platelet Count 180 th/mm3 (150-450); Red Blood Count 2.58 mil/mm3 (4.50-5.90); Red Cell Distribution Width 19.2 % (11.6-17.2); White Blood Count 7.3 th/mm3 (4.0-11.0)
[2018-07-19] MEDS: Piperacil/Tazo 2.25 GM Premix 50 ML IV.SIG SCH ×3 (03:30→21:38)
[2018-07-19] MEDS: Levothyroxine 100 MCG Tablet PO SCH (06:10)
[2018-07-19 08:06] LABS: Baso % (Auto) 0.7 % (0.0-2.0); Eos # (Auto) 0.2 th/mm3 (0.0-0.4); Eos % (Auto) 2.3 % (0.0-4.0); Hematocrit 23.1 % (39.0-51.0); Lymph # (Auto) 0.6 th/mm3 (1.0-4.8); Lymph % (Auto) 8.3 % (9.0-44.0); Mean Corpuscular HGB Conc 34.4 % (32.0-36.0); Mean Corpuscular Hemoglobin 32.1 pg (27.0-34.0); Mean Corpuscular Volume 93.2 fL (80.0-100.0); Mono # (Auto) 0.5 th/mm3 (0.0-0.9); Mono % (Auto) 7.3 % (0.0-8.0); Neut % (Auto) 81.4 % (16.0-70.0); Platelet Count 187 th/mm3 (150-450); Red Blood Count 2.48 mil/mm3 (4.50-5.90); Red Cell Distribution Width 19.2 % (11.6-17.2); White Blood Count 7.4 th/mm3 (4.0-11.0)
[2018-07-19 08:26] LABS: Albumin 2.1 g/dL (3.4-5.0); Calcium 8.4 mg/dL (8.5-10.1); Magnesium 2.2 mg/dL (1.5-2.5); Potassium 4.1 meq/L (3.5-5.1)
[2018-07-19] MEDS: Gabapentin 100 MG Capsule PO SCH ×3 (09:24→18:06)
[2018-07-19] MEDS: Docusate Sodium 100 MG Capsule PO SCH (09:25)
[2018-07-19] MEDS: Isosorbide Mononitrate 30 MG ER 24HR Tablet (Imdur) PO SCH (09:25)
[2018-07-19] MEDS: Senna/Docusate Sodium 8.6/50 MG Tablet PO SCH ×2 (09:25→21:46)
[2018-07-19] MEDS: Carvedilol 12.5 MG Tablet PO SCH ×2 (09:25→21:39)
[2018-07-19] MEDS: Insulin NovoLOG Aspart Correctional Sugar Inj SQ SCH ×4 (09:26→21:45)
--- NOTE | 2018-07-19 12:37 | P.PNIM ---
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 Patient seen and examined, sitting on the, family at bedside denies any pain or shortness of breath, denies any headache or dizziness, denies any abdominal pain, nausea, vomiting, diarrhea or constipation. Patient complained of some discomfort on left lower extremity. Nurse reported "with small clot, drainage noted site cleaned and dressed. Upon assessment serosanguineous drainage noted. Family complained about scrotal edema and redness. Patient denies any fever or chills. Physical Exam Vital signs: Vital Signs 07/18/18 15:59 07/18/18 20:00 07/19/18 00:00 Temperature 97.4 F L 97.8 F 98 F Pulse Rate 56 L 62 64 Respiratory Rate 16 17 17 Blood Pressure 130/59 L 131/56 L 127/60 Pulse Oximetry 96 99 100 07/19/18 04:00 07/19/18 08:00 07/19/18 11:36 Temperature 97.7 F 97.9 F 98.3 F Pulse Rate 78 64 81 Respiratory Rate 17 20 18 Blood Pressure 112/56 L 129/61 126/60 Pulse Oximetry 96 95 98 Intake & Output 07/18/18 07/19/18 07/19/18 18:59 06:59 18:59 Intake Total 250 / 250 580 / 580 Output Total 2450 / 2450 Balance 250 / 250 -1870 / -1870 Weight 103.8 kg Intake: IV 250 / 250 100 / 100 Zosyn 2.25 GM Premix 50 ML @ 50 / 50 100 / 100 100 mls/hr IV.SIG Q8H TOMA Rx#: [id number] Zosyn 3.375 GM Premix 50 ML @ 50 / 50 100 mls/hr IV.SIG Q8H TOMA Rx#: [id number] Oral 480 / 480 Output: Urine Amount (Catheter) 2450 / 2450 Indwelling Urethral Catheter 2450 / 2450 Other: Date of Last Bowel Movement 07/09/18 # Bowel Movements 1 Narrative: GENERAL: Well-developed, elderly in no apparent distress SKIN: Warm and dry. Left lower leg edema, redness and skin peeling. Groin redness and excoriation, sacral excoriation HEAD: Atraumatic. Normocephalic. EYES: Pupils equal and round. No scleral icterus. No injection or drainage. ENT: No nasal bleeding or discharge. Mucous membranes pink and moist. NECK: Trachea midline. No JVD. CARDIOVASCULAR: Regular rate and rhythm. RESPIRATORY: No accessory muscle use. Bilateral lower lobes with fine crackles auscultation. Breath sounds equal bilaterally. GASTROINTESTINAL: Abdomen obese soft, non-tender, slight distention. Hepatic and splenic margins not palpable. : Mojica catheter in place, scrotal swelling, and penile swelling, groin site redness. MUSCULOSKELETAL: Extremities without clubbing, cyanosis, with generalized edema , pitting edema in lower back down to the thigh and legs. NEUROLOGICAL: Awake and alert and oriented x 3. No obvious cranial nerve deficits. Motor grossly within normal limits. Generalized weakness in all 4 extremities.. Normal speech. PSYCHIATRIC: Appropriate mood and affect; insight and judgment normal. - Urinary Catheter Management Indwelling Urethral Catheter Cath placed during this visit: yes Reason for continuing: Hourly intake/output Insertion date: 07/15/18 Insertion time: 13:44 Indwelling Temp Sensing Catheter Cath placed during this visit: yes, but has since been removed by the nurse Reason for continuing: Decision to DC catheter Insertion date: 07/13/18 Insertion time: 13:17 Removal date: 07/14/18 Removal time: 16:00 Results - Labs CBC & Chem 7: 07/19/18 06:10 07/19/18 06:10 Laboratory Results - last 24 hr 07/18/18 07/18/18 07/18/18 16:31 21:16 22:15 WBC 7.3 RBC 2.58 L Hgb 8.0 L Hct 24.4 L MCV 94.7 MCH 31.0 MCHC 32.8 RDW 19.2 H Plt Count 180 MPV 8.3 Neut % (Auto) Lymph % (Auto) [place] % (Auto) Eos % (Auto) Baso % (Auto) Neut # (Auto) Lymph # (Auto) [place] # (Auto) Eos # (Auto) Baso # (Auto) WBC Differential Differential Comment Sodium Potassium Chloride Carbon Dioxide Anion Gap BUN Creatinine Estimated GFR POC Glucose 179 H 285 H Random Glucose Calcium Phosphorus Magnesium Albumin 07/19/18 07/19/18 07/19/18 06:10 06:10 07:54 WBC 7.4 RBC 2.48 L Hgb 8.0 L Hct 23.1 L MCV 93.2 MCH 32.1 MCHC 34.4 RDW 19.2 H Plt Count 187 MPV 8.0 Neut % (Auto) 81.4 H Lymph % (Auto) 8.3 L [place] % (Auto) 7.3 Eos % (Auto) 2.3 Baso % (Auto) 0.7 Neut # (Auto) 6.0 Lymph # (Auto) 0.6 L [place] # (Auto) 0.5 Eos # (Auto) 0.2 Baso # (Auto) 0.0 WBC Differential . Differential Comment Auto diff final Sodium 136 Potassium 4.1 Chloride 99 Carbon Dioxide 27.0 Anion Gap 10 BUN 41 H Creatinine 2.49 H Estimated GFR 26 L POC Glucose 164 H Random Glucose 127 H Calcium 8.4 L Phosphorus 4.0 Magnesium 2.2 Albumin 2.1 L 07/19/18 11:33 WBC RBC Hgb Hct MCV MCH MCHC RDW Plt Count MPV Neut % (Auto) Lymph % (Auto) [place] % (Auto) Eos % (Auto) Baso % (Auto) Neut # (Auto) Lymph # (Auto) [place] # (Auto) Eos # (Auto) Baso # (Auto) WBC Differential Differential Comment Sodium Potassium Chloride Carbon Dioxide Anion Gap BUN Creatinine Estimated GFR POC Glucose 230 H Random Glucose Calcium Phosphorus Magnesium Albumin - Procedures 07/15/2018 SURGEON: Omaira Galindo DPM GRAINER MACHINE: None. PREOPERATIVE DIAGNOSIS: Left fifth digit dry gangrene. POSTOPERATIVE DIAGNOSIS: Left fifth digit dry gangrene. PROCEDURE PERFORMED: Left fifth digit amputation. PATHOLOGY SENT: Left fifth digit. ANESTHESIA: MAC. INJECTABLES: 10 mL of 0.5% Marcaine plain. IV FLUIDS: 100 mL. MATERIALS USED: 2-0 Prolene. COMPLICATIONS: None. INDICATIONS: Mr. Heard is a 72-year-old male patient who suffers from PAD. He recently had a revascularization to help address the dry gangrene of the left fifth digit. The stenting and angio where deemed a success by the vascular team. A decision was made to take him to the operating room to amputate the necrotic digit. The consent was signed. The procedure was explained. No guarantees were given. DESCRIPTION OF PROCEDURE: Under mild sedation, the patient was brought into the operating room, placed on the operating table in a supine position. Following IV sedation, the foot was scrubbed, prepped and draped in the usual aseptic manner. Attention was directed to the fifth digit, which was fully mummified and necrosed. A medial to lateral oriented double ellipse incision, 1 dorsal and 1 plantar, were created in order to create a circumferential incision around the MPJ. It was deepened through skin and subcutaneous tissue with care being taken to identify and retract any vital neurovascular structures. The toe was disarticulated at the metatarsophalangeal joint and sent to pathology for further evaluation. There was adequate bleeding at the time of the amputation; however, there is also some necrosis to the lateral aspect of the fourth digit. This necrotic area was debrided, but left intact as there was not enough skin to excise it and close it. The area was flushed with copious amounts of sterile saline and closed with 2-0 Prolene under moderate tension on the most medial aspect. The foot was then cleansed with sterile saline again. Toe was sent to Pathology for further evaluation. 10 mL of 0.5% Marcaine plain were injected around the incision site. Sterile dressings of Adaptic, 4 x 4's, cast padding and a very light Shan Bandage were applied. The patient tolerated the procedure and the anesthesia well. He will recover in the PACU for a period of time before being discharged back to his room with written and oral instructions. We will discuss the complications involving the fourth digit with the family at his postoperative evaluation. Omaira Galindo DPM LMW/ns , 08:45 AM- Preoperative Diagnosis (1) Peripheral vascular occlusive disease - Postoperative Diagnosis (1) Peripheral vascular occlusive disease Date of procedure: 07/13/18 Procedure: 1. L REINFORCING IRON WORKER HELPER MULTIMEDIA DEVELOPER (6mm) 2. L SFA MULTIMEDIA DEVELOPER/stent (6x80 drug coated stent, 5mm MULTIMEDIA DEVELOPER) 3. L AT MULTIMEDIA DEVELOPER (2.5-3.0mm tapered balloon) Implants: 1. Terrell PTX (stent) in L SFA 2. R REINFORCING IRON WORKER HELPER Angioseal Surgeon: Ventura Mcgovern MD Estimated blood loss (mL): 5 IV fluids (mL): 500 Urine output (mL): 300 Pathology: none sent Operation and Findings: 1. L REINFORCING IRON WORKER HELPER stenosis, successful MULTIMEDIA DEVELOPER 2. L SFA In-stent stenosis, successful MULTIMEDIA DEVELOPER 3. Distal SFA anvik disease, MULTIMEDIA DEVELOPER/stent 4. AT disease, successful stent At end, in-line flow to fo ---- Ventura Mcgovern MD DATE OF OPERATION: 07/13/2018 PREOPERATIVE DIAGNOSIS: Left lower extremity tissue loss, peripheral vascular disease. POSTOPERATIVE DIAGNOSIS: Left lower extremity tissue loss, peripheral vascular disease. PROCEDURE: 1. Aortogram with left lower extremity angiogram. 2. Left common femoral artery angioplasty with a 6 mm balloon. 3. Left superficial femoral artery angioplasty and stent with a 6 x 80 Zilver PTX and 5 mm balloon for the in-stent stenosis. 4. Left anterior tibial artery angioplasty with a tapered 2.5 to 3 mm balloon. 5. Right common femoral artery Angio-Seal. ATTENDING SURGEON: Ventura Mcgovern MD. ANESTHESIA: General. INDICATIONS: Mr. Heard is a 72-year-old gentleman with multiple comorbidities who has left lower extremity tissue loss and nonpalpable pedal pulses. He was taken to the operating room for angiographic evaluation and treatment. DESCRIPTION OF PROCEDURE: Informed consent was obtained. The patient was taken to the operating room and placed supine on the operating table. An appropriate timeout was taken to ensure the patient's identity, operative site and planned procedure. The administration of antibiotics was not necessary as the patient is on systemic and therapeutic antibiotics, and these will be continued postoperatively for ongoing therapy. Everyone in the room agreed with timeout and we proceeded. He was prepped from his nipples to his knees. A 21-gauge micropuncture needle was used to access the right common femoral artery. This was exchanged using Seldinger technique for micropuncture sheath, through which a 0.035 Glidewire was introduced and the micropuncture sheath was exchanged for a 5-Australian sheath. A VCF catheter was then withdrawn through the sheath and aortogram and pelvic arteriogram was obtained. The Glidewire and VCF catheter were navigated down to the left common femoral artery and the left lower extremity arteriogram was obtained. The patient was then heparinized with 5000 units of IV heparin and approximately 45 minutes later, 3000 additional units were administered. A 0.035 Glidewire was introduced and passed down to the mid SFA. The VCF catheter was advanced over this and the glide was exchanged for a Roger. With the Roger in the mid SFA, the VCF catheter and 5-Australian sheath removed and a 6-Australian 55 cm antral sheath was introduced. A 6 x 20 balloon was used to angioplasty the left common femoral artery and the completion angiogram showed excellent result without any recoil extravasation. We then used several wires and catheters to get down to the distal SFA and this was confirmed angiographically with an angiogram through the CXI catheter. A Roger wire was then placed. The CXI catheter was removed and the entire distal SFA beyond the preexisting stents were angioplastied with a 5 mm balloon. The completion angiogram showed a residual stenosis and this was treated with a 6 x 80 Zilver PTX stent. This stent was postdilated 5 mm and additionally the entire SFA in-stent stenosis was angioplastied with 5 mm. The completion angiogram showed excellent result of the common femoral artery SFA without any in-stent restenosis, extravasation or flow-limiting dissections. We then advanced a CXI catheter down over the Roger and the Roger was exchanged for a Glidewire. The CXI was advanced down to the anterior tibial artery and past the genu of the anterior tibial artery. The glide was removed and a 0.014 RACING SECRETARY wire was then introduced and a 0.018 CXI catheter was placed over the wire and through the other 0.035 CXI catheter. We were able to navigate the RACING SECRETARY wire down to the distal anterior tibial artery and both catheters were removed. The entire anterior tibial artery was angioplastied with a 2.5 to 3 mm tapered angioplasty balloon. The completion angiogram showed excellent result without any recoil extravasation flow into dissection. There was good perfusion all the way into the arch of the foot. The wire, catheter and sheath were removed and the groin was closed with an Angio-Seal. There were no complications. I was present and scrubbed, and performed the entire procedure. Ventura Mcgovern MD Assessment and Plan - Assessment (1) CHF (congestive heart failure) Code(s): I50.9 - Heart failure, unspecified Status: Acute (2) Atrial fibrillation Code(s): I48.91 - Unspecified atrial fibrillation Status: Acute (3) Diabetes mellitus type 2 in obese Code(s): E11.69 - Type 2 diabetes mellitus with other specified complication; E66.9 - Obesity, unspecified Status: Acute (4) Peripheral vascular occlusive disease Code(s): I73.9 - Peripheral vascular disease, unspecified Status: Acute (5) Gangrene of toe Code(s): I96 - Gangrene, not elsewhere classified Status: Acute (6) Acute kidney injury Code(s): N17.9 - Acute kidney failure, unspecified Status: Acute (7) Chronic systolic congestive heart failure Code(s): I50.22 - Chronic systolic (congestive) heart failure Status: Acute (8) Ascites Code(s): R18.8 - Other ascites Status: Acute - Plan This 71-year-old gentleman presents to [facility] with worsening left foot and toe pain. He has been seen Dr. Muñoz for management of his fifth toe gangrene and cellulitis. He has received multiple rounds of antibiotics without improvement. 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 He has chronic dependent edema, he has had his abdomen tapped several times for ascites, he clearly has dyspnea at rest Peripheral vascular occlusive disease,/ Gangrene of toe/left lower extremity cellulitis Peripheral vascular disease, unspecified, Acute s/p left lower extremity aortogram, femoral artery angioplasty and stent, left tibial artery angioplasty (07/13/2018) S/P left fifth toe amputation (07/15/2018) -Podiatry following, Dr Galindo -Vascular surgeon following, Dr. Hunter -prn pain medications -decrease Zosyn to renal dose, Dc vancomycin due to acute kidney injury -Add Lac-Hydrin cream Acute kidney injury on CKD Acute kidney failure, unspecified, Acute, likely related to contrast nephropathy -Improving creatinine 2.49 today, baseline 1.34 on 07/10 -DC vancomycin -Decreasing Zosyn to renal dose -Nephrology following: prognosis is guarded poor, obtain renal US, UA, urine electrolytes -monitor Renal function Ascites, acute/generalized edema likely related to CHF s/p paracentesis -continue Lasix and metolazone -monitor BMP CHF (congestive heart failure)/ Atrial fibrillation/CAD with CABG Heart failure, unspecified, Acute LVEF 30 % on November 2017 Hx s/p AICD Insertion -continue Coreg, statin, Lasix, Metolazone, Imdur and prn Nitro -no Cp, no SOB -monitor CBC, BMP Diabetes mellitus type 2 in obese Type 2 diabetes mellitus with other specified complication;Obesity, unspecified -poor controlled -monitor blood sugar AC and HS with insulin Sliding Scale -add long acting insulin, Lantus Hypothyroidism, history of -TSH 0.016, Free T4 1.95 -continue Synthroid -monitor TSH and free T4, recheck in 4 weeks Groin rash/ candidiasis -Clotrimazole cream, apply on a clean groin -Monitor response Sacral wound/excoriation Wound care consult Soft air mattress. Wound care recommendations Wound care treatment, turn every 2 hours while in bed DVT prophylaxis: Lovenox Code Status: full code Discussed Condition With: Patient, family, nurse
--- NOTE | 2018-07-19 14:28 | P.PNWCN ---
Wound Care Nurse Consult Description: Consult for sacral wound, recommendation for sacral wound treat/air mattress per ANA PAULA Caldwell Communicated with: ANA PAULA Caldwell RN student nurse Patient folder and notcher Nurse Rn Immunology Recommendation: Reposition patient from left to right sides only Q2H to relieve pressure from bilateral buttocks. Apply calazime skin protectant paste to bilateral buttock DTI's BID and PRN for moisture to keep wounds from opening up. Use only moisture wicking disposable under pads with low airloss mattress ordered through [employer]. DO NOT USE COTTON PULL PADS with low airloss mattress PLEASE. Additional information: Patient seen on for wound evaluation. Wound/Pressure Injury - Wound Buttocks Wound Staging: DTI (2 DTI's noted in an area of non blanching erythema measuring ~7cm x ~9cm on bilateral buttocks) Wound Assessment: Ongoing Wound Type: Pressure Injury Is This a Chronic Wound: No Requested from Provider a Wound Care Consult: Yes Wound Bed Appearance: Red (and purple non blanching areas of discoloration indicating DTI's with stage 1 pressure injury noted to periwound) Wound Bed Appearance: There is an area of non blanching erythema noted on bilateral buttocks indicating pressure etiology with peeling denuded skin on wound margins indicating moisture as well. Deep Tissue Injuries (purple non blanching discolorations) are also noted within this area of non blanching erythema indicating pressure injury. Surrounding Tissue Appearance: Erythema (non blanching stage 1) Drainage Amount: None Drainage Odor: No Odor Dressing Status: Open to Air Topical: Calazime skin protectant paste
--- NOTE | 2018-07-19 15:03 | P.PNPOD ---
Subjective Interval history: s/p left 5th digit amputation Dr Galindo, DOS 07/15/18 Seen at bedside this pm and in NAD No n/v/f/dc/ No calf pain. Physical Exam Vital signs: Vital Signs 07/18/18 15:59 07/18/18 20:00 07/19/18 00:00 Temperature 97.4 F L 97.8 F 98 F Pulse Rate 56 L 62 64 Respiratory Rate 16 17 17 Blood Pressure 130/59 L 131/56 L 127/60 Pulse Oximetry 96 99 100 07/19/18 04:00 07/19/18 08:00 07/19/18 11:36 Temperature 97.7 F 97.9 F 98.3 F Pulse Rate 78 64 81 Respiratory Rate 17 20 18 Blood Pressure 112/56 L 129/61 126/60 Pulse Oximetry 96 95 98 Intake & Output 07/18/18 07/19/18 07/19/18 18:59 06:59 18:59 Intake Total 250 / 250 580 / 580 50 / 50 Output Total 2450 / 2450 Balance 250 / 250 -1870 / -1870 50 / 50 Weight 103.8 kg Intake: IV 250 / 250 100 / 100 50 / 50 Zosyn 2.25 GM Premix 50 ML @ 50 / 50 100 / 100 50 / 50 100 mls/hr IV.SIG Q8H [facility] Rx#: [id number] Zosyn 3.375 GM Premix 50 ML @ 50 / 50 100 mls/hr IV.SIG Q8H [facility] Rx#: [id number] Oral 480 / 480 Output: Urine Amount (Catheter) 2450 / 2450 Indwelling Urethral Catheter 2450 / 2450 Other: Date of Last Bowel Movement 07/09/18 # Bowel Movements 1 Narrative: LLE Intact sutures, distal most incision has a partial opening. Left lateral 4th digit with necrotic tissue. NVS unchanged. Medications and Allergies Active Medications: Active Medications Acetaminophen (Tylenol) 650 mg PO Q6H PRN PRN Reason: PAIN 1-5 AND/OR FEVER >101F Last Admin: 07/18/18 05:53 Dose: 650 mg Al Hydroxide/Mg Hydroxide (Milk Of Magnesia Liq) 30 ml PO Q12H PRN PRN Reason: Mild Constipation Last Admin: 07/18/18 21:13 Dose: 30 ml Atorvastatin Calcium (Lipitor) 40 mg PO DAILY [facility] Last Admin: 07/19/18 09:25 Dose: 40 mg Bisacodyl (Dulcolax Supp) 10 mg RECTAL DAILY PRN PRN Reason: SEVERE CONSITIPATION Bumetanide (Bumex Inj) 2 mg IV.PUSH BID@0900,1800 [facility] Last Admin: 07/19/18 09:33 Dose: 2 mg Carvedilol (Coreg) 12.5 mg PO BID [facility] Last Admin: 07/19/18 09:25 Dose: 12.5 mg Clotrimazole (Lotrimin 1% Cream) 1 applicatio TOPICAL BID [facility] Dextrose (D50w Vial) 50 ml IV.PUSH UNSCH PRN PRN Reason: PER HYPOGLYCEMIA PROTOCOL Docusate Sodium (Colace) 300 mg PO DAILY [facility] Last Admin: 07/19/18 09:25 Dose: 300 mg Enoxaparin Sodium (Lovenox Inj) 80 mg SQ Q12HR [facility] Last Admin: 07/12/18 08:18 Dose: Not Given Furosemide (Lasix) 80 mg PO DAILY [facility] Last Admin: 07/17/18 08:13 Dose: 80 mg Gabapentin (Neurontin) 200 mg PO TID [facility] Last Admin: 07/19/18 12:38 Dose: 200 mg Glucagon (Glucagon Inj) 1 mg OTHER PRN PRN PRN Reason: for Hypoglycemia Protocol Heparin Sodium (Porcine) (Heparin Central Flush) 200 unit IV.FLUSH PRN PRN PRN Reason: Flush PICC Line Last Admin: 07/16/18 22:05 Dose: 200 unit Piperacillin/Tazobactam/Dextrose (Zosyn 2.25 Gm Premix) 50 mls @ 100 mls/hr IV.SIG Q8H [facility] Last Infusion: 07/19/18 14:17 Dose: Infused Insulin Aspart (Novolog Insulin Correctional Sugar Inj) 0 unit SQ ACHS [facility]; Protocol Last Admin: 07/19/18 12:14 Dose: 4 unit Insulin Glargine (Lantus Inj) 10 units SQ DAILY [facility] Isosorbide Mononitrate (Imdur) 30 mg PO DAILY [facility] Last Admin: 07/19/18 09:25 Dose: 30 mg Lactic Acid (Lac-Hydrin 12% Lotion) 1 applicatio TOPICAL BID [facility] Lactulose (Lactulose Liq) 30 ml PO DAILY PRN PRN Reason: SEVERE CONSITIPATION Last Admin: 07/18/18 05:54 Dose: 30 ml Levothyroxine Sodium (Synthroid) 100 mcg PO DAILY@0600 [facility] Last Admin: 07/19/18 06:10 Dose: 100 mcg Metolazone (Zaroxolyn) 5 mg PO BID [facility] Last Admin: 07/17/18 08:13 Dose: 5 mg Nitroglycerin (Nitrostat Sl (Override)) 0.4 mg SL Q5M PRN PRN Reason: Chest Pain Ondansetron HCl (Zofran Inj) 4 mg IV.PUSH Q6H PRN PRN Reason: NAUSEA OR VOMITING Last Admin: 07/10/18 21:16 Dose: 4 mg Oxycodone HCl (Roxicodone) 15 mg PO Q4H PRN PRN Reason: PAIN 6-10;IF UNABLE TO TAKE PO Last Admin: 07/19/18 13:15 Dose: 15 mg Pt:Saccharomyces (Boulardii 250 Mg) 0 each PO DAILY [facility] Senna/Docusate Sodium (Valentine-Colace) 1 tab PO BID [facility] Last Admin: 07/19/18 09:25 Dose: 1 tab Sennosides (Senokot) 17.2 mg PO Q12H PRN PRN Reason: Moderate Constipation Last Admin: 07/18/18 05:54 Dose: 17.2 mg Sodium Chloride (Ns Flush) 2 ml IV.FLUSH BID [facility] Last Admin: 07/19/18 09:27 Dose: 2 ml Sodium Chloride (Ns Flush) 2 ml IV.FLUSH PRN PRN PRN Reason: FLUSH AFTER USING IV ACCESS Sodium Chloride (Ns Flush) 5 ml IV.FLUSH DAILY [facility] Last Admin: 07/19/18 09:28 Dose: 5 ml Sodium Chloride (Ns Flush) 0 ml IV.FLUSH PRN PRN PRN Reason: FLUSH AFTER USING IV ACCESS Sodium Chloride (Ns Flush) 10 ml IV.FLUSH PRN PRN PRN Reason: Flush After Blood Draws Tramadol HCl (Ultram) 50 mg PO Q6H PRN PRN Reason: PAIN 6-10;IF UNABLE TO TAKE PO Last Admin: 07/19/18 03:15 Dose: 50 mg Allergies Allergy/AdvReac Type Severity Reaction Status Date / Time codeine Allergy Itching Verified 07/06/18 14:40 niacin Allergy Flushing Verified 07/06/18 14:40 fentanyl AdvReac Irritation Verified 07/06/18 14:40 hydromorphone [From Dilaudid] AdvReac Confusion Verified 07/06/18 14:40 morphine AdvReac Confusion Verified 07/06/18 14:40 zolpidem [From Ambien] AdvReac Confusion Verified 07/06/18 14:40 Home Medications Medication Instructions Recorded Confirmed Type Saccharomyces boulardii 250 mg PO DAILY 07/06/18 07/06/18 History apixaban [Eliquis] 2.5 mg PO BID 07/06/18 07/06/18 History atorvastatin 40 mg PO DAILY 07/06/18 07/06/18 History carvedilol 12.5 mg PO BID 07/06/18 07/06/18 History docusate sodium [Dulcolax Stool 300 mg PO DAILY 07/06/18 07/06/18 History Softener (dss)] furosemide [Lasix] 80 mg PO DAILY 07/06/18 07/06/18 History gabapentin 200 mg PO TID 07/06/18 07/06/18 History insulin NPH isoph U-100 human 50 unit SUBCUT BID PRN 07/06/18 07/10/18 History [Humulin N NPH Insulin KwikPen] isosorbide mononitrate 30 mg PO DAILY 07/06/18 07/06/18 History levothyroxine 100 mcg PO DAILY 07/06/18 07/06/18 History metolazone 5 mg PO DAILY 07/06/18 07/06/18 History nitroglycerin 0.4 mg SUBLINGUAL Q5-15M PRN 07/06/18 07/06/18 History oxycodone 15 mg PO Q8H PRN 07/06/18 07/06/18 History spironolactone 50 mg PO DAILY 07/06/18 07/06/18 History Results - Labs CBC & Chem 7: 07/19/18 06:10 07/19/18 06:10 Laboratory Results - last 24 hr 07/18/18 07/18/18 07/18/18 16:31 21:16 22:15 WBC 7.3 RBC 2.58 L Hgb 8.0 L Hct 24.4 L MCV 94.7 MCH 31.0 MCHC 32.8 RDW 19.2 H Plt Count 180 MPV 8.3 Neut % (Auto) Lymph % (Auto) Dare % (Auto) Eos % (Auto) Baso % (Auto) Neut # (Auto) Lymph # (Auto) Dare # (Auto) Eos # (Auto) Baso # (Auto) WBC Differential Differential Comment Sodium Potassium Chloride Carbon Dioxide Anion Gap BUN Creatinine Estimated GFR POC Glucose 179 H 285 H Random Glucose Calcium Phosphorus Magnesium Albumin 07/19/18 07/19/18 07/19/18 06:10 06:10 07:54 WBC 7.4 RBC 2.48 L Hgb 8.0 L Hct 23.1 L MCV 93.2 MCH 32.1 MCHC 34.4 RDW 19.2 H Plt Count 187 MPV 8.0 Neut % (Auto) 81.4 H Lymph % (Auto) 8.3 L Dare % (Auto) 7.3 Eos % (Auto) 2.3 Baso % (Auto) 0.7 Neut # (Auto) 6.0 Lymph # (Auto) 0.6 L Dare # (Auto) 0.5 Eos # (Auto) 0.2 Baso # (Auto) 0.0 WBC Differential . Differential Comment Auto diff final Sodium 136 Potassium 4.1 Chloride 99 Carbon Dioxide 27.0 Anion Gap 10 BUN 41 H Creatinine 2.49 H Estimated GFR 26 L POC Glucose 164 H Random Glucose 127 H Calcium 8.4 L Phosphorus 4.0 Magnesium 2.2 Albumin 2.1 L 07/19/18 11:33 WBC RBC Hgb Hct MCV MCH MCHC RDW Plt Count MPV Neut % (Auto) Lymph % (Auto) Dare % (Auto) Eos % (Auto) Baso % (Auto) Neut # (Auto) Lymph # (Auto) Dare # (Auto) Eos # (Auto) Baso # (Auto) WBC Differential Differential Comment Sodium Potassium Chloride Carbon Dioxide Anion Gap BUN Creatinine Estimated GFR POC Glucose 230 H Random Glucose Calcium Phosphorus Magnesium Albumin - Procedures 07/15/2018 SURGEON: Omaira Galindo DPM LOADING UNIT OPERATOR SEATING: None. PREOPERATIVE DIAGNOSIS: Left fifth digit dry gangrene. POSTOPERATIVE DIAGNOSIS: Left fifth digit dry gangrene. PROCEDURE PERFORMED: Left fifth digit amputation. PATHOLOGY SENT: Left fifth digit. ANESTHESIA: MAC. INJECTABLES: 10 mL of 0.5% Marcaine plain. IV FLUIDS: 100 mL. MATERIALS USED: 2-0 Prolene. COMPLICATIONS: None. INDICATIONS: Mr. Heard is a 72-year-old male patient who suffers from PAD. He recently had a revascularization to help address the dry gangrene of the left fifth digit. The stenting and angio where deemed a success by the vascular team. A decision was made to take him to the operating room to amputate the necrotic digit. The consent was signed. The procedure was explained. No guarantees were given. DESCRIPTION OF PROCEDURE: Under mild sedation, the patient was brought into the operating room, placed on the operating table in a supine position. Following IV sedation, the foot was scrubbed, prepped and draped in the usual aseptic manner. Attention was directed to the fifth digit, which was fully mummified and necrosed. A medial to lateral oriented double ellipse incision, 1 dorsal and 1 plantar, were created in order to create a circumferential incision around the MPJ. It was deepened through skin and subcutaneous tissue with care being taken to identify and retract any vital neurovascular structures. The toe was disarticulated at the metatarsophalangeal joint and sent to pathology for further evaluation. There was adequate bleeding at the time of the amputation; however, there is also some necrosis to the lateral aspect of the fourth digit. This necrotic area was debrided, but left intact as there was not enough skin to excise it and close it. The area was flushed with copious amounts of sterile saline and closed with 2-0 Prolene under moderate tension on the most medial aspect. The foot was then cleansed with sterile saline again. Toe was sent to Pathology for further evaluation. 10 mL of 0.5% Marcaine plain were injected around the incision site. Sterile dressings of Adaptic, 4 x 4's, cast padding and a very light Shan Bandage were applied. The patient tolerated the procedure and the anesthesia well. He will recover in the PACU for a period of time before being discharged back to his room with written and oral instructions. We will discuss the complications involving the fourth digit with the family at his postoperative evaluation. Omaira Galindo DPM LMW/ns , 08:45 AM- Preoperative Diagnosis (1) Peripheral vascular occlusive disease - Postoperative Diagnosis (1) Peripheral vascular occlusive disease Date of procedure: 07/13/18 Procedure: 1. L BALLOON SELLER PETROLEUM REFINING EQUIPMENT OPERATOR (6mm) 2. L SFA PETROLEUM REFINING EQUIPMENT OPERATOR/stent (6x80 drug coated stent, 5mm PETROLEUM REFINING EQUIPMENT OPERATOR) 3. L AT PETROLEUM REFINING EQUIPMENT OPERATOR (2.5-3.0mm tapered balloon) Implants: 1. Zilver PTX (stent) in L SFA 2. R BALLOON SELLER Angioseal Surgeon: Ventura Mcgovern MD Estimated blood loss (mL): 5 IV fluids (mL): 500 Urine output (mL): 300 Pathology: none sent Operation and Findings: 1. L BALLOON SELLER stenosis, successful PETROLEUM REFINING EQUIPMENT OPERATOR 2. L SFA In-stent stenosis, successful PETROLEUM REFINING EQUIPMENT OPERATOR 3. Distal SFA [place] disease, PETROLEUM REFINING EQUIPMENT OPERATOR/stent 4. AT disease, successful stent At end, in-line flow to fo ---- Ventura Mcgovern MD DATE OF OPERATION: 07/13/2018 PREOPERATIVE DIAGNOSIS: Left lower extremity tissue loss, peripheral vascular disease. POSTOPERATIVE DIAGNOSIS: Left lower extremity tissue loss, peripheral vascular disease. PROCEDURE: 1. Aortogram with left lower extremity angiogram. 2. Left common femoral artery angioplasty with a 6 mm balloon. 3. Left superficial femoral artery angioplasty and stent with a 6 x 80 Zilver PTX and 5 mm balloon for the in-stent stenosis. 4. Left anterior tibial artery angioplasty with a tapered 2.5 to 3 mm balloon. 5. Right common femoral artery Angio-Seal. ATTENDING SURGEON: Ventura Mcgovern MD. ANESTHESIA: General. INDICATIONS: Mr. Heard is a 72-year-old gentleman with multiple comorbidities who has left lower extremity tissue loss and nonpalpable pedal pulses. He was taken to the operating room for angiographic evaluation and treatment. DESCRIPTION OF PROCEDURE: Informed consent was obtained. The patient was taken to the operating room and placed supine on the operating table. An appropriate timeout was taken to ensure the patient's identity, operative site and planned procedure. The administration of antibiotics was not necessary as the patient is on systemic and therapeutic antibiotics, and these will be continued postoperatively for ongoing therapy. Everyone in the room agreed with timeout and we proceeded. He was prepped from his nipples to his knees. A 21-gauge micropuncture needle was used to access the right common femoral artery. This was exchanged using Seldinger technique for micropuncture sheath, through which a 0.035 Glidewire was introduced and the micropuncture sheath was exchanged for a 5-Scottish sheath. A VCF catheter was then withdrawn through the sheath and aortogram and pelvic arteriogram was obtained. The Glidewire and VCF catheter were navigated down to the left common femoral artery and the left lower extremity arteriogram was obtained. The patient was then heparinized with 5000 units of IV heparin and approximately 45 minutes later, 3000 additional units were administered. A 0.035 Glidewire was introduced and passed down to the mid SFA. The VCF catheter was advanced over this and the glide was exchanged for a Roger. With the Roger in the mid SFA, the VCF catheter and 5-Scottish sheath removed and a 6-Scottish 55 cm antral sheath was introduced. A 6 x 20 balloon was used to angioplasty the left common femoral artery and the completion angiogram showed excellent result without any recoil extravasation. We then used several wires and catheters to get down to the distal SFA and this was confirmed angiographically with an angiogram through the CXI catheter. A Roger wire was then placed. The CXI catheter was removed and the entire distal SFA beyond the preexisting stents were angioplastied with a 5 mm balloon. The completion angiogram showed a residual stenosis and this was treated with a 6 x 80 Zilver PTX stent. This stent was postdilated 5 mm and additionally the entire SFA in-stent stenosis was angioplastied with 5 mm. The completion angiogram showed excellent result of the common femoral artery SFA without any in-stent restenosis, extravasation or flow-limiting dissections. We then advanced a CXI catheter down over the Roger and the Roger was exchanged for a Glidewire. The CXI was advanced down to the anterior tibial artery and past the genu of the anterior tibial artery. The glide was removed and a 0.014 HURL SHAKER wire was then introduced and a 0.018 CXI catheter was placed over the wire and through the other 0.035 CXI catheter. We were able to navigate the HURL SHAKER wire down to the distal anterior tibial artery and both catheters were removed. The entire anterior tibial artery was angioplastied with a 2.5 to 3 mm tapered angioplasty balloon. The completion angiogram showed excellent result without any recoil extravasation flow into dissection. There was good perfusion all the way into the arch of the foot. The wire, catheter and sheath were removed and the groin was closed with an Angio-Seal. There were no complications. I was present and scrubbed, and performed the entire procedure. Ventura Mcgovern MD Assessment and Plan - Assessment (1) Gangrene Code(s): I96 - Gangrene, not elsewhere classified Status: Acute (2) Gangrene of toe Code(s): I96 - Gangrene, not elsewhere classified Status: Acute - Plan Dressing changed 07/19/18 WB with post op shoe. Pending placement. Dr Covarrubias with begin coverage 07/20/18
--- NOTE | 2018-07-19 18:36 | P.PNNP ---
Subjective Interval history: He is responding to diuretic. Good urine output. Some improvement in renal function. Patient's is concerned about scrotal edema. Physical Exam Vital signs: Vital Signs 07/18/18 20:00 07/19/18 00:00 07/19/18 04:00 Temperature 97.8 F 98 F 97.7 F Pulse Rate 62 64 78 Respiratory Rate 17 17 17 Blood Pressure 131/56 L 127/60 112/56 L Pulse Oximetry 99 100 96 07/19/18 08:00 07/19/18 11:36 07/19/18 16:00 Temperature 97.9 F 98.3 F 98.2 F Pulse Rate 64 81 79 Respiratory Rate 20 18 16 Blood Pressure 129/61 126/60 125/54 L Pulse Oximetry 95 98 96 Intake & Output 07/18/18 07/19/18 07/19/18 18:59 06:59 18:59 Intake Total 250 / 250 580 / 580 50 / 50 Output Total 2450 / 2450 Balance 250 / 250 -1870 / -1870 50 / 50 Weight 103.8 kg Intake: IV 250 / 250 100 / 100 50 / 50 Zosyn 2.25 GM Premix 50 ML @ 50 / 50 100 / 100 50 / 50 100 mls/hr IV.SIG Q8H [facility] Rx#: [id number] Zosyn 3.375 GM Premix 50 ML @ 50 / 50 100 mls/hr IV.SIG Q8H [facility] Rx#: [id number] Oral 480 / 480 Output: Urine Amount (Catheter) 2450 / 2450 Indwelling Urethral Catheter 2450 / 2450 Other: Date of Last Bowel Movement 07/09/18 07/19/18 # Bowel Movements 1 Narrative: GENERAL: Well-developed, elderly in no apparent distress SKIN: some excoriations on the left leg. HEAD: Atraumatic. Normocephalic. EYES: Pupils equal and round. No scleral icterus. No injection or drainage. ENT: No nasal bleeding or discharge. Mucous membranes pink and moist. NECK: Trachea midline. No JVD. CARDIOVASCULAR: Regular rate and rhythm. RESPIRATORY: No accessory muscle use. Bilateral lower lobes with fine crackles auscultation. Breath sounds equal bilaterally. GASTROINTESTINAL: Abdomen obese soft, non-tender, slight distention. No organomegaly. MUSCULOSKELETAL: Extremities without clubbing, cyanosis, with generalized edema , pitting edema in lower back down to the thigh and legs. NEUROLOGICAL: Awake and alert and oriented x 3. No obvious cranial nerve deficits. Motor grossly within normal limits. Generalized weakness in all 4 extremities.. Normal speech. - Urinary Catheter Management Indwelling Urethral Catheter Cath placed during this visit: yes Reason for continuing: Hourly intake/output Insertion date: 07/15/18 Insertion time: 13:44 Indwelling Temp Sensing Catheter Cath placed during this visit: yes, but has since been removed by the nurse Reason for continuing: Decision to DC catheter Insertion date: 07/13/18 Insertion time: 13:17 Removal date: 07/14/18 Removal time: 16:00 Assessment and Plan - Assessment (1) Acute kidney injury Code(s): N17.9 - Acute kidney failure, unspecified Status: Acute Plan: could be due to contrast nephropathy, also will have to consider the possibility of cholesterol embolization. Renal US negative for hydronephrosis. Urine electrolytes not done, although ordered. Continue Bumex. Avoid nephrotoxic agents. Monitor urine output. (2) Chronic systolic congestive heart failure Code(s): I50.22 - Chronic systolic (congestive) heart failure Status: Acute Plan: continue diuretic. Appears to be in fluid overload. EF apparently about 30%. Monitor fluid and electrolytes. (3) Peripheral vascular occlusive disease Code(s): I73.9 - Peripheral vascular disease, unspecified Status: Acute Plan: s/p revascularization. Vascular surgery following. 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 (5) Ascites Code(s): R18.8 - Other ascites Status: Acute Plan: Due to CHF? Paracentesis on the .
[2018-07-19] MEDS: Clotrimazole 1% Cream 15 GM Tube TOPICAL SCH (21:39)
[2018-07-19] MEDS: Lactic Acid (Ammonium Lactate) 12% Lotion 225 GM Bottle TOPICAL SCH (21:39)
[2018-07-20 00:43] LABS: Bilirubin,Urine Negative (Negative); Clarity,Urine Cloudy (Clear); Color,Urine Yellow (Yellw/Straw); Glucose,Urine (UA) Negative (Negative); Leukocyte Esterase,Urine Large (Negative); Nitrite,Urine Negative (Negative); Urobilinogen,Urine 0.2 mg/dL (Less than 2)
[2018-07-20 01:24] LABS: Specific Gravity,Urine 1.006 (1.002-1.035); WBC,Urine 21-50 /hpf (0-5)
[2018-07-20 01:25] LABS: Bacteria,Urine Rare /hpf
[2018-07-20] MEDS: Piperacil/Tazo 2.25 GM Premix 50 ML IV.SIG SCH ×2 (05:00→12:27)
[2018-07-20] MEDS: Levothyroxine 100 MCG Tablet PO SCH (06:13)
[2018-07-20 08:12] LABS: Baso % (Auto) 0.6 % (0.0-2.0); Eos # (Auto) 0.2 th/mm3 (0.0-0.4); Eos % (Auto) 2.4 % (0.0-4.0); Hemoglobin 8.1 gm/dL (13.0-17.0); Lymph # (Auto) 0.8 th/mm3 (1.0-4.8); Lymph % (Auto) 9.9 % (9.0-44.0); Mean Corpuscular HGB Conc 33.6 % (32.0-36.0); Mean Corpuscular Hemoglobin 31.5 pg (27.0-34.0); Mean Platelet Volume 7.5 fL (7.0-11.0); Mono # (Auto) 0.7 th/mm3 (0.0-0.9); Mono % (Auto) 9.2 % (0.0-8.0); Neut % (Auto) 77.9 % (16.0-70.0); Platelet Count 210 th/mm3 (150-450); Red Blood Count 2.56 mil/mm3 (4.50-5.90); Red Cell Distribution Width 19.1 % (11.6-17.2); White Blood Count 7.7 th/mm3 (4.0-11.0)
[2018-07-20 08:44] LABS: Calcium 8.6 mg/dL (8.5-10.1); Carbon Dioxide 29.1 meq/L (21.0-32.0); Potassium 3.5 meq/L (3.5-5.1)
[2018-07-20] MEDS: Senna/Docusate Sodium 8.6/50 MG Tablet PO SCH (08:57)
[2018-07-20] MEDS: Carvedilol 12.5 MG Tablet PO SCH ×2 (08:57→09:39)
[2018-07-20] MEDS: Docusate Sodium 100 MG Capsule PO SCH ×2 (08:57→09:06)
[2018-07-20] MEDS: Lactic Acid (Ammonium Lactate) 12% Lotion 225 GM Bottle TOPICAL SCH (08:58)
[2018-07-20] MEDS: Gabapentin 100 MG Capsule PO SCH ×2 (08:58→12:27)
[2018-07-20] MEDS: Isosorbide Mononitrate 30 MG ER 24HR Tablet (Imdur) PO SCH (08:58)
[2018-07-20] MEDS: Insulin NovoLOG Aspart Correctional Sugar Inj SQ SCH ×2 (08:59→12:27)
[2018-07-20] MEDS: Clotrimazole 1% Cream 15 GM Tube TOPICAL SCH (08:59)
[2018-07-20] MEDS ORDERED: Insulin Glargine Inj 1,000 UNITS/10 ML Vial SQ SCH (09:00)
--- NOTE | 2018-07-20 09:37 | P.DS ---
Date of admission: 07/10/18 13:53 Primary care physician: UNKNOWN Attending physician on discharge: Gildardo Alfaro Anticipated date of discharge: 07/20/18 Brief History from admission: This 71-year-old gentleman presents to [facility] with worsening left foot and toe pain. He has been seen Dr. Eddy for management of his fifth toe gangrene and cellulitis. He has received multiple rounds of antibiotics without improvement. 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 He has chronic dependent edema, he has had his abdomen tapped several times for ascites, he clearly has dyspnea at rest. His home medications include Eliquis 2.5 mg twice daily, carvedilol 12.5 mg twice daily, Lasix 40 mg daily, gabapentin 100 mg 3 times daily, levothyroxine 100 mcg daily, oxycodone 15 mg 3 times daily. His insulin regimen was NPH Humulin 10 units subcu twice daily but that has recently changed. Frontal lactone 50 mg p.o. daily. Plan to discharge the patient on SNF rehab facility for deconditioning, physical therapy, medical management, dressing changes and help with ADLs. Family agreed. Discussed with case management to assist with placement. Patient update on day of discharge: Follow-up left 5th toe gangrene s/p amputation, left leg cellulitis, DAVID, atrial fibrillation, CHF, severe PAD, and CAD s/p CABG. patient seen and examined laying in bed family at bedside patient denies any pain or shortness of breath, denies any leg pain or discomfort. Denies any foot pain. Stated up with Dr. Mitchell last night for dressing change and the next dressing change will be on Tuesday again. Discussed discharge planning recommended SNF/rehab placement, patient and family agreed. Will consult vp client services to assist with placement. Patient denies any headache or dizziness, denies any chest pain or shortness of breath, diarrhea or constipation. Denies any fever or chills. Plan to discharge the patient on SNF rehab facility for deconditioning, physical therapy, medical management, dressing changes and help with ADLs. Family agreed. Discussed with case management to assist with placement. DS: Diagnosis - Discharge Diagnosis (1) CHF (congestive heart failure) Status: Acute (2) Atrial fibrillation Status: Acute (3) Diabetes mellitus type 2 in obese Status: Acute (4) Peripheral vascular occlusive disease Status: Acute (5) Gangrene of toe Status: Acute (6) Acute kidney injury Status: Acute (7) Chronic systolic congestive heart failure Status: Acute (8) Ascites Status: Acute DS: Medications - Discharge Medications Prescriptions: ammonium lactate [AmLactin] 1 applicatio TOPICAL BID 7 Days #1 g bumetanide 2 mg PO BID@0900,1800 30 Days #60 ml carvedilol [Coreg] 3.25 mg PO BID 30 Days #60 tab cephalexin [Keflex] 500 mg PO TID 5 Days #15 cap clopidogrel [Plavix] 75 mg PO DAILY 30 Days #30 tab clotrimazole 1 applicatio TOPICAL BID 7 Days #1 g oxycodone 15 mg PO Q8H PRN 3 Days #9 tab PRN Reason: Pain DS: Summary Hospital Course: This 71-year-old gentleman presents to [facility] with worsening left foot and toe pain. He has been seen Dr. Muñoz for management of his fifth toe gangrene and cellulitis. He has received multiple rounds of antibiotics without improvement. 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 He has chronic dependent edema, he has had his abdomen tapped several times for ascites. Patient was treated with IV antibiotic for left leg cellulitis and management of acute and chronic medical problems such as CHF, diabetes mellitus , hypothyroidism and acute kidney injury on CKD Patient had percutaneous revascularization of left lower extremity on [address] Mcgovern Patient had left feet toe amputation of gangrenous toe on 07/15/2018 Patient had paracentesis on 07/17/[address] Covarrubias, plan for discharge to SNF agreed with antibiotic/Keflex for 5 days. Follow-up in 1 week. Nephrology recommended to continue diuresis with Bumex. Will follow up with nephrology as an outpatient. - Time Spent with Patient Total time spent providing and/or coordinating discharge services: Greater than 30 minutes - Quality: VTE Deep Vein Thrombosis/Pulmonary Embolism Present on Admission: No Exam Vital signs: Vital Signs 07/19/18 11:36 07/19/18 16:00 07/19/18 20:00 Temperature 98.3 F 98.2 F 98.1 F Pulse Rate 81 79 79 Respiratory Rate 18 Blood Pressure 126/60 125/54 L 125/56 L Pulse Oximetry 98 96 98 07/19/18 22:00 07/20/18 00:00 07/20/18 04:00 Temperature 98.6 F 98.5 F Pulse Rate 82 79 Respiratory Rate 18 Blood Pressure 112/56 L 124/58 L Pulse Oximetry 96 94 L 07/20/18 08:00 Temperature 98.4 F Pulse Rate 58 L Respiratory Rate Blood Pressure 147/65 H Pulse Oximetry 98 Intake & Output 07/19/18 07/20/18 07/20/18 18:59 06:59 18:59 Intake Total 50 / 50 220 / 220 Output Total 1750 / 1750 Balance 50 / 50 -1530 / -1530 Weight 94.5 kg Intake: IV 50 / 50 100 / 100 Zosyn 2.25 GM Premix 50 ML @ 50 / 50 100 / 100 100 mls/hr IV.SIG Q8H [facility] Rx#: [id number] Oral 120 / 120 Output: Urine Amount (Catheter) 1750 / 1750 Indwelling Urethral Catheter 1750 / 1750 Other: Date of Last Bowel Movement 07/19/18 07/19/18 Narrative: GENERAL: Well-developed, elderly in no apparent distress SKIN: Warm and dry. Left lower leg edema, redness and skin peeling. Groin redness and excoriation, sacral wound and excoriation HEAD: Atraumatic. Normocephalic. EYES: Pupils equal and round. No scleral icterus. No injection or drainage. ENT: No nasal bleeding or discharge. Mucous membranes pink and moist. NECK: Trachea midline. No JVD. CARDIOVASCULAR: Regular rate and rhythm. RESPIRATORY: No accessory muscle use. Bilateral lower lobes with fine crackles auscultation. Breath sounds equal bilaterally. GASTROINTESTINAL: Abdomen obese soft, non-tender, slight distention. Hepatic and splenic margins not palpable. : Mojica catheter in place, scrotal swelling, and penile swelling, groin site redness. MUSCULOSKELETAL: Extremities without clubbing, cyanosis, with generalized edema , pitting edema in lower back down to the thigh and legs. Left foot dressing and wrapped with Shan wrap, with postop shoe NEUROLOGICAL: Awake and alert and oriented x 3. No obvious cranial nerve deficits. Motor grossly within normal limits. Generalized weakness in all 4 extremities.. Normal speech. PSYCHIATRIC: Appropriate mood and affect; insight and judgment normal. Results Procedures completed during hospitalization: 07/15/2018 SURGEON: Omaira Galindo DPM STILL OPERATOR HELPER: None. PREOPERATIVE DIAGNOSIS: Left fifth digit dry gangrene. POSTOPERATIVE DIAGNOSIS: Left fifth digit dry gangrene. PROCEDURE PERFORMED: Left fifth digit amputation. PATHOLOGY SENT: Left fifth digit. ANESTHESIA: MAC. INJECTABLES: 10 mL of 0.5% Marcaine plain. IV FLUIDS: 100 mL. MATERIALS USED: 2-0 Prolene. COMPLICATIONS: None. INDICATIONS: Mr. Heard is a 72-year-old male patient who suffers from PAD. He recently had a revascularization to help address the dry gangrene of the left fifth digit. The stenting and angio where deemed a success by the vascular team. A decision was made to take him to the operating room to amputate the necrotic digit. The consent was signed. The procedure was explained. No guarantees were given. DESCRIPTION OF PROCEDURE: Under mild sedation, the patient was brought into the operating room, placed on the operating table in a supine position. Following IV sedation, the foot was scrubbed, prepped and draped in the usual aseptic manner. Attention was directed to the fifth digit, which was fully mummified and necrosed. A medial to lateral oriented double ellipse incision, 1 dorsal and 1 plantar, were created in order to create a circumferential incision around the MPJ. It was deepened through skin and subcutaneous tissue with care being taken to identify and retract any vital neurovascular structures. The toe was disarticulated at the metatarsophalangeal joint and sent to pathology for further evaluation. There was adequate bleeding at the time of the amputation; however, there is also some necrosis to the lateral aspect of the fourth digit. This necrotic area was debrided, but left intact as there was not enough skin to excise it and close it. The area was flushed with copious amounts of sterile saline and closed with 2-0 Prolene under moderate tension on the most medial aspect. The foot was then cleansed with sterile saline again. Toe was sent to Pathology for further evaluation. 10 mL of 0.5% Marcaine plain were injected around the incision site. Sterile dressings of Adaptic, 4 x 4's, cast padding and a very light Shan Bandage were applied. The patient tolerated the procedure and the anesthesia well. He will recover in the PACU for a period of time before being discharged back to his room with written and oral instructions. We will discuss the complications involving the fourth digit with the family at his postoperative evaluation. Omaira Galindo DPM LMW/ns , 08:45 AM- Preoperative Diagnosis (1) Peripheral vascular occlusive disease - Postoperative Diagnosis (1) Peripheral vascular occlusive disease Date of procedure: 07/13/18 Procedure: 1. L SHIPPING HAND ASBESTOS SIDING MECHANIC (6mm) 2. L SFA ASBESTOS SIDING MECHANIC/stent (6x80 drug coated stent, 5mm ASBESTOS SIDING MECHANIC) 3. L AT ASBESTOS SIDING MECHANIC (2.5-3.0mm tapered balloon) Implants: 1. Zilver PTX (stent) in L SFA 2. R SHIPPING HAND Angioseal Surgeon: Ventura Mcgovern MD Estimated blood loss (mL): 5 IV fluids (mL): 500 Urine output (mL): 300 Pathology: none sent Operation and Findings: 1. L SHIPPING HAND stenosis, successful ASBESTOS SIDING MECHANIC 2. L SFA In-stent stenosis, successful ASBESTOS SIDING MECHANIC 3. Distal SFA [place] disease, ASBESTOS SIDING MECHANIC/stent 4. AT disease, successful stent At end, in-line flow to fo ---- Ventura Mcgovern MD DATE OF OPERATION: 07/13/2018 PREOPERATIVE DIAGNOSIS: Left lower extremity tissue loss, peripheral vascular disease. POSTOPERATIVE DIAGNOSIS: Left lower extremity tissue loss, peripheral vascular disease. PROCEDURE: 1. Aortogram with left lower extremity angiogram. 2. Left common femoral artery angioplasty with a 6 mm balloon. 3. Left superficial femoral artery angioplasty and stent with a 6 x 80 Zilver PTX and 5 mm balloon for the in-stent stenosis. 4. Left anterior tibial artery angioplasty with a tapered 2.5 to 3 mm balloon. 5. Right common femoral artery Angio-Seal. ATTENDING SURGEON: Ventura Mcgovern MD. ANESTHESIA: General. INDICATIONS: Mr. Heard is a 72-year-old gentleman with multiple comorbidities who has left lower extremity tissue loss and nonpalpable pedal pulses. He was taken to the operating room for angiographic evaluation and treatment. DESCRIPTION OF PROCEDURE: Informed consent was obtained. The patient was taken to the operating room and placed supine on the operating table. An appropriate timeout was taken to ensure the patient's identity, operative site and planned procedure. The administration of antibiotics was not necessary as the patient is on systemic and therapeutic antibiotics, and these will be continued postoperatively for ongoing therapy. Everyone in the room agreed with timeout and we proceeded. He was prepped from his nipples to his knees. A 21-gauge micropuncture needle was used to access the right common femoral artery. This was exchanged using Seldinger technique for micropuncture sheath, through which a 0.035 Glidewire was introduced and the micropuncture sheath was exchanged for a 5-Angolan sheath. A VCF catheter was then withdrawn through the sheath and aortogram and pelvic arteriogram was obtained. The Glidewire and VCF catheter were navigated down to the left common femoral artery and the left lower extremity arteriogram was obtained. The patient was then heparinized with 5000 units of IV heparin and approximately 45 minutes later, 3000 additional units were administered. A 0.035 Glidewire was introduced and passed down to the mid SFA. The VCF catheter was advanced over this and the glide was exchanged for a Roger. With the Roger in the mid SFA, the VCF catheter and 5-Angolan sheath removed and a 6-Angolan 55 cm antral sheath was introduced. A 6 x 20 balloon was used to angioplasty the left common femoral artery and the completion angiogram showed excellent result without any recoil extravasation. We then used several wires and catheters to get down to the distal SFA and this was confirmed angiographically with an angiogram through the CXI catheter. A Roger wire was then placed. The CXI catheter was removed and the entire distal SFA beyond the preexisting stents were angioplastied with a 5 mm balloon. The completion angiogram showed a residual stenosis and this was treated with a 6 x 80 Zilver PTX stent. This stent was postdilated 5 mm and additionally the entire SFA in-stent stenosis was angioplastied with 5 mm. The completion angiogram showed excellent result of the common femoral artery SFA without any in-stent restenosis, extravasation or flow-limiting dissections. We then advanced a CXI catheter down over the Roger and the Roger was exchanged for a Glidewire. The CXI was advanced down to the anterior tibial artery and past the genu of the anterior tibial artery. The glide was removed and a 0.014 SALES SUPPORT ASSISTANT wire was then introduced and a 0.018 CXI catheter was placed over the wire and through the other 0.035 CXI catheter. We were able to navigate the SALES SUPPORT ASSISTANT wire down to the distal anterior tibial artery and both catheters were removed. The entire anterior tibial artery was angioplastied with a 2.5 to 3 mm tapered angioplasty balloon. The completion angiogram showed excellent result without any recoil extravasation flow into dissection. There was good perfusion all the way into the arch of the foot. The wire, catheter and sheath were removed and the groin was closed with an Angio-Seal. There were no complications. I was present and scrubbed, and performed the entire procedure. Ventura Mcgovern MD Completed studies during hospitalization: Pending at discharge 07/15/18 09:25 Surgical [PTH] Routine Labs on day of discharge: Labs from last 24 hours 07/20/18 07/20/18 07/20/18 08:00 07:30 07:30 WBC 7.7 RBC 2.56 L Hgb 8.1 L Hct 24.0 L MCV 94.0 MCH 31.5 MCHC 33.6 RDW 19.1 H Plt Count 210 MPV 7.5 Neut % (Auto) 77.9 H Lymph % (Auto) 9.9 [place] % (Auto) 9.2 H Eos % (Auto) 2.4 Baso % (Auto) 0.6 Neut # (Auto) 6.0 Lymph # (Auto) 0.[address] [place] # (Auto) 0.7 Eos # (Auto) 0.2 Baso # (Auto) 0.0 WBC Differential . Differential Comment Auto diff final Sodium 136 Potassium 3.5 Chloride 97 L Carbon Dioxide 29.1 Anion Gap 10 BUN 30 H Creatinine 1.82 H Estimated GFR 37 L POC Glucose 153 H Random Glucose 133 H Calcium 8.6 Phosphorus Urine Color Urine Clarity Urine pH Ur Specific [place] Urine Protein Urine Glucose (UA) Urine Ketones Urine Occult Blood Urine Nitrate Urine Bilirubin Urine Urobilinogen Ur Leukocyte Esterase Urine WBC Urine Bacteria Urine Yeast Ur Yeast w Hyphae Micro UA Comment Ur Microscopic Review Urine Culture Comments Ur Random Creatinine Ur Random Sodium 07/19/18 07/19/18 07/19/18 22:30 22:30 22:30 WBC RBC Hgb Hct MCV MCH MCHC RDW Plt Count MPV Neut % (Auto) Lymph % (Auto) [place] % (Auto) Eos % (Auto) Baso % (Auto) Neut # (Auto) Lymph # (Auto) [place] # (Auto) Eos # (Auto) Baso # (Auto) WBC Differential Differential Comment Sodium Potassium Chloride Carbon Dioxide Anion Gap BUN Creatinine Estimated GFR POC Glucose Random Glucose Calcium Phosphorus Urine Color Yellow Urine Clarity Cloudy H Urine pH 5.0 Ur Specific [place] 1.006 Urine Protein Negative Urine Glucose (UA) Negative Urine Ketones Negative Urine Occult Blood Trace H Urine Nitrate Negative Urine Bilirubin Negative Urine Urobilinogen 0.2 Ur Leukocyte Esterase Large H Urine WBC 21-50 H Urine Bacteria Rare H Urine Yeast Moderate H Ur Yeast w Hyphae Moderate H Micro UA Comment Cath-culture ind Ur Microscopic Review Not Reportable Urine Culture Comments Cath-cult indicated Ur Random Creatinine 16 L Ur Random Sodium 104 07/19/18 07/19/18 07/19/18 22:30 21:38 17:22 WBC RBC Hgb Hct MCV MCH MCHC RDW Plt Count MPV Neut % (Auto) Lymph % (Auto) [place] % (Auto) Eos % (Auto) Baso % (Auto) Neut # (Auto) Lymph # (Auto) [place] # (Auto) Eos # (Auto) Baso # (Auto) WBC Differential Differential Comment Sodium Potassium Chloride Carbon Dioxide Anion Gap BUN Creatinine Estimated GFR POC Glucose 220 H 180 H Random Glucose Calcium Phosphorus 3.4 Urine Color Urine Clarity Urine pH Ur Specific [place] Urine Protein Urine Glucose (UA) Urine Ketones Urine Occult Blood Urine Nitrate Urine Bilirubin Urine Urobilinogen Ur Leukocyte Esterase Urine WBC Urine Bacteria Urine Yeast Ur Yeast w Hyphae Micro UA Comment Ur Microscopic Review Urine Culture Comments Ur Random Creatinine Ur Random Sodium 07/19/18 11:33 WBC RBC Hgb Hct MCV MCH MCHC RDW Plt Count MPV Neut % (Auto) Lymph % (Auto) [place] % (Auto) Eos % (Auto) Baso % (Auto) Neut # (Auto) Lymph # (Auto) [place] # (Auto) Eos # (Auto) Baso # (Auto) WBC Differential Differential Comment Sodium Potassium Chloride Carbon Dioxide Anion Gap BUN Creatinine Estimated GFR POC Glucose 230 H Random Glucose Calcium Phosphorus Urine Color Urine Clarity Urine pH Ur Specific [place] Urine Protein Urine Glucose (UA) Urine Ketones Urine Occult Blood Urine Nitrate Urine Bilirubin Urine Urobilinogen Ur Leukocyte Esterase Urine WBC Urine Bacteria Urine Yeast Ur Yeast w Hyphae Micro UA Comment Ur Microscopic Review Urine Culture Comments Ur Random Creatinine Ur Random Sodium - Impressions ITS Impressions Foot X-Ray 07/15/18 00:00 CONCLUSION: Fifth digit is absent. There is dorsal foot soft tissue swelling. Paracentesis Ultrasound 07/17/18 00:00 CONCLUSION: 1. Uncomplicated paracentesis. Abdomen/Bladder Ultrasound 07/17/18 17:22 CONCLUSION: 1. Mildly increased renal echotexture characteristic of medical renal disease. No hydronephrosis. Mojica catheter in bladder. Trace ascites. Discharge Plan - Discharge Disposition Patient Disposition: 03 Discharge to SNF - Discharge Condition Condition: Fair - Discharge Order Discharge Orders: Discharge Order (Routine); Ordered 07/20/18 Ordered By: Kaylene Caldwell - Discharge Details Anticipated Discharge Date: 07/20/18 Discharge Comment: Follow-up with podiatry Dr. Covarrubias, in 1-2 weeks - Physicians Team Primary Care Provider: UNKNOWN, Attending Provider: Gildardo Alfaro Other Providers: Ventura Mcgovern MD ; Alberta Covarrubias DPM ; Bony Valdivia MD ; [facility], [place] - Rxs /Orders / Referrals /Forms Prescriptions: New acetaminophen 325 mg Tablet 650 mg PO Q6H PRN (Reason: Pain 1-10 And/Or Fever >101f) RF: 0 ammonium lactate [AmLactin] 12 % Lotion 1 applicatio Topical BID 7 Days Qty: 1 RF: 0 bisacodyl [Bisac-Evac] 10 mg Suppository 10 mg [place] DAILY PRN (Reason: Severe Consitipation) RF: 0 bumetanide 0.25 mg/mL Solution 2 mg PO BID@0900,1800 30 Days Qty: 60 RF: 0 carvedilol [Coreg] 3.125 mg Tablet 3.25 mg PO BID 30 Days Qty: 60 RF: 0 cephalexin [Keflex] 500 mg Capsule 500 mg PO TID 5 Days Qty: 15 RF: 0 chlorhexidine gluconate 2 % Towelette 3 pack Topical DAILY@0400 PRN (Reason: Extra cloth needed) RF: 0 chlorhexidine gluconate 2 % Towelette 3 pack Topical DAILY@0400 RF: 0 clopidogrel [Plavix] 75 mg Tablet 75 mg PO DAILY 30 Days Qty: 30 RF: 0 clotrimazole 1 % Cream 1 applicatio Topical BID 7 Days Qty: 1 RF: 0 ipratropium-albuterol 0.5 mg-3 mg(2.5 mg base)/3 mL Solution For Nebulization 1 amp NEB Q6HR NEB RF: 0 lactulose 20 gram/30 mL Solution 30 ml PO DAILY PRN (Reason: Severe Consitipation) RF: 0 magnesium hydroxide [Milk of Magnesia] 400 mg/5 mL Suspension 30 ml PO Q12H PRN (Reason: Mild Constipation) RF: 0 ondansetron HCl (PF) 4 mg/2 mL Solution 4 mg IV.PUSH Q6H PRN (Reason: Nausea Or Vomiting) RF: 0 oxycodone 15 mg Tablet 15 mg PO Q8H PRN (Reason: Pain) 3 Days Qty: 9 sennosides [Senna Lax] 8.6 mg Tablet 17.2 mg PO Q12H PRN (Reason: Moderate Constipation) RF: 0 sennosides-docusate sodium [Senna Plus] 8.6-50 mg Tablet 1 tab PO BID RF: 0 sodium chloride 0.9 % [Normal Saline Flush] Syringe 2 ml IV.FLUSH BID RF: 0 sodium chloride 0.9 % [Normal Saline Flush] Syringe 2 ml IV.FLUSH PRN PRN (Reason: Flush After Using Iv Access) RF: 0 Continue apixaban [Eliquis] 2.5 mg Tablet 2.5 mg PO BID atorvastatin 40 mg Tablet 40 mg PO DAILY docusate sodium [Dulcolax Stool Softener (dss)] 100 mg Capsule 300 mg PO DAILY gabapentin 100 mg Capsule 200 mg PO TID insulin NPH isoph U-100 human [Humulin N NPH Insulin KwikPen] 100 unit/mL (3 mL) Insulin Pen 50 unit SUBCUT BID PRN (Reason: Hyperglycemia) isosorbide mononitrate 30 mg Tablet Extended Release 24 Hr 30 mg PO DAILY levothyroxine 100 mcg Capsule 100 mcg PO DAILY nitroglycerin 0.4 mg Tablet, Sublingual 0.4 mg SUBLINGUAL Q5-15M PRN (Reason: Chest Pain) Saccharomyces boulardii 250 mg Capsule 250 mg PO DAILY Discontinued carvedilol 12.5 mg Tablet 12.5 mg PO BID furosemide [Lasix] 80 mg Tablet 80 mg PO DAILY metolazone 5 mg Tablet 5 mg PO DAILY spironolactone 50 mg Tablet 50 mg PO DAILY Referrals: Alberta Covarrubias DPM [Physician] - See Instructions Ventura Mcgovern MD [Physician] - See Instructions (Your surveillance CARTER is scheduled on 08/01/18 at 10:00 Your follow up appointment is scheduled on 08/04/18 at 11:15) UNKNOWN, [Primary Care Provider] - See Instructions - Discharge Instructions Patient Printed Instructions: Toe Amputation (DC), Angiogram (DC), Gangrene (DC )
--- NOTE | 2018-07-20 11:53 | P.PNNP ---
Subjective Interval history: Patient still had complaints of scrotal edema and weakness. Patient has good urine output. Patient's renal function has improved. <Renita Grubbs - Last Filed: 07/20/18 11:55> Physical Exam Vital signs: Vital Signs 07/19/18 16:00 07/19/18 20:00 07/19/18 22:00 Temperature 98.2 F 98.1 F Pulse Rate 79 79 Respiratory Rate 16 18 18 Blood Pressure 125/54 L 125/56 L Pulse Oximetry 96 98 07/20/18 00:00 07/20/18 04:00 07/20/18 08:00 Temperature 98.6 F 98.5 F 98.4 F Pulse Rate 82 79 58 L Respiratory Rate 18 18 Blood Pressure 112/56 L 124/58 L 147/65 H Pulse Oximetry 96 94 L 98 Intake & Output 07/19/18 07/20/18 07/20/18 18:59 06:59 18:59 Intake Total 50 / 50 220 / 220 Output Total 1750 / 1750 Balance 50 / 50 -1530 / -1530 Weight 94.5 kg Intake: IV 50 / 50 100 / 100 Zosyn 2.25 GM Premix 50 ML @ 50 / 50 100 / 100 100 mls/hr IV.SIG Q8H TOMA Rx#: [id number] Oral 120 / 120 Output: Urine Amount (Catheter) 1750 / 1750 Indwelling Urethral Catheter 1750 / 1750 Other: Date of Last Bowel Movement 07/19/18 07/19/18 - Constitutional no acute distress - Routine HEENT Exam Head: Present: normocephalic Eye: Present: EOMI ENT: Present: mucous membranes moist - Routine Neck Exam Absent: JVD - Routine Respiratory Exam Absent: accessory muscle use Comments: Bilateral rales at bases. - Routine Cardiovascular Exam Present: RRR - Routine Abdominal Exam Present: soft. Absent: tenderness - Routine Exam Testicular: Bilateral swelling - Routine Extremities Exam Present: edema - Routine Skin Exam Present: intact - Routine Neurological Exam Present: alert, oriented X3 - Routine Psychiatric Exam Present: normal affect, normal thought process - Urinary Catheter Management Indwelling Urethral Catheter Cath placed during this visit: yes Reason for continuing: Hourly intake/output Insertion date: 07/15/18 Insertion time: 13:44 Indwelling Temp Sensing Catheter Cath placed during this visit: yes, but has since been removed by the nurse Reason for continuing: Decision to DC catheter Insertion date: 07/13/18 Insertion time: 13:17 Removal date: 07/14/18 Removal time: 16:00 <Renita Grubbs - Last Filed: 07/20/18 11:55> Vital signs: Vital Signs 07/19/18 16:00 07/19/18 20:00 07/19/18 22:00 Temperature 98.2 F 98.1 F Pulse Rate 79 79 Respiratory Rate 16 18 18 Blood Pressure 125/54 L 125/56 L Pulse Oximetry 96 98 07/20/18 00:00 07/20/18 04:00 07/20/18 08:00 Temperature 98.6 F 98.5 F 98.4 F Pulse Rate 82 79 58 L Respiratory Rate 18 18 Blood Pressure 112/56 L 124/58 L 147/65 H Pulse Oximetry 96 94 L 98 07/20/18 11:50 Temperature 99.1 F Pulse Rate 64 Respiratory Rate Blood Pressure 160/65 H Pulse Oximetry 94 L Intake & Output 07/19/18 07/20/18 07/20/18 18:59 06:59 18:59 Intake Total 50 / 50 220 / 220 Output Total 1750 / 1750 Balance 50 / 50 -1530 / -1530 Weight 94.5 kg Intake: IV 50 / 50 100 / 100 Zosyn 2.25 GM Premix 50 ML @ 50 / 50 100 / 100 100 mls/hr IV.SIG Q8H TOMA Rx#: [id number] Oral 120 / 120 Output: Urine Amount (Catheter) 1750 / 1750 Indwelling Urethral Catheter 1750 / 1750 Other: Date of Last Bowel Movement 07/19/18 07/19/18 - Urinary Catheter Management Indwelling Urethral Catheter Cath placed during this visit: no Indwelling Temp Sensing Catheter Cath placed during this visit: no <Bony Valdivia - Last Filed: 07/20/18 12:07> Assessment and Plan - Assessment (1) Acute kidney injury Code(s): N17.9 - Acute kidney failure, unspecified Status: Acute Plan: could be due to contrast nephropathy, also will have to consider the possibility of cholesterol embolization. Renal US negative for hydronephrosis. Continue diuretic. Avoid nephrotoxic agents. Monitor urine output. Patient's renal function is improving. Patient is stable from a renal standpoint. (2) Chronic systolic congestive heart failure Code(s): I50.22 - Chronic systolic (congestive) heart failure Status: Acute Plan: continue diuretic. Appears to be in fluid overload. EF apparently about 30%. Monitor fluid and electrolytes. (3) Peripheral vascular occlusive disease Code(s): I73.9 - Peripheral vascular disease, unspecified Status: Acute Plan: s/p revascularization. Vascular surgery following. 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 (5) Ascites Code(s): R18.8 - Other ascites Status: Acute Plan: Due to CHF? Paracentesis on the . <Renita Grubbs - Last Filed: 07/20/18 11:55> - Assessment (1) Acute kidney injury Code(s): N17.9 - Acute kidney failure, unspecified Status: Acute (2) Chronic systolic congestive heart failure Code(s): I50.22 - Chronic systolic (congestive) heart failure Status: Acute (3) Peripheral vascular occlusive disease Code(s): I73.9 - Peripheral vascular disease, unspecified Status: Acute (4) Gangrene of toe Code(s): I96 - Gangrene, not elsewhere classified Status: Acute (5) Ascites Code(s): R18.8 - Other ascites Status: Acute - Attending Attestation patient was seen and examined. Agree with above assessment and plan. Renal function is improving, continue diuretic. <Bony Valdivia - Last Filed: 07/20/18 12:07>
== END 2018-07-20 17:37 ==
LOC: N03 13:53 → N07 07-16 22:36
PROVIDERS: ADMIT Hospitalist; ATTEND Hospitalist